=== PATIENT | male | born 1935 | race Caucasian/White ===

== ENCOUNTER → 2016-05-22 | Outpatient (CLI) | payer MEDICARE ==
[2016-05-22 12:12] LABS: Blood Urea Nitrogen 20 mg/dL (9-20); Non-African American GFR(MDRD) >60 (>60 ml/min/1.73 sqM)
--- NOTE | 2016-05-22 13:32 | CT ---
EXAMINATION TYPE: CT abdomen pelvis w con DATE OF EXAM: 05/22/2016 12:49 PM COMPARISON: CT abdomen pelvis March 15, 2015. PET/CT June 05, 2015. Nuclear medicine whole body bone scan April 24, 2016. HISTORY: Lower abdominal pain. History of prostate and colon cancer. CT DLP: 1051.60 mGycm, Automated Exposure Control for Dose Reduction was Utilized. CONTRAST: CT scan of the abdomen and pelvis is performed with oral and with IV Contrast, patient injected with 100 mL of Omnipaque 300. FINDINGS: LUNG BASES: Cardiomegaly with right sided pacemaker is redemonstrated. There is some scattered linear atelectasis and/or scarring in both lung bases. LIVER/GB: Cholecystectomy clips are redemonstrated. Liver is diffusely low dense raising concern for fatty infiltration unchanged from prior study. PANCREAS: No significant abnormality is seen. SPLEEN: No significant abnormality is seen. ADRENALS: No significant abnormality is seen. KIDNEYS: No significant abnormality is seen. BOWEL: A fixed moderate size hiatal hernia is again seen. The oral contrast reaches level of splenic flexure. There is no suspicious small or large bowel dilatation. Surgical changes from right-sided he micolectomy are noted. There are diverticula in the left and sigmoid colon. PROSTATE/SEMINAL VESICLES: Prostate gland is surgically absent. Surgical clips in the pelvis are rede monstrated. LYMPH NODES: There are more prominent but subcentimeter retroperitoneal lymph nodes. For reference aortocaval lymph node measures 1.2 x 0.8 cm on axial image 43. For reference there is lymph node at b ifurcation anterior to IVC measuring 1.3 x 0.7 cm noted new from prior study. There is right internal iliac lymph node measuring 1.8 x 1.2 cm noted. There is right external iliac node measuring 1.4 x 1. 1 cm noted. There are prominent but subcentimeter groin lymph nodes seen bilaterally. OSSEOUS STRUCTURES: Levoconvex scoliosis is redemonstrated. There is multilevel advanced spurring thr oughout the thoracolumbar spine. There is loss of normal lumbar lordosis. There are spur disc complex es effacing anterior thecal sac at several levels throughout the lumbar spine most prominent at L2-L3 and L4-L5 levels. OTHER: There is mild atherosclerotic change of the aorta and iliac branch vessels. Ectatic course to the abdominal aorta is redemonstrated. No greater than 3 cm aneurysmal change is seen. IMPRESSION: I'm concerned with developing slightly enlarged right-sided pelvic right-sided and border line retroperitoneal adenopathy worrisome for neoplastic recurrence. Correlate with PSA and lab value s. Repeat PET CT may be beneficial based on clinical correlation.
== END | disposition home or self-care (01) ==
LOC: RADCTMAIN 11:25
PROVIDERS: ATTEND Internal Medicine Hematology & Oncology
DX: Z03.89 Encounter for observation for other suspected diseases and conditions ruled out (principal); C18.9 Malignant neoplasm of colon, unspecified; R10.84 Generalized abdominal pain; R59.0 Localized enlarged lymph nodes
CPT/HCPCS: 82565; 84520; 74177; 36415; Q9967

== ENCOUNTER 2016-08-17 21:34 | Inpatient (IN) | payer MEDICARE ==
[2016-08-17] MEDS ORDERED: SODIUM CHLORIDE 0.9% 500 ML BAG ONE (21:44)
[2016-08-17 22:21] LABS: Basophils % (A) 0 %; CH 31.2; CHCM 33.5; Eosinophils % (A) 0 %; HCT 43.9 % (39.0-53.0); HDW 2.79; HGB 14.3 gm/dL (13.0-17.5); Luc # (Auto) 0.24; Luc % (Auto) 2; Lymphocytes % (A) 16 %; MCH 30.5 pg (25.0-35.0); MCHC 32.6 g/dL (31.0-37.0); MCV 93.5 fL (80.0-100.0); Mean Platelet Volume 6.9; Monocytes # (A) 0.5 k/uL (0-1.0); Monocytes % (A) 4 %; Neutrophils # (A) 9.8 k/uL (1.3-7.7); Neutrophils % (A) 78 %; RDW 14.8 % (11.5-15.5); WBC 12.5 k/uL (3.8-10.6); WBC (Perox) 12.31
[2016-08-17 22:30] LABS: ALT 60 U/L (21-72); AST 32 U/L (17-59); Alcohol <10 mg/dL; Alkaline Phosphatase 64 U/L (38-126); Anion Gap 12 mmol/L; Blood Urea Nitrogen 36 mg/dL (9-20); Calcium 9.7 mg/dL (8.4-10.2); Carbon Dioxide 30 mmol/L (22-30); Chloride 96 mmol/L (98-107); Glucose 175 mg/dL (74-99); INR 1.1 (<1.1); Magnesium 2.2 mg/dL (1.6-2.3); Non-African American GFR(MDRD) >60 (>60 ml/min/1.73 sqM); Potassium 4.2 mmol/L (3.5-5.1); Prothrombin Time 10.6 sec (9.0-12.0); Sodium 138 mmol/L (137-145); Total Bilirubin 0.5 mg/dL (0.2-1.3); Total Protein 7.4 g/dL (6.3-8.2)
[2016-08-17 22:44] LABS: Creatine Kinase 23 U/L (55-170)
[2016-08-17 22:57] LABS: Creatine Kinase MB 0.8 ng/mL (0.0-2.4); Troponin I <0.012 ng/mL (0.000-0.034)
[2016-08-18 05:34] VITALS: BMI 28.3
[2016-08-18] MEDS: LEVOTHYROXINE 100 MCG TAB PO SCH (06:30)
[2016-08-18] MEDS: SODIUM CHLORIDE 0.9% 1,000 ML IV SCH ×2 (06:30→12:46)
[2016-08-18 06:31] LABS: INR 1.1 (<1.1); Partial Thromboplastin Time 23.2 sec (22.0-30.0); Prothrombin Time 10.7 sec (9.0-12.0)
[2016-08-18 07:02] LABS: Appearance,Urine Clear (Clear); Bilirubin,Urine Negative (Negative); Glucose,Urine (UA) Negative (Negative); Ketones,Urine Negative (Negative); Leukocyte Esterase,Urine Negative (Negative); Nitrite,Urine Negative (Negative); Particle Count 174; Protein,Urine Negative (Negative); UA Billing (MACRO vs. MICRO) CHEM; Urobilinogen,Urine <2.0 mg/dL (<2.0)
[2016-08-18 07:35] LABS: Glucose,Whole Blood 142 mg/dL (75-99)
[2016-08-18] MEDS: GLIMEPIRIDE 4 MG TAB PO SCH (08:15)
[2016-08-18] MEDS: ASPIRIN 325 MG TAB PO SCH (08:53)
--- NOTE | 2016-08-18 09:13 | US ---
EXAMINATION TYPE: US carotid duplex BILAT DATE OF EXAM: 08/18/2016 8:02 AM COMPARISON: NONE CLINICAL HISTORY: Syncope. EXAM MEASUREMENTS: RIGHT: Peak Systolic Velocity (PSV) cm/sec ----- Right CCA: 48.8 ----- Right ICA: 65.8 ----- Right ECA: 86.6 ICA/CCA ratio: 1.4 RIGHT: End Diastole cm/sec ----- Right CCA: 10.4 ----- Right ICA: 19.7 ----- Right ECA: 6.3 LEFT: Peak Systolic Velocity (PSV) cm/sec ----- Left CCA: 54.0 ----- Left ICA: 80.1 ----- Left ECA: 59.2 ICA/CCA ratio: 1.5 LEFT: End Diastole cm/sec ----- Left CCA: 16.5 ----- Left ICA: 36.1 ----- Left ECA: 7.6 VERTEBRALS (direction of flow): Right Vertebral: Antegrade Left Vertebral: Antegrade Calcified plaque left Proximal ICA IMPRESSION: I DO NOT SEE EVIDENCE OF A HEMODYNAMICALLY SIGNIFICANT STENOSIS IN EITHER CAROTID SYSTEM. Criteria for Assigning % of Stenosis / Diameter reduction (Estimation based on the indirect measurements of the internal carotid artery velocities (ICA PSV). 1. Normal (no stenosis)=ICA PSV < 125 cm/s: ratio < 2.0: ICA EDV<40 cm/s. 2. Less than 50% stenosis=ICA PSV < 125 cm/s: ratio < 2.0: ICA EDV<40 cm/s. 3. 50 to 69% stenosis=ICA PSV of 125 to 230 cm/s: ration 2.0 ? 4.0: ICA EDV 40-100 cm/s. 4. Greater than 70% stenosis to near occlusion= ICA PSV > 230 cm/s: ratio > 4.0: ICA EDV > 100 cm/s. 5. Near occlusion= ICA PSV velocities may be low or undetectable: variable ratio and ICA EDV. 6. Total occlusion=unable to detect flow.
[2016-08-18] MEDS ORDERED: LEVOTHYROXINE 100 MCG TAB PO SCH (10:15)
--- NOTE | 2016-08-18 10:58 | CT ---
EXAMINATION TYPE: CT brain lisset wo con DATE OF EXAM: 08/18/2016 6:23 AM COMPARISON: 04/05/[address] scan. HISTORY: Fall; head injury. CT DLP: 1047.10 mGycm Automated exposure control for dose reduction was used. TECHNIQUE: CT scan of the head and cervical spine are performed without contrast. FINDINGS: There is diffuse cerebral cortical atrophy. There is hypodensity in the mid and posterior right internal capsule. There is no midline shift. There is no sign of intracranial hemorrhage. Ther e is atherosclerotic vascular calcification. Calvarium is intact. The cervical vertebra have normal alignment. There is moderate narrowing at C5-6 C6-7 disc spaces wit h spurring of the endplates. There is posterior endplate spurring with encroachment on the spinal can al at C6-7. Posterior elements are intact. Skull base is intact. I see no fracture. 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 No acute intracranial abnormal ity. Spondylosis in the lower cervical spine with evidence for C6-7 bony spinal stenosis.
--- NOTE | 2016-08-18 11:01 | XR ---
EXAMINATION TYPE: XR chest 2V DATE OF EXAM: 08/18/2016 6:24 AM COMPARISON: 04/05/2015 HISTORY: Pain after fall TECHNIQUE: Frontal and lateral views of the chest are obtained. FINDINGS: The heart is enlarged. There is a relative poor inspiration. There is no sign of pleural e ffusion or pneumothorax. There is no heart failure seen. There is a left axillary pacemaker with the lead tips in right ventricle. IMPRESSION: Cardiomegaly and poor inspiration. Inspiration is worse than last exam.
--- NOTE | 2016-08-18 11:03 | XR ---
EXAMINATION TYPE: XR pelvis AP view DATE OF EXAM: 08/18/2016 6:24 AM COMPARISON: None. HISTORY: Fall. Pain. TECHNIQUE: Single view FINDINGS: Pelvic ring is intact. Proximal femurs are intact. There are spondylotic changes in the lum bar spine. Sacroiliac joints are intact. There are numerous surgical clips in the pelvis. I see no fr acture. IMPRESSION: No acute abnormality of the pelvis.
[2016-08-18] MEDS: CHLORTHALIDONE 25 MG TAB PO SCH (11:19)
[2016-08-18] MEDS: CITALOPRAM HYDROBROMIDE 20 MG TAB PO SCH (11:19)
[2016-08-18] MEDS: ATENOLOL 50 MG TAB PO SCH (11:19)
[2016-08-18 11:49] LABS: Glucose,Whole Blood 136 mg/dL (75-99)
[2016-08-18] MEDS ORDERED: RX INFO: IV CONTRAST WAS GIVEN 1 EACH MISC MISCELLANE PRN (13:05)
--- NOTE | 2016-08-18 14:03 | FL ---
Modified barium swallow. HISTORY: Dysphagia. Modified barium swallow was performed with the department of speech pathology. The patient was prese nted with various consistencies of barium. There is transient penetration with the in and nectar thick barium. No evidence for aspiration. Full report is to follow from the department of speech pathology. Impression: Transient penetration.
[2016-08-18] MEDS: NYSTATIN 100,000 UNIT/ML SUSP 500,000 UNIT/5 ML CUP PO SCH ×3 (14:23→21:07)
[2016-08-18 16:47] LABS: Glucose,Whole Blood 142 mg/dL (75-99)
--- NOTE | 2016-08-18 17:30 | P.CNNES ---
History of Present Illness Consult date: 08/18/16 Requesting physician: Maggy Prajapati Reason for Consult: Ataxia History of Present Illness: Patient is a pleasant 80-year-old male who is being evaluated by the neurology service on 08/18/2016 per the request of Dr. Prajapati for ataxia. Reportedly, patient has had multiple episodes of weakness with fall over the last few weeks. Patient has history of prostate cancer, diabetes mellitus, hypertension, and gout. Patient and state that patient has had episodes of feeling weak with his legs giving out. states patient mentation has been declining over the last few weeks as well. Patient also reports increased episodes of urinary incontinence. On admission, WBCs were 12.5, RBCs 4.7, hemoglobin 14.3, hematocrit 43.9. On admission, patient was afebrile, pulse 74 , respirations 16, blood pressure 145/73, and O2 saturation 97% on room air. Chest x-ray was unremarkable except for cardiomegaly. CT of the brain showed cerebral atrophy and old right-sided internal capsule lacunar infarcts. CT of the cervical spine showed spondylosis in the lower cervical spine with evidence for C6-7 bony spinal stenosis. Carotid Doppler was negative for any hemodynamically significant stenosis. Patient had modified barium swallow done which showed no evidence for aspiration. At the time of my evaluation, patient is resting comfortably in bed and appears to be in no acute distress. Review of Systems REVIEW OF SYSTEMS: Otherwise unremarkable and noncontributory. Past Medical History Past Medical History: Asthma, Cancer, Diabetes Mellitus, Hypertension, Osteoarthritis (OA), Prostate Disorder, Respiratory Disorder, Thyroid Disorder Additional Past Medical History / Comment(s): hypothyroid, asbestos, colon cancer, gout, gets hormone shots History of Any Multi-Drug Resistant Organisms: None Reported Past Surgical History: Appendectomy, Cholecystectomy, Pacemaker, Prostate Surgery Additional Past Surgical History / Comment(s): penile surgery, cancers in remission Type of Cardiac Device: Unknown Device Placement Date:: unknown Past Psychological History: Anxiety Smoking Status: Former smoker Past Alcohol Use History: None Reported Past Drug Use History: None Reported - Past Family History Father Family Medical History: Myocardial Infarction ([place]) Mother Family Medical History: Cancer, Myocardial Infarction ([place]) Medications and Allergies Home Medications Medication Instructions Recorded Confirmed Type Atenolol/Chlorthalidone [Tenoretic 1 tab PO DAILY 09/19/13 08/17/16 History 50 Tablet] Citalopram Hydrobromide [CeleXA] 20 mg PO DAILY 09/19/13 08/17/16 History Levothyroxine Sodium [Synthroid] 200 mcg PO DAILY 09/19/13 08/17/16 History Allopurinol [Zyloprim] 300 mg PO DAILY 04/05/15 08/17/16 History Fish Oil/Dha/Epa [Fish Oil 1,200 1 cap PO DAILY 08/17/16 08/17/16 History mg Fish Oil] Glimepiride [Amaryl] 4 mg PO [id number] 08/17/16 08/17/16 History Allergies Allergy/AdvReac Type Severity Reaction Status Date / Time No Known Allergies Allergy Verified 08/17/16 22:04 Physical Examination - Vital Signs Vital Signs: Vital Signs Temp Pulse Resp BP Pulse Ox 08/18/16 15:00 97.7 F 58 L 18 178/86 95 08/18/16 13:12 157/79 08/18/16 08:00 18 08/18/16 07:00 97.4 F L 60 18 144/67 95 08/18/16 06:04 18 08/18/16 05:47 163/95 Intake and Output 08/18/16 08/18/16 08/18/16 06:59 14:59 22:59 Intake Total 200 1000 Output Total 400 400 Balance -200 600 Intake: Intake, IV Titration 1000 Amount Sodium Chloride 0.9% 1, 1000 000 ml @ 100 mls/hr IV . Q10H FOR[facility]LY [facility], 1928–1983 Rx#:[id number] Oral 200 Output: Urine 400 400 Other: Voiding Method Urinal Urinal # Voids 4 Weight 97.5 kg 97.5 kg Patient Weight 08/19/16 06:59 Weight 97.5 kg PHYSICAL EXAM: GENERAL APPEARANCE: Patient is a well-developed, male who appears to be in no acute distress. HEENT: Normocephalic, atraumatic, no facial asymmetry is seen. Neck is supple with no masses felt. CARDIOVASCULAR: Regular rate and rhythm. ABDOMEN: Nontender, nondistended. EXTREMITIES: Show no edema or clubbing. NEUROLOGICAL EXAM: Patient is awake, alert, and oriented 3. Speech and language are normal. Strength is 5-/5 in left upper extremity and 5-/5 in left lower extremity. Strength is 5/5 in the right upper and lower extremity.. No facial asymmetry on cranial nerve testing. Sensory exam to light touch is normal in all 4 extremities. No tremors or seizure-like activity noted. Results - Laboratory Findings CBC and BMP: 08/17/16 21:52 08/17/16 21:52 Abnormal Lab Findings: Abnormal Labs 08/18/16 08/18/16 08/18/16 07:29 11:37 16:44 POC Glucose (mg/dL) 142 H 136 H 142 H Assessment and Plan Plan: Impression: 1. Ataxia 2. History of prostate cancer 3. Diabetes mellitus 4. Hypertension 5. History of cardiac arrhythmia/pacemaker Recommendations: Patient does have symptoms consistent with possible right MCA distribution stroke. His computed tomography scan of the brain and carotid Dopplers were reviewed. Patient is unable to have an MRI due to pacemaker. I recommend continuing aspirin 325 mg by mouth daily. As previously mentioned, patient had modified barium swallow with no incidence of aspiration. I do recommend DVT prophylaxis. I will order fasting lipid panel, EEG and serum homocystine level. Continue neurological checks. I recommend physical therapy and occupational therapy to evaluate and treat. I will continue to follow with you. Further recommendations to follow. Thank you for allowing me to participate in the care of your patient. Feel free to call with any questions or concerns. I performed an examination of the patient and discussed the management with the ENVIRONMENTAL MANAGEMENT SPECIALIST. I have reviewed the ENVIRONMENTAL MANAGEMENT SPECIALIST notes and agree with the findings and plan of care.
[2016-08-18] MEDS: INSULIN LISPRO (humaLOG) 300 UNIT/3 ML VIAL SQ SCH ×2 (17:31→21:07)
--- NOTE | 2016-08-18 18:24 | P.HPIM ---
History of Present Illness H&P Date: 08/18/16 Chief Complaint: Impaired gait impaired balance This is an 80-year-old pleasant gentleman patient of Dr. Jean-Baptiste, he has underlying history of diabetes mellitus type 2, hypertension, prostate enlargement, colon cancer, hypothyroidism and sick sinus syndrome requiring pacemaker placement, was admitted from the emergency room after he had complained of impaired balance having difficulty of ambulating, this occurred when the patient was changing his pants, and had bumped his head in address her wall. Patient denies any syncope year has been weak all over, he complained of weakness speech, cough productive of minimal mucus, and also complains that he has difficulty of swallowing mainly bread. 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, spondylolisthesis in the lower cervical spine with evidence of C6-C7 spinal stenosis, otherwise no fractures no acute intracranial abnormality, carotid ultrasound failed to reveal any hemodynamically significant stenosis in either carotid system, urinalysis is negative TSH is 1.5 B12 low at 351 orthostatics will be performed patient was admitted secondary to impaired balance and ataxia with recurrent falls and will be seen in consultation by neurology Review of Systems Constitutional: Reports as per HPI, Denies anorexia, Denies chills, Denies chronic headaches, Denies chronic pain, Denies daytime sleepiness, Denies fatigue, Denies fever, Denies lethargy, Denies malaise, Denies night sweats, Denies poor appetite, Denies sweats, Denies weakness, Denies weight gain, Denies weight loss Ears, nose, mouth and throat: Reports as per HPI, Denies ant. neck pain, Denies bleeding gums, Denies dental pain, Denies dysphagia, Denies epistaxis, Denies headache, Denies hoarseness, Denies mouth pain, Denies nasal congestion, Denies nasal discharge, Denies neck fullness/pressure, Denies neck lump, Denies nose pain, Denies odynophagia, Denies post-nasal drip, Denies sinus pain, Denies sinus pressure, Denies swelling in mouth, Denies swelling in throat, Denies sore throat, Denies vertigo, Denies voice changes Cardiovascular: Reports as per HPI, Denies chest pain, Denies claudication, Denies decreased exercise tolerance, Denies dyspnea on exertion, Denies edema, Denies high blood pressure, Denies irregular heart beat, Denies leg edema, Denies lightheadedness, Denies orthopnea, Denies palpitations, Denies paroxysmal nocturnal dyspnea, Denies phlebitis, Denies rapid heart beat, Denies shortness of breath, Denies syncope Respiratory: Reports as per HPI, Denies congestion, Denies cough, Denies cough with sputum, Denies dyspnea, Denies excessive sputum, Denies hemoptysis, Denies home oxygen, Denies pain, Denies pain on inspiration, Denies pleurisy, Denies respiratory infections, Denies sleep apnea, Denies snoring, Denies wheezing Gastrointestinal: Reports as per HPI, Denies abdominal pain, Denies belching, Denies bloating, Denies BRBPR, Denies change in bowel habits, Denies coffee ground emesis, Denies constipation, Denies diarrhea, Denies dyspepsia, Denies early satiety, Denies excessive gas, Denies heartburn, Denies hematemesis, Denies hematochezia, Denies indigestion, Denies jaundice, Denies lactose intolerance, Denies loss of appetite, Denies melena, Denies nausea, Denies vomiting Genitourinary: Reports as per HPI, Denies decreased libido, Denies difficulties fathering child, Denies discharge, Denies dysuria, Denies erectile dysfunction, Denies flank pain, Denies genital pain, Denies genital sores, Denies hematuria, Denies impotence, Denies incontinence, Denies kidney stones, Denies nocturia, Denies polyuria, Denies testicular lump, Denies testicular pain, Denies urinary frequency, Denies urinary hesitancy, Denies urinary retention Musculoskeletal: Reports as per HPI, Denies arm numbness/tingling, Denies atrophy, Denies fractures, Denies frequent falls, Denies gait dysfunction, Denies hot joints, Denies leg numbness/tingling, Denies limitation of motion, Denies loss of height, Denies low back pain, Denies morning stiffness, Denies muscle cramps, Denies muscle weakness, Denies myalgias, Denies neck pain, Denies neck stiffness, Denies prior amputations, Denies redness of joints, Denies shooting arm pain, Denies shooting leg pain Integumentary: Reports as per HPI, Denies acne, Denies boils, Denies brittle nails, Denies change in hair/nails, Denies color changes, Denies darkening of skin, Denies depigmentation, Denies dryness, Denies foot/leg ulcers, Denies growths, Denies hirsutism, Denies lesions, Denies onychomycosis, Denies pruritus , Denies rash, Denies sores, Denies striae, Denies unusual bruising, Denies wounds Neurological: Reports as per HPI, Reports ataxia, Reports gait dysfunction, Reports lack of coordination, Reports motor disturbance, Denies aphasia, Denies balance difficulties, Denies burning pain, Denies change in mentation, Denies change in smell/taste, Denies change in speech, Denies confusion, Denies convulsions, Denies double vision, Denies head injury, Denies headaches, Denies hearing difficulties, Denies loss of vision, Denies memory loss, Denies migraines, Denies numbness, Denies paralysis, Denies paresthesias, Denies seizures, Denies sensory deficit, Denies spasticity, Denies syncope, Denies tic , Denies tingling, Denies transient paralysis, Denies tremors, Denies vertigo, Denies weakness, Denies visual changes Psychiatric: Reports as per HPI, Denies anhedonia, Denies anxiety, Denies anxiety attacks, Denies change in appetite, Denies change in libido, Denies change in sleep habits, Denies confusion, Denies depression, Denies difficulty concentrating, Denies disorientation, Denies hallucinations, Denies hopelessness , Denies hypersomnia, Denies insomnia, Denies irritability, Denies memory loss, Denies mood swings, Denies paranoia, Denies sadness/tearfulness, Denies sleep disturbances, Denies suicidal ideation Endocrine: Reports as per HPI, Denies cold intolerance, Denies deepening of the voice, Denies excessive sweating, Denies excessive thirst, Denies fatigue, Denies flushing, Denies heat intolerance, Denies high blood sugars, Denies increase in ring/shoe/hat size, Denies low blood sugars, Denies nocturia, Denies palpitations, Denies polydipsia, Denies polyphagia, Denies polyuria, Denies proptosis, Denies recent glucocorticoid use, Denies thyroid mass, Denies weight change Hematologic/Lymphatic: Reports as per HPI, Denies easy bleeding, Denies easy bruising, Denies lymphadenopathy, Denies lymphedema, Denies thrombophilia Allergic/Immunologic: Reports as per HPI, Denies allergic rhinitis, Denies anaphylaxis, Denies angioedema, Denies gluten intolerance, Denies persistent infections, Denies seasonal allergies, Denies urticaria, Denies wheezing Past Medical History Past Medical History: Asthma, Cancer, Diabetes Mellitus, Hypertension, Osteoarthritis (OA), Prostate Disorder, Respiratory Disorder, Thyroid Disorder Additional Past Medical History / Comment(s): hypothyroid, asbestos, colon cancer, gout, gets hormone shots History of Any Multi-Drug Resistant Organisms: None Reported Past Surgical History: Appendectomy, Cholecystectomy, Pacemaker, Prostate Surgery Additional Past Surgical History / Comment(s): penile surgery, cancers in remission Type of Cardiac Device: Unknown Device Placement Date:: unknown Past Psychological History: Anxiety Smoking Status: Former smoker Past Alcohol Use History: None Reported Past Drug Use History: None Reported - Past Family History Father Family Medical History: Myocardial Infarction (DC) Mother Family Medical History: Cancer, Myocardial Infarction (DC) Medications and Allergies Home Medications Medication Instructions Recorded Confirmed Type Atenolol/Chlorthalidone [Tenoretic 1 tab PO DAILY 09/19/13 08/17/16 History 50 Tablet] Citalopram Hydrobromide [CeleXA] 20 mg PO DAILY 09/19/13 08/17/16 History Levothyroxine Sodium [Synthroid] 200 mcg PO DAILY 09/19/13 08/17/16 History Allopurinol [Zyloprim] 300 mg PO DAILY 04/05/15 08/17/16 History Fish Oil/Dha/Epa [Fish Oil 1,200 1 cap PO DAILY 08/17/16 08/17/16 History mg Fish Oil] Glimepiride [Amaryl] 4 mg PO [id number]-[id number] 08/17/16 08/17/16 History Allergies Allergy/AdvReac Type Severity Reaction Status Date / Time No Known Allergies Allergy Verified 04/13/17 22:04 Physical Exam Vitals: Vital Signs Temp Pulse Resp BP Pulse Ox 08/18/16 15:00 97.7 F 58 L 18 178/86 95 08/18/16 13:12 157/79 08/18/16 08:00 18 08/18/16 07:00 97.4 F L 60 18 144/67 95 08/18/16 06:04 18 08/18/16 05:47 163/95 Intake and Output 08/18/16 08/18/16 08/18/16 06:59 14:59 22:59 Intake Total 200 1000 Output Total 400 400 Balance -200 600 Intake: Intake, IV Titration 1000 Amount Sodium Chloride 0.9% 1, 1000 000 ml @ 100 mls/hr IV . Q10H DANIELLE Rx#:[id number] Oral 200 Output: Urine 400 400 Other: Voiding Method Urinal Urinal # Voids 4 Weight 97.5 kg 97.5 kg Patient Weight 08/19/16 06:59 Weight 97.5 kg - Constitutional General appearance: average body habitus, cooperative, no acute distress - EENT Eyes: anicteric sclerae, EOMI, PERRLA, dentition normal, normal appearance ENT: NA/AT, normal oropharynx - Neck Neck: no lymphadenopathy, normal ROM, no other, no rigidity, no stridor, no thyromegaly Thyroid: bilateral: normal size - Respiratory Respiratory: bilateral: CTA, negative: diminished, dullness, rales - Cardiovascular Rhythm: regular Heart sounds: normal: S1, S2 Abnormal Heart Sounds: no systolic murmur, no diastolic murmur, no rub, no S3 Gallop, no S4 Gallop, no click, no other - Gastrointestinal General gastrointestinal: normal bowel sounds, soft - Integumentary Integumentary: decreased turgor, normal - Neurologic Neurologic: CNII-XII intact - Musculoskeletal Musculoskeletal: strength equal bilaterally (Impaired balance has difficulty in getting up from a sitting position) - Psychiatric Psychiatric: A&O x's 3, appropriate affect, intact judgment & insight Results CBC & Chem 7: 08/19/16 07:42 08/19/16 07:42 Labs: Abnormal Lab Results - Last 24 Hours (Table) 08/18/16 08/18/16 08/18/16 Range/Units 07:29 11:37 16:44 POC Glucose (mg/dL) 142 H 136 H 142 H (75-99) mg/dL Laboratory Results WBC 12.5 k/uL (3.8-10.6) H 08/17/16 21:52 RBC 4.70 m/uL (4.30-5.90) 08/17/16 21:52 Hgb 14.3 gm/dL (13.0-17.5) 08/17/16 21:52 Hct 43.9 % (39.0-53.0) 08/17/16 21:52 MCV 93.5 fL (80.0-100.0) 08/17/16 21:52 MCH 30.5 pg (25.0-35.0) 08/17/16 21:52 MCHC 32.6 g/dL (31.0-37.0) 08/17/16 21:52 RDW 14.8 % (11.5-15.5) 08/17/16 21:52 Plt Count 284 k/uL (150-450) 08/17/16 21:52 Neutrophils % 78 % 08/17/16 21:52 Lymphocytes % 16 % 08/17/16 21:52 Monocytes % 4 % 08/17/16 21:52 Eosinophils % 0 % 08/17/16 21:52 Basophils % 0 % 08/17/16 21:52 Neutrophils # 9.8 k/uL (1.3-7.7) H 08/17/16 21:52 Lymphocytes # 2.0 k/uL (1.0-4.8) 08/17/16 21:52 Monocytes # 0.5 k/uL (0-1.0) 08/17/16 21:52 Eosinophils # 0.0 k/uL (0-0.7) 08/17/16 21:52 Basophils # 0.0 k/uL (0-0.2) 08/17/16 21:52 PT 10.7 sec (9.0-12.0) 08/18/16 01:00 INR 1.1 (<1.1) 08/18/16 01:00 APTT 23.2 sec (22.0-30.0) 08/18/16 01:00 Sodium 138 mmol/L (137-145) 08/17/16 21:52 Potassium 4.2 mmol/L (3.5-5.1) 08/17/16 21:52 Chloride 96 mmol/L (98-107) L 08/17/16 21:52 Carbon Dioxide 30 mmol/L (22-30) 08/17/16 21:52 Anion Gap 12 mmol/L 08/17/16 21:52 BUN 36 mg/dL (9-20) H 08/17/16 21:52 Creatinine 0.93 mg/dL (0.66-1.25) 08/17/16 21:52 Est GFR (MDRD) Af Amer >60 (>60 ml/min/1.73 sqM) 08/17/16 21:52 Est GFR (MDRD) Non-Af >60 (>60 ml/min/1.73 sqM) 08/17/16 21:52 Glucose 175 mg/dL (74-99) H 08/17/16 21:52 POC Glucose (mg/dL) 142 mg/dL (75-99) H 08/18/16 16:44 POC Glu [employer]ging [employer] ID Lori Davis 08/18/16 16:44 Calcium 9.7 mg/dL (8.4-10.2) 08/17/16 21:52 Magnesium 2.2 mg/dL (1.6-2.3) 08/17/16 21:52 Total Bilirubin 0.5 mg/dL (0.2-1.3) 08/17/16 21:52 AST 32 U/L (17-59) 08/17/16 21:52 ALT 60 U/L (21-72) 08/17/16 21:52 Alkaline Phosphatase 64 U/L (38-126) 08/17/16 21:52 Total Creatine Kinase 23 U/L (55-170) L 08/17/16 21:52 CK-MB (CK-2) 0.8 ng/mL (0.0-2.4) 08/17/16 21:52 CK-MB (CK-2) Rel Index 3.5 08/17/16 21:52 Troponin I <0.012 ng/mL (0.000-0.034) 08/17/16 21:52 Total Protein 7.4 g/dL (6.3-8.2) 08/17/16 21:52 Albumin 4.1 g/dL (3.5-5.0) 08/17/16 21:52 Vitamin B12 351 pg/mL 08/18/16 01:00 TSH 1.520 mIU/L (0.465-4.680) 08/18/16 01:00 Urine Color Light Yellow 08/17/16 23:05 Urine Appearance Clear (Clear) 08/17/16 23:05 Urine pH 7.0 (5.0-8.0) 08/17/16 23:05 Ur Specific [place] 1.010 (1.001-1.035) 08/17/16 23:05 Urine Protein Negative (Negative) 08/17/16 23:05 Urine Glucose (UA) Negative (Negative) 08/17/16 23:05 Urine Ketones Negative (Negative) 08/17/16 23:05 Urine Blood Negative (Negative) 08/17/16 23:05 Urine Nitrite Negative (Negative) 08/17/16 23:05 Urine Bilirubin Negative (Negative) 08/17/16 23:05 Urine Urobilinogen <2.0 mg/dL (<2.0) 08/17/16 23:05 Ur Leukocyte Esterase Negative (Negative) 08/17/16 23:05 Serum Alcohol <10 mg/dL 08/17/16 21:52 Blood Type A Positive 08/17/16 21:52 Blood Type Recheck No 08/17/16 21:52 Antibody Screen NEGATIVE 08/17/16 21:52 Spec Expiration Date 08/20/2016235108/17/16 21:52 Thrombosis Risk Factor Assmnt - DVT/VTE Prophylaxis DVT/VTE Prophylaxis: Pharmacologic Prophylaxis ordered - Choose All That Apply Any of the Below Risk Factors Present?: Yes Each Factor Represents 1 point: Obesity (BMI >25) Other Risk Factors: Yes Each Risk Factor Represents 3 Points: Age 75 years or older Thrombosis Risk Factor Assessment Total Risk Factor Score: 4 Thrombosis Risk Factor Assessment Level: Moderate Risk Assessment and Plan Plan: 1. Impaired balance with ataxia, cannot rule out braistem CVA, patient would be evaluated by neurology, unable to obtain MRI of the brain secondary to pre- existing pacemaker unknown type, he had an original CT of the brain that failed to reveal any ventriculomegaly, no acute CVA, and no cervical and skull fractures, no bleed patient would be on aspirin, neuro checks, orthostatic hypotension, and thyroid function test. Patient is on aspirin, carotid Dopplers showed no hemodynamically significant stenosis 2. Diabetes mellitus type 2 on glimepiride, monitor for hypoglycemia, Accu- Cheks before meals and at bedtime 3. Known history of colon cancer, unknown DVT 4. Sick sinus syndrome on a pacemaker follows by cardiology 5. Dysphagia to bread, patient would be seeing speech eval with modified barium and swallow eval, 6. Hypertension on Tenormin and chlorthalidone no changes made orthostatics will be obtained 7. Asymptomatic gout on allopurinol 8. Asthma without any current exacerbation 9. Previous CVA 2 years ago unknown residual deficits 10. Hypothyroidism on levothyroxine 11. Oral darian on nystatin oral 4 times a day 12. Anxiety stable 13. GI prophylaxis and DVT prophylaxis Lovenox Pepcid Impaired balance and recurrent falls patient will be seeing therapy might need skilled rehabilitation inpatient against home
[2016-08-18] MEDS: ENOXAPARIN 40 MG/0.4 ML SYRINGE SQ SCH (19:09)
[2016-08-18 21:01] LABS: Hemoglobin A1C 7.1 % (4.2-6.1)
[2016-08-18 21:24] LABS: Glucose,Whole Blood 141 mg/dL (75-99)
[2016-08-19] MEDS: SODIUM CHLORIDE 0.9% 1,000 ML IV SCH ×2 (04:21→13:02)
[2016-08-19] MEDS: LEVOTHYROXINE 100 MCG TAB PO SCH ×2 (06:06→08:22)
[2016-08-19 06:53] LABS: Glucose,Whole Blood 145 mg/dL (75-99)
[2016-08-19] MEDS ORDERED: GLIMEPIRIDE 4 MG TAB PO SCH (07:30)
[2016-08-19 07:44] VITALS: BP 148/85; PULSE 40; RESP 19; TEMP 97
[2016-08-19 08:14] LABS: CH 31.1; CHCM 32.9; HCT 47.8 % (39.0-53.0); HDW 2.75; HGB 15.4 gm/dL (13.0-17.5); MCH 30.6 pg (25.0-35.0); MCHC 32.2 g/dL (31.0-37.0); MCV 94.9 fL (80.0-100.0); Mean Platelet Volume 6.8; RBC 5.03 m/uL (4.30-5.90); RDW 14.6 % (11.5-15.5); WBC 10.5 k/uL (3.8-10.6)
[2016-08-19] MEDS: ASPIRIN 325 MG TAB PO SCH (08:22)
[2016-08-19] MEDS: GLIMEPIRIDE 4 MG TAB PO SCH (08:22)
[2016-08-19] MEDS: INSULIN LISPRO (humaLOG) 300 UNIT/3 ML VIAL SQ SCH (08:22)
[2016-08-19] MEDS: ATENOLOL 50 MG TAB PO SCH (08:22)
[2016-08-19] MEDS: NYSTATIN 100,000 UNIT/ML SUSP 500,000 UNIT/5 ML CUP PO SCH (08:23)
[2016-08-19] MEDS: CHLORTHALIDONE 25 MG TAB PO SCH (08:23)
[2016-08-19] MEDS: CITALOPRAM HYDROBROMIDE 20 MG TAB PO SCH (08:23)
[2016-08-19] MEDS: ENOXAPARIN 40 MG/0.4 ML SYRINGE SQ SCH (08:23)
[2016-08-19 08:28] LABS: Anion Gap 12 mmol/L; Blood Urea Nitrogen 24 mg/dL (9-20); Calcium 9.8 mg/dL (8.4-10.2); Carbon Dioxide 29 mmol/L (22-30); Chloride 100 mmol/L (98-107); Cholesterol 231 mg/dL (<200); Glucose 137 mg/dL (74-99); HDL Cholesterol 61 mg/dL (40-60); Potassium 4.3 mmol/L (3.5-5.1); Sodium 141 mmol/L (137-145); Triglycerides 232 mg/dL (<150)
[2016-08-19 08:39] LABS: Non-African American GFR(MDRD) >60 (>60 ml/min/1.73 sqM)
[2016-08-19] MEDS ORDERED: NON-FORMULARY DRUG (Fish Oil/Dha/Epa [Fish Oil 1,200 Mg Fish Oil] 1 CAP) PO SCH (09:00)
[2016-08-19] MEDS ORDERED: ALLOPURINOL 300 MG TAB PO SCH (09:00)
--- NOTE | 2016-08-19 09:56 | CT ---
EXAMINATION TYPE: CT brain wo/w con DATE OF EXAM: 08/19/2016 9:12 AM COMPARISON: Prior head CT 17 August 2016 HISTORY: Frequent falls CT DLP: 2035.8 mGycm Automated exposure control for dose reduction was used. CONTRAST: CT scan of the head is performed without and with IV Contrast, patient injected with 100 mL of Omnipa que 300. FINDINGS: Previously identified low attenuation in the basal ganglia, internal capsule on the right again noted . There is no abnormal enhancement. No mass effect. No hemorrhage or hydrocephalus. Periventricular w gus matter low-attenuation compatible with probable chronic small vessel ischemia is noted. Calvariu m is intact. IMPRESSION: Stable exam, possible subacute ischemic change within the basal ganglia, internal capsule on the righ t.
[2016-08-19] MEDS ORDERED: CYANOCOBALAMIN 500 MCG TAB PO SCH (12:00)
--- NOTE | 2016-08-21 23:32 | EEG ---
DATE OF SERVICE: 08/19/2016 REASON FOR TESTING: Altered mental status and stroke. DESCRIPTION OF THE PROCEDURE: This EEG was performed using a 21-channel digital electroencephalograph, following international 10-20 system. DESCRIPTION OF THE RECORDING: From the beginning of the tracing, and with the patient's eyes closed, the background rhythm was mostly consisting of 9 Hz alpha frequency in the posterior occipital leads. No obvious asymmetry is seen. Occasional movement artifacts are seen. Photic stimulation was performed with a good driving response seen. No pathological waves were elicited. Hyperventilation was not performed. The patient remains awake throughout the tracing. No epileptiform discharges were seen. Muscle artifacts are noticed near the end of the tracing. No epileptiform discharges were seen. The muscle artifacts were mainly seen on the right side. His EKG lead showed a regular rate and rhythm. INTERPRETATION: This awake EEG can be considered within normal limits. No epileptiform discharges were seen. The absence of epileptiform discharges does not rule out the diagnosis of epilepsy; therefore clinical correlation is recommended.
--- NOTE | 2016-08-29 15:03 | P.DS ---
Providers Date of admission: 08/18/16 04:34 Expected date of discharge: 08/19/16 Attending physician: Maggy Prajapati Consults: 08/18/16 08:00 Consult Physician Routine Consulting Provider: Nieves Mejia Consult Reason/Comments: Ataxia Do you want consulting provider notified?: Yes, Notify in am Primary care physician: [facility] Course: This is an 80-year-old pleasant gentleman patient of Dr. Jean-Baptiste, he has underlying history of diabetes mellitus type 2, hypertension, prostate enlargement, colon cancer, hypothyroidism and sick sinus syndrome requiring pacemaker placement, was admitted from the emergency room after he had complained of impaired balance having difficulty of ambulating, this occurred when the patient was changing his pants, and had bumped his head in address her wall. Patient denies any syncope year has been weak all over, he complained of weakness speech, cough productive of minimal mucus, and also complains that he has difficulty of swallowing mainly bread. 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, spondylolisthesis in the lower cervical spine with evidence of C6-C7 spinal stenosis, otherwise no fractures no acute intracranial abnormality, carotid ultrasound failed to reveal any hemodynamically significant stenosis in either carotid system, urinalysis is negative TSH is 1.5 B12 low at 351 orthostatics will be performed patient was admitted secondary to impaired balance and ataxia with recurrent falls and will be seen in consultation by neurology 08/19: EEG was within normal limits. CAT scan of the brain showed possible subacute ischemic change within the basal ganglia, internal capsule on the right. Patient was seen by neurology with recommendations for aspirin 325 mg. He did undergo modified barium swallow with no incidence of aspiration. PT recommended home care or subacute rehab. Patient was discharged home in stable condition. Discharge diagnoses: 1. Right MCA distribution stroke 2. Diabetes mellitus type 2 3. Known history of colon cancer 4. Sick sinus syndrome on a pacemaker 5. Dysphagia to bread 6. Hypertension 7. Asymptomatic gout 8. Asthma mild intermittent 9. Previous CVA 2 years ago 10. Hypothyroidism 11. Oral darian 12. Anxiety generalized Discharge plan: Home Impression and plan of care have been directed as dictated by the signing physician. Abbey Gomez nurse practitioner acting as scribe for signing physician. Cc: Dr. Lei Jean-Baptiste Patient Condition at Discharge: Good Plan - Discharge Summary Discharge Medication List Atenolol/Chlorthalidone [Tenoretic 50 Tablet] 1 tab PO DAILY 09/19/13 [History] Citalopram Hydrobromide [CeleXA] 20 mg PO DAILY 09/19/13 [History] Levothyroxine Sodium [Synthroid] 200 mcg PO DAILY 09/19/13 [History] Allopurinol [Zyloprim] 300 mg PO DAILY 04/05/15 [History] Fish Oil/Dha/Epa [Fish Oil 1,200 mg Fish Oil] 1 cap PO DAILY 08/17/16 [History] Glimepiride [Amaryl] 4 mg PO AC-BRKFST 08/17/16 [History] Aspirin 81 mg PO DAILY chew 08/22/16 [Rx] Atorvastatin [Lipitor] 80 mg PO HS #30 tab 08/22/16 [Rx] Clopidogrel [Plavix] 75 mg PO DAILY #30 tab 08/22/16 [Rx] Multivitamins, Thera [Multivitamin (formulary)] 1 tab PO DAILY 08/28/16 [History ] Follow up Appointment(s)/Referral(s): Nieves Mejia MD [STAFF PHYSICIAN] - 1 Week Lei Jean-Baptiste DO [Primary Care Provider] - 1 Week Discharge Disposition: HOME SELF-CARE
== END 2016-08-19 13:24 | disposition home or self-care (01) | DRG 65 ==
LOC: EC 21:34 → 4MS4W 08-18 04:34
PROVIDERS: ADMIT Family Medicine; ATTEND Family Medicine
DX: I63.9 Cerebral infarction, unspecified (principal); B37.0 Candidal stomatitis; I11.9 Hypertensive heart disease without heart failure; I49.5 Sick sinus syndrome; M48.02 Spinal stenosis, cervical region; R13.10 Dysphagia, unspecified; E11.9 Type 2 diabetes mellitus without complications; R27.0 Ataxia, unspecified; E03.9 Hypothyroidism, unspecified; F41.9 Anxiety disorder, unspecified; I51.7 Cardiomegaly; J45.909 Unspecified asthma, uncomplicated; M10.9 Gout, unspecified; M47.9 Spondylosis, unspecified; N40.0 Benign prostatic hyperplasia without lower urinary tract symptoms; R29.6 Repeated falls; R32 Unspecified urinary incontinence; M19.90 Unspecified osteoarthritis, unspecified site; M43.12 Spondylolisthesis, cervical region; Z79.84 Long term (current) use of oral hypoglycemic drugs; Z79.899 Other long term (current) drug therapy; Z95.0 Presence of cardiac pacemaker; Z87.891 Personal history of nicotine dependence; Z85.46 Personal history of malignant neoplasm of prostate; Z85.038 Personal history of other malignant neoplasm of large intestine; Z82.49 Family history of ischemic heart disease and other diseases of the circulatory system
CPT/HCPCS: 36415; 70450; 70470; 70496; 70498; 71010; 71020; 72125; 72170; 74230; 80048; 80053; 80061; 80320; 81003; 82550; 82553; 82607; 83036; 83090; 83735; 84443; 84484; 84550; 85025; 85027; 85610; 85730; 86850; 86900; 86901; 87086; 93005; 93880; 95819; 96360; 96361; 99285; 99291

== ENCOUNTER 2016-08-19 15:10 | Inpatient (IN) | payer MEDICARE ==
[2016-08-19] MEDS ORDERED: SODIUM CHLORIDE 0.9% 1,000 ML IV STA (15:35)
[2016-08-19] MEDS ORDERED: RX INFO: IV CONTRAST WAS GIVEN 1 EACH MISC MISCELLANE PRN ×2 (15:35→16:27)
--- NOTE | 2016-08-19 15:41 | ED ---
General Adult HPI - General Chief complaint: Weakness Stated complaint: Revisit lt facial droop Time Seen by Provider: 08/19/16 15:21 Source: patient, RN notes reviewed Mode of arrival: wheelchair Limitations: no limitations - History of Present Illness Initial comments: Patient is a pleasant 80-year-old male presenting to the emergency department with weakness. Patient was just discharged from the hospital. Patient has been having balance problems and questionable left-sided problems. Patient had no problems when he left the hospital. This was around 2:00. At 2:30 patient was found to have weakness and slow to respond. This was when they tried to get out of the vehicle. Family did also notice a facial droop. Family states they did not notice facial droop earlier. Patient denies any confusion. No trauma. Patient was unable to have MRI during recent hospitalization secondary to pacemaker. - Related Data Home Medications Medication Instructions Recorded Confirmed Atenolol/Chlorthalidone [Tenoretic 1 tab PO DAILY 09/19/13 08/19/16 50 Tablet] Citalopram Hydrobromide [CeleXA] 20 mg PO DAILY 09/19/13 08/19/16 Levothyroxine Sodium [Synthroid] 200 mcg PO DAILY 09/19/13 08/19/16 Allopurinol [Zyloprim] 300 mg PO DAILY 04/05/15 08/19/16 Fish Oil/Dha/Epa [Fish Oil 1,200 1 cap PO DAILY 08/17/16 08/19/16 mg Fish Oil] Glimepiride [Amaryl] 4 mg PO AC-BRKFST 08/17/16 08/19/16 Allergies Allergy/AdvReac Type Severity Reaction Status Date / Time No Known Allergies Allergy Verified 08/19/16 15:17 Review of Systems ROS Statement: Those systems with pertinent positive or pertinent negative responses have been documented in the HPI. ROS Other: All systems not noted in ROS Statement are negative. Constitutional: Denies: fever Eyes: Denies: eye pain ENT: Denies: ear pain Respiratory: Denies: cough Cardiovascular: Denies: chest pain Endocrine: Denies: fatigue Gastrointestinal: Denies: abdominal pain Genitourinary: Denies: dysuria Musculoskeletal: Denies: back pain Skin: Denies: rash Neurological: Reports: weakness. Denies: headache, numbness, paresthesias, confusion Past Medical History Past Medical History: Asthma, Cancer, Diabetes Mellitus, Hypertension, Osteoarthritis (OA), Prostate Disorder, Respiratory Disorder, Thyroid Disorder Additional Past Medical History / Comment(s): hypothyroid, asbestos, colon cancer, gout, gets hormone shots History of Any Multi-Drug Resistant Organisms: None Reported Past Surgical History: Appendectomy, Cholecystectomy, Pacemaker, Prostate Surgery Additional Past Surgical History / Comment(s): penile surgery, cancers in remission Type of Cardiac Device: Unknown Device Placement Date:: unknown Past Psychological History: Anxiety Smoking Status: Former smoker Past Alcohol Use History: None Reported Past Drug Use History: None Reported - Past Family History Father Family Medical History: Myocardial Infarction (CT) Mother Family Medical History: Cancer, Myocardial Infarction (CT) General Exam Limitations: no limitations General appearance: alert, in no apparent distress Head exam: Present: atraumatic, normocephalic Eye exam: Present: normal appearance, PERRL, EOMI. Absent: nystagmus ENT exam: Present: normal oropharynx Neck exam: Present: normal inspection Respiratory exam: Present: normal lung sounds bilaterally Cardiovascular Exam: Present: irregular rhythm GI/Abdominal exam: Present: soft. Absent: tenderness Extremities exam: Present: normal inspection Neurological exam: Present: alert, oriented X3 Expanded Neurological exam: Present: other (Left facial droop that spares the forehead) Patient oriented to: Present: person, place, time Speech: Present: fluid speech Cranial nerves: Facial Sensation: Normal Cerebellar function: Finger to Nose: Abnormal Left (Slow and difficult on the left however patient is able to touch his nose) Sensory exam: Upper Extremity Light Touch: Normal, Lower Extremity Light Touch: Normal Motor strength exam: RUE: 5, LUE: 4, RLE: 5, LLE: 4 Eye Response: (4) open spontaneously Motor Response: (6) obeys commands Verbal Response: (5) oriented Psychiatric exam: Present: normal affect, normal mood Skin exam: Absent: rash Course Vital Signs 08/19/16 08/19/16 08/19/16 15:19 15:34 15:49 Temperature 97.8 F Pulse Rate 62 64 60 Respiratory 18 Rate Blood Pressure 145/85 154/77 151/84 O2 Sat by Pulse 94 L 94 L 96 Oximetry 08/19/16 16:04 Temperature Pulse Rate 60 Respiratory Rate Blood Pressure 150/90 O2 Sat by Pulse 99 Oximetry - Reevaluation(s) Reevaluation #1: 08/19/16 15:38 ) Has been called. Page has been placed for Dr. Mejia and Dr. Prajapati. 08/19/16 15:52 Case was discussed in detail with Dr. Mejia who states if patient can have 1.5 T magnet MRI to transfer the patient. Family states patient is unable to have any MRI with his pacemaker. Dr. Mejia say if this is the case and computed tomography scan is negative then he recommends aspirin administration. He will defer TPA to neuro interventional however does not feel he will be a candidate. NIH is 4. Case was also discussed in detail with Dr. Cody who did see the patient earlier today. He will admit and agrees with aspirin. Patient did have computed tomography scan and CT with contrast earlier today. Discussion with radiology regarding repeat contrast and Dr. Hahn recommends not to repeat contrast at this time. 08/19/16 16:21 We are still trying to get a hold of the neuro interventionalist. 08/19/16 16:27 Case was discussed in detail with neuro interventionalist Dr. Kc who agreed patient was high risk for TPA and does not recommended. He does want CT angio done despite CT with contrast done earlier. He is concern for possible large vessel occlusion. EKG Findings - EKG Comments: EKG Findings:: Paced rhythm and a bigeminy pattern at 69. QRS 208. QT 506. QTc 542. Left axis. Diffuse Q waves. Nonspecific ST-T. Wide QRS complex. Medical Decision Making - Lab Data Result diagrams: 08/19/16 15:40 08/19/16 15:40 Lab Results 08/19/16 08/19/16 08/19/16 Range/Units 15:40 15:40 15:40 WBC 12.7 H (3.8-10.6) k/uL RBC 5.06 (4.30-5.90) m/uL Hgb 15.4 (13.0-17.5) gm/dL Hct 47.5 (39.0-53.0) % MCV 93.8 (80.0-100.0) fL MCH 30.4 (25.0-35.0) pg MCHC 32.4 (31.0-37.0) g/dL RDW 14.5 (11.5-15.5) % Plt Count 288 (150-450) k/uL Neutrophils % 74 % Lymphocytes % 17 % Monocytes % 6 % Eosinophils % 0 % Basophils % 0 % Neutrophils # 9.3 H (1.3-7.7) k/uL Lymphocytes # 2.2 (1.0-4.8) k/uL Monocytes # 0.8 (0-1.0) k/uL Eosinophils # 0.0 (0-0.7) k/uL Basophils # 0.1 (0-0.2) k/uL PT (9.0-12.0) sec INR (<1.1) APTT (22.0-30.0) sec Sodium 138 (137-145) mmol/L Potassium 4.0 (3.5-5.1) mmol/L Chloride 99 (98-107) mmol/L Carbon Dioxide 27 (22-30) mmol/L Anion Gap 12 mmol/L BUN 37 H (9-20) mg/dL Creatinine 1.06 (0.66-1.25) mg/dL Est GFR (MDRD) Af Amer >60 (>60 ml/min/1.73 sqM) Est GFR (MDRD) Non-Af >60 (>60 ml/min/1.73 sqM) Glucose 142 H (74-99) mg/dL POC Glucose (mg/dL) (75-99) mg/dL POC Glu Animal Trapper ID Calcium 9.8 (8.4-10.2) mg/dL Total Bilirubin 0.7 (0.2-1.3) mg/dL AST 49 (17-59) U/L ALT 64 (21-72) U/L Alkaline Phosphatase 73 (38-126) U/L Total Creatine Kinase 23 L (55-170) U/L CK-MB (CK-2) 0.6 (0.0-2.4) ng/mL CK-MB (CK-2) Rel Index 2.6 Troponin I <0.012 (0.000-0.034) ng/mL Total Protein 7.5 (6.3-8.2) g/dL Albumin 4.1 (3.5-5.0) g/dL 08/19/16 08/19/16 Range/Units 15:40 15:59 WBC (3.8-10.6) k/uL RBC (4.30-5.90) m/uL Hgb (13.0-17.5) gm/dL Hct (39.0-53.0) % MCV (80.0-100.0) fL MCH (25.0-35.0) pg MCHC (31.0-37.0) g/dL RDW (11.5-15.5) % Plt Count (150-450) k/uL Neutrophils % % Lymphocytes % % Monocytes % % Eosinophils % % Basophils % % Neutrophils # (1.3-7.7) k/uL Lymphocytes # (1.0-4.8) k/uL Monocytes # (0-1.0) k/uL Eosinophils # (0-0.7) k/uL Basophils # (0-0.2) k/uL PT 11.2 (9.0-12.0) sec INR 1.1 (<1.1) APTT 24.3 (22.0-30.0) sec Sodium (137-145) mmol/L Potassium (3.5-5.1) mmol/L Chloride (98-107) mmol/L Carbon Dioxide (22-30) mmol/L Anion Gap mmol/L BUN (9-20) mg/dL Creatinine (0.66-1.25) mg/dL Est GFR (MDRD) Af Amer (>60 ml/min/1.73 sqM) Est GFR (MDRD) Non-Af (>60 ml/min/1.73 sqM) Glucose (74-99) mg/dL POC Glucose (mg/dL) 134 H (75-99) mg/dL POC Glu Animal Trapper ID [place]unsmore, Agnes Calcium (8.4-10.2) mg/dL Total Bilirubin (0.2-1.3) mg/dL AST (17-59) U/L ALT (21-72) U/L Alkaline Phosphatase (38-126) U/L Total Creatine Kinase (55-170) U/L CK-MB (CK-2) (0.0-2.4) ng/mL CK-MB (CK-2) Rel Index Troponin I (0.000-0.034) ng/mL Total Protein (6.3-8.2) g/dL Albumin (3.5-5.0) g/dL Critical Care Time Critical Care Time: Yes Total Critical Care Time: 32 Disposition Clinical Impression: CVA (cerebral vascular accident) Disposition: ADMITTED IP TO THIS HOSP Condition: Serious
[2016-08-19 16:01] LABS: Glucose,Whole Blood 134 mg/dL (75-99)
[2016-08-19 16:01] LABS: Basophils # (A) 0.1 k/uL (0-0.2); Basophils % (A) 0 %; CH 31.2; CHCM 33.4; Eosinophils % (A) 0 %; HCT 47.5 % (39.0-53.0); HDW 2.73; HGB 15.4 gm/dL (13.0-17.5); Luc # (Auto) 0.28; Luc % (Auto) 2; Lymphocytes # (A) 2.2 k/uL (1.0-4.8); Lymphocytes % (A) 17 %; MCH 30.4 pg (25.0-35.0); MCHC 32.4 g/dL (31.0-37.0); MCV 93.8 fL (80.0-100.0); Mean Platelet Volume 6.8; Monocytes # (A) 0.8 k/uL (0-1.0); Monocytes % (A) 6 %; Neutrophils # (A) 9.3 k/uL (1.3-7.7); Neutrophils % (A) 74 %; RBC 5.06 m/uL (4.30-5.90); RDW 14.5 % (11.5-15.5); WBC 12.7 k/uL (3.8-10.6); WBC (Perox) 13.26
[2016-08-19 16:07] LABS: ALT 64 U/L (21-72); AST 49 U/L (17-59); Alkaline Phosphatase 73 U/L (38-126); Anion Gap 12 mmol/L; Blood Urea Nitrogen 37 mg/dL (9-20); Calcium 9.8 mg/dL (8.4-10.2); Carbon Dioxide 27 mmol/L (22-30); Chloride 99 mmol/L (98-107); Glucose 142 mg/dL (74-99); INR 1.1 (<1.1); Non-African American GFR(MDRD) >60 (>60 ml/min/1.73 sqM); Partial Thromboplastin Time 24.3 sec (22.0-30.0); Prothrombin Time 11.2 sec (9.0-12.0); Sodium 138 mmol/L (137-145); Total Bilirubin 0.7 mg/dL (0.2-1.3); Total Protein 7.5 g/dL (6.3-8.2)
--- NOTE | 2016-08-19 16:10 | CT ---
EXAMINATION TYPE: CT brain wo con for TPA DATE OF EXAM: 08/19/2016 4:00 PM COMPARISON: Prior exam same date earlier time HISTORY: Patient poor historian. Patient family claims increasing facial droop and slurring of words . CT DLP: 1011.4 mGycm Automated exposure control for dose reduction was used. FINDINGS: Exam is stable. IMPRESSION: Probable subacute infarct as described on previous report. There is no hemorrhage or hydrocephalus.
[2016-08-19 16:16] LABS: Creatine Kinase 23 U/L (55-170)
[2016-08-19 16:29] LABS: Creatine Kinase MB 0.6 ng/mL (0.0-2.4); Troponin I <0.012 ng/mL (0.000-0.034)
[2016-08-19] MEDS ORDERED: ASPIRIN 325 MG TAB PO STA (16:32)
[2016-08-19] MEDS ORDERED: SODIUM CHLORIDE 0.9% 500 ML IV STA (16:33)
[2016-08-19] MEDS: ATORVASTATIN 80 MG TAB PO SCH ×2 (17:14→21:19)
--- NOTE | 2016-08-19 17:19 | CT ---
CT angiogram of the head and neck HISTORY: Weakness, right-sided facial droop Helical acquisition obtained from the thoracic aorta through the neck, three-dimensional reconstructi ons were performed on an alternate workstation, patient received 65 cc Omni [address] Shah. Thoracic aorta is patent. Common carotid, internal and external carotid arteries are patent significa nt stenosis. Vertebral arteries are patent, left vertebral artery is dominant. Proximal subclavian ar teries are patent. Cerebral vascular supply shows patent internal carotid arteries, there is no filling defect evident, right internal carotid artery somewhat diminished in size as compared to the left. A1 segment on the right is absent, no evident aneurysm formation0,: Mildly ectatic distal internal carotid artery on th e left. Cerebral vascular calcifications are present. IMPRESSION: Cerebral vascular atheromatous changes are present. No significant stenosis of the proxim al internal carotid arteries bilaterally.
--- NOTE | 2016-08-19 17:23 | XR ---
EXAMINATION TYPE: XR chest 1V portable DATE OF EXAM: 08/19/2016 4:59 PM COMPARISON: Prior chest x-ray 17 August 2016 HISTORY: Altered mental status TECHNIQUE: Single frontal view of the chest is obtained. FINDINGS: Pacemaker is stable. Patient is rotated. No pneumothorax or pleural effusion evident. Card iac mediastinal silhouette, pulmonary vascularity and luisana are within normal limits. Lung volumes emma ewhat improved. IMPRESSION: No acute process.
[2016-08-19] MEDS ORDERED: CLOPIDOGREL 75 MG TAB PO STA (18:12)
[2016-08-19 20:16] VITALS: BMI 28.3
[2016-08-19] MEDS: SODIUM CHLORIDE 0.9% 1,000 ML IV SCH (21:21)
[2016-08-19 21:25] LABS: Glucose,Whole Blood 186 mg/dL (75-99)
[2016-08-20 06:11] LABS: Glucose,Whole Blood 136 mg/dL (75-99)
[2016-08-20] MEDS: GLIMEPIRIDE 4 MG TAB PO SCH (06:36)
[2016-08-20] MEDS: INSULIN LISPRO (humaLOG) 300 UNIT/3 ML VIAL SQ SCH ×4 (06:36→20:36)
[2016-08-20] MEDS: SODIUM CHLORIDE 0.9% 1,000 ML IV SCH ×3 (06:42→20:42)
[2016-08-20] MEDS: ALLOPURINOL 300 MG TAB PO SCH (08:44)
[2016-08-20] MEDS: LEVOTHYROXINE 100 MCG TAB PO SCH (08:45)
[2016-08-20] MEDS: CITALOPRAM HYDROBROMIDE 20 MG TAB PO SCH (08:45)
[2016-08-20] MEDS: ATENOLOL 50 MG TAB PO SCH (08:45)
[2016-08-20] MEDS: CHLORTHALIDONE 25 MG TAB PO SCH (08:45)
[2016-08-20] MEDS: CLOPIDOGREL 75 MG TAB PO SCH (08:45)
[2016-08-20] MEDS ORDERED: NON-FORMULARY DRUG (Fish Oil/Dha/Epa [Fish Oil 1,200 Mg Fish Oil] 1 CAP) PO SCH (09:00)
[2016-08-20 11:51] LABS: Glucose,Whole Blood 138 mg/dL (75-99)
[2016-08-20 11:54] LABS: Hemoglobin A1C 6.9 % (4.2-6.1)
--- NOTE | 2016-08-20 12:31 | HP ---
DATE OF ADMISSION: 08/19/2016 CHIEF COMPLAINT: Left-sided weakness. This is an 80-year-old male who presented to the hospital recently with ataxia and weakness was evaluated during that hospital stay and felt that this was related to aging. Patient was discharged and went home. Upon arrival to home and 4 hours later, patient noticed to have left facial droop and left-sided weakness, brought to the emergency by his son-in-law. In the emergency department, discussion was between ER physician and Dr. Mejia from neurology who recommended to hold on any TPN given the improvement in the symptoms as patient had improvement in his left facial droop and left upper extremity strength. Patient CODE STATUS was verified and found to be DNR and did not want any invasive procedure. Patient was admitted to the floor with stable vital signs. Currently, the patient said that his symptoms has improved significantly. No major events reported by nursing staff. Family at the bedside and had multiple concerns and questions all addressed at the bedside. REVIEW OF SYSTEMS: All 14 systems reviewed and negative except as above. PAST MEDICAL HISTORY AND SURGICAL HISTORY: 1. Asthma. 2. Diabetes. 3. Hypertension. 4. Osteoarthritis. 5. Benign prostatic hypertrophy. 6. Hypothyroidism. 7. Gout. 8. Colon cancer. 9. Appendectomy. 10. Cholecystectomy. 11. Pacemaker. 12. Prostate surgery. 13. Penile surgery. 14. Anxiety. SOCIAL HISTORY: Patient is former smoker, no history of alcohol or drug abuse. HOME MEDICATIONS: 1. Atenolol. 2. Citalopram. 3. Levothyroxine. 4. Allopurinol. 5. Fish oil. 6. Amaryl. ALLERGIES: No known drug allergies. PHYSICAL EXAMINATION: VITAL SIGNS: Reviewed and stable. HEENT: Atraumatic, normocephalic. PERRLA. NECK: Supple, no masses. No thyromegaly. HEART: Normal S1, S2. ABDOMEN: Soft, no tenderness, positive bowel sounds in all 4 quadrants. EXTREMITIES: Lower extremity no edema. PSYCH: Alert and oriented x3. NEURO: Positive for left upper extremity weakness, 3 to 4 over 5 compared with the right arm, left lower extremity 2/5. Left facial droop, mild. LAB AND IMAGING: CBC showed normal finding except for white blood count 12.7. Chem-7 showed normal findings. Liver function tests within normal limit. CT angiography of the head showed atheromatous changes. No significant stenosis or to the proximal internal carotid arteries bilaterally. His CT of the brain showed probable subacute infarct without hemorrhage or hydrocephalus. ASSESSMENT AND PLAN: 1. Acute cerebrovascular accident. The patient had significant improvement in his symptoms. Was high risk for TPA per Dr. Mejia, ER physician and neuro crt Dr. Carlson. CT without evidence of any changes at this point. Patient risk factors will be modified and maximized. We will have patient on aspirin 325 mg daily will have Lipitor 80 mg daily and Plavix 75 mg daily. Plan discussed with the family and we would like to get PT, OT and consult physical medicine and rehab for discharge rehabilitation program. 2. Diabetes under fair control. Continue current regimen and have patient on insulin sliding scale. 3. Gout will continue on Lipitor. 4. Hypertension, under fair control. Goal less than 140/90. 5. Hyperlipidemia. We will continue statin. 6. Hypothyroidism. Will continue her Synthroid.
[2016-08-20] MEDS: ASPIRIN 325 MG TAB PO SCH (12:36)
--- NOTE | 2016-08-20 13:42 | P.CNNES ---
History of Present Illness Consult date: 08/20/16 Chief complaint: CVA History of Present Illness: Patient is a pleasant 80-year-old male who is being evaluated by the neurology service today 08/21/2016 per the request of Dr. Cody for CVA. Patient was recently seen by our service for CVA. Patient was discharged home and was later brought back to [facility] emergency room for further evaluation due to left facial droop and left-sided weakness. Patient's symptoms had resolved upon discharge however family states while getting him out of the car when they got him home his symptoms had recurred. Family noticed significant left facial droop with inability to control left upper extremity and weakness in the left lower extremity. Patient had CT angiogram of the head and neck which showed cerebral vascular atheromatous changes with no significant stenosis of the internal carotid arteries bilaterally. CT of the brain showed probable subacute infarct as described on previous report. No hemorrhage or hydrocephalus noted. Patient unable to have an MRI due to pacemaker. Patient's symptoms have greatly improved since admission. He continues to have mild left facial droop and mild left-sided weakness. Vital signs on admission, afebrile, pulse rate 69, blood pressure 169/79, and O2 saturation 94% on 2 L nasal cannula. At the time of my evaluation, patient's resting comfortably in bed and appears to be in no acute distress. Family is at the bedside. Review of Systems REVIEW OF SYSTEMS: Otherwise unremarkable and noncontributory. Past Medical History Past Medical History: Asthma, Cancer, Diabetes Mellitus, Hypertension, Osteoarthritis (OA), Prostate Disorder, Respiratory Disorder, Thyroid Disorder Additional Past Medical History / Comment(s): hypothyroid, asbestos, colon cancer, gout, gets hormone shots History of Any Multi-Drug Resistant Organisms: None Reported Past Surgical History: Appendectomy, Cholecystectomy, Pacemaker, Prostate Surgery Additional Past Surgical History / Comment(s): penile surgery, cancers in remission Type of Cardiac Device: Unknown Device Placement Date:: unknown Past Psychological History: Anxiety Smoking Status: Former smoker Past Alcohol Use History: None Reported Past Drug Use History: None Reported - Past Family History Father Family Medical History: Myocardial Infarction (AL) Mother Family Medical History: Cancer, Myocardial Infarction (AL) Medications and Allergies Home Medications Medication Instructions Recorded Confirmed Type Atenolol/Chlorthalidone [Tenoretic 1 tab PO DAILY 09/19/13 08/19/16 History 50 Tablet] Citalopram Hydrobromide [CeleXA] 20 mg PO DAILY 09/19/13 08/19/16 History Levothyroxine Sodium [Synthroid] 200 mcg PO DAILY 09/19/13 08/19/16 History Allopurinol [Zyloprim] 300 mg PO DAILY 04/05/15 08/19/16 History Fish Oil/Dha/Epa [Fish Oil 1,200 1 cap PO DAILY 08/17/16 08/19/16 History mg Fish Oil] Glimepiride [Amaryl] 4 mg PO AC-BRKFST 08/17/16 08/19/16 History Allergies Allergy/AdvReac Type Severity Reaction Status Date / Time No Known Allergies Allergy Verified 08/19/16 15:17 Physical Examination - Vital Signs Vital Signs: Vital Signs Temp Pulse Pulse Resp BP BP Pulse Ox 08/20/16 08:00 97.0 F L 52 L 157/79 96 08/20/16 03:44 96.7 F L 66 16 146/85 98 08/20/16 00:00 96 F L 66 16 177/76 97 08/19/16 20:00 96.8 F L 68 16 154/92 98 08/19/16 18:54 98.0 F 69 18 169/79 94 L 08/19/16 18:13 98.0 F 69 18 169/79 94 L 08/19/16 16:34 70 16 129/88 97 Intake and Output 08/19/16 08/20/16 08/20/16 22:59 06:59 14:59 Intake Total 800 1050 120 Output Total 1450 Balance 800 -400 120 Intake: IV 800 800 Sodium Chloride 0.9% 1, 800 800 000 ml @ 100 mls/hr IV . [facility] Rx#:[id number] Oral 250 120 Output: Urine 1450 Other: Voiding Method Urinal Weight 97.522 kg 96.1 kg PHYSICAL EXAM: GENERAL APPEARANCE: Patient is a well-developed, male who appears to be in no acute distress. HEENT: Normocephalic, atraumatic, no facial asymmetry is seen. Neck is supple with no masses felt. CARDIOVASCULAR: Regular rate and rhythm. ABDOMEN: Nontender, nondistended. EXTREMITIES: Show no edema or clubbing. NEUROLOGICAL EXAM: Patient is awake, alert, and oriented 3. Speech and language are normal. Strength is 4+/5 in left upper extremity and 5-/5 in left lower extremity . Strength is full in right upper and lower extremity. Sensory exam is normal to light touch in all 4 extremities. Mild left facial droop noted on cranial nerve testing. No seizures or tremors noted. Results - Laboratory Findings CBC and BMP: 08/19/16 15:40 08/19/16 15:40 Abnormal Lab Findings: Abnormal Labs 08/19/16 08/20/16 08/20/16 21:24 06:10 11:33 POC Glucose (mg/dL) 186 H 136 H 138 H Assessment and Plan Plan: Impression: 1. CVA 2. Left hemiparesis 3. Diabetes mellitus 4. Hypertension Recommendations: It does appear the patient had episode of transient ischemia with transient left-sided weakness. Patient is unable to have MRI due to pacemaker. As previously mentioned, CT showed subacute infarct as described in previous report. CTA showed cerebrovascular atheromatous changes with no significant stenosis of proximal internal carotid arteries bilaterally. With resolving symptoms, it is not felt TPA is needed. I recommend patient continuing Plavix 75 mg by mouth daily and can lower her aspirin to 81 mg daily. I recommend continuing statin therapy. I will order a serum homocystine level. It is noted in the patient's chart CODE STATUS is DO NOT RESUSCITATE and family and patient do not want any invasive procedures. I recommend PT OT to evaluate and treat. Patient may benefit from short-term rehab therapy. I will continue to follow with you. Further recommendations to follow. Thank you for allowing me to participate in the care of your patient. Feel free to call with any questions or concerns. I performed an examination of the patient and discussed the management with the PATROL DEPUTY SHERIFF. I have reviewed the PATROL DEPUTY SHERIFF notes and agree with the findings and plan of care.
[2016-08-20 17:03] LABS: Glucose,Whole Blood 117 mg/dL (75-99)
[2016-08-20] MEDS: ATORVASTATIN 80 MG TAB PO SCH (20:36)
[2016-08-20 20:43] LABS: Glucose,Whole Blood 168 mg/dL (75-99)
[2016-08-21 07:14] LABS: Glucose,Whole Blood 122 mg/dL (75-99)
[2016-08-21] MEDS: ASPIRIN 325 MG TAB PO SCH (08:49)
[2016-08-21] MEDS: ALLOPURINOL 300 MG TAB PO SCH (08:49)
[2016-08-21] MEDS: ATENOLOL 50 MG TAB PO SCH (08:49)
[2016-08-21] MEDS: INSULIN LISPRO (humaLOG) 300 UNIT/3 ML VIAL SQ SCH ×4 (08:50→20:49)
[2016-08-21] MEDS: CHLORTHALIDONE 25 MG TAB PO SCH (08:50)
[2016-08-21] MEDS: CLOPIDOGREL 75 MG TAB PO SCH (08:50)
[2016-08-21] MEDS: CITALOPRAM HYDROBROMIDE 20 MG TAB PO SCH (08:50)
--- NOTE | 2016-08-21 09:01 | P.CRDCN ---
History of Present Illness Consult date: 08/21/16 History of present illness: This is a 80-year-old gentleman with history of hypertension and previous permanent pacemaker implantation who was recently admitted to the hospital with a diagnosis of CVA with left-sided facial droop and weakness. He was treated and was sent home but apparently when he got out of the car he started having facial droop and weakness again. Patient was brought back to the hospital. Patient was seen by the neurologist and felt that he may be having TIA symptoms. We're asked to see the patient because of bradycardia. However on the monitor patient appeared to be in pacemaker rhythm with irregular heart beats could be related to tracking of premature atrial beats or T-wave. Patient is asymptomatic. Will have his pacemaker checked. This was checked in July and apparently was functioning normally. Chest x-ray showed proper lead position. Further recommendations depend upon the clinical course. Carotid duplex study did not reveal any significant obstructive disease. May require a REMBERTO , if in fact patient is having recurrent TIAs. Review of Systems As per the chart Past Medical History Past Medical History: Asthma, Cancer, Diabetes Mellitus, Hypertension, Osteoarthritis (OA), Prostate Disorder, Respiratory Disorder, Thyroid Disorder Additional Past Medical History / Comment(s): hypothyroid, asbestos, colon cancer, gout, gets hormone shots History of Any Multi-Drug Resistant Organisms: None Reported Past Surgical History: Appendectomy, Cholecystectomy, Pacemaker, Prostate Surgery Additional Past Surgical History / Comment(s): penile surgery, cancers in remission Type of Cardiac Device: Unknown Device Placement Date:: unknown Past Psychological History: Anxiety Smoking Status: Former smoker Past Alcohol Use History: None Reported Past Drug Use History: None Reported - Past Family History Father Family Medical History: Myocardial Infarction (SD) Mother Family Medical History: Cancer, Myocardial Infarction (SD) Medications and Allergies Home Medications Medication Instructions Recorded Confirmed Type Atenolol/Chlorthalidone [Tenoretic 1 tab PO DAILY 09/19/13 08/19/16 History 50 Tablet] Citalopram Hydrobromide [CeleXA] 20 mg PO DAILY 09/19/13 08/19/16 History Levothyroxine Sodium [Synthroid] 200 mcg PO DAILY 09/19/13 08/19/16 History Allopurinol [Zyloprim] 300 mg PO DAILY 04/05/15 08/19/16 History Fish Oil/Dha/Epa [Fish Oil 1,200 1 cap PO DAILY 08/17/16 08/19/16 History mg Fish Oil] Glimepiride [Amaryl] 4 mg PO AC-BRKFST 08/17/16 08/19/16 History Allergies Allergy/AdvReac Type Severity Reaction Status Date / Time No Known Allergies Allergy Verified 08/19/16 15:17 Physical Exam Vitals: Vital Signs Temp Pulse Resp BP Pulse Ox 08/21/16 08:48 73 160/80 08/21/16 07:49 99.2 F 32 L 204/88 95 08/21/16 02:49 98 F 55 L 18 140/90 94 L 08/20/16 20:00 97.6 F 68 18 144/79 100 08/20/16 17:15 58 L 08/20/16 17:05 98 F 37 L 15 175/76 96 08/20/16 15:00 56 L 142/72 95 Intake and Output 08/20/16 08/21/16 08/21/16 22:59 06:59 14:59 Intake Total 450 700 Balance 450 700 Intake: IV 300 Sodium Chloride 0.9% 1, 300 000 ml @ 100 mls/hr IV . Q10H DANIELLE Rx#:[id number] Intake, IV Titration 700 Amount Sodium Chloride 0.9% 1, 700 000 ml @ 100 mls/hr IV . Q10H DANIELLE Rx#:[id number] Oral 150 Other: Voiding Method Urinal # Voids 2 6 GENERAL EXAM: Patient is alert and oriented and doesn't appear to be in any acute distress HEENT: Normocephalic. Normal reaction of pupils, equal size, normal range of extraocular motion. No erythema or exudates in the throat. NECK: No masses, no nuchal rigidity. CHEST: No chest wall deformity. LUNGS: Equal air entry with no crackles or wheeze. HEART: S1 and S2 normal with no audible mumurs or gallops. Regular rhythm, femorals equal on both sides.. ABDOMEN: No hepatosplenomegaly, normal bowel sounds, no guarding or rigidity. SKIN: No rashes CENTRAL NERVOUS SYSTEM: Left facial droop still present EXTREMITIES: No cyanosis, clubbing or edema. Results 08/19/16 15:40 08/19/16 15:40 Current Medications Generic Name Dose Route Start Last Admin Trade Name Freq PRN Reason Stop Dose Admin Allopurinol 300 mg 08/20/16 09:00 08/21/16 08:49 Zyloprim PO 300 mg DAILY DANIELLE Administration Aspirin 325 mg 08/20/16 09:00 08/21/16 08:49 Aspirin PO 325 mg DAILY DANIELLE Administration Atenolol 50 mg 08/20/16 09:00 08/21/16 08:49 Tenormin PO 50 mg DAILY DANIELLE Administration Atorvastatin Calcium 80 mg 08/19/16 16:45 08/20/16 20:36 Lipitor PO 80 mg HS DANIELLE Administration Chlorthalidone 25 mg 08/20/16 09:00 08/21/16 08:50 Hygroton PO 25 mg DAILY DANIELLE Administration Citalopram Hydrobromide 20 mg 08/20/16 09:00 08/21/16 08:50 Celexa PO 20 mg DAILY DANIELLE Administration Clopidogrel Bisulfate 75 mg 08/20/16 09:00 08/21/16 08:50 Plavix PO 75 mg DAILY DANIELLE Administration Glimepiride 4 mg 08/20/16 07:30 08/20/16 06:36 Amaryl PO 4 mg AC-BRKFST DANIELLE Administration Sodium Chloride 1,000 mls @ 100 mls/hr 08/19/16 16:45 08/20/16 20:42 Saline 0.9% IV 100 mls/hr .Q10H DANIELLE Administration Insulin Human Lispro 0 unit 08/20/16 07:30 08/21/16 08:50 Humalog SQ Not Given ACHS [facility] Protocol Levothyroxine Sodium 200 mcg 08/20/16 09:00 08/20/16 08:45 Synthroid PO 200 mcg DAILY DANIELLE Administration Miscellaneous Information 1 each 08/19/16 16:27 Rx Info: Iv Contrast Was Given MISCELLANE 08/21/16 16:27 DAILY PRN Per Protocol Intake and Output 08/20/16 08/21/16 08/21/16 22:59 06:59 14:59 Intake Total 450 700 Balance 450 700 Intake: IV 300 Sodium Chloride 0.9% 1, 300 000 ml @ 100 mls/hr IV . Q10H DANIELLE Rx#:[id number] Intake, IV Titration 700 Amount Sodium Chloride 0.9% 1, 700 000 ml @ 100 mls/hr IV . Q10H DANIELLE Rx#:[id number] Oral 150 Other: Voiding Method Urinal # Voids 2 6 EKG Interpretations (text) Pacemaker rhythm Assessment and Plan (1) Presence of permanent cardiac pacemaker Status: Acute (2) CVA (cerebral vascular accident) Status: Acute (3) Hypertension Status: Acute (4) Diabetes mellitus Status: Acute Plan: We'll follow the patient. We'll check his pacemaker. I will discuss with the Dr. Taylor the possibility of REMBERTO. Further recommendation will depend upon the clinical course
[2016-08-21] MEDS: GLIMEPIRIDE 4 MG TAB PO SCH (09:08)
[2016-08-21] MEDS: SODIUM CHLORIDE 0.9% 1,000 ML IV SCH ×2 (10:23→15:22)
[2016-08-21 11:49] LABS: Glucose,Whole Blood 111 mg/dL (75-99)
[2016-08-21] MEDS: LEVOTHYROXINE 100 MCG TAB PO SCH (12:10)
--- NOTE | 2016-08-21 13:54 | P.PN ---
Subjective This is an 80-year-old Male patient of Dr. Lei Jean-Baptiste with a past medical history of asthma, diabetes, hypertension, osteoarthritis, benign prostatic hypertrophy, hypothyroidism, gout, colon cancer, anxiety. Patient was admitted to the hospital for ataxia and weakness recently and upon arrival back home 4 hours later patient was noticed to have left sided facial droop and left-sided weakness and was brought back to the emergency center by his son-in- law. Dr. Mejia was involved with the ER physician and it was determined that TPN would be on hold given the improvement of his symptoms. He underwent a CAT scan of the brain that showed probable subacute infarct with no hemorrhage or hydrocephalus. Chest x-ray showed no acute process. CT angiogram of the head and neck showed cerebrovascular atheromatosis changes present. No significant stenosis of the proximal internal carotid arteries bilaterally. Patient was admitted to the hospital and seen in consultation by neurology. Patient is unable to have MRI due to pacemaker. He has been started on Plavix 75 mg and aspirin decreased to 81 mg daily as well as continued on statin therapy. PT, OT , speech therapy consults and process. 08/21: Patient had episode of bradycardia this morning despite pacemaker. Patient was asymptomatic. Cardiology consult was requested and pacemaker is to be checked. Patient may require REMBERTO Objective - Vital Signs Vital signs: Vital Signs Temp 99.2 F 08/21/16 07:49 Pulse 73 08/21/16 08:48 Resp 18 08/21/16 02:49 BP 160/80 08/21/16 08:48 Pulse Ox 95 08/21/16 07:49 Intake & Output 08/20/16 08/21/16 08/21/16 18:59 06:59 18:59 Intake Total 1100 1150 Balance 1100 1150 Intake: IV 300 Sodium Chloride 0.9% 1, 300 000 ml @ 100 mls/hr IV . Q10H DANIELLE Rx#:[id number] Intake, IV Titration 800 700 Amount Sodium Chloride 0.9% 1, 800 700 000 ml @ 100 mls/hr IV . Q10H DANIELLE Rx#:[id number] Oral 300 150 Other: Voiding Method Urinal # Voids 6 - Exam Gen: This is an 80-year-old male. He is sitting up in bed and appears to be in no acute distress. HEENT: Head is atraumatic, normocephalic. Pupils equal, round. Sclerae is anicteric. NECK: Supple. No JVD. No lymphadenopathy. No thyromegaly. LUNGS: Clear to auscultation. No wheezes or rhonchi. No intercostal retractions. HEART: Regular rate and rhythm. No murmur. ABDOMEN: Soft. Bowel sounds are present. No masses. No tenderness. EXTREMITIES: No pedal edema. No calf tenderness. NEUROLOGICAL: Patient is awake, alert and oriented x3. Slight left-sided facial droop and left upper extremity weakness as well as left lower extremity weakness.. - Labs CBC & Chem 7: 08/19/16 15:40 08/19/16 15:40 Labs: Abnormal Lab Results - Last 24 Hours (Table) 08/20/16 08/20/16 08/20/16 Range/Units 11:33 16:57 20:34 POC Glucose (mg/dL) 138 H 117 H 168 H (75-99) mg/dL 08/21/16 Range/Units 07:12 POC Glucose (mg/dL) 122 H (75-99) mg/dL Assessment and Plan Plan: 1. Acute CVA with left-sided hemiparesis. Continue Plavix 75 mg daily, aspirin 81 mg daily, Lipitor 80 mg daily. Consult with neurology and cardiology appreciated. PT, OT, ST in place. Social work following for possible subacute rehab. 2. Diabetes mellitus type 2. Continue glimepiride 4 mg with breakfast and Humalog scale before meals and at bedtime. 3. Hypertension. Continue atenolol 50 mg daily and Hygroton 25 mg daily. 4. Hyperlipidemia. Continue atorvastatin 80 mg at bedtime. 5. Bradycardia with permanent pacemaker. Cardiology consult requested. Patient has been transferred to the selective care unit. 6. Gout, unspecified. Continue allopurinol 300 mg daily. 7. Hypothyroidism. Continue levothyroxine 200 g daily. 8. Generalized anxiety disorder. Continue citalopram 20 mg daily. Discharge plan: Subacute rehab tomorrow Impression and plan of care have been directed as dictated by the signing physician. Abbey Gomez nurse practitioner acting as scribe for signing physician. Time with Patient: Greater than 30
[2016-08-21 15:47] LABS: Cholesterol 214 mg/dL (<200); HDL Cholesterol 59 mg/dL (40-60); Triglycerides 200 mg/dL (<150)
--- NOTE | 2016-08-21 16:42 | P.PN ---
Subjective Principal diagnosis: Patient is a pleasant 80-year-old male who is being followed by the neurology service for CVA. Patient was recently admitted for TIA with left- sided weakness and paresthesia. Patient's symptoms had subsided and patient was sent home. Patient was unable to get out of the car upon arrival home. The patient was thought by family to be having left-sided facial droop with increased left-sided weakness. Patient had CTA upon arrival which showed cerebral vascular atheromatous changes. No significant stenosis of the proximal internal carotid arteries bilaterally. Patient was being prepared for discharge to rehab facility when it was noted that he may have had a bradycardic event. Cardiology was consulted. Patient had pacemaker checked. Cardiology may be planning a REMBERTO, however, CT does not show consistent with multiple new infarcts. Patient unable to have an MRI due to pacemaker. At the time of my evaluation, patient's resting comfortably in bed and appears to be in no acute distress. Objective - Vital Signs Vital signs: Vital Signs Temp 96.2 F L 08/21/16 10:00 Pulse 72 08/21/16 10:00 Resp 18 08/21/16 10:00 BP 167/92 08/21/16 10:00 Pulse Ox 95 08/21/16 10:00 Intake & Output 08/20/16 08/21/16 08/21/16 18:59 06:59 18:59 Intake Total 1100 1150 Balance 1100 1150 Intake: IV 300 Sodium Chloride 0.9% 1, 300 000 ml @ 100 mls/hr IV . Q10H DANIELLE Rx#:[id number] Intake, IV Titration 800 700 Amount Sodium Chloride 0.9% 1, 800 700 000 ml @ 100 mls/hr IV . Q10H DANIELLE Rx#:[id number] Oral 300 150 Other: Voiding Method Urinal # Voids 6 1 # Bowel Movements 1 - Exam PHYSICAL EXAM: GENERAL APPEARANCE: Patient is a well-developed, male who appears to be in no acute distress. HEENT: Normocephalic, atraumatic, left facial asymmetry is seen. Neck is supple with no masses felt. CARDIOVASCULAR: Regular rate and rhythm. ABDOMEN: Nontender, nondistended. EXTREMITIES: Show no edema or clubbing. NEUROLOGICAL EXAM: Patient is awake, alert, and oriented 3. Speech and language are normal. Left facial droop noted on cranial nerve testing. Strength is 5-/5 in left upper extremity and 5/5 in all other extremities. Sensory exam is normal to light touch in all 4 extremities. No tremors or seizure-like activity is noted. - Labs CBC & Chem 7: 08/19/16 15:40 08/19/16 15:40 Labs: Abnormal Lab Results - Last 24 Hours (Table) 08/20/16 08/20/16 08/21/16 Range/Units 16:57 20:34 07:12 POC Glucose (mg/dL) 117 H 168 H 122 H (75-99) mg/dL Triglycerides (<150) mg/dL Cholesterol (<200) mg/dL LDL Cholesterol, Calc (0-99) mg/dL 08/21/16 08/21/16 Range/Units 11:34 15:14 POC Glucose (mg/dL) 111 H (75-99) mg/dL Triglycerides 200 H (<150) mg/dL Cholesterol 214 H (<200) mg/dL LDL Cholesterol, Calc 115 H (0-99) mg/dL Assessment and Plan Plan: Impression: 1. CVA 2. Left hemiparesis 3. Diabetes mellitus 4. Hypertension Recommendations: It does appear the patient had episode of transient ischemia with transient left-sided weakness. Patient is unable to have MRI due to pacemaker. As previously mentioned, CT showed subacute infarct as described in previous report. CTA showed cerebrovascular atheromatous changes with no significant stenosis of proximal internal carotid arteries bilaterally. EEG is normal. I recommend patient continuing Plavix 75 mg by mouth daily and can lower aspirin to 81 mg daily. Lipid panel is elevated and I recommend continuing statin therapy. His serum homocystine level is within normal limits. It is noted in the patient's chart CODE STATUS is DO NOT RESUSCITATE and family and patient do not want any invasive procedures. If family and patient prefer, it is reasonable to hold the REMBERTO based on no new CT findings. I recommend PT OT to evaluate and treat. Patient may benefit from short-term inpatient rehab therapy. I will continue to follow with you. Further recommendations to follow. I performed an examination of the patient and discussed the management with the COFFEE BREWER. I have reviewed the COFFEE BREWER notes and agree with the findings and plan of care.
[2016-08-21 17:02] LABS: Glucose,Whole Blood 133 mg/dL (75-99)
[2016-08-21] MEDS: ATORVASTATIN 80 MG TAB PO SCH (20:48)
[2016-08-21 20:50] LABS: Glucose,Whole Blood 170 mg/dL (75-99)
[2016-08-22 06:10] LABS: Glucose,Whole Blood 147 mg/dL (75-99)
[2016-08-22] MEDS: SODIUM CHLORIDE 0.9% 1,000 ML IV SCH (06:50)
[2016-08-22] MEDS: INSULIN LISPRO (humaLOG) 300 UNIT/3 ML VIAL SQ SCH ×2 (06:50→11:47)
[2016-08-22] MEDS: GLIMEPIRIDE 4 MG TAB PO SCH (06:50)
[2016-08-22] MEDS: LEVOTHYROXINE 100 MCG TAB PO SCH (08:27)
[2016-08-22] MEDS: CLOPIDOGREL 75 MG TAB PO SCH (08:27)
[2016-08-22] MEDS: ALLOPURINOL 300 MG TAB PO SCH (08:27)
[2016-08-22] MEDS: CITALOPRAM HYDROBROMIDE 20 MG TAB PO SCH (08:28)
[2016-08-22] MEDS: CHLORTHALIDONE 25 MG TAB PO SCH (08:28)
[2016-08-22] MEDS: ATENOLOL 50 MG TAB PO SCH (08:28)
--- NOTE | 2016-08-22 08:33 | P.DS ---
Providers Date of admission: 08/19/16 16:32 Expected date of discharge: 08/22/16 Attending physician: Geovanny Cody Consults: 08/21/16 08:03 Consult Physician Routine Consulting Provider: Mona Taylor Consult Reason/Comments: arrythmia Do you want consulting provider notified?: Yes Primary care physician: [facility] Course: This is an 80-year-old Male patient of Dr. Lei Jean-Baptiste with a past medical history of asthma, diabetes, hypertension, osteoarthritis, benign prostatic hypertrophy, hypothyroidism, gout, colon cancer, anxiety. Patient was admitted to the hospital for ataxia and weakness recently and upon arrival back home 4 hours later patient was noticed to have left sided facial droop and left-sided weakness and was brought back to the emergency center by his son-in- law. Dr. eMjia was involved with the ER physician and it was determined that TPN would be on hold given the improvement of his symptoms. He underwent a CAT scan of the brain that showed probable subacute infarct with no hemorrhage or hydrocephalus. Chest x-ray showed no acute process. CT angiogram of the head and neck showed cerebrovascular atheromatosis changes present. No significant stenosis of the proximal internal carotid arteries bilaterally. Patient was admitted to the hospital and seen in consultation by neurology. Patient is unable to have MRI due to pacemaker. He has been started on Plavix 75 mg and aspirin decreased to 81 mg daily as well as continued on statin therapy. PT, OT , speech therapy consults and process. 08/21: Patient had episode of bradycardia this morning despite pacemaker. Patient was asymptomatic. Cardiology consult was requested and pacemaker is to be checked. Patient may require REMBERTO 08/22: Triglyceride 200, cholesterol 214, LDL 1:15, HDL 59. Physical therapy has recommended subacute rehab initially but patient has improved significantly and ambulating well with a walker and has been cleared for discharge home with home care. Patient will be discharged home today in stable condition. Prescription left for walker to be set up by case management as well as home care. Discharge diagnoses: 1. Acute CVA with left-sided hemiparesis 2. Diabetes mellitus type 2 3. Hypertension 4. Hyperlipidemia 5. Bradycardia with permanent pacemaker 6. Gout, unspecified 7. Hypothyroidism 8. Generalized anxiety disorder Discharge plan: home [facility] Impression and plan of care have been directed as dictated by the signing physician. Abbey Gomez nurse practitioner acting as scribe for signing physician. Cc: Dr. Lei Jean-Baptiste Patient Condition at Discharge: Good Plan - Discharge Summary New Discharge Prescriptions: Atorvastatin [Lipitor] 80 mg PO HS #30 tab Clopidogrel [Plavix] 75 mg PO DAILY #30 tab Discharge Medication List Atenolol/Chlorthalidone [Tenoretic 50 Tablet] 1 tab PO DAILY 09/19/13 [History] Citalopram Hydrobromide [CeleXA] 20 mg PO DAILY 09/19/13 [History] Levothyroxine Sodium [Synthroid] 200 mcg PO DAILY 09/19/13 [History] Allopurinol [Zyloprim] 300 mg PO DAILY 04/05/15 [History] Fish Oil/Dha/Epa [Fish Oil 1,200 mg Fish Oil] 1 cap PO DAILY 08/17/16 [History] Glimepiride [Amaryl] 4 mg PO AC-BRKFST 08/17/16 [History] Aspirin 81 mg PO DAILY chew 08/22/16 [Rx] Atorvastatin [Lipitor] 80 mg PO HS #30 tab 08/22/16 [Rx] Clopidogrel [Plavix] 75 mg PO DAILY #30 tab 08/22/16 [Rx] Follow up Appointment(s)/Referral(s): [facility], [NON-STAFF] - Nieves Mejia MD [STAFF PHYSICIAN] - 1 Week Lei Jean-Baptiste DO [Primary Care Provider] - 1 Week Discharge Disposition: HOME WITH HOME HEALTH SERVICES
[2016-08-22] MEDS ORDERED: ASPIRIN 81 MG CHEW PO SCH (09:00)
[2016-08-22 09:08] VITALS: RESP 20
[2016-08-22 11:49] LABS: Glucose,Whole Blood 97 mg/dL (75-99)
[2016-08-22 14:32] VITALS: BP 120/62; PULSE 65; TEMP 96.7
--- NOTE | 2016-08-22 16:01 | P.PN ---
Subjective Principal diagnosis: CVA This is an 80-year-old gentleman with history of prior pacemaker implantation, hypertension, who was recently admitted to the hospital with a CVA. Patient had been discharged home from the hospital and apparently cancer symptoms and was readmitted with similar symptoms. Pacer was interrogated today and showed evidence of possible inappropriate sensing. Patient is quite eager to be discharged home today, discharge had already been completed at the time we were examining him. He will follow-up with Dr. Taylor in the office in one week at which time further interrogation and adjustments will be made on his pacemaker. Objective - Vital Signs Vital signs: Vital Signs Temp 96.7 F L 08/22/16 12:00 Pulse 65 08/22/16 12:00 Resp 20 08/22/16 12:00 BP 120/62 08/22/16 12:00 Pulse Ox 94 L 08/22/16 12:00 Intake & Output 08/21/16 08/22/16 08/22/16 18:59 06:59 18:59 Intake Total 1080 Output Total 200 925 300 Balance -200 -925 780 Weight 93.4 kg Intake: IV 500 Sodium Chloride 0.9% 1, 500 000 ml @ 100 mls/hr IV . Q10H DANIELLE Rx#:[id number] Oral 580 Output: Urine 200 925 300 Other: Voiding Method Urinal # Voids 1 1 1 # Bowel Movements 1 0 - Exam PHYSICAL EXAMINATION: HEENT: Head is atraumatic, normocephalic. Pupils equal, round. Neck is supple. There is no elevated jugular venous pressure. HEART EXAMINATION: Heart S1, S2 normal. No murmur or gallop heard. CHEST EXAMINATION: Lungs are clear to auscultation and precussion. No chest wall tenderness is noted on palpation or with deep breathing. ABDOMEN: Soft, nontender. Bowel sounds are heard. No organomegaly noted. EXTREMITIES: 2+ peripheral pulses with no evidence of peripheral edema and no calf tenderness noted. NEUROLOGIC patient is awake, alert and oriented -3. . - Labs CBC & Chem 7: 08/19/16 15:40 08/19/16 15:40 Labs: Abnormal Lab Results - Last 24 Hours (Table) 08/21/16 08/21/16 08/22/16 Range/Units 16:51 20:49 06:08 POC Glucose (mg/dL) 133 H 170 H 147 H (75-99) mg/dL Assessment and Plan (1) Hypothyroid Status: Acute (2) CVA (cerebral vascular accident) Status: Acute (3) Diabetes mellitus Status: Acute (4) Hypertension Status: Acute (5) Presence of permanent cardiac pacemaker Status: Acute Plan: From cardiology's perspective, follow-up appointment will be made with Dr. Taylor in the office in one week. At which time patient's device will again be interrogated and further adjustments made. DNP note has been reviewed, I agree with a documented findings and plan of care. Patient was seen and examined.
== END 2016-08-22 15:34 | disposition home health service (06) | DRG 65 ==
LOC: EC 15:10 → 6SEL 16:32 → 3SUR 08-20 16:51 → 6SEL 08-21 09:41
PROVIDERS: ADMIT Internal Medicine; ATTEND Internal Medicine
DX: I63.9 Cerebral infarction, unspecified (principal); G81.94 Hemiplegia, unspecified affecting left nondominant side; R00.1 Bradycardia, unspecified; E11.9 Type 2 diabetes mellitus without complications; R29.810 Facial weakness; E03.9 Hypothyroidism, unspecified; E78.5 Hyperlipidemia, unspecified; F41.1 Generalized anxiety disorder; I10 Essential (primary) hypertension; J45.909 Unspecified asthma, uncomplicated; M10.9 Gout, unspecified; N40.0 Benign prostatic hyperplasia without lower urinary tract symptoms; M19.90 Unspecified osteoarthritis, unspecified site; J61 Pneumoconiosis due to asbestos and other mineral fibers; Z66 Do not resuscitate; Z79.84 Long term (current) use of oral hypoglycemic drugs; Z79.899 Other long term (current) drug therapy; Z85.038 Personal history of other malignant neoplasm of large intestine; Z87.891 Personal history of nicotine dependence; Z95.0 Presence of cardiac pacemaker; Z86.73 Personal history of transient ischemic attack (TIA), and cerebral infarction without residual deficits; Z82.49 Family history of ischemic heart disease and other diseases of the circulatory system
CPT/HCPCS: 36415; 70450; 70496; 70498; 71010; 80053; 80061; 82550; 82553; 83036; 83090; 84484; 85025; 85610; 85730; 93005; 96360; 96361; 99291

== ENCOUNTER 2016-08-28 09:45 | Inpatient (IN) | payer MEDICARE ==
[2016-08-28] MEDS ORDERED: SODIUM CHLORIDE 0.9% 1,000 ML IV ONE (10:08)
[2016-08-28 11:03] LABS: Basophils % (A) 0 %; CH 31.3; CHCM 34.5; Eosinophils % (A) 0 %; HCT 38.2 % (39.0-53.0); HDW 2.78; HGB 13.3 gm/dL (13.0-17.5); Luc # (Auto) 0.26; Luc % (Auto) 2; Lymphocytes # (A) 1.6 k/uL (1.0-4.8); Lymphocytes % (A) 12 %; MCH 31.8 pg (25.0-35.0); MCHC 34.9 g/dL (31.0-37.0); MCV 91.1 fL (80.0-100.0); Mean Platelet Volume 6.7; Monocytes # (A) 0.7 k/uL (0-1.0); Monocytes % (A) 5 %; Neutrophils # (A) 10.6 k/uL (1.3-7.7); Neutrophils % (A) 80 %; RBC 4.19 m/uL (4.30-5.90); WBC 13.1 k/uL (3.8-10.6); WBC (Perox) 13.33
[2016-08-28 11:13] LABS: ALT 49 U/L (21-72); AST 24 U/L (17-59); Alkaline Phosphatase 55 U/L (38-126); Anion Gap 7 mmol/L; Blood Urea Nitrogen 20 mg/dL (9-20); Calcium 9.1 mg/dL (8.4-10.2); Carbon Dioxide 30 mmol/L (22-30); Chloride 99 mmol/L (98-107); Glucose 136 mg/dL (74-99); Magnesium 1.7 mg/dL (1.6-2.3); Non-African American GFR(MDRD) >60 (>60 ml/min/1.73 sqM); Potassium 3.6 mmol/L (3.5-5.1); Sodium 136 mmol/L (137-145); Total Bilirubin 1.5 mg/dL (0.2-1.3); Uric Acid 3.8 mg/dL (3.5-8.5)
[2016-08-28 11:15] LABS: INR 1.1 (<1.1); Partial Thromboplastin Time 22.8 sec (22.0-30.0); Prothrombin Time 10.7 sec (9.0-12.0)
--- NOTE | 2016-08-28 11:21 | ED ---
Fall HPI - General Chief Complaint: Fall Stated Complaint: Weakness Time Seen by Provider: 08/28/16 09:45 Source: patient, EMS, RN notes reviewed Mode of arrival: EMS - History of Present Illness Initial Comments: This is a 80-year-old male was brought in for evaluation after a fall this morning. He recently been treated for was suspected be gout of his left hand. He has had a recent admission. Fairly his uric acid level is within normal limits. This morning started developing left hand pain and swelling again. He did fall sideways and was brought in by EMS for evaluation. He was in a cervical collar when he denies any head neck or back pain. He does have pain in his left upper extremity however he denies any focal neurological deficits. Denies any overt fevers chills or sweats. MD Complaint: fall, other - Related Data Home Medications Medication Instructions Recorded Confirmed Atenolol/Chlorthalidone [Tenoretic 1 tab PO DAILY 09/19/13 08/28/16 50 Tablet] Citalopram Hydrobromide [CeleXA] 20 mg PO DAILY 09/19/13 08/28/16 Levothyroxine Sodium [Synthroid] 200 mcg PO DAILY 09/19/13 08/28/16 Allopurinol [Zyloprim] 300 mg PO DAILY 04/05/15 08/28/16 Fish Oil/Dha/Epa [Fish Oil 1,200 1 cap PO DAILY 08/17/16 08/28/16 mg Fish Oil] Glimepiride [Amaryl] 4 mg PO AC-BRKFST 08/17/16 08/28/16 Multivitamins, Thera [Multivitamin 1 tab PO DAILY 08/28/16 08/28/16 (formulary)] Previous Rx's Medication Instructions Recorded Aspirin 81 mg PO DAILY chew 08/22/16 Atorvastatin [Lipitor] 80 mg PO HS #30 tab 08/22/16 Clopidogrel [Plavix] 75 mg PO DAILY #30 tab 08/22/16 Allergies Allergy/AdvReac Type Severity Reaction Status Date / Time No Known Allergies Allergy Verified 08/28/16 10:35 Review of Systems ROS Statement: Those systems with pertinent positive or pertinent negative responses have been documented in the HPI. ROS Other: All systems not noted in ROS Statement are negative. Past Medical History Past Medical History: Asthma, Cancer, Diabetes Mellitus, Hypertension, Osteoarthritis (OA), Prostate Disorder, Respiratory Disorder, Thyroid Disorder Additional Past Medical History / Comment(s): hypothyroid, asbestos, colon cancer, gout, gets hormone shots History of Any Multi-Drug Resistant Organisms: None Reported Past Surgical History: Appendectomy, Cholecystectomy, Pacemaker, Prostate Surgery Additional Past Surgical History / Comment(s): penile surgery, cancers in remission Type of Cardiac Device: Unknown Device Placement Date:: unknown Past Psychological History: Anxiety Smoking Status: Former smoker Past Alcohol Use History: None Reported Past Drug Use History: None Reported - Past Family History Father Family Medical History: Myocardial Infarction ([place]) Mother Family Medical History: Cancer, Myocardial Infarction ([place]) General Exam - General Exam Comments Initial Comments: This is a well-developed well-nourished awake alert oriented x3 male Limitations: physical limitation General appearance: alert, in no apparent distress Head exam: Present: atraumatic, normocephalic, normal inspection Eye exam: Present: normal appearance, PERRL, EOMI. Absent: scleral icterus, conjunctival injection, periorbital swelling ENT exam: Present: mucous membranes dry Neck exam: Present: normal inspection, full ROM, other (I did remove the cervical collar after clearing the patient's C-spine clinically he demonstrates no midline spinous process tenderness no bony tenderness no muscular tenderness) . Absent: tenderness, meningismus, lymphadenopathy Respiratory exam: Present: normal lung sounds bilaterally. Absent: respiratory distress, wheezes, rales, rhonchi, stridor Cardiovascular Exam: Present: regular rate, normal rhythm, normal heart sounds. Absent: systolic murmur, diastolic murmur, rubs, gallop, clicks GI/Abdominal exam: Present: soft, normal bowel sounds. Absent: distended, tenderness, guarding, rebound, rigid Extremities exam: Present: full ROM, normal capillary refill, other (Left upper extremity demonstrates increased erythema with some increased temperature over the dorsal aspect of left hand with edema to the hand and fingers. No evidence of any lymphangitis there is an abrasion seen to the posterior left elbow no active bleeding no foreign body seen no step-off or crepitation.). Absent: tenderness, pedal edema, joint swelling, calf tenderness Back exam: Present: normal inspection Neurological exam: Present: alert, oriented X3, CN II-XII intact Psychiatric exam: Present: normal affect, normal mood Skin exam: Present: warm, dry, normal color. Absent: intact, rash Course Vital Signs 08/28/16 08/28/16 08/28/16 09:53 10:40 12:15 Temperature 98.6 F Pulse Rate 60 60 60 Respiratory 18 18 18 Rate Blood Pressure 123/58 132/62 157/70 O2 Sat by Pulse 96 100 Oximetry 08/28/16 14:51 Temperature 98.6 F Pulse Rate 61 Respiratory 18 Rate Blood Pressure 154/73 O2 Sat by Pulse 100 Oximetry Medical Decision Making - Medical Decision Making I did have a discussion with the patient family regarding findings or some evidence of a left hand cellulitis in addition to a left lower lobe pneumonic process. I did discuss the case with Dr. Noland who did come the emergency department see the patient patient will be admitted with IV antibiotics and rehydration as he is dehydrated. - Lab Data Result diagrams: 08/28/16 10:41 08/28/16 10:41 Lab Results 08/28/16 08/28/16 08/28/16 Range/Units 10:41 10:41 10:41 WBC 13.1 H (3.8-10.6) k/uL RBC 4.19 L (4.30-5.90) m/uL Hgb 13.3 (13.0-17.5) gm/dL Hct 38.2 L (39.0-53.0) % MCV 91.1 (80.0-100.0) fL MCH 31.8 (25.0-35.0) pg MCHC 34.9 (31.0-37.0) g/dL RDW 14.0 (11.5-15.5) % Plt Count 185 (150-450) k/uL Neutrophils % 80 % Lymphocytes % 12 % Monocytes % 5 % Eosinophils % 0 % Basophils % 0 % Neutrophils # 10.6 H (1.3-7.7) k/uL Lymphocytes # 1.6 (1.0-4.8) k/uL Monocytes # 0.7 (0-1.0) k/uL Eosinophils # 0.0 (0-0.7) k/uL Basophils # 0.0 (0-0.2) k/uL PT 10.7 (9.0-12.0) sec INR 1.1 (<1.1) APTT 22.8 (22.0-30.0) sec D-Dimer (<0.60) mg/L FEU Sodium 136 L (137-145) mmol/L Potassium 3.6 (3.5-5.1) mmol/L Chloride 99 (98-107) mmol/L Carbon Dioxide 30 (22-30) mmol/L Anion Gap 7 mmol/L BUN 20 (9-20) mg/dL Creatinine 0.80 (0.66-1.25) mg/dL Est GFR (MDRD) Af Amer >60 (>60 ml/min/1.73 sqM) Est GFR (MDRD) Non-Af >60 (>60 ml/min/1.73 sqM) Glucose 136 H (74-99) mg/dL Plasma Lactic Acid Luis (0.7-2.0) mmol/L Uric Acid 3.8 (3.5-8.5) mg/dL Calcium 9.1 (8.4-10.2) mg/dL Magnesium 1.7 (1.6-2.3) mg/dL Total Bilirubin 1.5 H (0.2-1.3) mg/dL AST 24 (17-59) U/L ALT 49 (21-72) U/L Alkaline Phosphatase 55 (38-126) U/L Total Creatine Kinase (55-170) U/L CK-MB (CK-2) (0.0-2.4) ng/mL CK-MB (CK-2) Rel Index Troponin I (0.000-0.034) ng/mL Total Protein 6.0 L (6.3-8.2) g/dL Albumin 3.3 L (3.5-5.0) g/dL Urine Color Urine Appearance (Clear) Urine pH (5.0-8.0) Ur Specific L[place]ax (1.001-1.035) Urine Protein (Negative) Urine Glucose (UA) (Negative) Urine Ketones (Negative) Urine Blood (Negative) Urine Nitrite (Negative) Urine Bilirubin (Negative) Urine Urobilinogen (<2.0) mg/dL Ur Leukocyte Esterase (Negative) 08/28/16 08/28/16 08/28/16 Range/Units 10:41 10:41 10:41 WBC (3.8-10.6) k/uL RBC (4.30-5.90) m/uL Hgb (13.0-17.5) gm/dL Hct (39.0-53.0) % MCV (80.0-100.0) fL MCH (25.0-35.0) pg MCHC (31.0-37.0) g/dL RDW (11.5-15.5) % Plt Count (150-450) k/uL Neutrophils % % Lymphocytes % % Monocytes % % Eosinophils % % Basophils % % Neutrophils # (1.3-7.7) k/uL Lymphocytes # (1.0-4.8) k/uL Monocytes # (0-1.0) k/uL Eosinophils # (0-0.7) k/uL Basophils # (0-0.2) k/uL PT (9.0-12.0) sec INR (<1.1) APTT (22.0-30.0) sec D-Dimer 0.53 (<0.60) mg/L FEU Sodium (137-145) mmol/L Potassium (3.5-5.1) mmol/L Chloride (98-107) mmol/L Carbon Dioxide (22-30) mmol/L Anion Gap mmol/L BUN (9-20) mg/dL Creatinine (0.66-1.25) mg/dL Est GFR (MDRD) Af Amer (>60 ml/min/1.73 sqM) Est GFR (MDRD) Non-Af (>60 ml/min/1.73 sqM) Glucose (74-99) mg/dL Plasma Lactic Acid Luis 1.4 (0.7-2.0) mmol/L Uric Acid (3.5-8.5) mg/dL Calcium (8.4-10.2) mg/dL Magnesium (1.6-2.3) mg/dL Total Bilirubin (0.2-1.3) mg/dL AST (17-59) U/L ALT (21-72) U/L Alkaline Phosphatase (38-126) U/L Total Creatine Kinase 43 L (55-170) U/L CK-MB (CK-2) 1.3 (0.0-2.4) ng/mL CK-MB (CK-2) Rel Index 3.0 Troponin I <0.012 (0.000-0.034) ng/mL Total Protein (6.3-8.2) g/dL Albumin (3.5-5.0) g/dL Urine Color Urine Appearance (Clear) Urine pH (5.0-8.0) Ur Specific [place] (1.001-1.035) Urine Protein (Negative) Urine Glucose (UA) (Negative) Urine Ketones (Negative) Urine Blood (Negative) Urine Nitrite (Negative) Urine Bilirubin (Negative) Urine Urobilinogen (<2.0) mg/dL Ur Leukocyte Esterase (Negative) 08/28/16 Range/Units 11:25 WBC (3.8-10.6) k/uL RBC (4.30-5.90) m/uL Hgb (13.0-17.5) gm/dL Hct (39.0-53.0) % MCV (80.0-100.0) fL MCH (25.0-35.0) pg MCHC (31.0-37.0) g/dL RDW (11.5-15.5) % Plt Count (150-450) k/uL Neutrophils % % Lymphocytes % % Monocytes % % Eosinophils % % Basophils % % Neutrophils # (1.3-7.7) k/uL Lymphocytes # (1.0-4.8) k/uL Monocytes # (0-1.0) k/uL Eosinophils # (0-0.7) k/uL Basophils # (0-0.2) k/uL PT (9.0-12.0) sec INR (<1.1) APTT (22.0-30.0) sec D-Dimer (<0.60) mg/L FEU Sodium (137-145) mmol/L Potassium (3.5-5.1) mmol/L Chloride (98-107) mmol/L Carbon Dioxide (22-30) mmol/L Anion Gap mmol/L BUN (9-20) mg/dL Creatinine (0.66-1.25) mg/dL Est GFR (MDRD) Af Amer (>60 ml/min/1.73 sqM) Est GFR (MDRD) Non-Af (>60 ml/min/1.73 sqM) Glucose (74-99) mg/dL Plasma Lactic Acid Luis (0.7-2.0) mmol/L Uric Acid (3.5-8.5) mg/dL Calcium (8.4-10.2) mg/dL Magnesium (1.6-2.3) mg/dL Total Bilirubin (0.2-1.3) mg/dL AST (17-59) U/L ALT (21-72) U/L Alkaline Phosphatase (38-126) U/L Total Creatine Kinase (55-170) U/L CK-MB (CK-2) (0.0-2.4) ng/mL CK-MB (CK-2) Rel Index Troponin I (0.000-0.034) ng/mL Total Protein (6.3-8.2) g/dL Albumin (3.5-5.0) g/dL Urine Color Yellow Urine Appearance Clear (Clear) Urine pH 7.5 (5.0-8.0) Ur Specific [place] 1.019 (1.001-1.035) Urine Protein Trace H (Negative) Urine Glucose (UA) Negative (Negative) Urine Ketones Negative (Negative) Urine Blood Negative (Negative) Urine Nitrite Negative (Negative) Urine Bilirubin Negative (Negative) Urine Urobilinogen 2.0 (<2.0) mg/dL Ur Leukocyte Esterase Negative (Negative) - Radiology Data Radiology results: report reviewed (I did review the imaging and report there is some evidence a left lower lobe infiltrate versus atelectasis), image reviewed Disposition Clinical Impression: Fall, Pneumonia, Cellulitis and abscess of hand, Dehydration, Leukocytosis Disposition: ADMITTED IP TO THIS [facility] Condition: Stable Decision Time: 13:45
[2016-08-28 11:26] LABS: Creatine Kinase 43 U/L (55-170)
[2016-08-28 11:37] LABS: Appearance,Urine Clear (Clear); Bilirubin,Urine Negative (Negative); Glucose,Urine (UA) Negative (Negative); Ketones,Urine Negative (Negative); Leukocyte Esterase,Urine Negative (Negative); Nitrite,Urine Negative (Negative); PH, Urine 7.5 (5.0-8.0); Protein,Urine Trace (Negative); Specific Gravity,Urine 1.019 (1.001-1.035); UA Billing (MACRO vs. MICRO) CHEM
[2016-08-28 11:38] LABS: Creatine Kinase MB 1.3 ng/mL (0.0-2.4); Troponin I <0.012 ng/mL (0.000-0.034)
--- NOTE | 2016-08-28 11:42 | XR ---
EXAMINATION TYPE: XR wrist complete LT, XR hand complete LT DATE OF EXAM: 08/28/2016 11:31 AM CLINICAL HISTORY: Pain and swelling after fall injury per order. History of gout. TECHNIQUE: Frontal, lateral and oblique images of the left hand and wrist are obtained. Additional f ourth scaphoid view left wrist is acquired. COMPARISON: None FINDINGS: Osseous structures are demineralized. There is no acute fracture/dislocation evident in th e left wrist. There is joint space loss with sclerosis and marginal heterotopic ossification at the b ase of first metacarpal articulation with the trapezium consistent with product of advanced degenerat viktor change The overlying soft tissue appears unremarkable. Images of left hand show no acute fracture or dislocation. There is joint space loss with spurring in volving PIP and the DIP joints throughout the phalanges most prominent at the second PIP and third PI P joints with moderate soft tissue swelling at these levels. There is joint space loss sac and third metacarpophalangeal joints with subchondral cystic change in the metacarpal head and osteophytes jeanie g the radial margin. IMPRESSION: There is no acute fracture or dislocation in the left hand or wrist. Demineralization an d degenerative changes are present as detailed above.
--- NOTE | 2016-08-28 11:43 | XR ---
EXAMINATION TYPE: XR chest 2V DATE OF EXAM: 08/28/2016 11:31 AM COMPARISON: Prior chest x-ray August 19, 2016 HISTORY: Cough per order. Fall yesterday with weakness. TECHNIQUE: Frontal and lateral views of the chest are obtained. FINDINGS: There is new patchy left basilar atelectasis and/or infiltrate. Right lung is clear. No pl eural effusion or pneumothorax is seen bilaterally.. The cardiac silhouette size is enlarged with du al lead pacemaker. Degenerative change in bilateral shoulders is present. IMPRESSION: Cardiomegaly with new patchy left basilar atelectasis and/or infiltrate. Consider progre ss study.
--- NOTE | 2016-08-28 14:06 | US ---
EXAMINATION TYPE: US venous doppler duplex UE LT DATE OF EXAM: 08/28/2016 1:46 PM COMPARISON: Ultrasound CLINICAL HISTORY: Pain. Intermittent left arm pain, patient on blood thinners SIDE PERFORMED: Left Left Arm: There is spontaneous flow and normal compressibility as visualized. IMPRESSION: No diagnostic evidence of DVT as visualized.
[2016-08-28] MEDS ORDERED: HYDROmorphone 1 MG/ML 1 ML SYRINGE IVP STA (14:48)
[2016-08-28] MEDS ORDERED: LEVOFLOXACIN 750MG-D5W PMX 750 MG in DEXTROSE/WATER 1 150ML.BAG IVPB STA (15:37)
[2016-08-28] MEDS ORDERED: PNEUMONIA PROTOCOL UTILIZED 1 EACH MISC PO PRN (15:37)
[2016-08-28] MEDS: SODIUM CHLORIDE 0.9% 1,000 ML IV SCH (15:57)
[2016-08-28 17:12] VITALS: BMI 28.3
--- NOTE | 2016-08-28 17:32 | P.HPIM ---
History of Present Illness H&P Date: 08/28/16 Chief Complaint: Left hand cellulitis with possible inflammatory arthritis This is an 80-year-old male one of Dr. Jean-Baptiste with a previous medical history significant for asthma, diabetes, hypertension, osteoarthritis, benign prostatic hypertrophy, hypothyroidism, gout, colon cancer, anxiety. Patient was admitted to the hospital for ataxia and weakness recently and upon arrival back home 4 hours later patient was noticed to have left sided facial droop and left-sided weakness and was brought back to the emergency center by his son-in-law. Dr. Mejia was involved with the ER physician and it was determined that TPN would be on hold given the improvement of his symptoms. He underwent a CAT scan of the brain that showed probable subacute infarct with no hemorrhage or hydrocephalus. Chest x-ray showed no acute process. CT angiogram of the head and neck showed cerebrovascular atheromatosis changes present. No significant stenosis of the proximal internal carotid arteries bilaterally. Patient was admitted to the hospital and seen in consultation by neurology. Patient is unable to have MRI due to pacemaker. He has been started on Plavix 75 mg and aspirin decreased to 81 mg daily as well as continued on statin therapy. PT, OT, speech therapy consults . Patient was released home on Sunday and he has been doing fine until yesterday when he developed to have an increased swelling and redness of the left dorsal aspect of the left hand associated with the minimal confusion without any evidence of any facial droop at that time. Today patient developed to have a significant swelling and significant pain in the left hand and his family brought into the emergency department at [facility] for evaluation and he was found to have a leukocytosis with minimal left lower lobe atelectasis versus infiltrate was started on IV antibiotic and he would be started also on colchicine 0.6 mg orally twice every day for one week followed by 0.6 mg orally once every day hold allopurinol for now patient may be a great candidate for Uloric. Review of Systems Constitutional: Reports anorexia, Reports fatigue, Reports malaise, Reports weakness, Reports weight gain, Denies chills Eyes: denies blurred vision, denies bulging eye, denies decreased vision, denies diplopia Ears: bilateral: decreased hearing Ears, nose, mouth and throat: Denies dysphagia, Denies neck lump, Denies sore throat, Denies vertigo Cardiovascular: Reports decreased exercise tolerance, Reports dyspnea on exertion, Reports high blood pressure, Reports shortness of breath, Denies chest pain, Denies leg edema, Denies rapid heart beat, Denies syncope Respiratory: Reports cough, Reports cough with sputum, Denies congestion, Denies home oxygen, Denies pain, Denies pain on inspiration, Denies sleep apnea , Denies snoring, Denies wheezing Gastrointestinal: Denies abdominal pain, Denies bloating, Denies BRBPR, Denies dyspepsia, Denies heartburn, Denies loss of appetite, Denies melena, Denies nausea, Denies vomiting Genitourinary: Reports nocturia, Denies dysuria Musculoskeletal: Reports frequent falls, Reports gait dysfunction, Reports low back pain, Denies myalgias Musculoskeletal: absent: ankle pain, ankle stiffness, ankle swelling, elbow pain , elbow stiffness, elbow swelling, foot pain, foot stiffness, foot swelling, hand pain, hand stiffness, hand swelling, hip pain, hip stiffness, hip swelling , knee pain, knee stiffness, knee swelling, shoulder pain, shoulder stiffness, shoulder swelling, wrist pain, wrist stiffness, wrist swelling Integumentary: Denies pruritus, Denies rash Neurological: Reports paresthesias, Reports weakness, Denies numbness Psychiatric: Denies anxiety, Denies depression Endocrine: Denies fatigue, Denies weight change Past Medical History Past Medical History: Asthma, Cancer, Diabetes Mellitus, Hypertension, Osteoarthritis (OA), Prostate Disorder, Respiratory Disorder, Thyroid Disorder Additional Past Medical History / Comment(s): hypothyroid, asbestos, colon cancer, gout, gets hormone shots History of Any Multi-Drug Resistant Organisms: None Reported Past Surgical History: Appendectomy, Cholecystectomy, Pacemaker, Prostate Surgery Additional Past Surgical History / Comment(s): penile surgery, cancers in remission Type of Cardiac Device: Unknown Device Placement Date:: unknown Past Psychological History: Anxiety Smoking Status: Former smoker Past Alcohol Use History: None Reported Past Drug Use History: None Reported - Past Family History Father Family Medical History: Myocardial Infarction ([place]) (Father at age of 45 from the massive heart attack.) Mother Family Medical History: Cancer, Myocardial Infarction ([place]) (Mother at age of 82 from [place].) Brother(s) Family Medical History: No Reported History (Patient has one brother no major medical problems) Sister(s) Family Medical History: Neurologic Disorder (Patient had 2 sisters one of them from multiple sclerosis) Son(s) Family Medical History: No Reported History (Patient has 3 sons no major medical problems) Medications and Allergies Home Medications Medication Instructions Recorded Confirmed Type Atenolol/Chlorthalidone [Tenoretic 1 tab PO DAILY 09/19/13 08/28/16 History 50 Tablet] Citalopram Hydrobromide [CeleXA] 20 mg PO DAILY 09/19/13 08/28/16 History Levothyroxine Sodium [Synthroid] 200 mcg PO DAILY 09/19/13 08/28/16 History Allopurinol [Zyloprim] 300 mg PO DAILY 04/05/15 08/28/16 History Fish Oil/Dha/Epa [Fish Oil 1,200 1 cap PO DAILY 08/17/16 08/28/16 History mg Fish Oil] Glimepiride [Amaryl] 4 mg PO AC-BRKFST 08/17/16 08/28/16 History Multivitamins, Thera [Multivitamin 1 tab PO DAILY 08/28/16 08/28/16 History (formulary)] Allergies Allergy/AdvReac Type Severity Reaction Status Date / Time No Known Allergies Allergy Verified 08/28/16 10:35 Physical Exam - Constitutional General appearance: average body habitus, mild distress - EENT Eyes: anicteric sclerae, EOMI, PERRLA, no ptosis, no scleral icterus, normal appearance ENT: hearing grossly normal, NA/AT, normal oropharynx, no thrush Ears: bilateral: normal - Neck Neck: no lymphadenopathy, normal ROM, no rigidity, no stridor, no thyromegaly Carotids: bilateral: upstroke delayed Thyroid: bilateral: normal size - Respiratory Respiratory: bilateral: diminished, negative: dullness, rales, rhonchi, wheezing , prolonged expiration, prolonged inspiration - Cardiovascular Rhythm: regular Heart sounds: normal: S1, S2 Abnormal Heart Sounds: systolic murmur, no rub, no click - Gastrointestinal General gastrointestinal: normal bowel sounds, soft, no splenomegaly, no tenderness, no umbilical hernia, no ventral hernia - Integumentary Integumentary: cellulitis (Left dorsal aspect of the hand with synovitis of the first and second metacarpal phalangeal joints), normal, normal turgor - Neurologic Neurologic: focal deficits - Musculoskeletal Musculoskeletal: generalized weakness, left sided weakness - Psychiatric Psychiatric: A&O x's 3, appropriate affect, intact judgment & insight Results CBC & Chem 7: 08/28/16 10:41 08/28/16 10:41 Thrombosis Risk Factor Assmnt - DVT/VTE Prophylaxis DVT/VTE Prophylaxis: Pharmacologic Prophylaxis ordered, Mechanical Prophylaxis ordered Assessment and Plan Plan: Assessment and plan: 1. Left hand gout with possible cellulitis. Start the patient on IV anabiotic in the form of Levaquin 750 mg IV piggyback every 24 hours, Zosyn 3.375 g IV piggyback every 6 hours, start the patient on Colace is seen the 0.6 mg orally twice every day, hold allopurinol for now and decrease the dose to 0.6 mg orally once every day for a week after that. 2. Possible left lower lobe pneumonia likely gram-negative pneumonia. Continue Levaquin 750 mg IV piggyback every 24 hours, Zosyn 3.375 g IV piggyback every 6 hours, blood culture, sputum culture, nebulized treatment. 3. Acute CVA with left-sided hemiparesis. will continue with plavix 75 mg po daily,lipitor 80 mg po daily. 4. Diabetes mellitus type 2. Continue consistent carbohydrate diet 1829, glimeperide 4 mg orally once every day, Humalog per sliding scale. 5. Hypertension. Continue patient on atenolol 50 mg orally once every day discontinue [place]. 6. Hyperlipidemia. Continue Lipitor 80 mg orally once every day. 7. Bradycardia with permanent pacemaker. 8. Gout. Discontinue allopurinol, start the patient on colchicine 0.60 minute gram orally twice every day for a week then 0.6 mg orally once every day for 1 week. 9. Hypothyroidism. Continue Synthroid 200 g orally once every day. 10. Generalized anxiety disorder. Continue citalopram 20 mg orally once every day. 11. DVT prophylaxis. Heparin 5000 units subcutaneously every 12 hours. 12. GI prophylaxis. Continue PPI. 13. No code. 14. Admitted to inpatient. Estimate a length of stay 2 midnights.
[2016-08-28 17:40] LABS: Glucose,Whole Blood 171 mg/dL (75-99)
[2016-08-28] MEDS: PIPERACILLIN-TAZOBACTAM 3.375 GM in DEXTROSE/WATER 1 50ML.BAG IVPB SCH ×2 (17:49→23:35)
[2016-08-28] MEDS: INSULIN LISPRO (humaLOG) 300 UNIT/3 ML VIAL SQ SCH ×2 (17:50→22:28)
[2016-08-28] MEDS ORDERED: ACETAMINOPHEN TAB 325 MG TAB PO PRN (18:11)
[2016-08-28] MEDS ORDERED: HYDROmorphone 1 MG/ML 1 ML SYRINGE IVP PRN (18:11)
[2016-08-28 21:39] LABS: Glucose,Whole Blood 138 mg/dL (75-99)
[2016-08-28] MEDS: COLCHICINE 0.6 MG TAB PO SCH (22:27)
[2016-08-28] MEDS: HEPARIN SODIUM,PORCINE 5,000 UNIT/ML 1 ML VIAL SQ SCH (22:28)
[2016-08-28] MEDS: ATORVASTATIN 80 MG TAB PO SCH (22:28)
[2016-08-29] MEDS: SODIUM CHLORIDE 0.9% 1,000 ML IV SCH ×2 (05:21→11:57)
[2016-08-29] MEDS: LEVOTHYROXINE 100 MCG TAB PO SCH (05:39)
[2016-08-29 07:47] LABS: Glucose,Whole Blood 127 mg/dL (75-99)
[2016-08-29] MEDS: PIPERACILLIN-TAZOBACTAM 3.375 GM in DEXTROSE/WATER 1 50ML.BAG IVPB SCH ×3 (08:26→23:52)
[2016-08-29] MEDS: ATENOLOL 50 MG TAB PO SCH (08:26)
[2016-08-29] MEDS: PANTOPRAZOLE 40 MG TABLET PO SCH (08:26)
[2016-08-29] MEDS: GLIMEPIRIDE 4 MG TAB PO SCH (08:26)
[2016-08-29] MEDS: COLCHICINE 0.6 MG TAB PO SCH ×2 (08:26→21:04)
[2016-08-29] MEDS: CITALOPRAM HYDROBROMIDE 20 MG TAB PO SCH (08:26)
[2016-08-29] MEDS: INSULIN LISPRO (humaLOG) 300 UNIT/3 ML VIAL SQ SCH ×4 (08:27→21:08)
[2016-08-29] MEDS: ASPIRIN 81 MG CHEW PO SCH (08:27)
[2016-08-29] MEDS: HEPARIN SODIUM,PORCINE 5,000 UNIT/ML 1 ML VIAL SQ SCH ×2 (08:27→21:04)
[2016-08-29] MEDS: CLOPIDOGREL 75 MG TAB PO SCH (08:27)
[2016-08-29 08:50] LABS: Basophils % (A) 0 %; CH 31.1; CHCM 33.2; Eosinophils # (A) 0.1 k/uL (0-0.7); Eosinophils % (A) 1 %; HCT 39.5 % (39.0-53.0); HGB 13.1 gm/dL (13.0-17.5); Luc # (Auto) 0.17; Luc % (Auto) 2; Lymphocytes # (A) 1.4 k/uL (1.0-4.8); Lymphocytes % (A) 15 %; MCH 31.4 pg (25.0-35.0); MCHC 33.2 g/dL (31.0-37.0); MCV 94.4 fL (80.0-100.0); Mean Platelet Volume 7.1; Monocytes # (A) 0.5 k/uL (0-1.0); Monocytes % (A) 5 %; Neutrophils # (A) 7.5 k/uL (1.3-7.7); Neutrophils % (A) 77 %; RBC 4.19 m/uL (4.30-5.90); WBC 9.7 k/uL (3.8-10.6); WBC (Perox) 10.47
[2016-08-29] MEDS ORDERED: ALLOPURINOL 300 MG TAB PO SCH (09:00)
[2016-08-29] MEDS ORDERED: NON-FORMULARY DRUG (Fish Oil/Dha/Epa [Fish Oil 1,200 Mg Fish Oil] 1 CAP) PO SCH (09:00)
[2016-08-29] MEDS ORDERED: CHLORTHALIDONE 25 MG TAB PO SCH (09:00)
--- NOTE | 2016-08-29 09:13 | XR ---
EXAMINATION TYPE: XR chest 2V DATE OF EXAM: 08/29/2016 7:46 AM COMPARISON: 08/28/2016 TECHNIQUE: PA and lateral views submitted. HISTORY: Pneumonia FINDINGS: Retrocardiac density in the left suggestive of hiatal hernia and the heart is mildly enlarged. Cardia c device and arthropathy of the shoulders. No overt failure. Tiny left pleural effusion stable. IMPRESSION: 1. Stable tiny left pleural effusion and basilar infiltrate or atelectasis. 2. Correlate for hiatal hernia
[2016-08-29 09:36] LABS: ALT 127 U/L (21-72); AST 96 U/L (17-59); Alkaline Phosphatase 97 U/L (38-126); Anion Gap 5 mmol/L; Blood Urea Nitrogen 15 mg/dL (9-20); Calcium 9.2 mg/dL (8.4-10.2); Carbon Dioxide 35 mmol/L (22-30); Chloride 97 mmol/L (98-107); Glucose 136 mg/dL (74-99); Non-African American GFR(MDRD) >60 (>60 ml/min/1.73 sqM); Potassium 3.6 mmol/L (3.5-5.1); Sodium 137 mmol/L (137-145); Total Bilirubin 1.7 mg/dL (0.2-1.3); Total Protein 6.2 g/dL (6.3-8.2); Uric Acid 2.5 mg/dL (3.5-8.5)
[2016-08-29 11:42] LABS: Glucose,Whole Blood 162 mg/dL (75-99)
[2016-08-29] MEDS: KETOROLAC 30 MG/ML 1 ML VIAL IVP SCH ×3 (11:55→23:51)
[2016-08-29] MEDS: methylPREDNISolone SOD SUCCI 40 MG/ML 1 ML VIAL IV SCH ×3 (11:57→23:52)
[2016-08-29] MEDS: MULTIVITAMINS, THERA 1 EACH TAB PO SCH (11:57)
--- NOTE | 2016-08-29 14:07 | P.PN ---
Subjective This is an 80-year-old male one of Dr. Jean-Baptiste with a previous medical history significant for asthma, diabetes, hypertension, osteoarthritis, benign prostatic hypertrophy, hypothyroidism, gout, colon cancer, anxiety. Patient was admitted to the hospital for ataxia and weakness recently and upon arrival back home 4 hours later patient was noticed to have left sided facial droop and left-sided weakness and was brought back to the emergency center by his son-in-law. Dr. Mejia was involved with the ER physician and it was determined that TPN would be on hold given the improvement of his symptoms. He underwent a CAT scan of the brain that showed probable subacute infarct with no hemorrhage or hydrocephalus. Chest x-ray showed no acute process. CT angiogram of the head and neck showed cerebrovascular atheromatosis changes present. No significant stenosis of the proximal internal carotid arteries bilaterally. Patient was admitted to the hospital and seen in consultation by neurology. Patient is unable to have MRI due to pacemaker. He has been started on Plavix 75 mg and aspirin decreased to 81 mg daily as well as continued on statin therapy. PT, OT, speech therapy consults . Patient was released home on Sunday and he has been doing fine until yesterday when he developed to have an increased swelling and redness of the left dorsal aspect of the left hand associated with the minimal confusion without any evidence of any facial droop at that time. Today patient developed to have a significant swelling and significant pain in the left hand and his family brought into the emergency department at [facility] for evaluation and he was found to have a leukocytosis with minimal left lower lobe atelectasis versus infiltrate was started on IV antibiotic and he would be started also on colchicine 0.6 mg orally twice every day for one week followed by 0.6 mg orally once every day hold allopurinol for now patient may be a great candidate for Uloric. 08/29: Patient continues to have edema to the left arm which he states he has had since he started Lupron. We will try ice and Toradol along with elevation. He did receive colchicine this morning but uric acid is only 2.5. AMY, rheumatoid factor, Lyme antibodies, cyclic citrullinated IgG ordered Consult will be requested with orthopedics rule out septic joint. White count is down to 9.7. Sputum culture has been sent. Repeat chest x-ray shows stable tiny left pleural effusions and basilar infiltrate or atelectasis. Hiatal hernia. Objective - Vital Signs Vital signs: Vital Signs Temp 98.7 F 08/29/16 07:00 Pulse 67 08/29/16 07:00 Resp 16 08/29/16 07:00 BP 145/78 08/29/16 07:00 Pulse Ox 98 08/29/16 07:56 Intake & Output 08/28/16 08/29/16 08/29/16 18:59 06:59 18:59 Output Total 550 Balance -550 Weight 97.522 kg Output: Urine 550 Other: Voiding Method Diaper Urinal Incontinent # Voids 1 - Exam General appearance: average body habitus, mild distress - EENT Eyes: anicteric sclerae, EOMI, PERRLA, no ptosis, no scleral icterus, normal appearance ENT: hearing grossly normal, NA/AT, normal oropharynx, no thrush Ears: bilateral: normal - Neck Neck: no lymphadenopathy, normal ROM, no rigidity, no stridor, no thyromegaly Carotids: bilateral: upstroke delayed Thyroid: bilateral: normal size - Respiratory Respiratory: bilateral: diminished, negative: dullness, rales, rhonchi, wheezing , prolonged expiration, prolonged inspiration - Cardiovascular Rhythm: regular Heart sounds: normal: S1, S2 Abnormal Heart Sounds: systolic murmur, no rub, no click - Gastrointestinal General gastrointestinal: normal bowel sounds, soft, no splenomegaly, no tenderness, no umbilical hernia, no ventral hernia - Integumentary Integumentary: cellulitis (Left dorsal aspect of the hand with synovitis of the first and second metacarpal phalangeal joints), normal, normal turgor - Neurologic Neurologic: focal deficits - Musculoskeletal Musculoskeletal: generalized weakness, left sided weakness - Psychiatric Psychiatric: A&O x's 3, appropriate affect, intact judgment & insight - Labs CBC & Chem 7: 08/29/16 08:16 08/29/16 08:16 Labs: Abnormal Lab Results - Last 24 Hours (Table) 08/28/16 08/28/16 08/29/16 Range/Units 17:36 21:38 07:26 RBC (4.30-5.90) m/uL Chloride (98-107) mmol/L Carbon Dioxide (22-30) mmol/L Glucose (74-99) mg/dL POC Glucose (mg/dL) 171 H 138 H 127 H (75-99) mg/dL Uric Acid (3.5-8.5) mg/dL Total Bilirubin (0.2-1.3) mg/dL AST (17-59) U/L ALT (21-72) U/L Total Protein (6.3-8.2) g/dL Albumin (3.5-5.0) g/dL 08/29/16 08/29/16 Range/Units 08:16 08:16 RBC 4.19 L (4.30-5.90) m/uL Chloride 97 L (98-107) mmol/L Carbon Dioxide 35 H (22-30) mmol/L Glucose 136 H (74-99) mg/dL POC Glucose (mg/dL) (75-99) mg/dL Uric Acid 2.5 L (3.5-8.5) mg/dL Total Bilirubin 1.7 H (0.2-1.3) mg/dL AST 96 H (17-59) U/L ALT 127 H (21-72) U/L Total Protein 6.2 L (6.3-8.2) g/dL Albumin 3.2 L (3.5-5.0) g/dL Assessment and Plan Plan: 1. Left hand gout with possible cellulitis. Start the patient on IV anabiotic in the form of Levaquin 750 mg IV piggyback every 24 hours, Zosyn 3.375 g IV piggyback every 6 hours, start the patient on Colace is seen the 0.6 mg orally twice every day, hold allopurinol for now and decrease the dose to 0.6 mg orally once every day for a week after that. 2. Possible left lower lobe pneumonia likely gram-negative pneumonia. Continue Levaquin 750 mg IV piggyback every 24 hours, Zosyn 3.375 g IV piggyback every 6 hours, blood culture, sputum culture, nebulized treatment. 3. 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 Continue with plavix 75 mg po daily,lipitor 80 mg po daily. 4. Diabetes mellitus type 2. Continue consistent carbohydrate diet 1829, glimeperide 4 mg orally once every day, Humalog per sliding scale. 5. Hypertension. Continue patient on atenolol 50 mg orally once every day discontinue [place]. 6. Hyperlipidemia. Continue Lipitor 80 mg orally once every day. 7. Bradycardia with permanent pacemaker. 8. Gout. Discontinue allopurinol, start the patient on colchicine 0.60 minute gram orally twice every day for a week then 0.6 mg orally once every day for 1 week. He continues to have edema to the left upper extremity for which consult placed with [facility]. Ice and Toradol also ordered. AMY, rheumatoid factor, Lyme antibodies, cyclic citrullinated IgG ordered 9. Hypothyroidism. Continue Synthroid 200 g orally once every day. 10. Generalized anxiety disorder. Continue citalopram 20 mg orally once every day. 11. DVT prophylaxis. Heparin 5000 units subcutaneously every 12 hours. 12. GI prophylaxis. Continue PPI. 13. No code. Discharge plan: Return home Impression and plan of care have been directed as dictated by the signing physician. Abbey Gomez nurse practitioner acting as scribe for signing physician. Time with Patient: Greater than 30
[2016-08-29] MEDS: LEVOFLOXACIN 750 MG TAB PO SCH (16:08)
--- NOTE | 2016-08-29 16:44 | P.CNOR ---
History of Present Illness - HPI Consult date: 08/29/16 Consult reason: joint pain History of present illness: This is an 80-year-old male who presented to the on 08/28/2016 with complaints of left hand swelling and pain. Patient states this has been going on for 7 days. Patient states this has happened to him in the past after he received hormone injections in the left arm. Patient denies any known injury trauma to the left hand. Patient states he has pain with movement of the left fingers. Patient denies any numbness or tingling. Patient has a history of CVA with left-sided weakness. Patient states he has been elevating and icing the left hand and states the swelling and pain have improved today. Patient confirms that he does have a history of gout. Patient denies fever/chills. Review of Systems See HPI. Past Medical History Past Medical History: Asthma, Cancer, Diabetes Mellitus, Hypertension, Osteoarthritis (OA), Prostate Disorder, Respiratory Disorder, Thyroid Disorder Additional Past Medical History / Comment(s): hypothyroid, asbestos, colon cancer, gout, gets hormone shots History of Any Multi-Drug Resistant Organisms: None Reported Past Surgical History: Appendectomy, Cholecystectomy, Pacemaker, Prostate Surgery Additional Past Surgical History / Comment(s): penile surgery, cancers in remission Type of Cardiac Device: Unknown Device Placement Date:: unknown Past Psychological History: Anxiety Smoking Status: Former smoker Past Alcohol Use History: None Reported Past Drug Use History: None Reported - Past Family History Father Family Medical History: Myocardial Infarction ([place]) (Father at age of 45 from the massive heart attack.) Mother Family Medical History: Cancer, Myocardial Infarction ([place]) (Mother at age of 82 from [place].) Brother(s) Family Medical History: No Reported History (Patient has one brother no major medical problems) Sister(s) Family Medical History: Neurologic Disorder (Patient had 2 sisters one of them from multiple sclerosis) Son(s) Family Medical History: No Reported History (Patient has 3 sons no major medical problems) Medications and Allergies Home Medications Medication Instructions Recorded Confirmed Type Atenolol/Chlorthalidone [Tenoretic 1 tab PO DAILY 09/19/13 08/28/16 History 50 Tablet] Citalopram Hydrobromide [CeleXA] 20 mg PO DAILY 09/19/13 08/28/16 History Levothyroxine Sodium [Synthroid] 200 mcg PO DAILY 09/19/13 08/28/16 History Allopurinol [Zyloprim] 300 mg PO DAILY 04/05/15 08/28/16 History Fish Oil/Dha/Epa [Fish Oil 1,200 1 cap PO DAILY 08/17/16 08/28/16 History mg Fish Oil] Glimepiride [Amaryl] 4 mg PO AC-BRKFST 08/17/16 08/28/16 History Multivitamins, Thera [Multivitamin 1 tab PO DAILY 08/28/16 08/28/16 History (formulary)] Allergies Allergy/AdvReac Type Severity Reaction Status Date / Time No Known Allergies Allergy Verified 08/28/16 10:35 Physical Examination There is swelling noted to the dorsal aspect of the left hand and left wrist. There is mild erythema and warmth to this area as well. There is mild tenderness to palpation over the first through third MCP joints and over the ulnar and radial aspects of the left wrist. There is mild tenderness with range of motion of the left hand. Patient has limited range of motion of the left hand due to swelling. Patient has full range of motion of the left wrist. Radial pulses are 2+ bilaterally. Capillary refill is normal. Sensation intact. Results X-rays of the left hand and wrist were reviewed showing osteoarthritis, but no fracture. Radiologist report reveiwed. - Labs Labs: Abnormal Lab Results - Last 24 Hours (Table) 08/28/16 08/28/16 08/29/16 Range/Units 17:36 21:38 07:26 RBC (4.30-5.90) m/uL Chloride (98-107) mmol/L Carbon Dioxide (22-30) mmol/L Glucose (74-99) mg/dL POC Glucose (mg/dL) 171 H 138 H 127 H (75-99) mg/dL Uric Acid (3.5-8.5) mg/dL Total Bilirubin (0.2-1.3) mg/dL AST (17-59) U/L ALT (21-72) U/L Total Protein (6.3-8.2) g/dL Albumin (3.5-5.0) g/dL Rheumatoid Factor (<12) IU/mL 08/29/16 08/29/16 08/29/16 Range/Units 08:16 08:16 08:16 RBC 4.19 L (4.30-5.90) m/uL Chloride 97 L (98-107) mmol/L Carbon Dioxide 35 H (22-30) mmol/L Glucose 136 H (74-99) mg/dL POC Glucose (mg/dL) (75-99) mg/dL Uric Acid 2.5 L (3.5-8.5) mg/dL Total Bilirubin 1.7 H (0.2-1.3) mg/dL AST 96 H (17-59) U/L ALT 127 H (21-72) U/L Total Protein 6.2 L (6.3-8.2) g/dL Albumin 3.2 L (3.5-5.0) g/dL Rheumatoid Factor 12 H (<12) IU/mL 08/29/16 Range/Units 11:36 RBC (4.30-5.90) m/uL Chloride (98-107) mmol/L Carbon Dioxide (22-30) mmol/L Glucose (74-99) mg/dL POC Glucose (mg/dL) 162 H (75-99) mg/dL Uric Acid (3.5-8.5) mg/dL Total Bilirubin (0.2-1.3) mg/dL AST (17-59) U/L ALT (21-72) U/L Total Protein (6.3-8.2) g/dL Albumin (3.5-5.0) g/dL Rheumatoid Factor (<12) IU/mL H & H 08/29/16 Range/Units 08:16 Hgb 13.1 (13.0-17.5) gm/dL Hct 39.5 (39.0-53.0) % Result Diagrams: 08/29/16 08:16 08/29/16 08:16 Assessment and Plan (1) Swelling of left hand Status: Acute (2) Arthritis of left hand Status: Acute Plan: Discussed the clinical and xray findings with the patient. No surgical treatment is needed at this time. Continue with current therapy of antibiotics and colchicine per medicine. Will follow patient closely.
[2016-08-29 16:49] LABS: Glucose,Whole Blood 253 mg/dL (75-99)
[2016-08-29 21:04] LABS: Glucose,Whole Blood 279 mg/dL (75-99)
[2016-08-29] MEDS: ATORVASTATIN 80 MG TAB PO SCH (21:04)
[2016-08-30 03:44] LABS: Lyme Antibodies Total(IgG/IgM) 0.02 (<0.90)
[2016-08-30] MEDS: KETOROLAC 30 MG/ML 1 ML VIAL IVP SCH ×4 (05:58→23:28)
[2016-08-30] MEDS: LEVOTHYROXINE 100 MCG TAB PO SCH (05:58)
[2016-08-30 07:30] LABS: Glucose,Whole Blood 222 mg/dL (75-99)
[2016-08-30] MEDS: CLOPIDOGREL 75 MG TAB PO SCH (08:19)
[2016-08-30] MEDS: GLIMEPIRIDE 4 MG TAB PO SCH (08:19)
[2016-08-30] MEDS: methylPREDNISolone SOD SUCCI 40 MG/ML 1 ML VIAL IV SCH (08:19)
[2016-08-30] MEDS: PANTOPRAZOLE 40 MG TABLET PO SCH (08:19)
[2016-08-30] MEDS: COLCHICINE 0.6 MG TAB PO SCH ×2 (08:19→21:11)
[2016-08-30] MEDS: ASPIRIN 81 MG CHEW PO SCH (08:19)
[2016-08-30] MEDS: ATENOLOL 50 MG TAB PO SCH (08:19)
[2016-08-30] MEDS: CITALOPRAM HYDROBROMIDE 20 MG TAB PO SCH (08:19)
[2016-08-30] MEDS: HEPARIN SODIUM,PORCINE 5,000 UNIT/ML 1 ML VIAL SQ SCH ×2 (08:19→21:11)
[2016-08-30] MEDS: INSULIN LISPRO (humaLOG) 300 UNIT/3 ML VIAL SQ SCH ×4 (08:20→21:26)
[2016-08-30] MEDS: PIPERACILLIN-TAZOBACTAM 3.375 GM in DEXTROSE/WATER 1 50ML.BAG IVPB SCH ×3 (08:27→23:26)
--- NOTE | 2016-08-30 08:43 | P.PN ---
Subjective Principal diagnosis: Left hand swelling This is a pleasant 80 year old male with left hand swelling for one week. Patient is admitted as an inpatient for pneumonia and orthopedics was consulted for further evaluation of left hand swelling. Patient was seen and evaluated today with Dr. Keen. Patient reports improvement in pain and swelling of the left hand. Patient has been on IV antibiotics and colchicine. Patient has no new complaints today. Objective - Vital Signs Vital signs: Vital Signs Temp 97.5 F L 08/30/16 07:00 Pulse 72 08/30/16 07:00 Resp 16 08/30/16 07:00 BP 128/67 08/30/16 07:00 Pulse Ox 94 L 08/30/16 07:00 Intake & Output 08/29/16 08/30/16 08/30/16 18:59 06:59 18:59 Intake Total 600 Output Total 1200 400 Balance -600 -400 Intake: Oral 600 Output: Urine 1200 400 Other: Voiding Method Urinal # Voids 4 - Exam Minimal swelling to the dorsal aspect of the left hand, improved since yesterdays exam. No tenderness to palpation. Neurovascular status intact. No erythema. - Labs CBC & Chem 7: 08/29/16 08:16 08/29/16 08:16 Labs: Abnormal Lab Results - Last 24 Hours (Table) 08/29/16 08/29/16 08/29/16 Range/Units 08:16 08:16 08:16 RBC 4.19 L (4.30-5.90) m/uL Chloride 97 L (98-107) mmol/L Carbon Dioxide 35 H (22-30) mmol/L Glucose 136 H (74-99) mg/dL POC Glucose (mg/dL) (75-99) mg/dL Uric Acid 2.5 L (3.5-8.5) mg/dL Total Bilirubin 1.7 H (0.2-1.3) mg/dL AST 96 H (17-59) U/L ALT 127 H (21-72) U/L Total Protein 6.2 L (6.3-8.2) g/dL Albumin 3.2 L (3.5-5.0) g/dL Rheumatoid Factor 12 H (<12) IU/mL 08/29/16 08/29/16 08/29/16 Range/Units 11:36 16:46 21:03 RBC (4.30-5.90) m/uL Chloride (98-107) mmol/L Carbon Dioxide (22-30) mmol/L Glucose (74-99) mg/dL POC Glucose (mg/dL) 162 H 253 H 279 H (75-99) mg/dL Uric Acid (3.5-8.5) mg/dL Total Bilirubin (0.2-1.3) mg/dL AST (17-59) U/L ALT (21-72) U/L Total Protein (6.3-8.2) g/dL Albumin (3.5-5.0) g/dL Rheumatoid Factor (<12) IU/mL 08/30/16 Range/Units 07:21 RBC (4.30-5.90) m/uL Chloride (98-107) mmol/L Carbon Dioxide (22-30) mmol/L Glucose (74-99) mg/dL POC Glucose (mg/dL) 222 H (75-99) mg/dL Uric Acid (3.5-8.5) mg/dL Total Bilirubin (0.2-1.3) mg/dL AST (17-59) U/L ALT (21-72) U/L Total Protein (6.3-8.2) g/dL Albumin (3.5-5.0) g/dL Rheumatoid Factor (<12) IU/mL Microbiology - Last 24 Hours (Table) 08/29/16 08:45 Gram Stain - Preliminary Sputum Assessment and Plan (1) Swelling of left hand Status: Acute (2) Arthritis of left hand Status: Acute Plan: Patient's symptoms are improving. No surgical intervention planned. Patient can follow up in the office as needed.
[2016-08-30] MEDS: MULTIVITAMINS, THERA 1 EACH TAB PO SCH (11:43)
[2016-08-30] MEDS: SODIUM CHLORIDE 0.9% 1,000 ML IV SCH (11:43)
[2016-08-30 12:32] LABS: Glucose,Whole Blood 334 mg/dL (75-99)
--- NOTE | 2016-08-30 14:29 | P.PN ---
Subjective This is an 80-year-old male one of Dr. Jean-Baptiste with a previous medical history significant for asthma, diabetes, hypertension, osteoarthritis, benign prostatic hypertrophy, hypothyroidism, gout, colon cancer, anxiety. Patient was admitted to the hospital for ataxia and weakness recently and upon arrival back home 4 hours later patient was noticed to have left sided facial droop and left-sided weakness and was brought back to the emergency center by his son-in-law. Dr. Mejia was involved with the ER physician and it was determined that TPN would be on hold given the improvement of his symptoms. He underwent a CAT scan of the brain that showed probable subacute infarct with no hemorrhage or hydrocephalus. Chest x-ray showed no acute process. CT angiogram of the head and neck showed cerebrovascular atheromatosis changes present. No significant stenosis of the proximal internal carotid arteries bilaterally. Patient was admitted to the hospital and seen in consultation by neurology. Patient is unable to have MRI due to pacemaker. He has been started on Plavix 75 mg and aspirin decreased to 81 mg daily as well as continued on statin therapy. PT, OT, speech therapy consults . Patient was released home on Sunday and he has been doing fine until yesterday when he developed to have an increased swelling and redness of the left dorsal aspect of the left hand associated with the minimal confusion without any evidence of any facial droop at that time. Today patient developed to have a significant swelling and significant pain in the left hand and his family brought into the emergency department at [facility] for evaluation and he was found to have a leukocytosis with minimal left lower lobe atelectasis versus infiltrate was started on IV antibiotic and he would be started also on colchicine 0.6 mg orally twice every day for one week followed by 0.6 mg orally once every day hold allopurinol for now patient may be a great candidate for Uloric. 08/29: Patient continues to have edema to the left arm which he states he has had since he started Lupron. We will try ice and Toradol along with elevation. He did receive colchicine this morning but uric acid is only 2.5. AMY, rheumatoid factor, Lyme antibodies, cyclic citrullinated IgG ordered Consult will be requested with orthopedics rule out septic joint. White count is down to 9.7. Sputum culture has been sent. Repeat chest x-ray shows stable tiny left pleural effusions and basilar infiltrate or atelectasis. Hiatal hernia. 08/30: Patient's left arm edema is much improved as well as pain to the area. Solu-Medrol will be discontinued. He has been started on colchicine. Last bowel movement was soft but formed. He has been evaluated by orthopedics with no plan for intervention. Plan is for discharge to [facility] tomorrow. Objective - Vital Signs Vital signs: Vital Signs Temp 97.5 F L 08/30/16 07:00 Pulse 72 08/30/16 07:00 Resp 16 08/30/16 07:00 BP 128/67 08/30/16 07:00 Pulse Ox 94 L 08/30/16 07:00 Intake & Output 08/29/16 08/30/16 08/30/16 18:59 06:59 18:59 Intake Total 600 Output Total 1200 400 Balance -600 -400 Intake: Oral 600 Output: Urine 1200 400 Other: Voiding Method Urinal # Voids 4 - Exam General appearance: average body habitus, mild distress - EENT Eyes: anicteric sclerae, EOMI, PERRLA, no ptosis, no scleral icterus, normal appearance ENT: hearing grossly normal, NA/AT, normal oropharynx, no thrush Ears: bilateral: normal - Neck Neck: no lymphadenopathy, normal ROM, no rigidity, no stridor, no thyromegaly Carotids: bilateral: upstroke delayed Thyroid: bilateral: normal size - Respiratory Respiratory: bilateral: diminished, negative: dullness, rales, rhonchi, wheezing , prolonged expiration, prolonged inspiration - Cardiovascular Rhythm: regular Heart sounds: normal: S1, S2 Abnormal Heart Sounds: systolic murmur, no rub, no click - Gastrointestinal General gastrointestinal: normal bowel sounds, soft, no splenomegaly, no tenderness, no umbilical hernia, no ventral hernia - Integumentary Integumentary: cellulitis (Left dorsal aspect of the hand with synovitis of the first and second metacarpal phalangeal joints), normal, normal turgor - Neurologic Neurologic: focal deficits - Musculoskeletal Musculoskeletal: generalized weakness, left sided weakness - Psychiatric Psychiatric: A&O x's 3, appropriate affect, intact judgment & insight - Labs CBC & Chem 7: 08/29/16 08:16 08/29/16 08:16 Labs: Abnormal Lab Results - Last 24 Hours (Table) 08/29/16 08/29/1617 Range/Units 08:16 11:36 16:46 POC Glucose (mg/dL) 162 H 253 H (75-99) mg/dL Rheumatoid Factor 12 H (<12) IU/mL 08/29/16 08/30/16 Range/Units 21:03 07:21 POC Glucose (mg/dL) 279 H 222 H (75-99) mg/dL Rheumatoid Factor (<12) IU/mL Microbiology - Last 24 Hours (Table) 08/29/16 08:45 Gram Stain - Preliminary Sputum Assessment and Plan Plan: 1. Left hand gout with possible cellulitis. Start the patient on IV anabiotic in the form of Levaquin 750 mg IV piggyback every 24 hours, Zosyn 3.375 g IV piggyback every 6 hours, start the patient on Colace is seen the 0.6 mg orally twice every day, hold allopurinol for now and decrease the dose to 0.6 mg orally once every day for a week after that. 2. Possible left lower lobe pneumonia likely gram-negative pneumonia. Continue Levaquin 750 mg po every 24 hours, Zosyn 3.375 g IV piggyback every 6 hours, blood culture, sputum culture, nebulized treatment. 3. 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 Continue with plavix 75 mg po daily,lipitor 80 mg po daily. 4. Diabetes mellitus type 2. Continue consistent carbohydrate diet 1829, glimeperide 4 mg orally once every day, Humalog per sliding scale. 5. Hypertension. Continue patient on atenolol 50 mg orally once every day discontinue [place]. 6. Hyperlipidemia. Continue Lipitor 80 mg orally once every day. 7. Bradycardia with permanent pacemaker. 8. Gout. Discontinue allopurinol, start the patient on colchicine 0.60 minute gram orally twice every day for a week then 0.6 mg orally once every day for 1 week. He continues to have edema to the left upper extremity for which consult placed with [facility]. Ice and Toradol also ordered. AMY, rheumatoid factor, Lyme antibodies, cyclic citrullinated IgG ordered 9. Hypothyroidism. Continue Synthroid 200 g orally once every day. 10. Generalized anxiety disorder. Continue citalopram 20 mg orally once every day. 11. DVT prophylaxis. Heparin 5000 units subcutaneously every 12 hours. 12. GI prophylaxis. Continue PPI. 13. No code. Discharge plan: [facility] tomorrow Impression and plan of care have been directed as dictated by the signing physician. Abbey Gomez nurse practitioner acting as scribe for signing physician. Time with Patient: Greater than 30
[2016-08-30] MEDS: LEVOFLOXACIN 750 MG TAB PO SCH (15:27)
[2016-08-30 16:37] LABS: Glucose,Whole Blood 273 mg/dL (75-99)
[2016-08-30 20:51] LABS: Glucose,Whole Blood 225 mg/dL (75-99)
[2016-08-30] MEDS: ATORVASTATIN 80 MG TAB PO SCH (21:11)
[2016-08-31] MEDS: KETOROLAC 30 MG/ML 1 ML VIAL IVP SCH (05:41)
[2016-08-31] MEDS: LEVOTHYROXINE 100 MCG TAB PO SCH (05:42)
[2016-08-31 07:41] LABS: Glucose,Whole Blood 150 mg/dL (75-99)
[2016-08-31 07:47] VITALS: BP 137/74; PULSE 62; RESP 19; TEMP 97.2
[2016-08-31] MEDS: PIPERACILLIN-TAZOBACTAM 3.375 GM in DEXTROSE/WATER 1 50ML.BAG IVPB SCH (08:22)
[2016-08-31] MEDS: INSULIN LISPRO (humaLOG) 300 UNIT/3 ML VIAL SQ SCH ×2 (08:23→12:52)
[2016-08-31] MEDS: PANTOPRAZOLE 40 MG TABLET PO SCH (08:23)
[2016-08-31] MEDS: GLIMEPIRIDE 4 MG TAB PO SCH (08:23)
[2016-08-31] MEDS: HEPARIN SODIUM,PORCINE 5,000 UNIT/ML 1 ML VIAL SQ SCH (08:24)
[2016-08-31] MEDS: ASPIRIN 81 MG CHEW PO SCH (08:24)
[2016-08-31] MEDS: CITALOPRAM HYDROBROMIDE 20 MG TAB PO SCH (08:24)
[2016-08-31] MEDS: CLOPIDOGREL 75 MG TAB PO SCH (08:24)
[2016-08-31] MEDS: COLCHICINE 0.6 MG TAB PO SCH (08:24)
[2016-08-31] MEDS: ATENOLOL 50 MG TAB PO SCH (08:24)
[2016-08-31 09:03] LABS: ALT 82 U/L (21-72); AST 32 U/L (17-59); Alkaline Phosphatase 75 U/L (38-126); Anion Gap 9 mmol/L; Blood Urea Nitrogen 39 mg/dL (9-20); Carbon Dioxide 30 mmol/L (22-30); Chloride 100 mmol/L (98-107); Glucose 144 mg/dL (74-99); Non-African American GFR(MDRD) >60 (>60 ml/min/1.73 sqM); Potassium 3.6 mmol/L (3.5-5.1); Sodium 139 mmol/L (137-145); Total Bilirubin 0.6 mg/dL (0.2-1.3); Total Protein 6.1 g/dL (6.3-8.2)
[2016-08-31 09:17] LABS: CH 31.2; CHCM 33.6; HCT 36.8 % (39.0-53.0); HDW 2.74; HGB 12.3 gm/dL (13.0-17.5); MCH 31.1 pg (25.0-35.0); MCHC 33.5 g/dL (31.0-37.0); MCV 93.1 fL (80.0-100.0); Mean Platelet Volume 6.9; RBC 3.96 m/uL (4.30-5.90)
[2016-08-31 12:42] LABS: Glucose,Whole Blood 207 mg/dL (75-99)
[2016-08-31] MEDS: MULTIVITAMINS, THERA 1 EACH TAB PO SCH (12:50)
[2016-08-31] MEDS: SODIUM CHLORIDE 0.9% 1,000 ML IV SCH (12:50)
--- NOTE | 2016-08-31 13:04 | P.DS ---
Providers Date of admission: 08/28/16 15:38 Expected date of discharge: 08/31/16 Attending physician: Wang Noland Consults: 08/29/16 10:35 Consult Physician Routine Consulting Provider: Keyshawn Keen Consult Reason/Comments: edema left arm, <ROM Do you want consulting provider notified?: Yes Primary care physician: Lei Jean-Baptiste [facility] Course: This is an 80-year-old male one of Dr. Jean-Baptiste with a previous medical history significant for asthma, diabetes, hypertension, osteoarthritis, benign prostatic hypertrophy, hypothyroidism, gout, colon cancer, anxiety. Patient was admitted to the hospital for ataxia and weakness recently and upon arrival back home 4 hours later patient was noticed to have left sided facial droop and left-sided weakness and was brought back to the emergency center by his son-in-law. Dr. Meija was involved with the ER physician and it was determined that TPN would be on hold given the improvement of his symptoms. He underwent a CAT scan of the brain that showed probable subacute infarct with no hemorrhage or hydrocephalus. Chest x-ray showed no acute process. CT angiogram of the head and neck showed cerebrovascular atheromatosis changes present. No significant stenosis of the proximal internal carotid arteries bilaterally. Patient was admitted to the hospital and seen in consultation by neurology. Patient is unable to have MRI due to pacemaker. He has been started on Plavix 75 mg and aspirin decreased to 81 mg daily as well as continued on statin therapy. PT, OT, speech therapy consults . Patient was released home on Sunday and he has been doing fine until yesterday when he developed to have an increased swelling and redness of the left dorsal aspect of the left hand associated with the minimal confusion without any evidence of any facial droop at that time. Today patient developed to have a significant swelling and significant pain in the left hand and his family brought into the emergency department at [facility] for evaluation and he was found to have a leukocytosis with minimal left lower lobe atelectasis versus infiltrate was started on IV antibiotic and he would be started also on colchicine 0.6 mg orally twice every day for one week followed by 0.6 mg orally once every day hold allopurinol for now patient may be a great candidate for Uloric. 08/29: Patient continues to have edema to the left arm which he states he has had since he started Lupron. We will try ice and Toradol along with elevation. He did receive colchicine this morning but uric acid is only 2.5. AMY, rheumatoid factor, Lyme antibodies, cyclic citrullinated IgG ordered Consult will be requested with orthopedics rule out septic joint. White count is down to 9.7. Sputum culture has been sent. Repeat chest x-ray shows stable tiny left pleural effusions and basilar infiltrate or atelectasis. Hiatal hernia. 08/30: Patient's left arm edema is much improved as well as pain to the area. Solu-Medrol will be discontinued. He has been started on colchicine. Last bowel movement was soft but formed. He has been evaluated by orthopedics with no plan for intervention. Plan is for discharge to [facility] tomorrow. 08/31: Patient is feeling much improved today. He has had increased bowel movements for which colchicine will be decreased to once daily. He'll lower echo [facility] at the [facility]. Patient will be discharged to [facility] today in stable condition. [facility] will be followed at the [facility] by Dr. Noland. Discharge diagnoses: 1. Left hand gout with possible cellulitis. 2. Possible left lower lobe pneumonia likely gram-negative pneumonia. 3. 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 4. Diabetes mellitus type 2. 5. Hypertension. 6. Hyperlipidemia. 7. Bradycardia with permanent pacemaker. 8. Gout. 9. Hypothyroidism. 10. Generalized anxiety disorder. Discharge plan: [facility] Impression and plan of care have been directed as dictated by the signing physician. Abbey Gomez nurse practitioner acting as scribe for signing physician. Patient Condition at Discharge: Good Plan - Discharge Summary New Discharge Prescriptions: Ammonium Lactate Lotion [Lac-Hydrin 12% Lotion] 1 applic TOPICAL BID #60 gm Febuxostat [Uloric] 40 mg PO DAILY #30 tablet Levofloxacin [Levaquin] 750 mg PO DAILY@1600 #5 tab Discharge Medication List Atenolol/Chlorthalidone [Tenoretic 50 Tablet] 1 tab PO DAILY 09/19/13 [History] Citalopram Hydrobromide [CeleXA] 20 mg PO DAILY 09/19/13 [History] Levothyroxine Sodium [Synthroid] 200 mcg PO DAILY 09/19/13 [History] Fish Oil/Dha/Epa [Fish Oil 1,200 mg Fish Oil] 1 cap PO DAILY 08/17/16 [History] Glimepiride [Amaryl] 4 mg PO AC-[id number] 08/17/16 [History] Aspirin 81 mg PO DAILY chew 08/22/16 [Rx] Atorvastatin [Lipitor] 80 mg PO HS #30 tab 08/22/16 [Rx] Clopidogrel [Plavix] 75 mg PO DAILY #30 tab 08/22/16 [Rx] Multivitamins, Thera [Multivitamin (formulary)] 1 tab PO DAILY 08/28/16 [History ] Ammonium Lactate Lotion [Lac-Hydrin 12% Lotion] 1 applic TOPICAL BID #60 gm [Rx] Colchicine [Colcrys] 0.6 mg PO DAILY tab 08/31/16 [Rx] Febuxostat [Uloric] 40 mg PO DAILY #30 tablet 08/31/16 [Rx] Levofloxacin [Levaquin] 750 mg PO DAILY@1600 #5 tab 08/31/16 [Rx] Follow up Appointment(s)/Referral(s): Lei Jean-Baptiste DO [Primary Care Provider] - 1 Week (After discharge from [facility]) Jet Keen DO [Doctor of Osteopathic Medicine] - As Needed Patient Instructions/Handouts: Cellulitis (DC) Activity/Diet/Wound Care/Special Instructions: Cardiac, diabetic diet Activity as tolerated, fall precautions. Keep right arm elevated above heart. Discharge Disposition: TRANSFER TO SNF/ECF
== END 2016-08-31 16:00 | DRG 602 ==
LOC: EC 09:45 → 4MS4W 15:38
PROVIDERS: ADMIT Internal Medicine; ATTEND Internal Medicine
DX: L03.113 Cellulitis of right upper limb (principal); J15.6 Pneumonia due to other Gram-negative bacteria; I69.354 Hemiplegia and hemiparesis following cerebral infarction affecting left non-dominant side; E86.0 Dehydration; E11.9 Type 2 diabetes mellitus without complications; I10 Essential (primary) hypertension; E03.9 Hypothyroidism, unspecified; M10.9 Gout, unspecified; K44.9 Diaphragmatic hernia without obstruction or gangrene; J45.909 Unspecified asthma, uncomplicated; E78.5 Hyperlipidemia, unspecified; M19.91 Primary osteoarthritis, unspecified site; F41.1 Generalized anxiety disorder; M19.042 Primary osteoarthritis, left hand; N40.0 Benign prostatic hyperplasia without lower urinary tract symptoms; Z85.038 Personal history of other malignant neoplasm of large intestine; Z90.49 Acquired absence of other specified parts of digestive tract; Z87.891 Personal history of nicotine dependence; Z95.0 Presence of cardiac pacemaker; Z79.82 Long term (current) use of aspirin; Z79.02 Long term (current) use of antithrombotics/antiplatelets; Z79.84 Long term (current) use of oral hypoglycemic drugs; Z79.899 Other long term (current) drug therapy
CPT/HCPCS: 36415; 71020; 80053; 81003; 82550; 82553; 83036; 83605; 83735; 84484; 84550; 85025; 85027; 85379; 85610; 85730; 86038; 86200; 86431; 86618; 87040; 87070; 87205; 93005; 94760

== ENCOUNTER → 2016-11-01 | Outpatient (CLI) | payer MEDICARE ==
--- NOTE | 2016-11-01 08:10 | CT ---
EXAMINATION TYPE: CT brain wo con DATE OF EXAM: 11/01/2016 COMPARISON: 08/19/2016 HISTORY: Follow up to CVA CT DLP: [address] of the brain was performed. The ventricles, basal cisterns and sulci overlying the cerebral convexities demonstrate mild enlargem ent. Remote insult in the region of the anterior limb right internal capsule. There is no evidence for intracranial hemorrhage or sulcal effacement. There is decreased attenuation about the periventricular white matter and deep white matter of both c erebral hemispheres, compatible with chronic small vessel ischemia. Differential diagnosis does inclu de demyelination. No mass effects are seen.No midline shift. Osseous calvarium is intact. If symptoms persist consider MRI. IMPRESSION: 1. Age related atrophic and chronic small vessel ischemic change without acute intracranial process s een at this time.
== END | disposition home or self-care (01) ==
LOC: RADCTMAIN 06:47
PROVIDERS: ATTEND Family Medicine
DX: G31.9 Degenerative disease of nervous system, unspecified (principal); I67.82 Cerebral ischemia
CPT/HCPCS: 70450

== ENCOUNTER 2016-12-25 14:53 | Inpatient (IN) | payer MEDICARE ==
[2016-12-25] MEDS ORDERED: KETOROLAC 30 MG/ML 1 ML VIAL IVP STA (15:16)
[2016-12-25] MEDS ORDERED: ACETAMINOPHEN IV (For NPO) 1,000 MG in EMPTY BAG 1 BAG IVPB STA (15:16)
[2016-12-25] MEDS ORDERED: LEVOFLOXACIN 750MG-D5W PMX 750 MG in DEXTROSE/WATER 1 150ML.BAG IVPB STA (15:16)
[2016-12-25] MEDS ORDERED: SODIUM CHLORIDE 0.9% 1,000 ML IV STA ×2 (15:16)
--- NOTE | 2016-12-25 15:22 | ED ---
General Adult HPI - General Chief complaint: Weakness Stated complaint: weakness Time Seen by Provider: 12/25/16 15:16 Source: patient, RN notes reviewed, old records reviewed Mode of arrival: ambulatory Limitations: physical limitation - History of Present Illness Initial comments: This is an 81-year-old male ER for evaluation. Patient presented here for evaluation of weakness, severe weakness and debility. Decrease activities of daily living. Unable to function at home. Patient coming in from rehab. Missions or weakness. Denies any rash nausea vomiting or diarrhea. Patient is poor Strine - Related Data Home Medications Medication Instructions Recorded Confirmed Atenolol/Chlorthalidone [Tenoretic 1 tab PO DAILY 09/19/13 12/25/16 50 Tablet] Levothyroxine Sodium [Synthroid] 200 mcg PO DAILY 09/19/13 12/25/16 Multivitamins, Thera [Multivitamin 1 tab PO DAILY 08/28/16 12/25/16 (formulary)] Atorvastatin [Lipitor] 40 mg PO HS 12/25/16 12/25/16 Pregabalin [Lyrica] 75 mg PO DAILY 12/25/16 12/25/16 levETIRAcetam [Keppra] 500 mg PO Q12HR 12/25/16 12/25/16 Previous Rx's Medication Instructions Recorded Aspirin 81 mg PO DAILY chew 08/22/16 Allergies Allergy/AdvReac Type Severity Reaction Status Date / Time acetaminophen [From [place]] AdvReac Hallucinati Verified 12/25/16 16:18 ons hydrocodone [From [place]] AdvReac Hallucinati Verified 12/25/16 16:18 ons Review of Systems ROS Statement: Those systems with pertinent positive or pertinent negative responses have been documented in the HPI. ROS Other: All systems not noted in ROS Statement are negative. Past Medical History Past Medical History: Asthma, Cancer, Diabetes Mellitus, Hypertension, Osteoarthritis (OA), Prostate Disorder, Respiratory Disorder, Thyroid Disorder Additional Past Medical History / Comment(s): hypothyroid, asbestos, colon cancer, gout, gets hormone shots History of Any Multi-Drug Resistant Organisms: None Reported Past Surgical History: Appendectomy, Cholecystectomy, Pacemaker, Prostate Surgery Additional Past Surgical History / Comment(s): penile surgery, cancers in remission Type of Cardiac Device: Unknown Device Placement Date:: unknown Past Psychological History: Anxiety Smoking Status: Former smoker Past Alcohol Use History: None Reported Past Drug Use History: None Reported - Past Family History Father Family Medical History: Myocardial Infarction ([place]) (Father at age of 45 from the massive heart attack.) Mother Family Medical History: Cancer, Myocardial Infarction ([place]) (Mother at age of 82 from [place].) Brother(s) Family Medical History: No Reported History (Patient has one brother no major medical problems) Sister(s) Family Medical History: Neurologic Disorder (Patient had 2 sisters one of them from multiple sclerosis) Son(s) Family Medical History: No Reported History (Patient has 3 sons no major medical problems) General Exam Limitations: physical limitation General appearance: alert, in no apparent distress Head exam: Present: atraumatic, normocephalic, normal inspection Eye exam: Present: normal appearance, PERRL, EOMI. Absent: scleral icterus, conjunctival injection, periorbital swelling ENT exam: Present: normal exam, mucous membranes moist Neck exam: Present: normal inspection. Absent: tenderness, meningismus, lymphadenopathy Respiratory exam: Present: normal lung sounds bilaterally. Absent: respiratory distress, wheezes, rales, rhonchi, stridor Cardiovascular Exam: Present: regular rate, normal rhythm, normal heart sounds. Absent: systolic murmur, diastolic murmur, rubs, gallop, clicks GI/Abdominal exam: Present: soft, normal bowel sounds. Absent: distended, tenderness, guarding, rebound, rigid Extremities exam: Present: normal inspection, full ROM, normal capillary refill. Absent: tenderness, pedal edema, joint swelling, calf tenderness Back exam: Present: normal inspection Neurological exam: Present: alert, oriented X3, CN II-XII intact Psychiatric exam: Present: normal affect, normal mood Skin exam: Present: warm, dry, intact, normal color. Absent: rash Course Vital Signs 12/25/16 14:56 Temperature 101.2 F H Pulse Rate 65 Respiratory 18 Rate Blood Pressure 160/79 O2 Sat by Pulse 97 Oximetry - Reevaluation(s) Reevaluation #1: 12/25/16 15:22 Patient noted to be febrile and normal as started EKG Findings - EKG Comments: EKG Findings:: EKG shows paced rhythm rate of 64, QRS to 12, QTC 513 Medical Decision Making - Medical Decision Making 81 LDF reevaluation regarding weakness, positive pneumonia on x-ray, C5 antibiotics, fever control symptoms control cardiopulmonary resuscitation - Lab Data Result diagrams: 12/25/16 15:25 12/25/16 15:25 Lab Results 12/25/16 12/25/16 12/25/16 Range/Units 15:25 15:25 15:25 WBC 9.5 (3.8-10.6) k/uL RBC 4.02 L (4.30-5.90) m/uL Hgb 11.6 L (13.0-17.5) gm/dL Hct 35.1 L (39.0-53.0) % MCV 87.4 D (80.0-100.0) fL MCH 29.0 (25.0-35.0) pg MCHC 33.1 (31.0-37.0) g/dL RDW 15.5 (11.5-15.5) % Plt Count 211 (150-450) k/uL Neutrophils % 72 % Lymphocytes % 16 % Monocytes % 7 % Eosinophils % 2 % Basophils % 1 % Neutrophils # 6.8 (1.3-7.7) k/uL Lymphocytes # 1.5 (1.0-4.8) k/uL Monocytes # 0.6 (0-1.0) k/uL Eosinophils # 0.2 (0-0.7) k/uL Basophils # 0.1 (0-0.2) k/uL PT (9.0-12.0) sec INR (<1.2) APTT (22.0-30.0) sec Sodium 140 (137-145) mmol/L Potassium 3.8 (3.5-5.1) mmol/L Chloride 99 (98-107) mmol/L Carbon Dioxide 28 (22-30) mmol/L Anion Gap 13 mmol/L BUN 16 (9-20) mg/dL Creatinine 0.90 (0.66-1.25) mg/dL Est GFR (MDRD) Af Amer >60 (>60 ml/min/1.73 sqM) Est GFR (MDRD) Non-Af >60 (>60 ml/min/1.73 sqM) Glucose 161 H (74-99) mg/dL Plasma Lactic Acid Luis (0.7-2.0) mmol/L Calcium 9.4 (8.4-10.2) mg/dL Phosphorus 3.8 (2.5-4.5) mg/dL Magnesium 1.8 (1.6-2.3) mg/dL Total Bilirubin 0.6 (0.2-1.3) mg/dL AST 20 (17-59) U/L ALT 29 (21-72) U/L Alkaline Phosphatase 74 (38-126) U/L Total Creatine Kinase 26 L (55-170) U/L Total Protein 6.9 (6.3-8.2) g/dL Albumin 4.0 (3.5-5.0) g/dL 12/25/16 12/25/16 Range/Units 15:25 15:25 WBC (3.8-10.6) k/uL RBC (4.30-5.90) m/uL Hgb (13.0-17.5) gm/dL Hct (39.0-53.0) % MCV (80.0-100.0) fL MCH (25.0-35.0) pg MCHC (31.0-37.0) g/dL RDW (11.5-15.5) % Plt Count (150-450) k/uL Neutrophils % % Lymphocytes % % Monocytes % % Eosinophils % % Basophils % % Neutrophils # (1.3-7.7) k/uL Lymphocytes # (1.0-4.8) k/uL Monocytes # (0-1.0) k/uL Eosinophils # (0-0.7) k/uL Basophils # (0-0.2) k/uL PT 10.7 (9.0-12.0) sec INR 1.1 (<1.2) APTT 26.3 (22.0-30.0) sec Sodium (137-145) mmol/L Potassium (3.5-5.1) mmol/L Chloride (98-107) mmol/L Carbon Dioxide (22-30) mmol/L Anion Gap mmol/L BUN (9-20) mg/dL Creatinine (0.66-1.25) mg/dL Est GFR (MDRD) Af Amer (>60 ml/min/1.73 sqM) Est GFR (MDRD) Non-Af (>60 ml/min/1.73 sqM) Glucose (74-99) mg/dL Plasma Lactic Acid Luis 1.3 (0.7-2.0) mmol/L Calcium (8.4-10.2) mg/dL Phosphorus (2.5-4.5) mg/dL Magnesium (1.6-2.3) mg/dL Total Bilirubin (0.2-1.3) mg/dL AST (17-59) U/L ALT (21-72) U/L Alkaline Phosphatase (38-126) U/L Total Creatine Kinase (55-170) U/L Total Protein (6.3-8.2) g/dL Albumin (3.5-5.0) g/dL - Radiology Data Radiology results: report reviewed (CXR is postivie for pneumonia), image reviewed Disposition Clinical Impression: Dehydration, Diabetes mellitus, Weakness, Fever, Nosocomial pneumonia Disposition: ADMITTED IP TO THIS HOSP Condition: Fair Referrals: Lei Jean-Baptiste DO [Primary Care Provider] - 1-2 days
[2016-12-25 15:41] LABS: Basophils # (A) 0.1 k/uL (0-0.2); Basophils % (A) 1 %; CH 28.4; CHCM 32.6; Eosinophils # (A) 0.2 k/uL (0-0.7); Eosinophils % (A) 2 %; HCT 35.1 % (39.0-53.0); HDW 2.94; HGB 11.6 gm/dL (13.0-17.5); Luc # (Auto) 0.25; Luc % (Auto) 3; Lymphocytes # (A) 1.5 k/uL (1.0-4.8); Lymphocytes % (A) 16 %; MCHC 33.1 g/dL (31.0-37.0); Mean Platelet Volume 7.8; Monocytes # (A) 0.6 k/uL (0-1.0); Monocytes % (A) 7 %; Neutrophils # (A) 6.8 k/uL (1.3-7.7); Neutrophils % (A) 72 %; RBC 4.02 m/uL (4.30-5.90); RDW 15.5 % (11.5-15.5); WBC 9.5 k/uL (3.8-10.6); WBC (Perox) 9.86
[2016-12-25 15:48] LABS: INR 1.1 (<1.2); Partial Thromboplastin Time 26.3 sec (22.0-30.0); Prothrombin Time 10.7 sec (9.0-12.0)
[2016-12-25 15:49] LABS: ALT 29 U/L (21-72); AST 20 U/L (17-59); Alkaline Phosphatase 74 U/L (38-126); Anion Gap 13 mmol/L; Blood Urea Nitrogen 16 mg/dL (9-20); Calcium 9.4 mg/dL (8.4-10.2); Carbon Dioxide 28 mmol/L (22-30); Chloride 99 mmol/L (98-107); Glucose 161 mg/dL (74-99); Magnesium 1.8 mg/dL (1.6-2.3); Non-African American GFR(MDRD) >60 (>60 ml/min/1.73 sqM); Phosphorous 3.8 mg/dL (2.5-4.5); Potassium 3.8 mmol/L (3.5-5.1); Sodium 140 mmol/L (137-145); Total Bilirubin 0.6 mg/dL (0.2-1.3); Total Protein 6.9 g/dL (6.3-8.2)
[2016-12-25 15:59] LABS: MCV 87.4 fL (80.0-100.0)
[2016-12-25] MEDS ORDERED: IPRATROPIUM-ALBUTEROL 3 ML NEB INHALATION PRN (16:03)
[2016-12-25] MEDS ORDERED: IPRATROPIUM-ALBUTEROL 3 ML NEB INHALATION STA (16:03)
[2016-12-25 16:07] LABS: Creatine Kinase 26 U/L (55-170)
[2016-12-25] MEDS ORDERED: IBUPROFEN 400 MG TAB PO PRN (16:08)
[2016-12-25] MEDS ORDERED: SODIUM CHLORIDE 0.9% 1,000 ML IV ONE (16:08)
--- NOTE | 2016-12-25 16:19 | XR ---
EXAMINATION TYPE: XR chest 2V DATE OF EXAM: 12/25/2016 COMPARISON: 08/29/2016 TECHNIQUE: PA and lateral views submitted. HISTORY: Weakness and fever FINDINGS: Hypertrophic and degenerative change of the spine. Cardiac leads are noted. There is lower lobe infil trate and small left effusion. No pneumothorax. Arthropathy of the shoulders. Heart size stable. IMPRESSION: 1. Left lower lobe infiltrate and small effusion. Correlate for early pneumonia. No overt failure.
[2016-12-25] MEDS ORDERED: PIPERACILLIN-TAZOBACTAM 3.375 GM in DEXTROSE/WATER 1 50ML.BAG IVPB STA (16:20)
[2016-12-25 16:21] LABS: Creatine Kinase MB <0.2 ng/mL (0.0-2.4); Troponin I <0.012 ng/mL (0.000-0.034)
--- NOTE | 2016-12-25 17:15 | CT ---
EXAMINATION TYPE: CT brain wo con DATE OF EXAM: 12/25/2016 COMPARISON: 10/24/2016 HISTORY: weakness CT DLP: 1075.4 mGycm Automated exposure control for dose reduction was used. FINDINGS: There is mild cerebral cortical atrophy. There is a 1.5 cm hypodensity in the genuine right internal capsule. There is no mass effect nor midline shift. There is no sign of intracranial hemorrhage. Ther e is mucosal thickening in the ethmoid and frontal sinuses. IMPRESSION: OLD RIGHT INTERNAL CAPSULE LACUNAR INFARCT. NO ACUTE ABNORMALITY. SINUSITIS. SINUSITIS IS NEW COMPARE D TO OLD EXAM.
--- NOTE | 2016-12-25 18:39 | P.HPIM ---
History of Present Illness H&P Date: 12/25/16 Chief Complaint: Severe dyspnea and shortness of breath, left lower lobe pneumonia, fever an 81-year-old male one of Dr. Contreras patient with past medical history of asthma, CAD post pacemaker, hypertension, diabetes, history of prostate cancer and mild COPD who was transferred from the emergency department to [facility] for intracranial hemorrhage from falling down steps and to the basement on November 19 patient ended up being treated with conservative management did not require any surgery. Patient developed to have significant headache abnormal gait imbalance ended up being transferred to [facility] for rehab where he stayed ~20 of December. Patient made it home last was doing well until Sunday when the notices not able to ambulate and walk and not feeling well developed to have significant encephalopathy. Patient also developed to have significant cough productive dark phlegm along with mild hypoxia and worsening mentation. Seen by the visiting nurse found that he was not taking his thyroid medication for the last 6-8 weeks and developed to have significant edema swelling and decreased reaction. Family don't remember having any aspiration in the last few days. Patient today was not able to ambulate walk and become much worse have fever of 101. Was seen at the emergency department at [facility] chest x-ray showed left lower lobe pneumonia patient was mild hypoxic with the current symptoms decided to treat this as a nosocomial pneumonia having him on Zosyn and Levaquin along with updraft treatment and steroid. Patient also had increased edema of the lower extremity and all over his body from his myxedema not taking his thyroid for several weeks also had flareup of gout has not been on any gout medication lately. Review of Systems Constitutional: Reports anorexia, Reports chronic headaches, Reports chronic pain, Reports fatigue, Reports fever, Reports lethargy, Reports night sweats, Reports poor appetite, Reports weight gain, Denies as per HPI, Denies chills, Denies daytime sleepiness, Denies malaise, Denies sweats, Denies weakness, Denies weight loss Eyes: bilateral as per HPI Ears: bilateral: decreased hearing Ears, nose, mouth and throat: Reports nasal congestion, Reports sinus pain, Reports sinus pressure, Denies as per HPI, Denies ant. neck pain, Denies bleeding gums, Denies dental pain, Denies dysphagia, Denies epistaxis, Denies headache, Denies hoarseness, Denies mouth pain, Denies nasal discharge, Denies neck fullness/pressure, Denies neck lump, Denies nose pain, Denies odynophagia, Denies post-nasal drip, Denies swelling in mouth, Denies swelling in throat, Denies sore throat, Denies vertigo, Denies voice changes Cardiovascular: Reports chest pain, Reports decreased exercise tolerance, Reports dyspnea on exertion, Reports edema, Reports high blood pressure, Reports irregular heart beat, Reports leg edema, Reports lightheadedness, Reports orthopnea, Reports palpitations, Reports paroxysmal nocturnal dyspnea, Reports phlebitis, Reports rapid heart beat, Reports shortness of breath, Denies as per HPI, Denies claudication, Denies syncope Respiratory: Reports congestion, Reports cough, Reports dyspnea, Reports excessive sputum, Reports respiratory infections, Reports wheezing, Denies as per HPI, Denies cough with sputum, Denies hemoptysis, Denies home oxygen, Denies pain, Denies pain on inspiration, Denies pleurisy, Denies sleep apnea, Denies snoring Gastrointestinal: Reports abdominal pain, Reports bloating, Reports constipation , Reports dyspepsia, Reports excessive gas, Reports indigestion, Reports nausea , Denies as per HPI, Denies belching, Denies BRBPR, Denies change in bowel habits, Denies coffee ground emesis, Denies diarrhea, Denies early satiety, Denies heartburn, Denies hematemesis, Denies hematochezia, Denies jaundice, Denies lactose intolerance, Denies loss of appetite, Denies melena, Denies vomiting Genitourinary: Reports nocturia, Reports polyuria, Reports urinary frequency, Reports urinary hesitancy, Denies as per HPI, Denies decreased libido, Denies difficulties fathering child, Denies discharge, Denies dysuria, Denies erectile dysfunction, Denies flank pain, Denies genital pain, Denies genital sores, Denies hematuria, Denies impotence, Denies incontinence, Denies kidney stones, Denies testicular lump, Denies testicular pain, Denies urinary retention Musculoskeletal: Reports limitation of motion, Reports low back pain, Reports myalgias, Reports neck pain, Denies as per HPI, Denies arm numbness/tingling, Denies atrophy, Denies fractures, Denies frequent falls, Denies gait dysfunction , Denies hot joints, Denies leg numbness/tingling, Denies loss of height, Denies morning stiffness, Denies muscle cramps, Denies muscle weakness, Denies neck stiffness, Denies prior amputations, Denies redness of joints, Denies shooting arm pain, Denies shooting leg pain Musculoskeletal: bilateral: ankle pain Integumentary: Reports dryness, Reports pruritus, Reports rash, Reports striae, Denies as per HPI, Denies acne, Denies boils, Denies brittle nails, Denies change in hair/nails, Denies color changes, Denies darkening of skin, Denies depigmentation, Denies foot/leg ulcers, Denies growths, Denies hirsutism, Denies lesions, Denies onychomycosis, Denies sores, Denies unusual bruising, Denies wounds Neurological: Reports ataxia, Reports gait dysfunction, Reports lack of coordination, Reports numbness, Reports paresthesias, Reports tingling, Reports tremors, Reports weakness, Denies as per HPI, Denies aphasia, Denies balance difficulties, Denies burning pain, Denies change in mentation, Denies change in smell/taste, Denies change in speech, Denies confusion, Denies convulsions, Denies double vision, Denies head injury, Denies headaches, Denies hearing difficulties, Denies loss of vision, Denies memory loss, Denies migraines, Denies motor disturbance, Denies paralysis, Denies seizures, Denies sensory deficit, Denies spasticity, Denies syncope, Denies tic, Denies transient paralysis, Denies vertigo, Denies visual changes Psychiatric: Reports anhedonia, Reports anxiety, Reports depression, Reports irritability, Reports sadness/tearfulness, Denies as per HPI, Denies anxiety attacks, Denies change in appetite, Denies change in libido, Denies change in sleep habits, Denies confusion, Denies difficulty concentrating, Denies disorientation, Denies hallucinations, Denies hopelessness, Denies hypersomnia, Denies insomnia, Denies memory loss, Denies mood swings, Denies paranoia, Denies sleep disturbances, Denies suicidal ideation Endocrine: Reports cold intolerance, Reports fatigue, Reports polyuria, Denies as per HPI, Denies deepening of the voice, Denies excessive sweating, Denies excessive thirst, Denies flushing, Denies heat intolerance, Denies high blood sugars, Denies increase in ring/shoe/hat size, Denies low blood sugars, Denies nocturia, Denies palpitations, Denies polydipsia, Denies polyphagia, Denies proptosis, Denies recent glucocorticoid use, Denies thyroid mass, Denies weight change Hematologic/Lymphatic: Reports easy bruising, Denies as per HPI, Denies easy bleeding, Denies lymphadenopathy, Denies lymphedema, Denies thrombophilia Allergic/Immunologic: Reports allergic rhinitis, Denies as per HPI, Denies anaphylaxis, Denies angioedema, Denies gluten intolerance, Denies persistent infections, Denies seasonal allergies, Denies urticaria, Denies wheezing Past Medical History Past Medical History: Asthma, Cancer, CVA/TIA, Diabetes Mellitus, Hyperlipidemia , Hypertension, Osteoarthritis (OA), Pneumonia, Prostate Disorder, Respiratory Disorder, Thyroid Disorder Additional Past Medical History / Comment(s): 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 'his legs won't support hime,unable to get up on his own/walk "hypothyroid, asbestos, colon cancer, gout, gets hormone shots History of Any Multi-Drug Resistant Organisms: None Reported Past Surgical History: Appendectomy, Cholecystectomy, Pacemaker, Prostate Surgery Additional Past Surgical History / Comment(s): penile surgery, cancers in remission Past Anesthesia/Blood Transfusion Reactions: No Reported Reaction Type of Cardiac Device: Unknown Device Placement Date:: unknown Past Psychological History: Anxiety Additional Psychological History / Comment(s): pt lives with his myriam. pt just returned home from [facility] 12-21-16, has [facility] and pt. Smoking Status: Former smoker Past Alcohol Use History: None Reported Past Drug Use History: None Reported - Past Family History Father Family Medical History: Myocardial Infarction ([place]) Mother Family Medical History: Cancer, Myocardial Infarction ([place]) Brother(s) Family Medical History: No Reported History Sister(s) Family Medical History: Neurologic Disorder Son(s) Family Medical History: No Reported History Medications and Allergies Home Medications Medication Instructions Recorded Confirmed Type Atenolol/Chlorthalidone [Tenoretic 1 tab PO DAILY 09/19/13 12/25/16 History 50 Tablet] Levothyroxine Sodium [Synthroid] 200 mcg PO DAILY 09/19/13 12/25/16 History Multivitamins, Thera [Multivitamin 1 tab PO DAILY 08/28/16 12/25/16 History (formulary)] Atorvastatin [Lipitor] 40 mg PO HS 12/25/16 12/25/16 History Pregabalin [Lyrica] 75 mg PO DAILY 12/25/16 12/25/16 History levETIRAcetam [Keppra] 500 mg PO Q12HR 12/25/16 12/25/16 History Allergies Allergy/AdvReac Type Severity Reaction Status Date / Time hydrocodone [From [place]] AdvReac Hallucinati Verified 12/25/16 16:18 ons Physical Exam Vitals: Vital Signs Temp Pulse Pulse Resp BP BP Pulse Ox 12/25/16 18:00 99.4 F 60 16 176/83 97 12/25/16 17:02 99.3 F 62 17 133/68 95 12/25/16 14:56 101.2 F H 65 18 160/79 97 Intake and Output 12/25/16 12/25/16 12/25/16 06:59 14:59 22:59 Other: Weight 97.976 kg Patient Weight 12/26/16 06:59 Weight 97.976 kg - Constitutional General appearance: no average body habitus, cooperative, disheveled, mild distress, no morbidly obese, no no acute distress, obese, no severe distress, no thin - EENT Eyes: abnormal pupil, no anicteric sclerae, no disc margins sharp, no edentulous , no EOMI, no PERRLA, no fundus normal, no photophobia, no dentition normal, no poor dentition, no ptosis, no scleral icterus, normal appearance ENT: hard of hearing, no hearing grossly normal, no NA/AT, normal oropharynx, no other, no pharyngeal erythema, no thrush, no tonsillar exudates, no tonsillar swelling Ears: bilateral: normal - Neck Neck: no lymphadenopathy, normal ROM, no other, no rigidity, no stridor, no thyromegaly Carotids: bilateral: upstroke normal Thyroid: bilateral: normal size - Respiratory Respiratory: bilateral: diminished, dullness, rales, rhonchi, wheezing - Cardiovascular Rhythm: regular Heart sounds: normal: S1, S2 Abnormal Heart Sounds: systolic murmur, S3 Gallop - Gastrointestinal General gastrointestinal: no absent bowel sounds, decreased bowel sounds, distended, no hepatomegaly, no hyperactive bowel sounds, no normal bowel sounds , no organomegaly, rigid, no scaphoid, soft, no splenomegaly, no tenderness, no umbilical hernia, no ventral hernia - Integumentary Significant edema with slight swelling discomfort and pain in the low large toes in both side. Integumentary: jaundiced, normal, pale, rash - Neurologic Neurologic: CNII-XII intact - Musculoskeletal Musculoskeletal: gait normal, generalized weakness, strength equal bilaterally, no right sided weakness, no left sided weakness - Psychiatric Psychiatric: A&O x's 3 Results CBC & Chem 7: 12/25/16 15:25 12/25/16 15:25 Labs: Abnormal Lab Results - Last 24 Hours (Table) 12/25/16 12/25/16 12/25/16 Range/Units 15:25 15:25 15:25 RBC 4.02 L (4.30-5.90) m/uL Hgb 11.6 L (13.0-17.5) gm/dL Hct 35.1 L (39.0-53.0) % Glucose 161 H (74-99) mg/dL Total Creatine Kinase 26 L (55-170) U/L TSH 37.700 H (0.465-4.680) mIU/L Free T4 (0.78-2.19) ng/dL 12/25/16 Range/Units 15:25 RBC (4.30-5.90) m/uL Hgb (13.0-17.5) gm/dL Hct (39.0-53.0) % Glucose (74-99) mg/dL Total Creatine Kinase (55-170) U/L TSH (0.465-4.680) mIU/L Free T4 0.46 L (0.78-2.19) ng/dL Thrombosis Risk Factor Assmnt - DVT/VTE Prophylaxis DVT/VTE Prophylaxis: Pharmacologic Prophylaxis ordered, Mechanical Prophylaxis ordered Assessment and Plan Plan: 1 acute respiratory failure: Combination of left lower lobe pneumonia, hypoxia, encephalopathy, myxedema and COPD exacerbation. 2 left sided pneumonia: Most likely nosocomial versus aspiration with the current scenario patient need to be treated for gram-negative patient will be on Zosyn and Levaquin will consult pulmonary. 3 COPD exacerbation: Will add Solu-Medrol combine with DuoNeb and Pulmicort. 4 myxedema with worsening symptoms lately not been on thyroid medication for over 6 weeks patient was started back on Synthroid 20 g daily watch his symptoms carefully watch for any arrhythmia or tachycardia. 5 gout flareup with worsening symptom both lower extremity: Patient uric acid to be done was start patient on Solu-Medrol for now on small dose of colchicine 0.6 mg daily. 6 intracranial hemorrhage: Has been doing well so far his not having any further bleed the CAT scan was good this time. 7 encephalopathy: Combination of his hypoxia, respiratory failure, pneumonia, myxedema and his intracranial hemorrhage will watch patient mental status carefully and start PTOT. 8 worsening edema: Patient might benefit from's been on smaller dose of diuretics. 9 seizure prophylaxis: Patient remain on Keppra 500 mg twice a day since his brain trauma. 10 hyperlipidemia: Remain on Lipitor 40 mg daily. 11 hypertension: Resume atenolol at 50 mg daily. 12 DVT prophylaxis: Patient was place on Lovenox 40 mg daily. 13 GI prophylaxis: Patient will be on Pepcid 20 mg a day. CODE STATUS: Full code. Expectation from this admission: Patient be in the hospital for more than 2 nights.
[2016-12-25] MEDS: methylPREDNISolone SOD SUCCI 125 MG/2 ML VIAL IV SCH ×2 (18:58→23:21)
[2016-12-25] MEDS: COLCHICINE 0.6 MG TAB PO SCH (19:01)
[2016-12-25] MEDS: levETIRAcetam 500 MG TAB PO SCH (20:41)
[2016-12-25] MEDS: ATORVASTATIN 40 MG TAB PO SCH (20:41)
[2016-12-25] MEDS: IPRATROPIUM-ALBUTEROL 3 ML NEB INHALATION SCH (20:49)
[2016-12-25 21:02] LABS: Appearance,Urine Clear (Clear); Bilirubin,Urine Negative (Negative); Glucose,Urine (UA) Negative (Negative); Ketones,Urine Negative (Negative); Leukocyte Esterase,Urine Negative (Negative); Nitrite,Urine Negative (Negative); Protein,Urine Negative (Negative); Specific Gravity,Urine 1.006 (1.001-1.035); UA Billing (MACRO vs. MICRO) CHEM; Urobilinogen,Urine <2.0 mg/dL (<2.0)
[2016-12-25] MEDS: PIPERACILLIN-TAZOBACTAM 3.375 GM in DEXTROSE/WATER 1 50ML.BAG IVPB SCH (23:21)
[2016-12-26 07:25] LABS: Basophils % (A) 0 %; CH 29.5; CHCM 32.1; Eosinophils % (A) 0 %; HCT 38.6 % (39.0-53.0); HDW 2.91; Luc # (Auto) 0.05; Luc % (Auto) 1; Lymphocytes # (A) 0.7 k/uL (1.0-4.8); Lymphocytes % (A) 7 %; MCH 28.7 pg (25.0-35.0); MCHC 31.1 g/dL (31.0-37.0); MCV 92.3 fL (80.0-100.0); Mean Platelet Volume 8.2; Monocytes # (A) 0.3 k/uL (0-1.0); Monocytes % (A) 3 %; Neutrophils % (A) 90 %; RBC 4.18 m/uL (4.30-5.90); WBC (Perox) 10.86
[2016-12-26 07:47] LABS: ALT 29 U/L (21-72); AST 18 U/L (17-59); Alkaline Phosphatase 67 U/L (38-126); Anion Gap 12 mmol/L; Blood Urea Nitrogen 16 mg/dL (9-20); Calcium 9.3 mg/dL (8.4-10.2); Carbon Dioxide 29 mmol/L (22-30); Chloride 101 mmol/L (98-107); Glucose 278 mg/dL (74-99); Non-African American GFR(MDRD) >60 (>60 ml/min/1.73 sqM); Potassium 3.9 mmol/L (3.5-5.1); Sodium 142 mmol/L (137-145); Total Protein 6.7 g/dL (6.3-8.2)
[2016-12-26] MEDS: levETIRAcetam 500 MG TAB PO SCH ×2 (07:52→22:17)
[2016-12-26] MEDS: CHLORTHALIDONE 25 MG TAB PO SCH (07:53)
[2016-12-26] MEDS: methylPREDNISolone SOD SUCCI 125 MG/2 ML VIAL IV SCH ×3 (07:53→23:18)
[2016-12-26] MEDS: ASPIRIN 81 MG CHEW PO SCH (07:53)
[2016-12-26] MEDS: ENOXAPARIN 40 MG/0.4 ML SYRINGE SQ SCH (07:53)
[2016-12-26] MEDS: COLCHICINE 0.6 MG TAB PO SCH (07:53)
[2016-12-26] MEDS: PIPERACILLIN-TAZOBACTAM 3.375 GM in DEXTROSE/WATER 1 50ML.BAG IVPB SCH ×3 (07:53→23:18)
[2016-12-26] MEDS: ATENOLOL 50 MG TAB PO SCH (07:53)
[2016-12-26] MEDS: LEVOTHYROXINE 100 MCG TAB PO SCH (07:54)
[2016-12-26] MEDS: IPRATROPIUM-ALBUTEROL 3 ML NEB INHALATION SCH ×4 (08:59→20:57)
[2016-12-26 09:15] LABS: Hemoglobin A1C 6.3 % (4.2-6.1)
--- NOTE | 2016-12-26 09:23 | P.CNPUL ---
History of Present Illness Consult date: 12/26/16 Reason for consult: dyspnea, cough, asthma, COPD, hypoxemia, pneumonia Chief complaint: Cough shortness of breath and thick dark sputum production History of present illness: 81-year-old male one of Dr. Contreras patient with past medical history of asthma, CAD post pacemaker, hypertension, diabetes, history of prostate cancer and mild COPD who was transferred from the emergency department to [facility] for intracranial hemorrhage from falling down steps and to the basement on November 19 patient ended up being treated with conservative management did not require any surgery. Patient developed to have significant headache abnormal gait imbalance ended up being transferred to [facility] for rehab where he stayed ~20 of December. Patient made it home last was doing well until Sunday when the notices not able to ambulate and walk and not feeling well developed to have significant encephalopathy. Patient also developed to have significant cough productive dark phlegm along with mild hypoxia and worsening mentation. Seen by the visiting nurse found that he was not taking his thyroid medication for the last 6-8 weeks and developed to have significant edema swelling and decreased reaction. Family don't remember having any aspiration in the last few days. Patient today was not able to ambulate walk and become much worse have fever of 101. Was seen at the emergency department at [facility] chest x-ray showed left lower lobe pneumonia patient was mild hypoxic with the current symptoms decided to treat this as a nosocomial pneumonia having him on Zosyn and Levaquin along with updraft treatment and steroid. Patient also had increased edema of the lower extremity and all over his body from his myxedema not taking his thyroid for several weeks also had flareup of gout has not been on any gout medication lately. Constitutional: Reports anorexia, Reports chronic headaches, Reports chronic pain, Reports fatigue, Reports fever, Reports lethargy, Reports night sweats, Reports poor appetite, Reports weight gain, Denies as per HPI, Denies chills, Denies daytime sleepiness, Denies malaise, Denies sweats, Denies weakness, Denies weight loss Eyes: bilateral as per HPI Ears: bilateral: decreased hearing Ears, nose, mouth and throat: Reports nasal congestion, Reports sinus pain, Reports sinus pressure, Denies as per HPI, Denies ant. neck pain, Denies bleeding gums, Denies dental pain, Denies dysphagia, Denies epistaxis, Denies headache, Denies hoarseness, Denies mouth pain, Denies nasal discharge, Denies neck fullness/pressure, Denies neck lump, Denies nose pain, Denies odynophagia, Denies post-nasal drip, Denies swelling in mouth, Denies swelling in throat, Denies sore throat, Denies vertigo, Denies voice changes Cardiovascular: Reports chest pain, Reports decreased exercise tolerance, Reports dyspnea on exertion, Reports edema, Reports high blood pressure, Reports irregular heart beat, Reports leg edema, Reports lightheadedness, Reports orthopnea, Reports palpitations, Reports paroxysmal nocturnal dyspnea, Reports phlebitis, Reports rapid heart beat, Reports shortness of breath, Denies as per HPI, Denies claudication, Denies syncope Respiratory: Reports congestion, Reports cough, Reports dyspnea, Reports excessive sputum, Reports respiratory infections, Reports wheezing, Denies as per HPI, Denies cough with sputum, Denies hemoptysis, Denies home oxygen, Denies pain, Denies pain on inspiration, Denies pleurisy, Denies sleep apnea, Denies snoring Gastrointestinal: Reports abdominal pain, Reports bloating, Reports constipation , Reports dyspepsia, Reports excessive gas, Reports indigestion, Reports nausea , Denies as per HPI, Denies belching, Denies BRBPR, Denies change in bowel habits, Denies coffee ground emesis, Denies diarrhea, Denies early satiety, Denies heartburn, Denies hematemesis, Denies hematochezia, Denies jaundice, Denies lactose intolerance, Denies loss of appetite, Denies melena, Denies vomiting Genitourinary: Reports nocturia, Reports polyuria, Reports urinary frequency, Reports urinary hesitancy, Denies as per HPI, Denies decreased libido, Denies difficulties fathering child, Denies discharge, Denies dysuria, Denies erectile dysfunction, Denies flank pain, Denies genital pain, Denies genital sores, Denies hematuria, Denies impotence, Denies incontinence, Denies kidney stones, Denies testicular lump, Denies testicular pain, Denies urinary retention Musculoskeletal: Reports limitation of motion, Reports low back pain, Reports myalgias, Reports neck pain, Denies as per HPI, Denies arm numbness/tingling, Denies atrophy, Denies fractures, Denies frequent falls, Denies gait dysfunction , Denies hot joints, Denies leg numbness/tingling, Denies loss of height, Denies morning stiffness, Denies muscle cramps, Denies muscle weakness, Denies neck stiffness, Denies prior amputations, Denies redness of joints, Denies shooting arm pain, Denies shooting leg pain Musculoskeletal: bilateral: ankle pain Integumentary: Reports dryness, Reports pruritus, Reports rash, Reports striae, Denies as per HPI, Denies acne, Denies boils, Denies brittle nails, Denies change in hair/nails, Denies color changes, Denies darkening of skin, Denies depigmentation, Denies foot/leg ulcers, Denies growths, Denies hirsutism, Denies lesions, Denies onychomycosis, Denies sores, Denies unusual bruising, Denies wounds Neurological: Reports ataxia, Reports gait dysfunction, Reports lack of coordination, Reports numbness, Reports paresthesias, Reports tingling, Reports tremors, Reports weakness, Denies as per HPI, Denies aphasia, Denies balance difficulties, Denies burning pain, Denies change in mentation, Denies change in smell/taste, Denies change in speech, Denies confusion, Denies convulsions, Denies double vision, Denies head injury, Denies headaches, Denies hearing difficulties, Denies loss of vision, Denies memory loss, Denies migraines, Denies motor disturbance, Denies paralysis, Denies seizures, Denies sensory deficit, Denies spasticity, Denies syncope, Denies tic, Denies transient paralysis, Denies vertigo, Denies visual changes Psychiatric: Reports anhedonia, Reports anxiety, Reports depression, Reports irritability, Reports sadness/tearfulness, Denies as per HPI, Denies anxiety attacks, Denies change in appetite, Denies change in libido, Denies change in sleep habits, Denies confusion, Denies difficulty concentrating, Denies disorientation, Denies hallucinations, Denies hopelessness, Denies hypersomnia, Denies insomnia, Denies memory loss, Denies mood swings, Denies paranoia, Denies sleep disturbances, Denies suicidal ideation Endocrine: Reports cold intolerance, Reports fatigue, Reports polyuria, Denies as per HPI, Denies deepening of the voice, Denies excessive sweating, Denies excessive thirst, Denies flushing, Denies heat intolerance, Denies high blood sugars, Denies increase in ring/shoe/hat size, Denies low blood sugars, Denies nocturia, Denies palpitations, Denies polydipsia, Denies polyphagia, Denies proptosis, Denies recent glucocorticoid use, Denies thyroid mass, Denies weight change Hematologic/Lymphatic: Reports easy bruising, Denies as per HPI, Denies easy bleeding, Denies lymphadenopathy, Denies lymphedema, Denies thrombophilia Allergic/Immunologic: Reports allergic rhinitis, Denies as per HPI, Denies anaphylaxis, Denies angioedema, Denies gluten intolerance, Denies persistent infections, Denies seasonal allergies, Denies urticaria, Denies wheezing Constitutional General appearance: no average body habitus, cooperative, disheveled, mild distress, no morbidly obese, no no acute distress, obese, no severe distress, no thin - EENT Eyes: abnormal pupil, no anicteric sclerae, no disc margins sharp, no edentulous , no EOMI, no PERRLA, no fundus normal, no photophobia, no dentition normal, no poor dentition, no ptosis, no scleral icterus, normal appearance ENT: hard of hearing, no hearing grossly normal, no NA/AT, normal oropharynx, no other, no pharyngeal erythema, no thrush, no tonsillar exudates, no tonsillar swelling Ears: bilateral: normal - Neck Neck: no lymphadenopathy, normal ROM, no other, no rigidity, no stridor, no thyromegaly Carotids: bilateral: upstroke normal Thyroid: bilateral: normal size - Respiratory Respiratory: bilateral: diminished, dullness, rales, rhonchi, wheezing - Cardiovascular Rhythm: regular Heart sounds: normal: S1, S2 Abnormal Heart Sounds: systolic murmur, S3 Gallop - Gastrointestinal General gastrointestinal: no absent bowel sounds, decreased bowel sounds, distended, no hepatomegaly, no hyperactive bowel sounds, no normal bowel sounds , no organomegaly, rigid, no scaphoid, soft, no splenomegaly, no tenderness, no umbilical hernia, no ventral hernia - Integumentary Significant edema with slight swelling discomfort and pain in the low large toes in both side. Integumentary: jaundiced, normal, pale, rash - Neurologic Neurologic: CNII-XII intact - Musculoskeletal Musculoskeletal: gait normal, generalized weakness, strength equal bilaterally, no right sided weakness, no left sided weakness - Psychiatric Psychiatric: A&O x's 3 Impression 1 acute hypoxic respiratory failure: Related to Combination of left lower lobe pneumonia, hypoxia, encephalopathy, myxedema and COPD exacerbation. 2 left sided pneumonia: Most likely mixed bacterial related to aspiration and agree maintaining on Levaquin and Zosyn 3 COPD exacerbation: With history of prior asbestosis and asbestos exposure Continue Solu-Medrol combine with DuoNeb and Pulmicort. 4 myxedema with worsening symptoms lately not been on thyroid medication for over 6 weeks patient was started back on Synthroid 20 g daily watch his symptoms carefully watch for any arrhythmia or tachycardia. 5 gout flareup with worsening symptom both lower extremity: Patient uric acid to be done was start patient on Solu-Medrol for now on small dose of colchicine 0.6 mg daily. 6 intracranial hemorrhage: Has been doing well so far his not having any further bleed the CAT scan was good this time. 7 encephalopathy: Combination of his hypoxia, respiratory failure, pneumonia, myxedema and his intracranial hemorrhage will watch patient mental status carefully and start PTOT. 8 worsening edema: Patient would get benefit from's been on smaller dose of diuretics as needed. 9 seizure prophylaxis: Patient to be continued Keppra 500 mg twice a day since his brain trauma. 10 hyperlipidemia: Continue on Lipitor 40 mg daily. 11 hypertension: Continue atenolol at 50 mg daily. 12 DVT prophylaxis: Patient on Lovenox 40 mg daily. 13 GI prophylaxis: Patient on Pepcid 20 mg a day. 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 then [facility] to [facility] for rehab just got back home on .upon admit-pt's stated that. 'his legs won't support hime,unable to get up on his own/walk "hypothyroid, asbestos, colon cancer, gout, gets hormone shots History of Any Multi-Drug Resistant Organisms: None Reported Past Surgical History: Appendectomy, Cholecystectomy, Pacemaker, Prostate Surgery Additional Past Surgical History / Comment(s): penile surgery, cancers in remission Past Anesthesia/Blood Transfusion Reactions: No Reported Reaction Type of Cardiac Device: Unknown Device Placement Date:: unknown Past Psychological History: Anxiety Additional Psychological History / Comment(s): pt lives with his myriam. 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 Smoking Status: Former smoker Past Alcohol Use History: None Reported Past Drug Use History: None Reported - Past Family History Father Family Medical History: Myocardial Infarction (NE) Mother Family Medical History: Cancer, Myocardial Infarction ([place]) Brother(s) Family Medical History: No Reported History Sister(s) Family Medical History: Neurologic Disorder Son(s) Family Medical History: No Reported History Medications and Allergies Home Medications Medication Instructions Recorded Confirmed Type Atenolol/Chlorthalidone [Tenoretic 1 tab PO DAILY 09/19/13 12/25/16 History 50 Tablet] Levothyroxine Sodium [Synthroid] 200 mcg PO DAILY 09/19/13 12/25/16 History Multivitamins, Thera [Multivitamin 1 tab PO DAILY 08/28/16 12/25/16 History (formulary)] Atorvastatin [Lipitor] 40 mg PO HS 12/25/16 12/25/16 History Pregabalin [Lyrica] 75 mg PO DAILY 12/25/16 12/25/16 History levETIRAcetam [Keppra] 500 mg PO Q12HR 12/25/16 12/25/16 History Allergies Allergy/AdvReac Type Severity Reaction Status Date / Time hydrocodone [From [place]] AdvReac Hallucinati Verified 12/25/16 16:18 ons Physical Exam Vitals: Vital Signs Temp Pulse Pulse Resp BP BP Pulse Ox 12/26/16 08:59 68 16 96 12/26/16 07:00 97.9 F 62 16 176/96 96 12/25/16 23:29 97.0 F L 60 16 146/76 96 12/25/16 21:04 78 12/25/16 20:51 78 12/25/16 18:00 99.4 F 60 16 176/83 97 12/25/16 17:02 99.3 F 62 17 133/68 95 12/25/16 14:56 101.2 F H 65 18 160/79 97 Intake and Output 12/25/16 12/26/16 12/26/16 22:59 06:59 14:59 Output Total 900 Balance -900 Output: Urine 900 Other: Voiding Method Urinal Urinal Results - Laboratory Findings CBC and BMP: 12/26/16 06:54 12/26/16 06:54 PT/INR, D-dimer PT 10.7 sec (9.0-12.0) 12/25/16 15:25 INR 1.1 (<1.2) 12/25/16 15:25 Abnormal lab findings: Abnormal Labs 12/25/16 12/25/16 12/25/16 15:25 15:25 15:25 RBC 4.02 L Hgb 11.6 L Hct 35.1 L RDW Neutrophils # Lymphocytes # Glucose 161 H Total Creatine Kinase 26 L TSH 37.700 H Free T4 12/25/16 12/26/16 12/26/16 15:25 06:54 06:54 RBC 4.18 L Hgb 12.0 L Hct 38.6 L RDW 16.0 H Neutrophils # 9.0 H Lymphocytes # 0.7 L Glucose 278 H Total Creatine Kinase TSH Free T4 0.46 L
[2016-12-26] MEDS: ACETAMINOPHEN TAB 325 MG TAB PO PRN (11:16)
[2016-12-26 11:50] LABS: Glucose,Whole Blood 381 mg/dL (75-99)
[2016-12-26] MEDS: MULTIVITAMINS, THERA 1 EACH TAB PO SCH (12:49)
[2016-12-26] MEDS: INSULIN LISPRO (humaLOG) 300 UNIT/3 ML VIAL SQ SCH ×3 (12:49→22:17)
--- NOTE | 2016-12-26 13:14 | P.PN ---
Subjective 81-year-old male one of Dr. Contreras patient with past medical history of asthma, CAD post pacemaker, hypertension, diabetes, history of prostate cancer and mild COPD who was transferred from the emergency department to [facility] for intracranial hemorrhage from falling down steps and to the basement on November 19 patient ended up being treated with conservative management did not require any surgery. Patient developed to have significant headache abnormal gait imbalance ended up being transferred to [facility] for rehab where he stayed ~20 of December. Patient made it home last was doing well until Sunday when the notices not able to ambulate and walk and not feeling well developed to have significant encephalopathy. Patient also developed to have significant cough productive dark phlegm along with mild hypoxia and worsening mentation. Seen by the visiting nurse found that he was not taking his thyroid medication for the last 6-8 weeks and developed to have significant edema swelling and decreased reaction. Family don't remember having any aspiration in the last few days. Patient today was not able to ambulate walk and become much worse have fever of 101. Was seen at the emergency department at [facility] chest x-ray showed left lower lobe pneumonia patient was mild hypoxic with the current symptoms decided to treat this as a nosocomial pneumonia having him on Zosyn and Levaquin along with updraft treatment and steroid. Patient also had increased edema of the lower extremity and all over his body from his myxedema not taking his thyroid for several weeks also had flareup of gout has not been on any gout medication lately. 12/26: Patient has been afebrile through the night. White count is normal. Blood sugars have been elevated secondary to steroids and Humalog scale started. He states he has been up and ambulating and is much improved today. He has been seen in consultation by Dr. Barnes from pulmonary medicine. Urine culture is in progress and blood cultures status received. Objective - Vital Signs Vital signs: Vital Signs Temp 97.9 F 12/26/16 07:00 Pulse 62 12/26/16 07:00 Resp 16 12/26/16 07:00 BP 176/96 12/26/16 07:00 Pulse Ox 96 12/26/16 07:00 Intake & Output 12/25/16 12/26/16 12/26/16 18:59 06:59 18:59 Output Total 900 Balance -900 Weight 97.976 kg Output: Urine 900 Other: Voiding Method Urinal - Exam General appearance: no average body habitus, cooperative, disheveled, mild distress, no morbidly obese, no no acute distress, obese, no severe distress, no thin - EENT Eyes: abnormal pupil, no anicteric sclerae, no disc margins sharp, no edentulous , no EOMI, no PERRLA, no fundus normal, no photophobia, no dentition normal, no poor dentition, no ptosis, no scleral icterus, normal appearance ENT: hard of hearing, no hearing grossly normal, no NA/AT, normal oropharynx, no other, no pharyngeal erythema, no thrush, no tonsillar exudates, no tonsillar swelling Ears: bilateral: normal - Neck Neck: no lymphadenopathy, normal ROM, no other, no rigidity, no stridor, no thyromegaly Carotids: bilateral: upstroke normal Thyroid: bilateral: normal size - Respiratory Respiratory: bilateral: diminished, dullness, rales, rhonchi, wheezing - Cardiovascular Rhythm: regular Heart sounds: normal: S1, S2 Abnormal Heart Sounds: systolic murmur, S3 Gallop - Gastrointestinal General gastrointestinal: no absent bowel sounds, decreased bowel sounds, distended, no hepatomegaly, no hyperactive bowel sounds, no normal bowel sounds , no organomegaly, rigid, no scaphoid, soft, no splenomegaly, no tenderness, no umbilical hernia, no ventral hernia - Integumentary Significant edema with slight swelling discomfort and pain in the low large toes in both side. Integumentary: jaundiced, normal, pale, rash - Neurologic Neurologic: CNII-XII intact - Musculoskeletal Musculoskeletal: gait normal, generalized weakness, strength equal bilaterally, no right sided weakness, no left sided weakness - Psychiatric Psychiatric: A&O x's 3 - Labs CBC & Chem 7: 12/26/16 06:54 12/26/16 06:54 Labs: Abnormal Lab Results - Last 24 Hours (Table) 12/25/16 12/25/16 12/25/16 Range/Units 15:25 15:25 15:25 RBC 4.02 L (4.30-5.90) m/uL Hgb 11.6 L (13.0-17.5) gm/dL Hct 35.1 L (39.0-53.0) % RDW (11.5-15.5) % Neutrophils # (1.3-7.7) k/uL Lymphocytes # (1.0-4.8) k/uL Glucose 161 H (74-99) mg/dL Total Creatine Kinase 26 L (55-170) U/L TSH 37.700 H (0.465-4.680) mIU/L Free T4 (0.78-2.19) ng/dL 12/25/16 12/26/16 12/26/16 Range/Units 15:25 06:54 06:54 RBC 4.18 L (4.30-5.90) m/uL Hgb 12.0 L (13.0-17.5) gm/dL Hct 38.6 L (39.0-53.0) % RDW 16.0 H (11.5-15.5) % Neutrophils # 9.0 H (1.3-7.7) k/uL Lymphocytes # 0.7 L (1.0-4.8) k/uL Glucose 278 H (74-99) mg/dL Total Creatine Kinase (55-170) U/L TSH (0.465-4.680) mIU/L Free T4 0.46 L (0.78-2.19) ng/dL Microbiology - Last 24 Hours (Table) 12/25/16 20:19 Urine Culture - Preliminary Urine,Voided Assessment and Plan Plan: 1 acute hypoxic respiratory failure: Combination of left lower lobe pneumonia, hypoxia, encephalopathy, myxedema and COPD exacerbation. 2 left sided pneumonia: Most likely gram-negative or aspiration with the current scenario patient need to be treated for gram-negative patient will be on Zosyn and Levaquin will consult pulmonary. 3 COPD exacerbation: Will add Solu-Medrol combine with DuoNeb and Pulmicort. 4 myxedema with worsening symptoms lately not been on thyroid medication for over 6 weeks patient was started back on Synthroid 20 g daily watch his symptoms carefully watch for any arrhythmia or tachycardia. 5 gout flareup with worsening symptom both lower extremity: Patient uric acid to be done was start patient on Solu-Medrol for now on small dose of colchicine 0.6 mg daily. 6 intracranial hemorrhage: Has been doing well so far his not having any further bleed the CAT scan was good this time. 7 encephalopathy: Combination of his hypoxia, respiratory failure, pneumonia, myxedema and his intracranial hemorrhage will watch patient mental status carefully and start PTOT. 8 worsening edema: Patient might benefit from's been on smaller dose of diuretics. 9 seizure prophylaxis: Patient remain on Keppra 500 mg twice a day since his brain trauma. 10 hyperlipidemia: Remain on Lipitor 40 mg daily. 11 hypertension: Resume atenolol at 50 mg daily. 12 DVT prophylaxis: Patient was place on Lovenox 40 mg daily. 13 GI prophylaxis: Patient will be on Pepcid 20 mg a day. CODE STATUS: Full code. Discharge plan: Home with [facility] in the next 24-48 hours Impression and plan of care have been directed as dictated by the signing physician. Abbey Gomez nurse practitioner acting as scribe for signing physician.
[2016-12-26] MEDS ORDERED: LEVOFLOXACIN 750MG-D5W PMX 750 MG in DEXTROSE/WATER 1 150ML.BAG IVPB SCH (14:00)
[2016-12-26] MEDS: INSULIN GLARGINE 100 UNIT/ML 10 ML VIAL SQ SCH (14:35)
[2016-12-26] MEDS ORDERED: CALCIUM CARBONATE 500 MG CHEWABLE PO PRN (17:01)
[2016-12-26 17:14] LABS: Glucose,Whole Blood 384 mg/dL (75-99)
[2016-12-26 20:36] LABS: Glucose,Whole Blood 399 mg/dL (75-99)
[2016-12-26] MEDS: ATORVASTATIN 40 MG TAB PO SCH (22:17)
[2016-12-26] MEDS: FAMOTIDINE 20 MG TAB PO SCH (22:17)
[2016-12-27] MEDS: IPRATROPIUM-ALBUTEROL 3 ML NEB INHALATION SCH ×4 (07:13→20:58)
[2016-12-27 07:21] LABS: Glucose,Whole Blood 335 mg/dL (75-99)
[2016-12-27] MEDS: PIPERACILLIN-TAZOBACTAM 3.375 GM in DEXTROSE/WATER 1 50ML.BAG IVPB SCH ×2 (07:46→16:17)
[2016-12-27] MEDS: INSULIN LISPRO (humaLOG) 300 UNIT/3 ML VIAL SQ SCH ×4 (07:47→22:02)
[2016-12-27] MEDS: ENOXAPARIN 40 MG/0.4 ML SYRINGE SQ SCH (07:49)
[2016-12-27] MEDS: FAMOTIDINE 20 MG TAB PO SCH ×2 (07:49→20:08)
[2016-12-27] MEDS: COLCHICINE 0.6 MG TAB PO SCH (07:49)
[2016-12-27] MEDS: CHLORTHALIDONE 25 MG TAB PO SCH (07:49)
[2016-12-27] MEDS: LEVOTHYROXINE 100 MCG TAB PO SCH (07:50)
[2016-12-27] MEDS: methylPREDNISolone SOD SUCCI 125 MG/2 ML VIAL IV SCH (07:50)
[2016-12-27] MEDS: ATENOLOL 50 MG TAB PO SCH (07:50)
[2016-12-27] MEDS: ASPIRIN 81 MG CHEW PO SCH (07:50)
[2016-12-27] MEDS: levETIRAcetam 500 MG TAB PO SCH ×2 (07:50→20:08)
[2016-12-27] MEDS: INSULIN GLARGINE 100 UNIT/ML 10 ML VIAL SQ SCH (07:52)
[2016-12-27] MEDS ORDERED: MAGNESIUM HYDROXIDE 2,400 MG/10 ML CUP PO PRN (09:39)
[2016-12-27] MEDS ORDERED: INSULIN LISPRO (humaLOG) 300 UNIT/3 ML VIAL SQ ONE ×2 (09:40→12:34)
[2016-12-27 11:42] LABS: Glucose,Whole Blood 351 mg/dL (75-99)
[2016-12-27] MEDS: MULTIVITAMINS, THERA 1 EACH TAB PO SCH (12:52)
--- NOTE | 2016-12-27 13:29 | P.PN ---
Subjective 81-year-old male one of Dr. Contreras patient with past medical history of asthma, CAD post pacemaker, hypertension, diabetes, history of prostate cancer and mild COPD who was transferred from the emergency department to [facility] for intracranial hemorrhage from falling down steps and to the basement on November 19 patient ended up being treated with conservative management did not require any surgery. Patient developed to have significant headache abnormal gait imbalance ended up being transferred to [facility] for rehab where he stayed ~20 of December. Patient made it home last was doing well until Sunday when the notices not able to ambulate and walk and not feeling well developed to have significant encephalopathy. Patient also developed to have significant cough productive dark phlegm along with mild hypoxia and worsening mentation. Seen by the visiting nurse found that he was not taking his thyroid medication for the last 6-8 weeks and developed to have significant edema swelling and decreased reaction. Family don't remember having any aspiration in the last few days. Patient today was not able to ambulate walk and become much worse have fever of 101. Was seen at the emergency department at [facility] chest x-ray showed left lower lobe pneumonia patient was mild hypoxic with the current symptoms decided to treat this as a nosocomial pneumonia having him on Zosyn and Levaquin along with updraft treatment and steroid. Patient also had increased edema of the lower extremity and all over his body from his myxedema not taking his thyroid for several weeks also had flareup of gout has not been on any gout medication lately. 12/26: Patient has been afebrile through the night. White count is normal. Blood sugars have been elevated secondary to steroids and Humalog scale started. He states he has been up and ambulating and is much improved today. He has been seen in consultation by Dr. Barnes from pulmonary medicine. Urine culture is in progress and blood cultures status received. 12/27: Patient is being followed by Dr. Barnes. Levaquin changed to oral and he is continued on IV Zosyn. IV Solu-Medrol will be changed to oral prednisone. Blood sugars continue to run in the 300s for which she has been given an extra 10 units of Humalog this morning and a repeat of 15 units with lunch. Patient has worked with physical therapy with plan to go home with home care. Wheelchair will be ordered. Anticipate discharge home tomorrow Objective - Vital Signs Vital signs: Vital Signs Temp 97.5 F L 12/27/16 07:00 Pulse 65 12/27/16 07:24 Resp 16 12/27/16 07:00 BP 186/81 12/27/16 07:00 Pulse Ox 93 L 12/27/16 07:13 Intake & Output 12/26/16 12/27/16 12/27/16 18:59 06:59 18:59 Intake Total 600 Output Total 700 Balance -700 600 Intake: Intake, IV Titration 100 Amount Piperacillin-Tazobactam 3 100 .375 gm In Dextrose/Water 1 50ml.bag @ 12.5 mls/hr IVPB Q8HR [facility] Rx#: [id number] Oral 500 Output: Urine 700 Other: Voiding Method Urinal Urinal Urinal # Voids 2 - Exam General appearance: no average body habitus, cooperative, disheveled, mild distress, no morbidly obese, no no acute distress, obese, no severe distress, no thin - EENT Eyes: abnormal pupil, no anicteric sclerae, no disc margins sharp, no edentulous , no EOMI, no PERRLA, no fundus normal, no photophobia, no dentition normal, no poor dentition, no ptosis, no scleral icterus, normal appearance ENT: hard of hearing, no hearing grossly normal, no NA/AT, normal oropharynx, no other, no pharyngeal erythema, no thrush, no tonsillar exudates, no tonsillar swelling Ears: bilateral: normal - Neck Neck: no lymphadenopathy, normal ROM, no other, no rigidity, no stridor, no thyromegaly Carotids: bilateral: upstroke normal Thyroid: bilateral: normal size - Respiratory Respiratory: bilateral: diminished, dullness, rales, rhonchi, wheezing - Cardiovascular Rhythm: regular Heart sounds: normal: S1, S2 Abnormal Heart Sounds: systolic murmur, S3 Gallop - Gastrointestinal General gastrointestinal: no absent bowel sounds, decreased bowel sounds, distended, no hepatomegaly, no hyperactive bowel sounds, no normal bowel sounds , no organomegaly, rigid, no scaphoid, soft, no splenomegaly, no tenderness, no umbilical hernia, no ventral hernia - Integumentary Significant edema with slight swelling discomfort and pain in the low large toes in both side. Integumentary: jaundiced, normal, pale, rash - Neurologic Neurologic: CNII-XII intact - Musculoskeletal Musculoskeletal: gait normal, generalized weakness, strength equal bilaterally, no right sided weakness, no left sided weakness - Psychiatric Psychiatric: A&O x's 3 - Labs CBC & Chem 7: 12/26/16 06:54 12/26/16 06:54 Labs: Abnormal Lab Results - Last 24 Hours (Table) 12/25/16 12/26/16 12/26/16 Range/Units 15:25 06:54 11:46 POC Glucose (mg/dL) 381 H (75-99) mg/dL Hemoglobin A1c 6.3 H (4.2-6.1) % Total T4 3.1 L (4.5 - 10.9) ug/dL 12/26/16 12/26/16 12/27/16 Range/Units 17:13 20:35 07:18 POC Glucose (mg/dL) 384 H 399 H 335 H (75-99) mg/dL Hemoglobin A1c (4.2-6.1) % Total T4 (4.5 - 10.9) ug/dL Microbiology - Last 24 Hours (Table) 12/25/16 20:19 Urine Culture - Final Urine,Voided 12/25/16 15:25 Blood Culture - Preliminary Blood No Growth after 24 hours Assessment and Plan Plan: 1 acute hypoxic respiratory failure: Combination of left lower lobe pneumonia, hypoxia, encephalopathy, myxedema and COPD exacerbation. 2 left sided pneumonia: Most likely gram-negative or aspiration with the current scenario patient need to be treated for gram-negative patient will be on Zosyn and Levaquin will consult pulmonary. 3 COPD exacerbation: Solu-Medrol to oral prednisone with DuoNeb and Pulmicort. 4 myxedema with worsening symptoms lately not been on thyroid medication for over 6 weeks patient was started back on Synthroid 20 g daily watch his symptoms carefully watch for any arrhythmia or tachycardia. 5 gout flareup with worsening symptom both lower extremity: Patient uric acid to be done was start patient on Solu-Medrol for now on small dose of colchicine 0.6 mg daily. 6 intracranial hemorrhage: Has been doing well so far his not having any further bleed the CAT scan was good this time. 7 encephalopathy: Combination of his hypoxia, respiratory failure, pneumonia, myxedema and his intracranial hemorrhage will watch patient mental status carefully and start PTOT. 8 worsening edema: Patient might benefit from's been on smaller dose of diuretics. 9 seizure prophylaxis: Patient remain on Keppra 500 mg twice a day since his brain trauma. 10 hyperlipidemia: Remain on Lipitor 40 mg daily. 11 hypertension: Resume atenolol at 50 mg daily. 12 DVT prophylaxis: Patient was place on Lovenox 40 mg daily. 13 GI prophylaxis: Patient will be on Pepcid 20 mg a day. CODE STATUS: Full code. Discharge plan: Home with [facility] in the next 24 hours. Wheelchair is to be ordered by case management for his debilitation. Impression and plan of care have been directed as dictated by the signing physician. Abbey Gomez nurse practitioner acting as scribe for signing physician.
[2016-12-27] MEDS: LEVOFLOXACIN 750 MG TAB PO SCH (15:00)
[2016-12-27 15:09] LABS: Glucose,Whole Blood 311 mg/dL (75-99)
[2016-12-27 17:15] LABS: Glucose,Whole Blood 279 mg/dL (75-99)
[2016-12-27] MEDS: ATORVASTATIN 40 MG TAB PO SCH (20:08)
[2016-12-27 20:21] LABS: Glucose,Whole Blood 259 mg/dL (75-99)
[2016-12-28] MEDS: PIPERACILLIN-TAZOBACTAM 3.375 GM in DEXTROSE/WATER 1 50ML.BAG IVPB SCH ×4 (00:09→23:12)
[2016-12-28] MEDS: INSULIN LISPRO (humaLOG) 300 UNIT/3 ML VIAL SQ SCH ×4 (08:07→20:54)
[2016-12-28] MEDS: LEVOTHYROXINE 100 MCG TAB PO SCH (08:07)
[2016-12-28] MEDS: CHLORTHALIDONE 25 MG TAB PO SCH (08:08)
[2016-12-28] MEDS: ATENOLOL 50 MG TAB PO SCH (08:08)
[2016-12-28] MEDS: ASPIRIN 81 MG CHEW PO SCH (08:08)
[2016-12-28] MEDS: COLCHICINE 0.6 MG TAB PO SCH (08:08)
[2016-12-28] MEDS: levETIRAcetam 500 MG TAB PO SCH ×2 (08:09→20:53)
[2016-12-28] MEDS: ENOXAPARIN 40 MG/0.4 ML SYRINGE SQ SCH (08:09)
[2016-12-28] MEDS: FAMOTIDINE 20 MG TAB PO SCH ×2 (08:09→20:53)
[2016-12-28 08:14] LABS: Glucose,Whole Blood 147 mg/dL (75-99)
[2016-12-28] MEDS: INSULIN GLARGINE 100 UNIT/ML 10 ML VIAL SQ SCH (08:20)
[2016-12-28] MEDS: IPRATROPIUM-ALBUTEROL 3 ML NEB INHALATION SCH ×4 (08:34→19:40)
[2016-12-28] MEDS ORDERED: predniSONE 20 MG TAB PO SCH (09:00)
--- NOTE | 2016-12-28 09:52 | P.PN ---
Subjective Patient seen and evaluated examined during the rounds history left cough congestion shortness of breath but severity has improved, would recommend to taper the steroids as tolerated, Zosyn can be discontinued and patient can be continued on Levaquin only for another 4-5 days, would recommend a follow-up chest x-ray in 4-6 weeks to document resolution of left-sided pneumonia Objective - Vital Signs Vital signs: Vital Signs Temp 97.7 F 12/28/16 07:00 Pulse 77 12/28/16 08:43 Resp 16 12/28/16 07:00 BP 190/81 12/28/16 07:00 Pulse Ox 95 12/28/16 07:00 Intake & Output 12/27/16 12/28/16 12/28/16 18:59 06:59 18:59 Intake Total 50 Balance 50 Intake: IV 50 Piperacillin-Tazobactam 3 50 .375 gm In Dextrose/Water 1 50ml.bag @ 12.5 mls/hr IVPB Q8HR [facility] Rx#: [id number] Other: Voiding Method Urinal Toilet Urinal # Voids 3 2 # Bowel Movements 1 - Exam General appearance: no average body habitus, cooperative, disheveled, mild distress, no morbidly obese, no no acute distress, obese, no severe distress, no thin - EENT Eyes: abnormal pupil, no anicteric sclerae, no disc margins sharp, no edentulous , no EOMI, no PERRLA, no fundus normal, no photophobia, no dentition normal, no poor dentition, no ptosis, no scleral icterus, normal appearance ENT: hard of hearing, no hearing grossly normal, no NA/AT, normal oropharynx, no other, no pharyngeal erythema, no thrush, no tonsillar exudates, no tonsillar swelling Ears: bilateral: normal - Neck Neck: no lymphadenopathy, normal ROM, no other, no rigidity, no stridor, no thyromegaly Carotids: bilateral: upstroke normal Thyroid: bilateral: normal size - Respiratory Respiratory: bilateral: diminished, dullness, rales, rhonchi, wheezing - Cardiovascular Rhythm: regular Heart sounds: normal: S1, S2 Abnormal Heart Sounds: systolic murmur, S3 Gallop - Gastrointestinal General gastrointestinal: no absent bowel sounds, decreased bowel sounds, distended, no hepatomegaly, no hyperactive bowel sounds, no normal bowel sounds , no organomegaly, rigid, no scaphoid, soft, no splenomegaly, no tenderness, no umbilical hernia, no ventral hernia - Integumentary Significant edema with slight swelling discomfort and pain in the low large toes in both side. Integumentary: jaundiced, normal, pale, rash - Neurologic Neurologic: CNII-XII intact - Musculoskeletal Musculoskeletal: gait normal, generalized weakness, strength equal bilaterally, no right sided weakness, no left sided weakness - Psychiatric Psychiatric: A&O x's 3 - Labs CBC & Chem 7: 12/26/16 06:54 12/26/16 06:54 Labs: Abnormal Lab Results - Last 24 Hours (Table) 12/27/16 12/27/16 12/27/16 Range/Units 11:40 15:07 17:13 POC Glucose (mg/dL) 351 H 311 H 279 H (75-99) mg/dL 12/27/16 12/28/16 Range/Units 20:19 07:49 POC Glucose (mg/dL) 259 H 147 H (75-99) mg/dL Microbiology - Last 24 Hours (Table) 12/25/16 15:25 Blood Culture - Preliminary Blood No Growth after 48 hours Assessment and Plan Plan: 1 acute hypoxic respiratory failure: Combination of left lower lobe pneumonia, hypoxia, encephalopathy, myxedema and COPD exacerbation. 2 left sided pneumonia: Most likely gram-negative or aspiration with the current scenario patient need to be treated for gram-negative patient can be maintained on oral Levaquin only and can be taken off of Zosyn 3 COPD exacerbation: Solu-Medrol to oral prednisone would taper and DC in the next 3-4 days with DuoNeb and Pulmicort. 4 myxedema with worsening symptoms lately not been on thyroid medication for over 6 weeks patient was started back on Synthroid 20 g daily watch his symptoms carefully watch for any arrhythmia or tachycardia. 5 gout flareup with worsening symptom both lower extremity: Patient uric acid to be done was start patient on Solu-Medrol for now on small dose of colchicine 0.6 mg daily. 6 intracranial hemorrhage: Has been doing well so far his not having any further bleed the CAT scan was good this time. 7 encephalopathy: Combination of his hypoxia, respiratory failure, pneumonia, myxedema and his intracranial hemorrhage will watch patient mental status carefully and start PTOT. 8 worsening edema: Patient might benefit from's been on smaller dose of diuretics. 9 seizure prophylaxis: Patient remain on Keppra 500 mg twice a day since his brain trauma. 10 hyperlipidemia: Remain on Lipitor 40 mg daily. 11 hypertension: Resume atenolol at 50 mg daily. 12 DVT prophylaxis: Patient was place on Lovenox 40 mg daily. 13 GI prophylaxis: Patient will be on Pepcid 20 mg a day. Time with Patient: Greater than 30
[2016-12-28] MEDS: MULTIVITAMINS, THERA 1 EACH TAB PO SCH (11:51)
[2016-12-28 12:13] LABS: Glucose,Whole Blood 216 mg/dL (75-99)
--- NOTE | 2016-12-28 13:50 | P.PN ---
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 Patient developed to have significant headache abnormal gait imbalance ended up being transferred to [facility] for rehab where he stayed ~20 of December. Patient made it home last was doing well until Sunday when the notices not able to ambulate and walk and not feeling well developed to have significant encephalopathy. Patient also developed to have significant cough productive dark phlegm along with mild hypoxia and worsening mentation. Seen by the visiting nurse found that he was not taking his thyroid medication for the last 6-8 weeks and developed to have significant edema swelling and decreased reaction. Family don't remember having any aspiration in the last few days. Patient today was not able to ambulate walk and become much worse have fever of 101. Was seen at the emergency department at [facility] chest x-ray showed left lower lobe pneumonia patient was mild hypoxic with the current symptoms decided to treat this as a nosocomial pneumonia having him on Zosyn and Levaquin along with updraft treatment and steroid. Patient also had increased edema of the lower extremity and all over his body from his myxedema not taking his thyroid for several weeks also had flareup of gout has not been on any gout medication lately. 12/26: Patient has been afebrile through the night. White count is normal. Blood sugars have been elevated secondary to steroids and Humalog scale started. He states he has been up and ambulating and is much improved today. He has been seen in consultation by Dr. Barnes from pulmonary medicine. Urine culture is in progress and blood cultures status received. 12/27: Patient is being followed by Dr. Barnes. Levaquin changed to oral and he is continued on IV Zosyn. IV Solu-Medrol will be changed to oral prednisone. Blood sugars continue to run in the 300s for which she has been given an extra 10 units of Humalog this morning and a repeat of 15 units with lunch. Patient has worked with physical therapy with plan to go home with home care. Wheelchair will be ordered. Anticipate discharge home tomorrow 12/28: Patient has been afebrile. Pulse ox is 95% on room air. Blood sugars are finally improving. He is now on oral prednisone. Blood culture showing no growth after 48 hours and urine culture is finalized with genital contamination. Patient was quite confused during the night and this morning. Repeat CAT scan of the brain and a chest x-ray have been ordered. Continue antibiotics. Social work to discuss subacute rehab with the patient and his with anticipation of discharge tomorrow. Objective - Vital Signs Vital signs: Vital Signs Temp 97.7 F 12/28/16 07:00 Pulse 77 12/28/16 08:43 Resp 16 12/28/16 07:00 BP 190/81 12/28/16 07:00 Pulse Ox 95 12/28/16 07:00 Intake & Output 12/27/16 12/28/16 12/28/16 18:59 06:59 18:59 Intake Total 50 Balance 50 Intake: IV 50 Piperacillin-Tazobactam 3 50 .375 gm In Dextrose/Water 1 50ml.bag @ 12.5 mls/hr IVPB Q8HR [facility] Rx#: [id number] Other: Voiding Method Urinal Toilet Urinal # Voids 3 2 # Bowel Movements 1 - Exam General appearance: no average body habitus, cooperative, disheveled, mild distress, no morbidly obese, no no acute distress, obese, no severe distress, no thin - EENT Eyes: abnormal pupil, no anicteric sclerae, no disc margins sharp, no edentulous , no EOMI, no PERRLA, no fundus normal, no photophobia, no dentition normal, no poor dentition, no ptosis, no scleral icterus, normal appearance ENT: hard of hearing, no hearing grossly normal, no NA/AT, normal oropharynx, no other, no pharyngeal erythema, no thrush, no tonsillar exudates, no tonsillar swelling Ears: bilateral: normal - Neck Neck: no lymphadenopathy, normal ROM, no other, no rigidity, no stridor, no thyromegaly Carotids: bilateral: upstroke normal Thyroid: bilateral: normal size - Respiratory Respiratory: bilateral: diminished, dullness, rales, rhonchi, wheezing - Cardiovascular Rhythm: regular Heart sounds: normal: S1, S2 Abnormal Heart Sounds: systolic murmur, S3 Gallop - Gastrointestinal General gastrointestinal: no absent bowel sounds, decreased bowel sounds, distended, no hepatomegaly, no hyperactive bowel sounds, no normal bowel sounds , no organomegaly, rigid, no scaphoid, soft, no splenomegaly, no tenderness, no umbilical hernia, no ventral hernia - Integumentary Significant edema with slight swelling discomfort and pain in the low large toes in both side. Integumentary: jaundiced, normal, pale, rash - Neurologic Neurologic: CNII-XII intact - Musculoskeletal Musculoskeletal: gait normal, generalized weakness, strength equal bilaterally, no right sided weakness, no left sided weakness - Psychiatric Psychiatric: A&O x's 3 - Labs CBC & Chem 7: 12/26/16 06:54 12/26/16 06:54 Labs: Abnormal Lab Results - Last 24 Hours (Table) 12/27/16 12/27/16 12/27/16 Range/Units 15:07 17:13 20:19 POC Glucose (mg/dL) 311 H 279 H 259 H (75-99) mg/dL 12/28/16 12/28/16 Range/Units 07:49 12:08 POC Glucose (mg/dL) 147 H 216 H (75-99) mg/dL Microbiology - Last 24 Hours (Table) 12/25/16 15:25 Blood Culture - Preliminary Blood No Growth after 48 hours Assessment and Plan Plan: 1 acute hypoxic respiratory failure: Combination of left lower lobe pneumonia, hypoxia, encephalopathy, myxedema and COPD exacerbation. 2 left sided pneumonia: Most likely gram-negative or aspiration with the current scenario patient need to be treated for gram-negative patient will be on Zosyn and Levaquin will consult pulmonary. 3 COPD exacerbation: Solu-Medrol to oral prednisone with DuoNeb and Pulmicort. 4 myxedema with worsening symptoms lately not been on thyroid medication for over 6 weeks patient was started back on Synthroid 20 g daily watch his symptoms carefully watch for any arrhythmia or tachycardia. 5 gout flareup with worsening symptom both lower extremity: Patient uric acid to be done was start patient on Solu-Medrol for now on small dose of colchicine 0.6 mg daily. 6 intracranial hemorrhage: Has been doing well so far his not having any further bleed the CAT scan was good this time. 7 encephalopathy: Combination of his hypoxia, respiratory failure, pneumonia, myxedema and his intracranial hemorrhage will watch patient mental status carefully and start PTOT. 8 worsening edema: Patient might benefit from's been on smaller dose of diuretics. 9 seizure prophylaxis: Patient remain on Keppra 500 mg twice a day since his brain trauma. 10 hyperlipidemia: Remain on Lipitor 40 mg daily. 11 hypertension: Resume atenolol at 50 mg daily. 12 DVT prophylaxis: Patient was place on Lovenox 40 mg daily. 13 GI prophylaxis: Patient will be on Pepcid 20 mg a day. CODE STATUS: Full code. Discharge plan: Subacute rehab tomorrow Impression and plan of care have been directed as dictated by the signing physician. Abbey Gomez nurse practitioner acting as scribe for signing physician.
[2016-12-28] MEDS: GABAPENTIN 100 MG CAP PO SCH ×2 (13:52→20:53)
[2016-12-28] MEDS: LEVOFLOXACIN 750 MG TAB PO SCH (13:52)
--- NOTE | 2016-12-28 14:57 | CT ---
EXAMINATION TYPE: CT brain wo con DATE OF EXAM: 12/28/2016 COMPARISON: 12/25/2016 HISTORY: Patient poor historian. Patient has history of multiple recent strokes. CT DLP: 1141 mGycm. Automated Exposure Control for Dose Reduction was Utilized. TECHNIQUE: CT scan of the head is performed without contrast. FINDINGS: There is no acute intracranial hemorrhage or midline shift identified. There is diffuse mayelin tricular and sulcal prominence consistent with diffuse age-related cerebral atrophy. There is low-at tenuation in the periventricular white matter consistent with chronic small vessel ischemic change. 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 The globes are intact. Visualized paranasal sinuses and mastoid air cells are well aerated. IMPRESSION: 1. No acute intracranial hemorrhage or midline shift. 2. 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 3. There is diffuse age-related cerebral atrophy and chronic small vessel ischemic change noted.
--- NOTE | 2016-12-28 15:12 | XR ---
EXAMINATION TYPE: XR chest 2V DATE OF EXAM: 12/28/2016 COMPARISON: 12/25/2016 TECHNIQUE: PA and lateral views submitted. HISTORY: Follow-up pneumonia FINDINGS: There is near complete resolution of previously described lower lobe infiltrate. Retrocardiac densiti es compatible with a hiatal hernia the lateral view. Arthropathy of the shoulders and cardiac device seen. Hypertrophic and degenerative change of the spi ne. IMPRESSION: 1. Marked interval improvement in the area of left lower lobe infiltrate. 2. Retrocardiac density most likely related to hiatal hernia.
[2016-12-28 17:02] LABS: Glucose,Whole Blood 230 mg/dL (75-99)
[2016-12-28] MEDS: ATORVASTATIN 40 MG TAB PO SCH (20:54)
[2016-12-28 20:59] LABS: Glucose,Whole Blood 201 mg/dL (75-99)
[2016-12-29 07:34] LABS: Glucose,Whole Blood 133 mg/dL (75-99)
[2016-12-29] MEDS: INSULIN LISPRO (humaLOG) 300 UNIT/3 ML VIAL SQ SCH ×4 (08:04→20:49)
[2016-12-29] MEDS: LEVOTHYROXINE 100 MCG TAB PO SCH (08:05)
[2016-12-29] MEDS: ASPIRIN 81 MG CHEW PO SCH (08:05)
[2016-12-29] MEDS: PIPERACILLIN-TAZOBACTAM 3.375 GM in DEXTROSE/WATER 1 50ML.BAG IVPB SCH ×2 (08:05→15:19)
[2016-12-29] MEDS: GABAPENTIN 100 MG CAP PO SCH ×2 (08:06→20:19)
[2016-12-29] MEDS: COLCHICINE 0.6 MG TAB PO SCH (08:06)
[2016-12-29] MEDS: CHLORTHALIDONE 25 MG TAB PO SCH (08:06)
[2016-12-29] MEDS: FAMOTIDINE 20 MG TAB PO SCH ×2 (08:06→20:18)
[2016-12-29] MEDS: ENOXAPARIN 40 MG/0.4 ML SYRINGE SQ SCH (08:06)
[2016-12-29] MEDS: levETIRAcetam 500 MG TAB PO SCH ×2 (08:07→20:18)
[2016-12-29] MEDS: INSULIN GLARGINE 100 UNIT/ML 10 ML VIAL SQ SCH (08:07)
[2016-12-29] MEDS: predniSONE 20 MG TAB PO SCH (08:07)
[2016-12-29] MEDS: IPRATROPIUM-ALBUTEROL 3 ML NEB INHALATION SCH ×4 (08:16→19:21)
[2016-12-29] MEDS: ATENOLOL 50 MG TAB PO SCH (08:52)
--- NOTE | 2016-12-29 09:38 | P.DS ---
Providers Date of admission: 12/25/16 16:08 Expected date of discharge: 12/29/16 Attending physician: Kevan Khan Consults: 12/25/16 18:03 Consult Physician Routine Consulting Provider: Janet Harris Consult Reason/Comments: COPD and Pneum Do you want consulting provider notified?: Yes Primary care physician: [facility] Course: 81-year-old male one of Dr. Contreras patient with past medical history of asthma, CAD post pacemaker, hypertension, diabetes, history of prostate cancer and mild COPD who was transferred from the emergency department to [facility] for intracranial hemorrhage from falling down steps and to the basement on November 19 patient ended up being treated with conservative management did not require any surgery. Patient developed to have significant headache abnormal gait imbalance ended up being transferred to [facility] for rehab where he stayed ~20 of December. Patient made it home last was doing well until Sunday when the notices not able to ambulate and walk and not feeling well developed to have significant encephalopathy. Patient also developed to have significant cough productive dark phlegm along with mild hypoxia and worsening mentation. Seen by the visiting nurse found that he was not taking his thyroid medication for the last 6-8 weeks and developed to have significant edema swelling and decreased reaction. Family don't remember having any aspiration in the last few days. Patient today was not able to ambulate walk and become much worse have fever of 101. Was seen at the emergency department at [facility] chest x-ray showed left lower lobe pneumonia patient was mild hypoxic with the current symptoms decided to treat this as a nosocomial pneumonia having him on Zosyn and Levaquin along with updraft treatment and steroid. Patient also had increased edema of the lower extremity and all over his body from his myxedema not taking his thyroid for several weeks also had flareup of gout has not been on any gout medication lately. 12/26: Patient has been afebrile through the night. White count is normal. Blood sugars have been elevated secondary to steroids and Humalog scale started. He states he has been up and ambulating and is much improved today. He has been seen in consultation by Dr. Barnes from pulmonary medicine. Urine culture is in progress and blood cultures status received. 12/27: Patient is being followed by Dr. Barnes. Levaquin changed to oral and he is continued on IV Zosyn. IV Solu-Medrol will be changed to oral prednisone. Blood sugars continue to run in the 300s for which she has been given an extra 10 units of Humalog this morning and a repeat of 15 units with lunch. Patient has worked with physical therapy with plan to go home with home care. Wheelchair will be ordered. Anticipate discharge home tomorrow 12/28: Patient has been afebrile. Pulse ox is 95% on room air. Blood sugars are finally improving. He is now on oral prednisone. Blood culture showing no growth after 48 hours and urine culture is finalized with genital contamination. Patient was quite confused during the night and this morning. Repeat CAT scan of the brain and a chest x-ray have been ordered. Continue antibiotics. Social work to discuss subacute rehab with the patient and his with anticipation of discharge tomorrow. 12/29: CT from yesterday showed no acute intracranial hemorrhage or midline shift. 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 There is diffuse age-related cerebral atrophy and chronic small vessel ischemic changes noted. Repeat chest x-ray showed marked interval improvement in the area of the left lower lobe infiltrate. Retrocardiac density most likely related to hiatal hernia. Patient has been afebrile. He is on oral Levaquin and IV Zosyn. Prednisone is now down to 20 mg daily and he will continue on tapering dose. Patient will be discharged today to [facility] under the care of Dr. Noland. Discharge diagnoses: 1 acute hypoxic respiratory failure: Combination of left lower lobe pneumonia, hypoxia, metabolic encephalopathy, myxedema and COPD exacerbation. 2 left sided pneumonia: Most likely gram-negative or aspiration 3 COPD exacerbation 4 myxedema with worsening symptoms lately not been on thyroid medication for over 6 weeks 5 gout flareup with worsening symptom both lower extremity 6 intracranial hemorrhage, stable 7 encephalopathy: Combination of his hypoxia, respiratory failure, pneumonia, myxedema and his intracranial hemorrhage 8 worsening edema 9 seizure prophylaxis 10 hyperlipidemia 11 hypertension Discharge plan: [facility] Impression and plan of care have been directed as dictated by the signing physician. Abbey Gomez nurse practitioner acting as scribe for signing physician. Patient Condition at Discharge: Good Plan - Discharge Summary New Discharge Prescriptions: New Acetaminophen Tab [Tylenol] 650 mg PO Q4HR PRN tab PRN Reason: Fever And/ Or Pain Colchicine [Colcrys] 0.6 mg PO DAILY tab Gabapentin [Neurontin] 100 mg PO BID cap INSULIN LISPRO (humaLOG) [humaLOG (formulary)] 0 unit SQ ACHS vial Ipratropium-Albuterol Nebulize [Duoneb 0.5 mg-3 mg/3 ml Soln] 3 ml INHALATION RT-QID neb Levofloxacin [Levaquin] 750 mg PO 1400 #5 tab predniSONE 20 mg PO DAILY tab Continue Levothyroxine Sodium [Synthroid] 200 mcg PO DAILY Atenolol/Chlorthalidone [Tenoretic 50 Tablet] 1 tab PO DAILY Aspirin 81 mg PO DAILY chew Multivitamins, Thera [Multivitamin (formulary)] 1 tab PO DAILY Atorvastatin [Lipitor] 40 mg PO HS levETIRAcetam [Keppra] 500 mg PO Q12HR Discontinued Pregabalin [Lyrica] 75 mg PO DAILY Discharge Medication List Atenolol/Chlorthalidone [Tenoretic 50 Tablet] 1 tab PO DAILY 09/19/13 [History] Levothyroxine Sodium [Synthroid] 200 mcg PO DAILY 09/19/13 [History] Aspirin 81 mg PO DAILY chew 08/22/16 [Rx] Multivitamins, Thera [Multivitamin (formulary)] 1 tab PO DAILY 08/28/16 [History ] Atorvastatin [Lipitor] 40 mg PO HS 12/25/16 [History] levETIRAcetam [Keppra] 500 mg PO Q12HR 12/25/16 [History] Acetaminophen Tab [Tylenol] 650 mg PO Q4HR PRN tab 12/29/16 [Rx] Colchicine [Colcrys] 0.6 mg PO DAILY tab 12/29/16 [Rx] Gabapentin [Neurontin] 100 mg PO BID cap 12/29/16 [Rx] INSULIN LISPRO (humaLOG) [humaLOG (formulary)] 0 unit SQ ACHS vial 12/29/16 [Rx ] Ipratropium-Albuterol Nebulize [Duoneb 0.5 mg-3 mg/3 ml Soln] 3 ml INHALATION RT -QID neb 12/29/16 [Rx] Levofloxacin [Levaquin] 750 mg PO 1400 #5 tab 12/29/16 [Rx] predniSONE 20 mg PO DAILY tab 12/29/16 [Rx] Follow up Appointment(s)/Referral(s): [facility], [NON-STAFF] - 1 Week Lei Jean-Baptiste DO [Primary Care Provider] - 1 Week (after discharge from [facility]) Julian Barnes MD [STAFF PHYSICIAN] - 1 Week Ambulatory/Diagnostic Orders: Complete Blood Count w/diff [LAB.AMB] Location: Determined By Patient Comprehensive Metabolic Panel [LAB.AMB] Location: Determined By Patient XR chest 2V [RAD.AMB] Location: Determined By Patient
[2016-12-29 11:48] LABS: Glucose,Whole Blood 279 mg/dL (75-99)
[2016-12-29] MEDS: MULTIVITAMINS, THERA 1 EACH TAB PO SCH (11:49)
[2016-12-29] MEDS: LEVOFLOXACIN 750 MG TAB PO SCH (15:18)
[2016-12-29 17:07] LABS: Glucose,Whole Blood 197 mg/dL (75-99)
[2016-12-29] MEDS: ATORVASTATIN 40 MG TAB PO SCH (20:18)
[2016-12-29 20:26] LABS: Glucose,Whole Blood 198 mg/dL (75-99)
[2016-12-30] MEDS: PIPERACILLIN-TAZOBACTAM 3.375 GM in DEXTROSE/WATER 1 50ML.BAG IVPB SCH ×3 (00:29→16:38)
[2016-12-30 06:47] LABS: Glucose,Whole Blood 123 mg/dL (75-99)
[2016-12-30] MEDS: INSULIN LISPRO (humaLOG) 300 UNIT/3 ML VIAL SQ SCH ×4 (08:02→20:27)
[2016-12-30] MEDS: ENOXAPARIN 40 MG/0.4 ML SYRINGE SQ SCH (08:02)
[2016-12-30] MEDS: ASPIRIN 81 MG CHEW PO SCH (08:03)
[2016-12-30] MEDS: CHLORTHALIDONE 25 MG TAB PO SCH (08:03)
[2016-12-30] MEDS: ATENOLOL 50 MG TAB PO SCH (08:03)
[2016-12-30] MEDS: LEVOTHYROXINE 100 MCG TAB PO SCH (08:03)
[2016-12-30] MEDS: FAMOTIDINE 20 MG TAB PO SCH ×2 (08:04→19:52)
[2016-12-30] MEDS: GABAPENTIN 100 MG CAP PO SCH ×2 (08:04→19:51)
[2016-12-30] MEDS: COLCHICINE 0.6 MG TAB PO SCH (08:04)
[2016-12-30] MEDS: levETIRAcetam 500 MG TAB PO SCH ×2 (08:05→19:51)
[2016-12-30] MEDS: predniSONE 20 MG TAB PO SCH (08:05)
[2016-12-30] MEDS: INSULIN GLARGINE 100 UNIT/ML 10 ML VIAL SQ SCH (08:23)
[2016-12-30] MEDS: IPRATROPIUM-ALBUTEROL 3 ML NEB INHALATION SCH ×4 (08:30→19:58)
[2016-12-30 11:48] LABS: Glucose,Whole Blood 274 mg/dL (75-99)
[2016-12-30] MEDS: MULTIVITAMINS, THERA 1 EACH TAB PO SCH (11:52)
--- NOTE | 2016-12-30 12:57 | P.PN ---
Subjective Patient seen and evaluated examined during the rounds history left cough congestion shortness of breath but severity has improved, would recommend to taper the steroids as tolerated, Zosyn can be discontinued and patient can be continued on Levaquin only for another 4-5 days, would recommend a follow-up chest x-ray in 4-6 weeks to document resolution of left-sided pneumonia, respiratory status is significantly improved he is breathing more comfortably Objective - Vital Signs Vital signs: Vital Signs Temp 97.7 F 12/30/16 07:00 Pulse 64 12/30/16 11:34 Resp 18 12/30/16 07:00 BP 148/72 12/30/16 07:00 Pulse Ox 97 12/30/16 07:00 Intake & Output 12/29/16 12/30/16 12/30/16 18:59 06:59 18:59 Intake Total 50 700 Balance 50 700 Weight 97.976 kg Intake: IV 50 260 0.9 @ 20ml\hr 160 Piperacillin-Tazobactam 3 50 100 .375 gm In Dextrose/Water 1 50ml.bag @ 12.5 mls/hr IVPB Q8HR [facility] Rx#: [id number] Oral 440 Other: Voiding Method Toilet Toilet Urinal Incontinent Diaper # Voids 1 1 1 # Bowel Movements 1 - Exam General appearance: no average body habitus, cooperative, disheveled, mild distress, no morbidly obese, no no acute distress, obese, no severe distress, no thin - EENT Eyes: abnormal pupil, no anicteric sclerae, no disc margins sharp, no edentulous , no EOMI, no PERRLA, no fundus normal, no photophobia, no dentition normal, no poor dentition, no ptosis, no scleral icterus, normal appearance ENT: hard of hearing, no hearing grossly normal, no NA/AT, normal oropharynx, no other, no pharyngeal erythema, no thrush, no tonsillar exudates, no tonsillar swelling Ears: bilateral: normal - Neck Neck: no lymphadenopathy, normal ROM, no other, no rigidity, no stridor, no thyromegaly Carotids: bilateral: upstroke normal Thyroid: bilateral: normal size - Respiratory Respiratory: bilateral: diminished, dullness, rales, rhonchi, wheezing - Cardiovascular Rhythm: regular Heart sounds: normal: S1, S2 Abnormal Heart Sounds: systolic murmur, S3 Gallop - Gastrointestinal General gastrointestinal: no absent bowel sounds, decreased bowel sounds, distended, no hepatomegaly, no hyperactive bowel sounds, no normal bowel sounds , no organomegaly, rigid, no scaphoid, soft, no splenomegaly, no tenderness, no umbilical hernia, no ventral hernia - Integumentary Significant edema with slight swelling discomfort and pain in the low large toes in both side. Integumentary: jaundiced, normal, pale, rash - Neurologic Neurologic: CNII-XII intact - Musculoskeletal Musculoskeletal: gait normal, generalized weakness, strength equal bilaterally, no right sided weakness, no left sided weakness - Psychiatric Psychiatric: A&O x's 3 - Labs CBC & Chem 7: 12/26/16 06:54 12/26/16 06:54 Labs: Abnormal Lab Results - Last 24 Hours (Table) 12/29/16 12/29/16 12/30/16 Range/Units 17:05 20:24 06:46 POC Glucose (mg/dL) 197 H 198 H 123 H (75-99) mg/dL 12/30/16 Range/Units 11:47 POC Glucose (mg/dL) 274 H (75-99) mg/dL Microbiology - Last 24 Hours (Table) 12/25/16 15:25 Blood Culture - Preliminary Blood No Growth after 96 hours Assessment and Plan Plan: 1 acute hypoxic respiratory failure: Combination of left lower lobe pneumonia, hypoxia, encephalopathy, myxedema and COPD exacerbation. 2 left sided pneumonia: Most likely gram-negative or aspiration with the current scenario patient need to be treated for gram-negative patient can be maintained on oral Levaquin only and can be taken off of Zosyn 3 COPD exacerbation: Solu-Medrol to oral prednisone would taper and DC in the next 3-4 days with DuoNeb and Pulmicort. 4 myxedema with worsening symptoms lately not been on thyroid medication for over 6 weeks patient was started back on Synthroid 20 g daily watch his symptoms carefully watch for any arrhythmia or tachycardia. 5 gout flareup with worsening symptom both lower extremity: Patient uric acid to be done was start patient on Solu-Medrol for now on small dose of colchicine 0.6 mg daily. 6 intracranial hemorrhage: Has been doing well so far his not having any further bleed the CAT scan was good this time. 7 encephalopathy: Combination of his hypoxia, respiratory failure, pneumonia, myxedema and his intracranial hemorrhage will watch patient mental status carefully and start PTOT. 8 worsening edema: Patient might benefit from's been on smaller dose of diuretics. 9 seizure prophylaxis: Patient remain on Keppra 500 mg twice a day since his brain trauma. 10 hyperlipidemia: Remain on Lipitor 40 mg daily. 11 hypertension: Resume atenolol at 50 mg daily. 12 DVT prophylaxis: Patient was place on Lovenox 40 mg daily. 13 GI prophylaxis: Patient will be on Pepcid 20 mg a day. Time with Patient: Greater than 30
--- NOTE | 2016-12-30 13:00 | P.PN ---
Subjective Principal diagnosis: Acute hypoxic respiratory failure, left-sided pneumonia, COPD exacerbation, myxedema, intracranial hemorrhage, encephalopathy, hypertension, hyperlipidemia. 81-year-old male one of Dr. Contreras patient with past medical history of asthma, CAD post pacemaker, hypertension, diabetes, history of prostate cancer and mild COPD who was transferred from the emergency department to [facility] for intracranial hemorrhage from falling down steps and to the basement on November 19 patient ended up being treated with conservative management did not require any surgery. Patient developed to have significant headache abnormal gait imbalance ended up being transferred to [facility] for rehab where he stayed ~20 of December. Patient made it home last was doing well until Sunday when the notices not able to ambulate and walk and not feeling well developed to have significant encephalopathy. Patient also developed to have significant cough productive dark phlegm along with mild hypoxia and worsening mentation. Seen by the visiting nurse found that he was not taking his thyroid medication for the last 6-8 weeks and developed to have significant edema swelling and decreased reaction. Family don't remember having any aspiration in the last few days. Patient today was not able to ambulate walk and become much worse have fever of 101. Was seen at the emergency department at [facility] chest x-ray showed left lower lobe pneumonia patient was mild hypoxic with the current symptoms decided to treat this as a nosocomial pneumonia having him on Zosyn and Levaquin along with updraft treatment and steroid. Patient also had increased edema of the lower extremity and all over his body from his myxedema not taking his thyroid for several weeks also had flareup of gout has not been on any gout medication lately. 12/26: Patient has been afebrile through the night. White count is normal. Blood sugars have been elevated secondary to steroids and Humalog scale started. He states he has been up and ambulating and is much improved today. He has been seen in consultation by Dr. Barnes from pulmonary medicine. Urine culture is in progress and blood cultures status received. 12/27: Patient is being followed by Dr. Barnes. Levaquin changed to oral and he is continued on IV Zosyn. IV Solu-Medrol will be changed to oral prednisone. Blood sugars continue to run in the 300s for which she has been given an extra 10 units of Humalog this morning and a repeat of 15 units with lunch. Patient has worked with physical therapy with plan to go home with home care. Wheelchair will be ordered. Anticipate discharge home tomorrow 12/28: Patient has been afebrile. Pulse ox is 95% on room air. Blood sugars are finally improving. He is now on oral prednisone. Blood culture showing no growth after 48 hours and urine culture is finalized with genital contamination. Patient was quite confused during the night and this morning. Repeat CAT scan of the brain and a chest x-ray have been ordered. Continue antibiotics. Social work to discuss subacute rehab with the patient and his with anticipation of discharge tomorrow. 12/30/2016: Patient is doing much better his hypoxia has improved cough is much better his encephalopathy mentation has been better not close to his baseline yet but has improved. Still waiting for approval by insurance for him to go to custodial rehab patient will be off IV antibiotics and oral only. Objective - Vital Signs Vital signs: Vital Signs Temp 97.7 F 12/30/16 07:00 Pulse 64 12/30/16 11:34 Resp 18 12/30/16 07:00 BP 148/72 12/30/16 07:00 Pulse Ox 97 12/30/16 07:00 Intake & Output 12/29/16 12/30/16 12/30/16 18:59 06:59 18:59 Intake Total 50 700 Balance 50 700 Weight 97.976 kg Intake: IV 50 260 0.9 @ 20ml\hr 160 Piperacillin-Tazobactam 3 50 100 .375 gm In Dextrose/Water 1 50ml.bag @ 12.5 mls/hr IVPB Q8HR [facility] Rx#: [id number] Oral 440 Other: Voiding Method Toilet Toilet Urinal Incontinent Diaper # Voids 1 1 1 # Bowel Movements 1 - Constitutional General appearance: Present: cooperative, disheveled, no acute distress. Absent : average body habitus, mild distress, morbidly obese, obese, severe distress, thin - EENT Eyes: Present: abnormal pupil, normal appearance. Absent: anicteric sclerae, disc margins sharp, edentulous, EOMI, PERRLA, fundus normal, photophobia, dentition normal, poor dentition, ptosis, scleral icterus ENT: Present: normal oropharynx. Absent: hard of hearing, hearing grossly normal, NA/AT, other, pharyngeal erythema, thrush, tonsillar exudates, tonsillar swelling Ears: bilateral: normal - Neck Neck: Present: normal ROM Carotids: bilateral: upstroke normal Thyroid: bilateral: normal size - Respiratory Respiratory: left: diminished, dullness, rales, rhonchi - Cardiovascular Rhythm: regular Heart sounds: normal: S1, S2 Abnormal Heart Sounds: Present: systolic murmur, S3 Gallop - Gastrointestinal General gastrointestinal: Present: distended, normal bowel sounds, soft. Absent : absent bowel sounds, decreased bowel sounds, hepatomegaly, hyperactive bowel sounds, organomegaly, rigid, scaphoid, splenomegaly, tenderness, umbilical hernia, ventral hernia - Genitourinary Male genitourinary: scrotal edema - Integumentary Integumentary: Present: normal. Absent: calor, cellulitis, cyanotic, decreased turgor, flushed, jaundiced, normal turgor, pale, rash, ulcer - Neurologic Neurologic: Present: CNII-XII intact - Musculoskeletal Musculoskeletal: Present: gait normal, generalized weakness, strength equal bilaterally. Absent: right sided weakness, left sided weakness - Psychiatric Psychiatric: Present: A&O x's 3, appropriate affect. Absent: intact judgment & insight - Labs CBC & Chem 7: 12/26/16 06:54 12/26/16 06:54 Labs: Abnormal Lab Results - Last 24 Hours (Table) 12/29/16 12/29/16 12/30/16 Range/Units 17:05 20:24 06:46 POC Glucose (mg/dL) 197 H 198 H 123 H (75-99) mg/dL 12/30/16 Range/Units 11:47 POC Glucose (mg/dL) 274 H (75-99) mg/dL Microbiology - Last 24 Hours (Table) 12/25/16 15:25 Blood Culture - Preliminary Blood No Growth after 96 hours Assessment and Plan Plan: 1 acute respiratory failure: Combination of left lower lobe pneumonia, hypoxia, encephalopathy, myxedema and COPD exacerbation. Significant improvement last 24 hours. 2 left sided pneumonia: Most likely nosocomial versus aspiration patient has done very well with the current antibiotic will continue oral Levaquin for 7 days after discharge. 3 COPD exacerbation: Will add Solu-Medrol combine with DuoNeb and Pulmicort. 4 myxedema with worsening symptoms lately not been on thyroid medication for over 6 weeks patient was started back on Synthroid 200 g daily watch his symptoms carefully watch for any arrhythmia or tachycardia. 5 hypertension: Resume atenolol at 50 mg daily. 6 intracranial hemorrhage: Has been doing well so far his not having any further bleed the CAT scan was good this time. 7 encephalopathy: Combination of his hypoxia, respiratory failure, pneumonia, myxedema and his intracranial hemorrhage with close head trauma, patient is doing much better finally today he has significant improvement compared to last few days. 8 worsening edema: Patient might benefit from's been on smaller dose of diuretics. 9 seizure prophylaxis: Patient remain on Keppra 500 mg twice a day since his brain trauma. 10 hyperlipidemia: Remain on Lipitor 40 mg daily. Discharge planning: Still waiting for approval by insurance to go to custodial rehab.
[2016-12-30] MEDS: LEVOFLOXACIN 750 MG TAB PO SCH (13:25)
[2016-12-30 17:33] LABS: Glucose,Whole Blood 225 mg/dL (75-99)
[2016-12-30] MEDS: ATORVASTATIN 40 MG TAB PO SCH (19:51)
[2016-12-30 20:16] LABS: Glucose,Whole Blood 206 mg/dL (75-99)
--- NOTE | 2016-12-30 21:51 | PN ---
Mr. Justice is seen, evaluated and examined during the rounds. Still has mild degree of shortness of breath. The severity has improved. Cough and congestion has improved. Repeat chest x-ray performed yesterday reviewed and compared with the prior x-ray. The improvement in left lower lobe infiltrate has been noted. Hiatal hernia on the left side overall remains stable. Last set of vitals include blood pressure 140/79, respiratory rate 18, pulse 63 , temperature 98, saturation 97%. HEENT: Unremarkable. Neck supple. Lungs good air entry bilaterally. Heart regular rate and rhythm. Abdomen is soft. Neurological: Awake and alert. IMPRESSION: 1. Left lower lobe pneumonia. 2. Acute hypoxic respiratory failure related to left lower lobe pneumonia. 3. Altered mental status/encephalopathy related to above, continue to improve progressively. 4. Severe chronic obstructive pulmonary disease with exacerbation. 5. Mixed edema. 6. History of prior intracranial hemorrhage. PLAN: Continue supportive care. Follow clinical course closely. Further recommendations pending. Plan of care as per clinical response of the patient. Will follow. [facility]
[2016-12-31 06:46] LABS: Glucose,Whole Blood 158 mg/dL (75-99)
[2016-12-31] MEDS: IPRATROPIUM-ALBUTEROL 3 ML NEB INHALATION SCH ×4 (07:09→19:50)
[2016-12-31] MEDS: ENOXAPARIN 40 MG/0.4 ML SYRINGE SQ SCH (07:17)
[2016-12-31] MEDS: ASPIRIN 81 MG CHEW PO SCH (07:17)
[2016-12-31] MEDS: LEVOTHYROXINE 100 MCG TAB PO SCH (07:17)
[2016-12-31] MEDS: ATENOLOL 50 MG TAB PO SCH (07:18)
[2016-12-31] MEDS: FAMOTIDINE 20 MG TAB PO SCH ×2 (07:18→20:09)
[2016-12-31] MEDS: GABAPENTIN 100 MG CAP PO SCH ×2 (07:18→20:09)
[2016-12-31] MEDS: CHLORTHALIDONE 25 MG TAB PO SCH (07:19)
[2016-12-31] MEDS: predniSONE 20 MG TAB PO SCH (07:19)
[2016-12-31] MEDS: COLCHICINE 0.6 MG TAB PO SCH (07:19)
[2016-12-31] MEDS: levETIRAcetam 500 MG TAB PO SCH ×2 (07:19→20:09)
[2016-12-31] MEDS: INSULIN GLARGINE 100 UNIT/ML 10 ML VIAL SQ SCH (07:27)
[2016-12-31] MEDS: INSULIN LISPRO (humaLOG) 300 UNIT/3 ML VIAL SQ SCH ×4 (08:10→22:10)
--- NOTE | 2016-12-31 09:41 | P.PN ---
Subjective Principal diagnosis: Acute hypoxic respiratory failure, left-sided pneumonia, COPD exacerbation, myxedema, intracranial hemorrhage, encephalopathy, hypertension, hyperlipidemia. Debility 81-year-old male one of Dr. Contreras patient with past medical history of asthma, CAD post pacemaker, hypertension, diabetes, history of prostate cancer and mild COPD who was transferred from the emergency department to [facility], [place] for intracranial hemorrhage from falling down steps and to the basement on November 19 patient ended up being treated with conservative management did not require any surgery. Patient developed to have significant headache abnormal gait imbalance ended up being transferred to [facility] for rehab where he stayed ~20 of December. Patient made it home last was doing well until Sunday when the notices not able to ambulate and walk and not feeling well developed to have significant encephalopathy. Patient also developed to have significant cough productive dark phlegm along with mild hypoxia and worsening mentation. Seen by the visiting nurse found that he was not taking his thyroid medication for the last 6-8 weeks and developed to have significant edema swelling and decreased reaction. Family don't remember having any aspiration in the last few days. Patient today was not able to ambulate walk and become much worse have fever of 101. Was seen at the emergency department at [facility] chest x-ray showed left lower lobe pneumonia patient was mild hypoxic with the current symptoms decided to treat this as a nosocomial pneumonia having him on Zosyn and Levaquin along with updraft treatment and steroid. Patient also had increased edema of the lower extremity and all over his body from his myxedema not taking his thyroid for several weeks also had flareup of gout has not been on any gout medication lately. 12/26: Patient has been afebrile through the night. White count is normal. Blood sugars have been elevated secondary to steroids and Humalog scale started. He states he has been up and ambulating and is much improved today. He has been seen in consultation by Dr. Barnes from pulmonary medicine. Urine culture is in progress and blood cultures status received. 12/27: Patient is being followed by Dr. Barnes. Levaquin changed to oral and he is continued on IV Zosyn. IV Solu-Medrol will be changed to oral prednisone. Blood sugars continue to run in the 300s for which she has been given an extra 10 units of Humalog this morning and a repeat of 15 units with lunch. Patient has worked with physical therapy with plan to go home with home care. Wheelchair will be ordered. Anticipate discharge home tomorrow 12/28: Patient has been afebrile. Pulse ox is 95% on room air. Blood sugars are finally improving. He is now on oral prednisone. Blood culture showing no growth after 48 hours and urine culture is finalized with genital contamination. Patient was quite confused during the night and this morning. Repeat CAT scan of the brain and a chest x-ray have been ordered. Continue antibiotics. Social work to discuss subacute rehab with the patient and his with anticipation of discharge tomorrow. 12/30/2016: Patient is doing much better his hypoxia has improved cough is much better his encephalopathy mentation has been better not close to his baseline yet but has improved. Still waiting for approval by insurance for [facility] to [facility] patient will be off IV antibiotics and oral only. 12/31/2016: Patient is doing much better decreased cough his encephalopathy and memory has improved significantly, his mobility walking with a walker is much better. Still with the plan to let him go to rehab hopefully tomorrow he is off IV antibiotics still on oral still on updraft treatment [id number]. Objective - Vital Signs Vital signs: Vital Signs Temp 97.8 F 12/31/16 07:00 Pulse 72 12/31/16 07:23 Resp 18 12/31/16 07:00 BP 173/88 12/31/16 07:00 Pulse Ox 97 12/31/16 07:00 Intake & Output 12/30/16 12/31/16 12/31/16 18:59 06:59 18:59 Intake Total 725 1940 Output Total 800 0 Balance -75 1940 0 Weight 97.976 kg 97.976 kg 97.976 kg Intake: Oral 725 1940 Output: Urine 800 0 Other: Voiding Method Toilet Toilet Toilet Incontinent Incontinent # Voids 4 2 0 # Bowel Movements 1 1 - Constitutional General appearance: Present: cooperative, disheveled, no acute distress. Absent : average body habitus, mild distress, morbidly obese, obese, severe distress, thin - EENT Eyes: Present: normal appearance. Absent: abnormal pupil, anicteric sclerae, disc margins sharp, edentulous, EOMI, PERRLA, fundus normal, photophobia, dentition normal, poor dentition, ptosis, scleral icterus ENT: Present: normal oropharynx. Absent: hard of hearing, hearing grossly normal, NA/AT, other, pharyngeal erythema, thrush, tonsillar exudates, tonsillar swelling Ears: bilateral: normal - Neck Neck: Present: normal ROM. Absent: lymphadenopathy, other, rigidity, stridor, thyromegaly Carotids: bilateral: upstroke normal Thyroid: bilateral: normal size - Respiratory Respiratory: left: rales, rhonchi, wheezing, bilateral: diminished, dullness - Cardiovascular Rhythm: regular Heart sounds: normal: S1, S2 Abnormal Heart Sounds: Present: systolic murmur, S3 Gallop - Gastrointestinal General gastrointestinal: Present: decreased bowel sounds, soft. Absent: absent bowel sounds, distended, hepatomegaly, hyperactive bowel sounds, normal bowel sounds, organomegaly, rigid, scaphoid, splenomegaly, tenderness, umbilical hernia, ventral hernia - Integumentary Integumentary: Present: normal, pale. Absent: calor, cellulitis, cyanotic, decreased turgor, flushed, jaundiced, normal turgor, rash, ulcer - Neurologic Neurologic: Present: CNII-XII intact - Musculoskeletal Musculoskeletal: Present: generalized weakness, strength equal bilaterally. Absent: gait normal, right sided weakness, left sided weakness - Psychiatric Psychiatric: Present: A&O x's 3, appropriate affect. Absent: intact judgment & insight - Labs CBC & Chem 7: 12/26/16 06:54 12/26/16 06:54 Labs: Abnormal Lab Results - Last 24 Hours (Table) 12/30/16 12/30/16 12/30/16 Range/Units 11:47 17:31 20:15 POC Glucose (mg/dL) 274 H 225 H 206 H (75-99) mg/dL 12/31/16 Range/Units 06:44 POC Glucose (mg/dL) 158 H (75-99) mg/dL Microbiology - Last 24 Hours (Table) 12/25/16 15:25 Blood Culture - Preliminary Blood No Growth after 120 hours Assessment and Plan Plan: 1 acute respiratory failure: Combination of left lower lobe pneumonia, hypoxia, encephalopathy, myxedema and COPD exacerbation. Significant improvement last 24 hours. 2 left sided pneumonia: Most likely nosocomial versus aspiration patient has done very well with the current antibiotic will continue oral Levaquin for 7 days after discharge. 3 COPD exacerbation: Will add Solu-Medrol combine with DuoNeb and Pulmicort. Still occasionally require oxygen. 4 myxedema: Since been back on his medication is doing much better with no sign and symptom of significant hypothyroidism to continue the same dose of 200 g of levothyroxine daily. 5 hypertension: Resume atenolol at 50 mg daily. 6 intracranial hemorrhage: Has been doing well so far his not having any further bleed the CAT scan was good this time. 7 encephalopathy: Combination of his hypoxia, respiratory failure, pneumonia, myxedema and his intracranial hemorrhage with close head trauma, patient is doing much better finally today he has significant improvement compared to last few days. 8 worsening edema: Patient might benefit from's been on smaller dose of diuretics. 9 seizure prophylaxis: Patient remain on Keppra 500 mg twice a day since his brain trauma. 10 hyperlipidemia: Remain on Lipitor 40 mg daily. Discharge planning: Still waiting for approval by insurance to go to jail [facility].
[2016-12-31 11:38] LABS: Glucose,Whole Blood 224 mg/dL (75-99)
[2016-12-31] MEDS: MULTIVITAMINS, THERA 1 EACH TAB PO SCH (12:16)
--- NOTE | 2016-12-31 12:50 | P.PN ---
Subjective Patient seen and evaluated examined during the rounds history left cough congestion shortness of breath but severity has improved, would recommend to taper the steroids as tolerated, Zosyn can be discontinued and patient can be continued on Levaquin only for another 4-5 days, would recommend a follow-up chest x-ray in 4-6 weeks to document resolution of left-sided pneumonia, respiratory status is significantly improved he is breathing more comfortably Patient doing well in terms of breathing awaiting placement to [facility]CF cough congestion shortness breath or better under control Objective - Vital Signs Vital signs: Vital Signs Temp 97.8 F 12/31/16 07:00 Pulse 72 12/31/16 11:28 Resp 18 12/31/16 07:00 BP 173/88 12/31/16 07:00 Pulse Ox 97 12/31/16 07:00 Intake & Output 12/30/16 12/31/16 12/31/16 18:59 06:59 18:59 Intake Total 725 1940 Output Total 800 0 Balance -75 1940 0 Weight 97.976 kg 97.976 kg 97.976 kg Intake: Oral 725 1940 Output: Urine 800 0 Other: Voiding Method Toilet Toilet Toilet Incontinent Incontinent # Voids 4 2 2 # Bowel Movements 1 1 - Exam General appearance: no average body habitus, cooperative, disheveled, mild distress, no morbidly obese, no no acute distress, obese, no severe distress, no thin - EENT Eyes: abnormal pupil, no anicteric sclerae, no disc margins sharp, no edentulous , no EOMI, no PERRLA, no fundus normal, no photophobia, no dentition normal, no poor dentition, no ptosis, no scleral icterus, normal appearance ENT: hard of hearing, no hearing grossly normal, no NA/AT, normal oropharynx, no other, no pharyngeal erythema, no thrush, no tonsillar exudates, no tonsillar swelling Ears: bilateral: normal - Neck Neck: no lymphadenopathy, normal ROM, no other, no rigidity, no stridor, no thyromegaly Carotids: bilateral: upstroke normal Thyroid: bilateral: normal size - Respiratory Respiratory: bilateral: diminished, dullness, rales, rhonchi, wheezing - Cardiovascular Rhythm: regular Heart sounds: normal: S1, S2 Abnormal Heart Sounds: systolic murmur, S3 Gallop - Gastrointestinal General gastrointestinal: no absent bowel sounds, decreased bowel sounds, distended, no hepatomegaly, no hyperactive bowel sounds, no normal bowel sounds , no organomegaly, rigid, no scaphoid, soft, no splenomegaly, no tenderness, no umbilical hernia, no ventral hernia - Integumentary Significant edema with slight swelling discomfort and pain in the low large toes in both side. Integumentary: jaundiced, normal, pale, rash - Neurologic Neurologic: CNII-XII intact - Musculoskeletal Musculoskeletal: gait normal, generalized weakness, strength equal bilaterally, no right sided weakness, no left sided weakness - Psychiatric Psychiatric: A&O x's 3 - Labs CBC & Chem 7: 12/26/16 06:54 12/26/16 06:54 Labs: Abnormal Lab Results - Last 24 Hours (Table) 12/30/16 12/30/16 12/31/16 Range/Units 17:31 20:15 06:44 POC Glucose (mg/dL) 225 H 206 H 158 H (75-99) mg/dL 12/31/16 Range/Units 11:32 POC Glucose (mg/dL) 224 H (75-99) mg/dL Microbiology - Last 24 Hours (Table) 12/25/16 15:25 Blood Culture - Preliminary Blood No Growth after 120 hours Assessment and Plan Plan: 1 acute hypoxic respiratory failure: Combination of left lower lobe pneumonia, hypoxia, encephalopathy, myxedema and COPD exacerbation. 2 left sided pneumonia: Most likely gram-negative or aspiration with the current scenario patient need to be treated for gram-negative patient can be maintained on oral Levaquin only and can be taken off of Zosyn 3 COPD exacerbation: Solu-Medrol to oral prednisone would taper and DC in the next 3-4 days with DuoNeb and Pulmicort. 4 myxedema with worsening symptoms lately not been on thyroid medication for over 6 weeks patient was started back on Synthroid 20 g daily watch his symptoms carefully watch for any arrhythmia or tachycardia. 5 gout flareup with worsening symptom both lower extremity: Patient uric acid to be done was start patient on Solu-Medrol for now on small dose of colchicine 0.6 mg daily. 6 intracranial hemorrhage: Has been doing well so far his not having any further bleed the CAT scan was good this time. 7 encephalopathy: Combination of his hypoxia, respiratory failure, pneumonia, myxedema and his intracranial hemorrhage will watch patient mental status carefully and start PTOT. 8 worsening edema: Patient might benefit from's been on smaller dose of diuretics. 9 seizure prophylaxis: Patient remain on Keppra 500 mg twice a day since his brain trauma. 10 hyperlipidemia: Remain on Lipitor 40 mg daily. 11 hypertension: Resume atenolol at 50 mg daily. 12 DVT prophylaxis: Patient was place on Lovenox 40 mg daily. 13 GI prophylaxis: Patient will be on Pepcid 20 mg a day. Time with Patient: Greater than 30
[2016-12-31] MEDS: LEVOFLOXACIN 750 MG TAB PO SCH (15:34)
[2016-12-31 17:05] LABS: Glucose,Whole Blood 270 mg/dL (75-99)
[2016-12-31] MEDS: ATORVASTATIN 40 MG TAB PO SCH (20:09)
[2016-12-31 20:16] LABS: Glucose,Whole Blood 252 mg/dL (75-99)
[2016-12-31 22:44] VITALS: TEMP 97.6
[2017-01-01] MEDS: LEVOTHYROXINE 100 MCG TAB PO SCH (07:38)
[2017-01-01] MEDS: ACETAMINOPHEN TAB 325 MG TAB PO PRN (07:43)
[2017-01-01] MEDS: INSULIN LISPRO (humaLOG) 300 UNIT/3 ML VIAL SQ SCH (07:46)
[2017-01-01] MEDS: IPRATROPIUM-ALBUTEROL 3 ML NEB INHALATION SCH ×2 (07:50→11:19)
[2017-01-01 07:57] LABS: Glucose,Whole Blood 136 mg/dL (75-99)
[2017-01-01 08:19] LABS: Anisocytosis Slight; Basophils % (A) 0 %; CH 29.3; CHCM 32.1; Eosinophils # (A) 0.1 k/uL (0-0.7); Eosinophils % (A) 1 %; HCT 37.4 % (39.0-53.0); HDW 2.92; HGB 11.6 gm/dL (13.0-17.5); Luc # (Auto) 0.25; Luc % (Auto) 3; Lymphocytes # (A) 2.4 k/uL (1.0-4.8); Lymphocytes % (A) 28 %; MCH 28.4 pg (25.0-35.0); MCV 91.4 fL (80.0-100.0); Mean Platelet Volume 7.4; Monocytes # (A) 0.4 k/uL (0-1.0); Monocytes % (A) 5 %; Neutrophils # (A) 5.3 k/uL (1.3-7.7); Neutrophils % (A) 63 %; RBC 4.09 m/uL (4.30-5.90); RDW 16.1 % (11.5-15.5); WBC 8.5 k/uL (3.8-10.6); WBC (Perox) 8.74
[2017-01-01 08:24] VITALS: BP 158/74; PULSE 59; RESP 18
[2017-01-01] MEDS: ENOXAPARIN 40 MG/0.4 ML SYRINGE SQ SCH (08:42)
[2017-01-01] MEDS: COLCHICINE 0.6 MG TAB PO SCH (08:42)
[2017-01-01] MEDS: predniSONE 20 MG TAB PO SCH (08:43)
[2017-01-01] MEDS: FAMOTIDINE 20 MG TAB PO SCH (08:43)
[2017-01-01] MEDS: GABAPENTIN 100 MG CAP PO SCH (08:43)
[2017-01-01] MEDS: CHLORTHALIDONE 25 MG TAB PO SCH (08:44)
[2017-01-01] MEDS: ASPIRIN 81 MG CHEW PO SCH (08:44)
[2017-01-01] MEDS: levETIRAcetam 500 MG TAB PO SCH (08:44)
[2017-01-01] MEDS: ATENOLOL 50 MG TAB PO SCH (08:44)
[2017-01-01 09:42] LABS: ALT 55 U/L (21-72); AST 29 U/L (17-59); Alkaline Phosphatase 54 U/L (38-126); Anion Gap 11 mmol/L; Blood Urea Nitrogen 28 mg/dL (9-20); Calcium 9.2 mg/dL (8.4-10.2); Carbon Dioxide 29 mmol/L (22-30); Chloride 102 mmol/L (98-107); Glucose 126 mg/dL (74-99); Non-African American GFR(MDRD) >60 (>60 ml/min/1.73 sqM); Potassium 3.1 mmol/L (3.5-5.1); Sodium 142 mmol/L (137-145); Total Bilirubin 0.7 mg/dL (0.2-1.3); Total Protein 6.1 g/dL (6.3-8.2)
--- NOTE | 2017-01-02 13:22 | P.DS ---
Providers Date of admission: 12/25/16 16:08 Expected date of discharge: 01/01/17 Attending physician: Kevan Khan Consults: 12/25/16 18:03 Consult Physician Routine Consulting Provider: Janet Harris Consult Reason/Comments: COPD and Pneum Do you want consulting provider notified?: Yes Primary care physician: [facility] Course: 81-year-old male one of Dr. Contreras patient with past medical history of asthma, CAD post pacemaker, hypertension, diabetes, history of prostate cancer and mild COPD who was transferred from the emergency department to [facility] for intracranial hemorrhage from falling down steps and to the basement on November 19 patient ended up being treated with conservative management did not require any surgery. Patient developed to have significant headache abnormal gait imbalance ended up being transferred to [facility] for rehab where he stayed ~20 of December. Patient made it home last was doing well until Sunday when the notices not able to ambulate and walk and not feeling well developed to have significant encephalopathy. Patient also developed to have significant cough productive dark phlegm along with mild hypoxia and worsening mentation. Seen by the visiting nurse found that he was not taking his thyroid medication for the last 6-8 weeks and developed to have significant edema swelling and decreased reaction. Family don't remember having any aspiration in the last few days. Patient today was not able to ambulate walk and become much worse have fever of 101. Was seen at the emergency department at [facility] chest x-ray showed left lower lobe pneumonia patient was mild hypoxic with the current symptoms decided to treat this as a nosocomial pneumonia having him on Zosyn and Levaquin along with updraft treatment and steroid. Patient also had increased edema of the lower extremity and all over his body from his myxedema not taking his thyroid for several weeks also had flareup of gout has not been on any gout medication lately. 12/26: Patient has been afebrile through the night. White count is normal. Blood sugars have been elevated secondary to steroids and Humalog scale started. He states he has been up and ambulating and is much improved today. He has been seen in consultation by Dr. Barnes from pulmonary medicine. Urine culture is in progress and blood cultures status received. 12/27: Patient is being followed by Dr. Barnes. Levaquin changed to oral and he is continued on IV Zosyn. IV Solu-Medrol will be changed to oral prednisone. Blood sugars continue to run in the 300s for which she has been given an extra 10 units of Humalog this morning and a repeat of 15 units with lunch. Patient has worked with physical therapy with plan to go home with home care. Wheelchair will be ordered. Anticipate discharge home tomorrow 12/28: Patient has been afebrile. Pulse ox is 95% on room air. Blood sugars are finally improving. He is now on oral prednisone. Blood culture showing no growth after 48 hours and urine culture is finalized with genital contamination. Patient was quite confused during the night and this morning. Repeat CAT scan of the brain and a chest x-ray have been ordered. Continue antibiotics. Social work to discuss subacute rehab with the patient and his with anticipation of discharge tomorrow. 12/29: CT from yesterday showed no acute intracranial hemorrhage or midline shift. 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 There is diffuse age-related cerebral atrophy and chronic small vessel ischemic changes noted. Repeat chest x-ray showed marked interval improvement in the area of the left lower lobe infiltrate. Retrocardiac density most likely related to hiatal hernia. Patient has been afebrile. He is on oral Levaquin and IV Zosyn. Prednisone is now down to 20 mg daily and he will continue on tapering dose. Patient will be discharged today to [facility] under the care of Dr. Noland. 01/01: Patient was not discharged on Sunday or Sunday to [facility]. On Sunday morning, patient and his decided that he would return home. Home care was arranged improved prescriptions provided. Patient was discharged home in stable condition. Discharge diagnoses: 1 acute hypoxic respiratory failure: Combination of left lower lobe pneumonia, hypoxia, metabolic encephalopathy, myxedema and COPD exacerbation. 2 left sided pneumonia: Most likely gram-negative or aspiration 3 COPD exacerbation 4 myxedema with worsening symptoms lately not been on thyroid medication for over 6 weeks 5 gout flareup with worsening symptom both lower extremity 6 intracranial hemorrhage, stable 7 encephalopathy: Combination of his hypoxia, respiratory failure, pneumonia, myxedema and his intracranial hemorrhage 8 worsening edema 9 seizure prophylaxis 10 hyperlipidemia 11 hypertension Discharge plan: Home with [facility] Impression and plan of care have been directed as dictated by the signing physician. Abbey Gomez nurse practitioner acting as scribe for signing physician. Patient Condition at Discharge: Good Plan - Discharge Summary New Discharge Prescriptions: New Acetaminophen Tab [Tylenol] 650 mg PO Q4HR PRN tab PRN Reason: Fever And/ Or Pain Colchicine 0.6 mg PO DAILY #30 tablet Gabapentin [Neurontin] 100 mg PO BID #60 cap Levofloxacin [Levaquin] 750 mg PO DAILY #3 tab Continue Levothyroxine Sodium [Synthroid] 200 mcg PO DAILY Atenolol/Chlorthalidone [Tenoretic 50 Tablet] 1 tab PO DAILY Aspirin 81 mg PO DAILY chew Multivitamins, Thera [Multivitamin (formulary)] 1 tab PO DAILY Atorvastatin [Lipitor] 40 mg PO HS levETIRAcetam [Keppra] 500 mg PO Q12HR Discontinued Pregabalin [Lyrica] 75 mg PO DAILY Discharge Medication List Atenolol/Chlorthalidone [Tenoretic 50 Tablet] 1 tab PO DAILY 09/19/13 [History] Levothyroxine Sodium [Synthroid] 200 mcg PO DAILY 09/19/13 [History] Aspirin 81 mg PO DAILY chew 08/22/16 [Rx] Multivitamins, Thera [Multivitamin (formulary)] 1 tab PO DAILY 08/28/16 [History ] Atorvastatin [Lipitor] 40 mg PO HS 12/25/16 [History] levETIRAcetam [Keppra] 500 mg PO Q12HR 12/25/16 [History] Acetaminophen Tab [Tylenol] 650 mg PO Q4HR PRN tab 12/29/16 [Rx] Colchicine 0.6 mg PO DAILY #30 tablet 01/01/17 [Rx] Gabapentin [Neurontin] 100 mg PO BID #60 cap 01/01/17 [Rx] Levofloxacin [Levaquin] 750 mg PO DAILY #3 tab 01/01/17 [Rx] Follow up Appointment(s)/Referral(s): [facility], [NON-STAFF] - 1 Week Lei Jean-Baptiste DO [Primary Care Provider] - 1 Week (Dr. Thorpe's office will call patient with an appointment date and time.) Julian Barnes MD [STAFF PHYSICIAN] - 01/09/17 11:30 am Ambulatory/Diagnostic Orders: Complete Blood Count w/diff [LAB.AMB] Location: Determined By Patient Comprehensive Metabolic Panel [LAB.AMB] Location: Determined By Patient XR chest 2V [RAD.AMB] Location: Determined By Patient Patient Instructions/Handouts: Colchicine (By mouth), Gabapentin (By mouth), Levofloxacin (By mouth), Dehydration (DC), Fever in Adults (GEN), Weakness (GEN) , Pneumonia (DC) Discharge Disposition: HOME WITH HOME HEALTH SERVICES
== END 2017-01-01 11:55 | disposition home health service (06) | DRG 190 ==
LOC: EC 14:53 → 5MS5E 16:08
PROVIDERS: ADMIT Internal Medicine Geriatric Medicine; ATTEND Internal Medicine Geriatric Medicine
DX: J44.0 Chronic obstructive pulmonary disease with (acute) lower respiratory infection (principal); J69.0 Pneumonitis due to inhalation of food and vomit; J15.6 Pneumonia due to other Gram-negative bacteria; G93.41 Metabolic encephalopathy; E11.65 Type 2 diabetes mellitus with hyperglycemia; J44.1 Chronic obstructive pulmonary disease with (acute) exacerbation; T38.0X5A Adverse effect of glucocorticoids and synthetic analogues, initial encounter; E03.9 Hypothyroidism, unspecified; M10.9 Gout, unspecified; E78.5 Hyperlipidemia, unspecified; I10 Essential (primary) hypertension; K44.9 Diaphragmatic hernia without obstruction or gangrene; M19.91 Primary osteoarthritis, unspecified site; I25.10 Atherosclerotic heart disease of native coronary artery without angina pectoris; F41.9 Anxiety disorder, unspecified; R26.89 Other abnormalities of gait and mobility; Z79.82 Long term (current) use of aspirin; Z79.899 Other long term (current) drug therapy; Z95.0 Presence of cardiac pacemaker; Z85.46 Personal history of malignant neoplasm of prostate; Z86.73 Personal history of transient ischemic attack (TIA), and cerebral infarction without residual deficits; Z90.49 Acquired absence of other specified parts of digestive tract; Y95 Nosocomial condition; Z85.038 Personal history of other malignant neoplasm of large intestine; Z87.891 Personal history of nicotine dependence; Z77.090 Contact with and (suspected) exposure to asbestos; Z88.5 Allergy status to narcotic agent
CPT/HCPCS: 36415; 70450; 71020; 80053; 81003; 82550; 82553; 83036; 83605; 83735; 84100; 84436; 84439; 84443; 84484; 84550; 85025; 85610; 85730; 87040; 87086; 94640; 94760

== ENCOUNTER → 2017-01-17 | Outpatient (CLI) | payer MEDICARE ==
--- NOTE | 2017-01-17 14:08 | XR ---
EXAMINATION TYPE: XR chest 2V DATE OF EXAM: 01/17/2017 COMPARISON: Prior chest x-ray 12/28/2016 HISTORY: Pneumonia TECHNIQUE: Frontal and lateral views of the chest are obtained. FINDINGS: Retrocardiac air-fluid levels compatible with hiatal hernia. Pacemaker leads are stable. N o evident airspace disease, pneumothorax, or pleural effusion. Minimal strand-like density at the lef t costophrenic angle compatible with atelectasis or scarring. Cardiac mediastinal silhouette, pulmona ry vascularity and luisana are stable. Thoracic spondylosis is present. Patient is rotated. IMPRESSION: No significant interval change. Hiatal hernia. Stable exam.
== END | disposition home or self-care (01) ==
LOC: RADXRMAIN 11:01
PROVIDERS: ATTEND Internal Medicine Geriatric Medicine
DX: K44.9 Diaphragmatic hernia without obstruction or gangrene (principal)
CPT/HCPCS: 71020

== ENCOUNTER 2017-02-05 08:23 | Inpatient (IN) | payer MEDICARE ==
[2017-02-05] MEDS ORDERED: SODIUM CHLORIDE 0.9% 500 ML IV STA (08:40)
[2017-02-05] MEDS ORDERED: SODIUM CHLORIDE 0.9% 1,000 ML IV STA (08:40)
--- NOTE | 2017-02-05 08:46 | ED ---
Weakness HPI - General Chief complaint: Weakness Stated complaint: Weakness Time Seen by Provider: 02/05/17 08:23 Source: patient, RN notes reviewed Mode of arrival: EMS Limitations: no limitations - History of Present Illness Initial comments: This is an 81-year-old male was brought in by EMS for evaluation of weakness. Apparently he had the onset yesterday of generalized weakness and could not get out of his chair. He was brought in for evaluation of the same. Per paramedics the patient's is concerned that this is how his stroke presented. Patient is awake alert but lethargic he does state that he has right -sided weakness left over from his previous stroke. He denies any fevers chills sweats cough or other symptoms. Per old records the patient does have a history of CVA gout colon cancer and pneumonia. Additionally the patient has been complaining of right shoulder pain which is apparently chronic. He did complain of pain with movement of his right shoulder he was given 2 mg of morphine per paramedics. MD Complaint: generalized weakness - Related Data Home Medications Medication Instructions Recorded Confirmed Atenolol/Chlorthalidone [Tenoretic 1 tab PO DAILY 09/19/13 02/05/17 50 Tablet] Levothyroxine Sodium [Synthroid] 200 mcg PO DAILY 09/19/13 02/05/17 Multivitamins, Thera [Multivitamin 1 tab PO HS 08/28/16 02/05/17 (formulary)] Atorvastatin [Lipitor] 80 mg PO HS 02/05/17 02/05/17 Citalopram Hydrobromide [CeleXA] 20 mg PO DAILY 02/05/17 02/05/17 Cyanocobalamin (Vitamin B-12) 1,000 mcg PO DAILY 02/05/17 02/05/17 [Vitamin B-12] Potassium Chloride [Klor-Con 20] 20 meq PO DAILY 02/05/17 02/05/17 Primidone [Mysoline] 50 mg PO HS 02/05/17 02/05/17 sitaGLIPtin [Januvia] 100 mg PO DAILY 02/05/17 02/05/17 Previous Rx's Medication Instructions Recorded Aspirin 81 mg PO DAILY chew 08/22/16 Colchicine 0.6 mg PO DAILY #30 tablet 01/01/17 Gabapentin [Neurontin] 100 mg PO BID #60 cap 01/01/17 Allergies Allergy/AdvReac Type Severity Reaction Status Date / Time hydrocodone [From [place]] AdvReac Hallucinati Verified 02/05/17 08:51 ons Review of Systems ROS Statement: Those systems with pertinent positive or pertinent negative responses have been documented in the HPI. ROS Other: All systems not noted in ROS Statement are negative. Past Medical History Past Medical History: Asthma, Cancer, CVA/TIA, Diabetes Mellitus, Hyperlipidemia , Hypertension, Osteoarthritis (OA), Pneumonia, Prostate Disorder, Respiratory Disorder, Thyroid Disorder Additional Past Medical History / Comment(s): cva x3 in august, november 2016 fell down basement steps hit head had "bleeding on the brain" sent to [facility] then [facility] to [facility] for rehab just got back home on .upon admit-pt's stated that. 'his legs won't support hime,unable to get up on his own/walk "hypothyroid, asbestos, colon cancer, gout, gets hormone shots History of Any Multi-Drug Resistant Organisms: None Reported Past Surgical History: Appendectomy, Cholecystectomy, Pacemaker, Prostate Surgery Additional Past Surgical History / Comment(s): penile surgery, cancers in remission Past Anesthesia/Blood Transfusion Reactions: No Reported Reaction Type of Cardiac Device: Unknown Device Placement Date:: unknown Past Psychological History: Anxiety Smoking Status: Former smoker Past Alcohol Use History: None Reported Past Drug Use History: None Reported - Past Family History Father Family Medical History: Myocardial Infarction ([place]) Mother Family Medical History: Cancer, Myocardial Infarction ([place]) Brother(s) Family Medical History: No Reported History Sister(s) Family Medical History: Neurologic Disorder Son(s) Family Medical History: No Reported History General Exam - General Exam Comments Initial Comments: This is a well-developed well-nourished awake alert but lethargic male Limitations: no limitations General appearance: alert, lethargic Head exam: Present: atraumatic, normocephalic, normal inspection Eye exam: Present: normal appearance, PERRL, EOMI. Absent: scleral icterus, conjunctival injection, periorbital swelling ENT exam: Present: mucous membranes dry, other (Patient does demonstrate some left facial asymmetry compared to the right) Neck exam: Present: normal inspection, other (No stridor JVD or bruits). 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 The patient believes this is residual from his previous stroke). Absent: full ROM Neurological exam: Present: alert, oriented X3, other (As noted above) Course Vital Signs 02/05/17 02/05/17 02/05/17 08:29 09:14 10:31 Temperature 98.7 F Pulse Rate 66 69 59 L Respiratory 18 16 20 Rate Blood Pressure 161/88 148/79 194/87 O2 Sat by Pulse 96 98 96 Oximetry 02/05/17 02/05/17 02/05/17 11:54 13:36 14:39 Temperature Pulse Rate 59 L 62 69 Respiratory 16 18 18 Rate Blood Pressure 174/83 166/85 170/83 O2 Sat by Pulse 99 96 98 Oximetry - Reevaluation(s) Reevaluation #1: 02/05/17 13:20 The patient demonstrated no changes on reevaluation at did discuss the case with the patient's the patient's weakness 7 the right side his previous TIA/CVA with left-sided. EKG Findings - EKG Results: EKG: interpreted by ERMD (Ventricular paced rhythm in by family pattern 69 was rate QRS 208 daily since QTC of 540/578) Medical Decision Making - Medical Decision Making I did discuss the case with patient and his as well as Dr. Bowden. The patient will be admitted with consultation by Dr. Mejia the patient is currently not a candidate for intervention due to the removal onset of the symptoms. - Lab Data Result diagrams: 02/05/17 08:53 02/05/17 08:53 Lab Results 02/05/17 02/05/17 02/05/17 Range/Units 08:53 08:53 08:53 WBC 12.7 H (3.8-10.6) k/uL RBC 4.10 L (4.30-5.90) m/uL Hgb 11.8 L (13.0-17.5) gm/dL Hct 35.9 L (39.0-53.0) % MCV 87.4 (80.0-100.0) fL MCH 28.7 (25.0-35.0) pg MCHC 32.8 (31.0-37.0) g/dL RDW 14.3 (11.5-15.5) % Plt Count 337 (150-450) k/uL Neutrophils % 81 % Lymphocytes % 10 % Monocytes % 6 % Eosinophils % 0 % Basophils % 0 % Neutrophils # 10.3 H (1.3-7.7) k/uL Lymphocytes # 1.2 (1.0-4.8) k/uL Monocytes # 0.7 (0-1.0) k/uL Eosinophils # 0.0 (0-0.7) k/uL Basophils # 0.0 (0-0.2) k/uL Hypochromasia Slight PT (9.0-12.0) sec INR (<1.2) APTT (22.0-30.0) sec Sodium 132 L (137-145) mmol/L Potassium 3.6 (3.5-5.1) mmol/L Chloride 92 L (98-107) mmol/L Carbon Dioxide 29 (22-30) mmol/L Anion Gap 11 mmol/L BUN 18 (9-20) mg/dL Creatinine 0.67 (0.66-1.25) mg/dL Est GFR (MDRD) Af Amer >60 (>60 ml/min/1.73 sqM) Est GFR (MDRD) Non-Af >60 (>60 ml/min/1.73 sqM) Glucose 153 H (74-99) mg/dL Calcium 9.2 (8.4-10.2) mg/dL Magnesium 1.7 (1.6-2.3) mg/dL Total Bilirubin 1.0 (0.2-1.3) mg/dL AST 31 (17-59) U/L ALT 40 (21-72) U/L Alkaline Phosphatase 90 (38-126) U/L Total Creatine Kinase <20 L (55-170) U/L CK-MB (CK-2) 0.3 (0.0-2.4) ng/mL CK-MB (CK-2) Rel Index Troponin I <0.012 (0.000-0.034) ng/mL Total Protein 6.4 (6.3-8.2) g/dL Albumin 3.2 L (3.5-5.0) g/dL Urine Color Urine Appearance (Clear) Urine pH (5.0-8.0) Ur Specific [place] (1.001-1.035) Urine Protein (Negative) Urine Glucose (UA) (Negative) Urine Ketones (Negative) Urine Blood (Negative) Urine Nitrite (Negative) Urine Bilirubin (Negative) Urine Urobilinogen (<2.0) mg/dL Ur Leukocyte Esterase (Negative) Urine RBC (0-5) /hpf Ur Squamous Epith Cells (0-4) /hpf Amorphous Sediment (None) /hpf Urine Bacteria (None) /hpf Urine Mucus (None) /hpf 02/05/17 02/05/17 Range/Units 08:53 10:23 WBC (3.8-10.6) k/uL RBC (4.30-5.90) m/uL Hgb (13.0-17.5) gm/dL Hct (39.0-53.0) % MCV (80.0-100.0) fL MCH (25.0-35.0) pg MCHC (31.0-37.0) g/dL RDW (11.5-15.5) % Plt Count (150-450) k/uL Neutrophils % % Lymphocytes % % Monocytes % % Eosinophils % % Basophils % % Neutrophils # (1.3-7.7) k/uL Lymphocytes # (1.0-4.8) k/uL Monocytes # (0-1.0) k/uL Eosinophils # (0-0.7) k/uL Basophils # (0-0.2) k/uL Hypochromasia PT 11.4 (9.0-12.0) sec INR 1.1 (<1.2) APTT 25.1 (22.0-30.0) sec Sodium (137-145) mmol/L Potassium (3.5-5.1) mmol/L Chloride (98-107) mmol/L Carbon Dioxide (22-30) mmol/L Anion Gap mmol/L BUN (9-20) mg/dL Creatinine (0.66-1.25) mg/dL Est GFR (MDRD) Af Amer (>60 ml/min/1.73 sqM) Est GFR (MDRD) Non-Af (>60 ml/min/1.73 sqM) Glucose (74-99) mg/dL Calcium (8.4-10.2) mg/dL Magnesium (1.6-2.3) mg/dL Total Bilirubin (0.2-1.3) mg/dL AST (17-59) U/L ALT (21-72) U/L Alkaline Phosphatase (38-126) U/L Total Creatine Kinase (55-170) U/L CK-MB (CK-2) (0.0-2.4) ng/mL CK-MB (CK-2) Rel Index Troponin I (0.000-0.034) ng/mL Total Protein (6.3-8.2) g/dL Albumin (3.5-5.0) g/dL Urine Color Yellow Urine Appearance Cloudy (Clear) Urine pH 7.5 (5.0-8.0) Ur Specific [place] 1.013 (1.001-1.035) Urine Protein Negative (Negative) Urine Glucose (UA) Negative (Negative) Urine Ketones Negative (Negative) Urine Blood Moderate H (Negative) Urine Nitrite Negative (Negative) Urine Bilirubin Negative (Negative) Urine Urobilinogen <2.0 (<2.0) mg/dL Ur Leukocyte Esterase Negative (Negative) Urine RBC 29 H (0-5) /hpf Ur Squamous Epith Cells <1 (0-4) /hpf Amorphous Sediment Few H (None) /hpf Urine Bacteria Rare H (None) /hpf Urine Mucus Rare H (None) /hpf - Radiology Data Radiology results: report reviewed (I did review the imaging and reports no acute findings), image reviewed Disposition Clinical Impression: CVA (cerebral vascular accident), Weakness Disposition: ADMITTED IP TO THIS [facility] Condition: Stable Referrals: Lei Jean-Baptiste DO [Primary Care Provider] - 1-2 days
[2017-02-05 09:20] LABS: Basophils % (A) 0 %; CH 28.3; CHCM 32.5; Eosinophils % (A) 0 %; HCT 35.9 % (39.0-53.0); HDW 3.05; HGB 11.8 gm/dL (13.0-17.5); Hypochromasia Slight; Luc # (Auto) 0.31; Luc % (Auto) 2; Lymphocytes # (A) 1.2 k/uL (1.0-4.8); Lymphocytes % (A) 10 %; MCH 28.7 pg (25.0-35.0); MCHC 32.8 g/dL (31.0-37.0); MCV 87.4 fL (80.0-100.0); Mean Platelet Volume 6.5; Monocytes # (A) 0.7 k/uL (0-1.0); Monocytes % (A) 6 %; Neutrophils # (A) 10.3 k/uL (1.3-7.7); Neutrophils % (A) 81 %; RDW 14.3 % (11.5-15.5); WBC 12.7 k/uL (3.8-10.6); WBC (Perox) 12.95
[2017-02-05 09:26] LABS: INR 1.1 (<1.2); Partial Thromboplastin Time 25.1 sec (22.0-30.0); Prothrombin Time 11.4 sec (9.0-12.0)
[2017-02-05 09:30] LABS: ALT 40 U/L (21-72); AST 31 U/L (17-59); Alkaline Phosphatase 90 U/L (38-126); Anion Gap 11 mmol/L; Blood Urea Nitrogen 18 mg/dL (9-20); Calcium 9.2 mg/dL (8.4-10.2); Carbon Dioxide 29 mmol/L (22-30); Chloride 92 mmol/L (98-107); Glucose 153 mg/dL (74-99); Magnesium 1.7 mg/dL (1.6-2.3); Non-African American GFR(MDRD) >60 (>60 ml/min/1.73 sqM); Potassium 3.6 mmol/L (3.5-5.1); Sodium 132 mmol/L (137-145); Total Protein 6.4 g/dL (6.3-8.2)
[2017-02-05 09:45] LABS: Creatine Kinase <20 U/L (55-170)
[2017-02-05 09:58] LABS: Creatine Kinase MB 0.3 ng/mL (0.0-2.4); Troponin I <0.012 ng/mL (0.000-0.034)
--- NOTE | 2017-02-05 10:16 | XR ---
EXAMINATION TYPE: XR chest 2V DATE OF EXAM: 02/05/2017 COMPARISON: 01/17/17 HISTORY: Shortness of breath TECHNIQUE: Frontal and lateral views of the chest are obtained. FINDINGS: Scattered senescent parenchymal changes noted. No evidence for infiltrate. No evidence for atelectasis. Heart size is stable. Mediastinal structures are stable and grossly unremarkable. No evidence for hilar prominence. Degenerative changes dorsal spine. IMPRESSION: 1. No evidence for acute pulmonary disease.
--- NOTE | 2017-02-05 10:22 | CT ---
EXAMINATION TYPE: CT brain wo con DATE OF EXAM: 02/05/2017 COMPARISON: 12/28/16 HISTORY: weakness CT DLP: 1090.[address] of the brain was performed. The ventricles, basal cisterns and sulci overlying the cerebral convexities demonstrate moderate enla rgement. There is no evidence for intracranial hemorrhage or sulcal effacement. There is decreased attenuation about the periventricular white matter and deep white matter of both c erebral hemispheres, compatible with chronic small vessel ischemia. Differential diagnosis does inclu de demyelination. No mass effects are seen.No midline shift. Osseous calvarium is intact. If symptoms persist consider MRI. IMPRESSION: 1. Age related atrophic and chronic small vessel ischemic change without acute intracranial process s een at this time.
[2017-02-05 10:47] LABS: Amorphous Sediment,Urine Few /hpf; Appearance,Urine Cloudy (Clear); Bacteria,Urine Rare /hpf; Bilirubin,Urine Negative (Negative); Glucose,Urine (UA) Negative (Negative); Ketones,Urine Negative (Negative); Leukocyte Esterase,Urine Negative (Negative); Mucus,Urine Rare /hpf; Nitrite,Urine Negative (Negative); PH, Urine 7.5 (5.0-8.0); Particle Count 12761; Protein,Urine Negative (Negative); RBC,Urine 29 /hpf (0-5); Specific Gravity,Urine 1.013 (1.001-1.035); Squamous Epithelial Cell,Urine <1 /hpf (0-4); UA Billing (MACRO vs. MICRO) MICRO; Urobilinogen,Urine <2.0 mg/dL (<2.0)
--- NOTE | 2017-02-05 14:33 | US ---
EXAMINATION TYPE: US carotid duplex BILAT DATE OF EXAM: 02/05/2017 COMPARISON: NONE CLINICAL HISTORY: Stenosis. EC patient with Right sided-weakness; recurrent TIA EXAM MEASUREMENTS: RIGHT: Peak Systolic Velocity (PSV) cm/sec ----- Right CCA: 49.3 ----- Right ICA: 61.9 ----- Right ECA: 85.8 ICA/CCA ratio: 1.3 RIGHT: End Diastole cm/sec ----- Right CCA: 7.1 ----- Right ICA: 19.1 ----- Right ECA: 85.8 LEFT: Peak Systolic Velocity (PSV) cm/sec ----- Left CCA: 64.7 ----- Left ICA: 87.1 ----- Left ECA: 97.7 ICA/CCA ratio: 1.3 LEFT: End Diastole cm/sec ----- Left CCA: 17.1 ----- Left ICA: 11.8 ----- Left ECA: 9.1 VERTEBRALS (direction of flow): Right Vertebral: Antegrade/ faint audible Doppler Left Vertebral: Antegrade Rhythm: Arrhythmia Mild to moderate intimal thickening is noted at bilateral carotid bifurcation, but PSV is wnl bilater ally. IMPRESSION: 1. Mild to moderate atherosclerotic changes with no significant hemodynamic stenosis bilaterally. 2. Correlate for cardiac dysrhythmia.
[2017-02-05] MEDS ORDERED: ASPIRIN 325 MG TAB PO STA (15:03)
--- NOTE | 2017-02-05 15:08 | P.HPIM ---
History of Present Illness H&P Date: 02/05/17 Chief Complaint: right upper extremity weakness 81-year-old male one of Dr. Contreras patient with past medical history of asthma, CAD post pacemaker, hypertension, diabetes, history of prostate cancer and mild COPD who was transferred from the emergency department to [facility] for intracranial hemorrhage from falling down steps and to the basement on November 19 patient ended up being treated with conservative management did not require any surgery. Patient developed to have significant headache abnormal gait imbalance ended up being transferred to [facility] for rehab from november 24to dec 22. Patient made it home until when the notices not able to ambulate and walk and not feeling well developed to have significant encephalopathy. Patient also developed to have significant cough productive dark phlegm along with mild hypoxia and worsening mentation. Was admitted at [facility] on 12/25 to 01/01 [place] for left lower lobe pneumonia Patient also had increased edema of the lower extremity and all over his body from his myxedema not taking his thyroid for several weeks. Patient comes back today with right-sided upper extremity weakness that started yesterday. According to the bedside, 2 weeks ago patient was having difficulty comprehending words with episodes of staring in space that resolved. He was seen by neurologist and was suggested to go to the ED in case the symptoms recur patient was undergoing physical therapy at home for weakness in his left lower extremity and gait instability. According to the patient is doing well and is able to walk with the help of a walker but does have difficulty turning due to gait instability. Yesterday he was able to go to her grandson's game but in the evening appeared tired and was complaining of soreness in his right upper extremity. Patient was unable to move his right upper arm in the morning. EKG suggested ventricular paced rhythm with bigeminy. Lesia suggest a WBC of 12.7 with BMP positive for sodium 132 chloride 90 20 glucose 153, urinalysis suggestive of blood in the urine. Carotid ultrasound was ordered pending result, neurology consulted, asprin 325 ordered. Review of Systems Constitutional: Denies chills, Denies fever, endorses lethargy, endorses malaise, Denies poor appetite, Denies weight loss Eyes: denies decreased vision, denies diplopia, denies discharge, denies pain Ears:decreased hearing Ears, nose, mouth and throat: Denies dental pain, Denies headache, Denies nasal discharge, Denies nose pain Cardiovascular: Denies chest pain, Denies decreased exercise tolerance, endorses chronic edema, Denies high blood pressure, Denies irregular heart beat , Denies palpitations, Denies paroxysmal nocturnal dyspnea, Denies rapid heart beat, Denies shortness of breath Respiratory: Denies congestion, Denies cough, Denies cough with sputum, Denies dyspnea, Denies home oxygen, Denies wheezing Gastrointestinal: Denies abdominal pain, Denies change in bowel habits, Denies coffee ground emesis, Denies early satiety, Denies excessive gas, Denies heartburn, Denies hematemesis, Denies hematochezia, Denies loss of appetite, Denies nausea, Denies vomiting Genitourinary: Denies dysuria, Denies flank pain, Denies kidney stones, Denies menorrhagia, Denies urgency, Denies urinary frequency Musculoskeletal: Endorses gait dysfunction and limitation of motion, Integumentary: Denies rash, Denies wounds, Denies brittle nails, Denies change in hair/nails, Denies darkening of skin Neurological: Endorses balance difficulties Denies change in speech, Denies double vision, Denies gait dysfunction, Denies loss of vision, endorses motor disturbance, Denies numbness, Denies paralysis, Denies paresthesias, Denies seizures Psychiatric: Denies anxiety, Denies depression Endocrine: Denies excessive sweating, Denies excessive thirst, Denies high blood sugars, Denies palpitations Hematologic/Lymphatic: Denies easy bruising, Denies lymphadenopathy Past Medical History Past Medical History: Asthma, Cancer, CVA/TIA, Diabetes Mellitus, Hyperlipidemia , Hypertension, Osteoarthritis (OA), Pneumonia, Prostate Disorder, Respiratory Disorder, Thyroid Disorder Additional Past Medical History / Comment(s): cva x3 in august, november 2016 fell down basement steps hit head had "bleeding on the brain" sent to [facility] then [facility] to [facility] for rehab just got back home on .upon admit-pt's stated that. 'his legs won't support hime,unable to get up on his own/walk "hypothyroid, asbestos, colon cancer, gout, gets hormone shots History of Any Multi-Drug Resistant Organisms: None Reported Past Surgical History: Appendectomy, Cholecystectomy, Pacemaker, Prostate Surgery Additional Past Surgical History / Comment(s): penile surgery, cancers in remission Past Anesthesia/Blood Transfusion Reactions: No Reported Reaction Type of Cardiac Device: Unknown Device Placement Date:: unknown Past Psychological History: Anxiety Smoking Status: Former smoker Past Alcohol Use History: None Reported Past Drug Use History: None Reported - Past Family History Father Family Medical History: Myocardial Infarction ([place]) Mother Family Medical History: Cancer, Myocardial Infarction ([place]) Brother(s) Family Medical History: No Reported History Sister(s) Family Medical History: Neurologic Disorder Son(s) Family Medical History: No Reported History Medications and Allergies Home Medications Medication Instructions Recorded Confirmed Type Atenolol/Chlorthalidone [Tenoretic 1 tab PO DAILY 09/19/13 02/05/17 History 50 Tablet] Levothyroxine Sodium [Synthroid] 200 mcg PO DAILY 09/19/13 02/05/17 History Aspirin 81 mg PO DAILY chew 08/22/16 02/05/17 Rx Multivitamins, Thera [Multivitamin 1 tab PO HS 08/28/16 02/05/17 History (formulary)] Colchicine 0.6 mg PO DAILY #30 tablet 01/01/17 02/05/17 Rx Gabapentin [Neurontin] 100 mg PO BID #60 cap 01/01/17 02/05/17 Rx Atorvastatin [Lipitor] 80 mg PO HS 02/05/17 02/05/17 History Citalopram Hydrobromide [CeleXA] 20 mg PO DAILY 02/05/17 02/05/17 History Cyanocobalamin (Vitamin B-12) 1,000 mcg PO DAILY 02/05/17 02/05/17 History [Vitamin B-12] Potassium Chloride [Klor-Con 20] 20 meq PO DAILY 02/05/17 02/05/17 History Primidone [Mysoline] 50 mg PO HS 02/05/17 02/05/17 History sitaGLIPtin [Januvia] 100 mg PO DAILY 02/05/17 02/05/17 History Allergies Allergy/AdvReac Type Severity Reaction Status Date / Time hydrocodone [From [place]] AdvReac Hallucinati Verified 02/05/17 08:51 ons Physical Exam Vitals: Vital Signs Temp Pulse Resp BP Pulse Ox 02/05/17 14:39 69 18 170/83 98 02/05/17 13:36 62 18 166/85 96 02/05/17 11:54 59 L 16 174/83 99 02/05/17 10:31 59 L 20 194/87 96 02/05/17 09:14 69 16 148/79 98 02/05/17 08:29 98.7 F 66 18 161/88 96 Intake and Output 02/04/17 02/05/17 02/05/17 22:59 06:59 14:59 Other: Weight 93.44 kg Patient Weight 02/06/17 06:59 Weight 93.44 kg - Constitutional General appearance: cooperative, no acute distress, obese - EENT Eyes: anicteric sclerae, PERRLA, normal appearance ENT: hearing grossly normal with hearing aids in - Neck Neck: no lymphadenopathy, normal ROM, no other, no rigidity, no stridor, no thyromegaly - Respiratory Respiratory: bilateral: CTA, negative: diminished, dullness, rales, rhonchi - Cardiovascular Rhythm: regular Heart sounds: normal: S1, S2 Abnormal Heart Sounds: no systolic murmur, no diastolic murmur, no rub, no S3 Gallop, no S4 Gallop, no click, no other - Gastrointestinal General gastrointestinal: normal bowel sounds, soft - Integumentary Integumentary: no rash - Neurologic Neurologic: CNII-XII intact, patient is unable to move his fingers against gravity on the right but is unable to lift his hand against gravity, 4+ weakness in bilateral lower extremity, no coordination abnormality, no sensory deficit bilaterally, gait was not assessed, reflexes 2+ bilaterally - Musculoskeletal Musculoskeletal: Weakness present on the right upper arm, and bilateral lower extremities - Psychiatric Psychiatric: A&O x's 3, appropriate affect Results CBC & Chem 7: 02/05/17 08:53 02/05/17 08:53 Labs: Abnormal Lab Results - Last 24 Hours (Table) 02/05/17 02/05/17 02/05/17 Range/Units 08:53 08:53 08:53 WBC 12.7 H (3.8-10.6) k/uL RBC 4.10 L (4.30-5.90) m/uL Hgb 11.8 L (13.0-17.5) gm/dL Hct 35.9 L (39.0-53.0) % Neutrophils # 10.3 H (1.3-7.7) k/uL Sodium 132 L (137-145) mmol/L Chloride 92 L (98-107) mmol/L Glucose 153 H (74-99) mg/dL Total Creatine Kinase <20 L (55-170) U/L Albumin 3.2 L (3.5-5.0) g/dL Urine Blood (Negative) Urine RBC (0-5) /hpf Amorphous Sediment (None) /hpf Urine Bacteria (None) /hpf Urine Mucus (None) /hpf 02/05/17 Range/Units 10:23 WBC (3.8-10.6) k/uL RBC (4.30-5.90) m/uL Hgb (13.0-17.5) gm/dL Hct (39.0-53.0) % Neutrophils # (1.3-7.7) k/uL Sodium (137-145) mmol/L Chloride (98-107) mmol/L Glucose (74-99) mg/dL Total Creatine Kinase (55-170) U/L Albumin (3.5-5.0) g/dL Urine Blood Moderate H (Negative) Urine RBC 29 H (0-5) /hpf Amorphous Sediment Few H (None) /hpf Urine Bacteria Rare H (None) /hpf Urine Mucus Rare H (None) /hpf Assessment and Plan Plan: 1 acute right upper extremity weakness likely secondary to stroke, 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 Mo, neurology. Carotid ultrasound ordered, echo ordered, aspirin 325 mg given after swallow evaluation, Lipitor 80 mg daily, PTOT evaluation, neurology consulted. Patient may benefit from Plavix 75 mg by mouth daily to prevent recurrent stroke. Continue aspirin 81 mg daily 2 h/o myxedema continue Synthyroid 200 g daily. Repeat TSH 3 history of gout, continue small dose of colchicine 0.6 daily 4 intracranial hemorrhage: Has been doing well so far his not having any further bleed the CAT scan was good this time. Patient is undergoing physical therapy for his left sided hemiparesis 5 hyperlipidemia: Remain on Lipitor 80 mg daily. 6 hypertension: Hold atenolol/ chlorthalidone 50 mg for permissive hypertension 7 DM - hold jenuvia, ISS 8 Seizure precautions post ICH - continue primidone 50 qhs 9 ventricular bigeminy s/p pacemaker - asymptomatic, stable 10 Neuropathy - hold gabapentin to maintain permissive hypertension, can be restarted later on 11 DVT prophylaxis: Continue heparin 5000 q12 12 GI prophylaxis: Patient will be on Pepcid 20 mg a day. CODE STATUS: Full code. Expectation from this admission: Patient be in the hospital for more than 2 nights. PT evaluation
[2017-02-05 17:25] LABS: Glucose,Whole Blood 146 mg/dL (75-99)
[2017-02-05] MEDS: SODIUM CHLORIDE 0.9% 1,000 ML IV SCH (18:30)
[2017-02-05] MEDS ORDERED: ATORVASTATIN 80 MG TAB PO SCH (21:00)
[2017-02-05 21:15] LABS: Glucose,Whole Blood 218 mg/dL (75-99)
[2017-02-05] MEDS: HEPARIN SODIUM,PORCINE 5,000 UNIT/ML 1 ML VIAL SQ SCH (21:26)
[2017-02-05] MEDS: MULTIVITAMINS, THERA 1 EACH TAB PO SCH (21:27)
[2017-02-05] MEDS: PRIMIDONE 50 MG TAB PO SCH (21:27)
--- NOTE | 2017-02-06 01:16 | XR ---
EXAMINATION TYPE: XR humerus RT DATE OF EXAM: 02/06/2017 COMPARISON: NONE HISTORY: Pain and swelling TECHNIQUE: 3 views FINDINGS: There is some spurring on the olecranon process of the ulna. There is spurring at the AC joint. I see no fracture nor dislocation. IMPRESSION: No acute abnormality of the right humerus. Degenerative spurring.
--- NOTE | 2017-02-06 01:17 | XR ---
EXAMINATION TYPE: XR forearm RT DATE OF EXAM: 02/06/2017 COMPARISON: NONE HISTORY: Pain TECHNIQUE: 4 views FINDINGS: There is calcification of the triangular cartilage at the wrist joint. There is narrowing a nd extensive spurring at the first carpometacarpal joint. There is spurring at the elbow joint. I see no fracture. IMPRESSION: No acute abnormality of the right forearm.
[2017-02-06] MEDS: ACETAMINOPHEN TAB 325 MG TAB PO PRN ×2 (01:20→20:35)
[2017-02-06 04:10] LABS: Cholesterol 94 mg/dL (<200); HDL Cholesterol 39 mg/dL (40-60)
[2017-02-06] MEDS: LEVOTHYROXINE 100 MCG TAB PO SCH (06:48)
[2017-02-06 07:12] LABS: Glucose,Whole Blood 171 mg/dL (75-99)
[2017-02-06] MEDS: COLCHICINE 0.6 MG TAB PO SCH (07:59)
[2017-02-06] MEDS: CYANOCOBALAMIN 500 MCG TAB PO SCH (07:59)
[2017-02-06] MEDS: CITALOPRAM HYDROBROMIDE 20 MG TAB PO SCH (07:59)
[2017-02-06] MEDS: POTASSIUM CHLORIDE ER 20 MEQ TAB.ER PO SCH (07:59)
[2017-02-06] MEDS: FAMOTIDINE 20 MG TAB PO SCH (07:59)
[2017-02-06] MEDS: HEPARIN SODIUM,PORCINE 5,000 UNIT/ML 1 ML VIAL SQ SCH ×2 (07:59→20:35)
[2017-02-06] MEDS ORDERED: ASPIRIN 81 MG PO SCH (09:00)
[2017-02-06 09:24] LABS: CH 27.8; CHCM 31.6; HCT 35.5 % (39.0-53.0); HDW 2.94; HGB 11.2 gm/dL (13.0-17.5); Hypochromasia Slight; MCH 27.7 pg (25.0-35.0); MCHC 31.5 g/dL (31.0-37.0); Mean Platelet Volume 7.3; RBC 4.03 m/uL (4.30-5.90); RDW 14.2 % (11.5-15.5); WBC 13.1 k/uL (3.8-10.6)
--- NOTE | 2017-02-06 09:42 | ECHOF ---
Referral Reason:stroke MEASUREMENTS -------- HEIGHT: 185.4 cm WEIGHT: 93.4 kg BP: 170/83 RVIDd: 3.1 cm (< 3.3) IVSd: 1.5 cm (0.6 - 1.1) LVIDd: 4.9 cm (3.9 - 5.3) LVPWd: 1.5 cm (0.6 - 1.1) IVSs: 1.8 cm LVIDs: 3.5 cm LVPWs: 2.4 cm LA Diam: 3.7 cm (2.7 - 3.8) LAESV Index (A-L): 27.72 ml/m Ao Diam: 4.0 cm (2.0 - 3.7) AV Cusp: 2.5 cm (1.5 - 2.6) MV EXCURSION: 19.089 mm (> 18.000) MV EF SLOPE: 44 mm/s (70 - 150) EPSS: 0.6 cm AR PHT: 645 ms RAP: 5.00 mmHg RVSP: 31.59 mmHg FINDINGS -------- This was a technically adequate study. The left ventricular size is normal. There is mild concentric left ventricular hypertrophy. Overall left ventricular systolic function is low-normal with, an EF between 50 - 55 %. The right ventricle is normal in size. Normal LA size by volume 22+/-6 ml/m2. The right atrium was not well visualized. There is mild aortic valve sclerosis. There is mild aortic regurgitation. There is trace to mild mitral regurgitation. Mild tricuspid regurgitation present. Right ventricular systolic pressure is normal at < 35 mmHg. Trace/mild (physiologic) pulmonic regurgitation. The aortic root is dilated measuring 4.0cm. Normal inferior vena cava with normal inspiratory collapse consistent with estimated right atrial pressure of 5 mmHg. There is no pericardial effusion. CONCLUSIONS -------- 1. This was a technically adequate study. 2. There is trace to mild mitral regurgitation. 3. Mild tricuspid regurgitation present. 4. Right ventricular systolic pressure is normal at < 35 mmHg. 5. Trace/mild (physiologic) pulmonic regurgitation. 6. The aortic root is dilated measuring 4.0cm. 7. Normal inferior vena cava with normal inspiratory collapse consistent with estimated right atrial pressure of 5 mmHg. 8. There is no pericardial effusion. 9. The left ventricular size is normal. 10. There is mild concentric left ventricular hypertrophy. 11. Overall left ventricular systolic function is low-normal with, an EF between 50 - 55 %. 12. The right ventricle is normal in size. 13. Normal LA size by volume 22+/-6 ml/m2. 14. The right atrium was not well visualized. 15. There is mild aortic valve sclerosis. 16. There is mild aortic regurgitation. SENIOR GENETIC COUNSELOR: Belen Mcallister RDCS
[2017-02-06 11:28] LABS: Glucose,Whole Blood 256 mg/dL (75-99)
[2017-02-06] MEDS: SODIUM CHLORIDE 0.9% 1,000 ML IV SCH ×2 (11:34)
[2017-02-06] MEDS: INSULIN LISPRO (humaLOG) 300 UNIT/3 ML VIAL SQ SCH ×3 (11:36→22:10)
--- NOTE | 2017-02-06 11:54 | XR ---
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 Hypertrophic changes present at the carp ometacarpal joint of the first digit. Multiple areas of probable geode formation, with joint space lo ss at intercarpal and radiocarpal joints with some subchondral sclerosis. Alignment is maintained. Ernesto ne mineralization within normal limits. 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 Alignment is maintained. Questionable lucency across the scapho id waist seen on the frontal view. 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 Lucency in the scaphoid waist of questionable clinical significance, if fracture is suspected clinically the n MRI or CT may be of benefit.
--- NOTE | 2017-02-06 11:56 | XR ---
Right elbow HISTORY: Pain 3 views of the right elbow correlated to right humerus same date There is marginal spurring present at the elbow joint. Alignment is maintained. Some joint space loss present especially at the lateral aspect of the joint. Suspect joint effusion. Enthesophyte present at the insertion of the triceps tendon. IMPRESSION: Findings may represent osteoarthritis.
--- NOTE | 2017-02-06 12:48 | P.PN ---
Subjective 81-year-old male one of Dr. Contreras patient with past medical history of asthma, CAD post pacemaker, hypertension, diabetes, history of prostate cancer and mild COPD who was transferred from the emergency department to [facility] for intracranial hemorrhage from falling down steps and to the basement on November 19 patient ended up being treated with conservative management did not require any surgery. Patient developed to have significant headache abnormal gait imbalance ended up being transferred to [facility] for rehab from november 24to dec 22. Patient made it home until when the notices not able to ambulate and walk and not feeling well developed to have significant encephalopathy. Patient also developed to have significant cough productive dark phlegm along with mild hypoxia and worsening mentation. Was admitted at [facility] on 12/25 to 01/01 [place] for left lower lobe pneumonia Patient also had increased edema of the lower extremity and all over his body from his myxedema not taking his thyroid for several weeks. Patient comes back today with right-sided upper extremity weakness that started yesterday. According to the bedside, 2 weeks ago patient was having difficulty comprehending words with episodes of staring in space that resolved. He was seen by neurologist and was suggested to go to the ED in case the symptoms recur patient was undergoing physical therapy at home for weakness in his left lower extremity and gait instability. According to the patient is doing well and is able to walk with the help of a walker but does have difficulty turning due to gait instability. Yesterday he was able to go to her grandson's game but in the evening appeared tired and was complaining of soreness in his right upper extremity. Patient was unable to move his right upper arm in the morning. EKG suggested ventricular paced rhythm with bigeminy. Lesia suggest a WBC of 12.7 with BMP positive for sodium 132 chloride 90 20 glucose 153, urinalysis suggestive of blood in the urine. Carotid ultrasound was ordered pending result, neurology consulted, asprin 325 ordered. 02/06: Carotid ultrasound shows mild to moderate atherosclerotic changes with no significant hemodynamic stenosis bilaterally. X-ray of the right forearm shows no acute abnormality as well as right humerus shows no acute abnormality. Patient is complaining of pain in his wrist and elbow most significantly in his wrist with no known injury. X-ray of the wrist and elbow will be ordered. PT, OT and speech therapy are all pending. Patient's blood sugars are elevated for which she will be placed on Humalog scale. Objective - Vital Signs Vital signs: Vital Signs Temp 99.6 F 02/06/17 07:52 Pulse 63 02/06/17 07:54 Resp 16 02/06/17 07:54 BP 149/76 02/06/17 07:52 Pulse Ox 94 L 02/06/17 07:52 Intake & Output 02/05/17 02/06/17 02/06/17 18:59 06:59 18:59 Intake Total 420 Output Total 400 Balance 20 Weight 93.44 kg 70 kg Intake: Intake, IV Titration 200 Amount Sodium Chloride 0.9% 1, 200 000 ml @ 100 mls/hr IV . Q10H [facility] Rx#:[id number] Oral 220 Output: Urine 400 Other: Voiding Method Urinal Urinal Urinal Incontinent Incontinent # Voids 1 2 - Exam General appearance: cooperative, no acute distress, obese - EENT Eyes: anicteric sclerae, PERRLA, normal appearance ENT: hearing grossly normal with hearing aids in - Neck Neck: no lymphadenopathy, normal ROM, no other, no rigidity, no stridor, no thyromegaly - Respiratory Respiratory: bilateral: CTA, negative: diminished, dullness, rales, rhonchi - Cardiovascular Rhythm: regular Heart sounds: normal: S1, S2 Abnormal Heart Sounds: no systolic murmur, no diastolic murmur, no rub, no S3 Gallop, no S4 Gallop, no click, no other - Gastrointestinal General gastrointestinal: normal bowel sounds, soft - Integumentary Integumentary: no rash - Neurologic Neurologic: CNII-XII intact, patient is unable to move his fingers against gravity on the right but is unable to lift his hand against gravity, 4+ weakness in bilateral lower extremity, no coordination abnormality, no sensory deficit bilaterally, gait was not assessed, reflexes 2+ bilaterally - Musculoskeletal Musculoskeletal: Weakness present on the right upper arm, and bilateral lower extremities - Psychiatric Psychiatric: A&O x's 3, appropriate affect - Labs CBC & Chem 7: 02/06/17 05:48 02/05/17 08:53 Labs: Abnormal Lab Results - Last 24 Hours (Table) 02/05/17 02/05/17 02/05/17 Range/Units 08:53 08:53 08:53 WBC 12.7 H (3.8-10.6) k/uL RBC 4.10 L (4.30-5.90) m/uL Hgb 11.8 L (13.0-17.5) gm/dL Hct 35.9 L (39.0-53.0) % Neutrophils # 10.3 H (1.3-7.7) k/uL Sodium 132 L (137-145) mmol/L Chloride 92 L (98-107) mmol/L Glucose 153 H (74-99) mg/dL POC Glucose (mg/dL) (75-99) mg/dL Total Creatine Kinase <20 L (55-170) U/L Albumin 3.2 L (3.5-5.0) g/dL HDL Cholesterol (40-60) mg/dL Urine Blood (Negative) Urine RBC (0-5) /hpf Amorphous Sediment (None) /hpf Urine Bacteria (None) /hpf Urine Mucus (None) /hpf 02/05/17 02/05/17 02/05/17 Range/Units 08:53 10:23 17:10 WBC (3.8-10.6) k/uL RBC (4.30-5.90) m/uL Hgb (13.0-17.5) gm/dL Hct (39.0-53.0) % Neutrophils # (1.3-7.7) k/uL Sodium (137-145) mmol/L Chloride (98-107) mmol/L Glucose (74-99) mg/dL POC Glucose (mg/dL) 146 H (75-99) mg/dL Total Creatine Kinase (55-170) U/L Albumin (3.5-5.0) g/dL HDL Cholesterol 39 L (40-60) mg/dL Urine Blood Moderate H (Negative) Urine RBC 29 H (0-5) /hpf Amorphous Sediment Few H (None) /hpf Urine Bacteria Rare H (None) /hpf Urine Mucus Rare H (None) /hpf 02/05/17 02/06/17 Range/Units 21:13 07:08 WBC (3.8-10.6) k/uL RBC (4.30-5.90) m/uL Hgb (13.0-17.5) gm/dL Hct (39.0-53.0) % Neutrophils # (1.3-7.7) k/uL Sodium (137-145) mmol/L Chloride (98-107) mmol/L Glucose (74-99) mg/dL POC Glucose (mg/dL) 218 H 171 H (75-99) mg/dL Total Creatine Kinase (55-170) U/L Albumin (3.5-5.0) g/dL HDL Cholesterol (40-60) mg/dL Urine Blood (Negative) Urine RBC (0-5) /hpf Amorphous Sediment (None) /hpf Urine Bacteria (None) /hpf Urine Mucus (None) /hpf Assessment and Plan Plan: 1 acute right upper extremity weakness likely secondary to stroke, 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 Mo, neurology. Carotid ultrasound ordered, echo ordered, aspirin 325 mg given after swallow evaluation, Lipitor 80 mg daily, PTOT evaluation, neurology consulted. Patient may benefit from Plavix 75 mg by mouth daily to prevent recurrent stroke. Continue aspirin 81 mg daily 2 h/o myxedema continue Synthyroid 200 g daily. Repeat TSH 3 history of gout, continue small dose of colchicine 0.6 daily 4 intracranial hemorrhage: Has been doing well so far his not having any further bleed the CAT scan was good this time. Patient is undergoing physical therapy for his left sided hemiparesis 5 hyperlipidemia: Remain on Lipitor 80 mg daily. 6 hypertension: Hold atenolol/ chlorthalidone 50 mg for permissive hypertension 7 DM - hold jenuvia, ISS 8 Seizure precautions post ICH - continue primidone 50 qhs 9 ventricular bigeminy s/p pacemaker - asymptomatic, stable 10 Neuropathy - hold gabapentin to maintain permissive hypertension, can be restarted later on 11 DVT prophylaxis: Continue heparin 5000 q12 12 GI prophylaxis: Patient will be on Pepcid 20 mg a day. CODE STATUS: Full code. Discharge plan: Subacute rehab at [facility] tomorrow Impression and plan of care have been directed as dictated by the signing physician. Abbey Gomez nurse practitioner acting as scribe for signing physician.
[2017-02-06 16:47] LABS: Glucose,Whole Blood 216 mg/dL (75-99)
--- NOTE | 2017-02-06 19:50 | P.PN ---
Subjective Principal diagnosis: right-sided weakness, rule out CVA Patient presented to the ED at [facility] on February 05, 2017 with right- sided upper extremity weakness has started on 02/04/17. Spouse reported that approximately 2 weeks ago he was having difficulty with word finding as well as concentration difficulty with possible "staring episodes". Patient was being actively treated by our practice for left-sided weakness in his left lower extremity and gait instability from a prior incident in November 2016. During that incident the patient was treated at [facility] and [place] [facility] [place] a brain aneurysm with clipping. Prior to that incident, he had a prior TIA from August through November 2016. 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 He was progressing well recovering from the November 2016 aneurysm post operatively and was able to ambulate with a walker prior to presenting on 02/04/17. He began complaining of pain in his right upper extremity. He wan't unable to use his right arm in the morning. EKG noted paced rhythm with bigeminy. WBCs of 12.7 with sodium at 132, chloride at 90 glucose at 153. Urinalysis suggestive of blood in the urine at that time. Once admitted at the facility, patient was given a CT of the brain which noted chronic small vessel ischemic disease, no acute process. Patient was also given a carotid Doppler ultrasound study which noted mild to moderate atherosclerotic changes with no significant hemodynamic stenosis bilaterally. Correlate for cardiac dysrhythmia. On arrival at the ED, the patient was restarted on 325 mg aspirin which has now been changed to 81 mg aspirin and Plavix 75 mg added as well. Lipitor 40 mg was increased to Lipitor 80 mg daily at bedtime. Repeat CT of the brain without contrast is ordered for the morning of February 07, 2017. EEG has been ordered as well. Lipid panel is pending. Serum homocysteine level has been ordered. Neuro checks are ordered and are actively being conducted. On contact, the patient was supine in bed, resting in no acute distress. Patient was alert and oriented 3. States his left side is at baseline to his daily rehabilitation status. He states his right side has greatest difficulty with the right upper extremity and also has some decreased use/weakness of the right lower extremity. Objective - Vital Signs Vital signs: Vital Signs Temp 98.9 F 02/06/17 15:04 Pulse 67 02/06/17 15:08 Resp 16 02/06/17 15:08 BP 161/77 02/06/17 15:04 Pulse Ox 93 L 02/06/17 15:04 Intake & Output 02/06/17 02/06/17 02/07/17 06:59 18:59 06:59 Intake Total 1100 Balance 1100 Weight 70 kg Intake: Intake, IV Titration 1100 Amount Sodium Chloride 0.9% 1, 1100 000 ml @ 100 mls/hr IV . Q10H [facility] Rx#:[id number] Other: Voiding Method Urinal Urinal Incontinent Incontinent # Voids 2 - Exam Constitutional: AOx3, cooperative HEENT: NC/AT, no facial asymmetry is seen. Throat: Supple, no masses Respiratory: No increased work of breathing Cardiac: Regular rate and Rhythm GI: non tender, non distended Musculoskeletal: Foot Cutter strengths are unequal bilaterally 2/5 in the right upper extremity (unable to lift extremity) and 4/5 in the right lower extremity. Left upper and lower extremities are 4/5. Neurological: CN II-XII in tact, patient was AOx3, speech and language are normal, right sided unilateralizing weakness, no seizure activity note on physical exam. Sensation was normal. Integementary: no rash, no erythema Psychiatric: mood and affect appropriate - Labs CBC & Chem 7: 02/06/17 05:48 02/05/17 08:53 Labs: Abnormal Lab Results - Last 24 Hours (Table) 02/05/17 02/05/17 02/06/17 Range/Units 08:53 21:13 05:48 WBC 13.1 H (3.8-10.6) k/uL RBC 4.03 L (4.30-5.90) m/uL Hgb 11.2 L (13.0-17.5) gm/dL Hct 35.5 L (39.0-53.0) % POC Glucose (mg/dL) 218 H (75-99) mg/dL Hemoglobin A1c (4.2-6.1) % HDL Cholesterol 39 L (40-60) mg/dL 02/06/17 02/06/17 02/06/17 Range/Units 05:48 07:08 11:25 WBC (3.8-10.6) k/uL RBC (4.30-5.90) m/uL Hgb (13.0-17.5) gm/dL Hct (39.0-53.0) % POC Glucose (mg/dL) 171 H 256 H (75-99) mg/dL Hemoglobin A1c 7.0 H (4.2-6.1) % HDL Cholesterol (40-60) mg/dL 02/06/17 Range/Units 16:45 WBC (3.8-10.6) k/uL RBC (4.30-5.90) m/uL Hgb (13.0-17.5) gm/dL Hct (39.0-53.0) % POC Glucose (mg/dL) 216 H (75-99) mg/dL Hemoglobin A1c (4.2-6.1) % HDL Cholesterol (40-60) mg/dL Assessment and Plan (1) CVA (cerebral vascular accident) Status: Acute (2) Weakness Status: Acute Plan: 1. Right upper extremity weakness, possibly secondary to stroke. Patient does have a history of hemorrhagic stroke in November 2016. Patient is known to have left-sided weakness which were being actively managed with rehabilitation prior to admission. Carotid ultrasound noted mild to moderate atherosclerotic changes with no significant hemodynamic stenosis bilaterally. Correlate for cardiac dysrhythmia. CT of the brain on February 05 noted chronic small vessel ischemic disease, no acute process. We will repeat CT of the brain on February 07 0800 hrs for comparative purposes as the patient's right- sided deficits have not resolved. Continue Lipitor, Plavix and aspirin as previously noted per existing regimen. Continue neuro checks as ordered. EEG ordered and pending. Serum homocystine level ordered and pending. Continue PT , OT. Continue DVT prophylaxis heparin 5000 every 12 hours. 2. Hyperlipidemia: Continue Lipitor 80 mg. Lipid panel has been ordered and is pending. 3. Seizure precaution post ICHcontinue primidone 50 mg daily at bedtime. Continue neuro checks as previously noted. If any neurological status changes, notify neurology for further directions. Status: Neurology will continue to follow provide updates as needed or warranted. Please refer any further questions to our office and we'll be happy to respond. I discussed the patient's pertinent medical information with Dr. Mejia. He agrees with the plan of care as implemented.
[2017-02-06] MEDS: MULTIVITAMINS, THERA 1 EACH TAB PO SCH (20:35)
[2017-02-06] MEDS: PRIMIDONE 50 MG TAB PO SCH (20:36)
[2017-02-06 21:04] LABS: Glucose,Whole Blood 158 mg/dL (75-99)
[2017-02-07 06:02] LABS: Glucose,Whole Blood 158 mg/dL (75-99)
[2017-02-07 06:24] LABS: CH 28.2; CHCM 31.7; HCT 34.6 % (39.0-53.0); HDW 2.99; Hypochromasia Slight; MCH 28.3 pg (25.0-35.0); MCHC 31.8 g/dL (31.0-37.0); MCV 88.9 fL (80.0-100.0); Mean Platelet Volume 7.2; RBC 3.89 m/uL (4.30-5.90); RDW 14.2 % (11.5-15.5); WBC 11.8 k/uL (3.8-10.6)
[2017-02-07 06:25] LABS: Anion Gap 8 mmol/L; Blood Urea Nitrogen 13 mg/dL (9-20); Calcium 8.9 mg/dL (8.4-10.2); Carbon Dioxide 32 mmol/L (22-30); Chloride 94 mmol/L (98-107); Glucose 155 mg/dL (74-99); Non-African American GFR(MDRD) >60 (>60 ml/min/1.73 sqM); Potassium 3.8 mmol/L (3.5-5.1); Sodium 134 mmol/L (137-145)
[2017-02-07] MEDS: INSULIN LISPRO (humaLOG) 300 UNIT/3 ML VIAL SQ SCH ×4 (06:41→21:42)
[2017-02-07] MEDS: LEVOTHYROXINE 100 MCG TAB PO SCH (06:41)
[2017-02-07] MEDS: SODIUM CHLORIDE 0.9% 1,000 ML IV SCH ×4 (06:45→21:45)
--- NOTE | 2017-02-07 07:06 | P.PN ---
Subjective Principal diagnosis: right-sided weakness, rule out CVA Patient presented to the ED at [facility] on February 05, 2017 with right- sided upper extremity weakness has started on 02/04/17. Spouse reported that approximately 2 weeks ago he was having difficulty with word finding as well as concentration difficulty with possible "staring episodes". Patient was being actively treated by our practice for left-sided weakness in his left lower extremity and gait instability from a prior incident in November 2016. During that incident the patient was treated at [facility] and subsequently transferred to [facility] in [place] for a brain aneurysm with clipping. Prior to that incident, he had a prior TIA from August through November 2016. 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 He was progressing well recovering from the November 2016 aneurysm post operatively and was able to ambulate with a walker prior to presenting on 02/04/17. He began complaining of pain in his right upper extremity. He wan't unable to use his right arm in the morning. EKG noted paced rhythm with bigeminy. WBCs of 12.7 with sodium at 132, chloride at 90 glucose at 153. Urinalysis suggestive of blood in the urine at that time. Once admitted at the facility, patient was given a CT of the brain which noted chronic small vessel ischemic disease, no acute process. Patient was also given a carotid Doppler ultrasound study which noted mild to moderate atherosclerotic changes with no significant hemodynamic stenosis bilaterally. Correlate for cardiac dysrhythmia. On arrival at the ED, the patient was restarted on 325 mg aspirin which has now been changed to 81 mg aspirin and Plavix 75 mg added as well. Lipitor 40 mg was increased to Lipitor 80 mg daily at bedtime. Repeat CT of the brain without contrast is ordered for the morning of February 07, 2017. EEG has been ordered as well. Lipid panel is pending. Serum homocysteine level has been ordered. Neuro checks are ordered and are actively being conducted. On contact, the patient was supine in bed, resting in no acute distress. Patient was alert and oriented 3. States his left side is at baseline to his daily rehabilitation status. He states his right side has greatest difficulty with the right upper extremity and also has some decreased use/weakness of the right lower extremity. Interval Update: 02-07-17 Neurology is continuing to follow on an 81-year-old male to the ED for possible strokelike symptoms. On contact, the patient was supine in bed awake, resting in no acute distress. Patient is alert and oriented 3. Patient states that he has more strength in his right upper extremity but it is still weak and he complains of extremity swelling. patient immediately attempted to lift his right upper extremity and was able to lift it off the bed by approximately 5-6 inches. Patient does have history of gout. Hospitalist had already ordered x- rays of the wrist yesterday management is ongoing. Night nursing staff report that the patient's right upper extremity appears to be more swollen day over day comparatively. Objective - Vital Signs Vital signs: Vital Signs Temp 97.8 F 02/07/17 04:00 Pulse 66 02/07/17 04:00 Resp 18 02/07/17 04:00 BP 167/84 02/07/17 04:00 Pulse Ox 97 02/07/17 04:00 Intake & Output 02/06/17 02/06/17 02/07/17 06:59 18:59 06:59 Intake Total 1100 Balance 1100 Weight 70 kg 94.5 kg Intake: Intake, IV Titration 1100 Amount Sodium Chloride 0.9% 1, 1100 000 ml @ 100 mls/hr IV . Q10H [facility] Rx#:[id number] Other: Voiding Method Urinal Urinal Incontinent Incontinent Incontinent # Voids 2 1 - Exam Constitutional: AOx3, cooperative HEENT: NC/AT, no facial asymmetry is seen. Throat: Supple, no masses Respiratory: No increased work of breathing Cardiac: Regular rate and Rhythm GI: non tender, non distended Musculoskeletal: Press Setup Operator strengths are unequal bilaterally improved at 3/5 in the right upper extremity (able to lift extremity) and unchanged at 4/5 in the right lower extremity. Left upper and lower extremities are unchanged at 4/5. Neurological: CN II-XII in tact, patient was AOx3, speech and language are normal, right sided unilateralizing weakness, no seizure activity note on physical exam. Sensation was normal. Integementary: no rash, no erythema Psychiatric: mood and affect appropriate - Constitutional Constitutional Comment(s): all systems not noted in HPI or negative. - Labs CBC & Chem 7: 02/07/17 05:57 02/07/17 05:57 Labs: Abnormal Lab Results - Last 24 Hours (Table) 02/06/17 02/06/17 02/06/17 Range/Units 05:48 05:48 07:08 WBC 13.1 H (3.8-10.6) k/uL RBC 4.03 L (4.30-5.90) m/uL Hgb 11.2 L (13.0-17.5) gm/dL Hct 35.5 L (39.0-53.0) % Sodium (137-145) mmol/L Chloride (98-107) mmol/L Carbon Dioxide (22-30) mmol/L Creatinine (0.66-1.25) mg/dL Glucose (74-99) mg/dL POC Glucose (mg/dL) 171 H (75-99) mg/dL Hemoglobin A1c 7.0 H (4.2-6.1) % 02/06/17 02/06/17 02/06/17 Range/Units 11:25 16:45 20:58 WBC (3.8-10.6) k/uL RBC (4.30-5.90) m/uL Hgb (13.0-17.5) gm/dL Hct (39.0-53.0) % Sodium (137-145) mmol/L Chloride (98-107) mmol/L Carbon Dioxide (22-30) mmol/L Creatinine (0.66-1.25) mg/dL Glucose (74-99) mg/dL POC Glucose (mg/dL) 256 H 216 H 158 H (75-99) mg/dL Hemoglobin A1c (4.2-6.1) % 02/07/17 02/07/17 02/07/17 Range/Units 05:57 05:57 06:00 WBC 11.8 H (3.8-10.6) k/uL RBC 3.89 L (4.30-5.90) m/uL Hgb 11.0 L (13.0-17.5) gm/dL Hct 34.6 L (39.0-53.0) % Sodium 134 L (137-145) mmol/L Chloride 94 L (98-107) mmol/L Carbon Dioxide 32 H (22-30) mmol/L Creatinine 0.62 L (0.66-1.25) mg/dL Glucose 155 H (74-99) mg/dL POC Glucose (mg/dL) 158 H (75-99) mg/dL Hemoglobin A1c (4.2-6.1) % Assessment and Plan (1) CVA (cerebral vascular accident) Status: Acute (2) Weakness Status: Acute Plan: 1. Right upper extremity weakness, possibly secondary to stroke. Patient does have a history of hemorrhagic stroke in November 2016. Patient is known to have left-sided weakness which were being actively managed with rehabilitation prior to admission. Carotid ultrasound noted mild to moderate atherosclerotic changes with no significant hemodynamic stenosis bilaterally. Correlate for cardiac dysrhythmia. CT of the brain on February 05 noted chronic small vessel ischemic disease, no acute process. CT of the brain has been ordered for later this morning. Continue Lipitor, Plavix and aspirin as previously noted per existing regimen. Continue neuro checks as ordered. EEG ordered and pending. Serum homocystine level ordered and pending. Continue PT , OT and speech. Continue DVT prophylaxis heparin 5000 every 12 hours. Recommend possible consideration for right upper extremity ultrasound study given the patient's increased edema, erythema and warmth. 2. Hyperlipidemia: Continue Lipitor 80 mg. Lipid panel has been ordered and is pending. 3. Seizure precaution post ICHcontinue primidone 50 mg daily at bedtime. Continue neuro checks as previously noted. If any neurological status changes, notify neurology for further directions. Status: patient does appear to be slightly improved in the right upper extremity with regard to strength inability to lift the extremity. No positive changes with regard to right upper extremity edema/swelling. No change with right lower extremity weakness day over day. He does appear to be generally more alert and interactive than yesterday. Neurology will continue to follow provide updates as needed or warranted. Please refer any further questions to our office and we'll be happy to respond. I discussed the patient's pertinent medical information with Dr. Mejia. He agrees with the plan of care as implemented.
--- NOTE | 2017-02-07 09:55 | CONS ---
CONSULTATION DATE OF CONSULTATION: 02/06/2017 CHIEF COMPLAINT: Weakness. HISTORY OF PRESENT ILLNESS: Mr. Justice is a pleasant 81-year-old, male, who is being evaluated today on 02/06/2017 by the Neurology Service per the request of Dr. Bowden for weakness. The patient has history of ischemic stroke with residual left hemiparesis. He is currently on aspirin 81 mg daily at home. He was brought into [facility] Emergency Room after his family noticed that his right arm is weak. The patient denies having any numbness or tingling. A CT scan of the brain was done in the emergency room which showed generalized atrophy and small-vessel ischemic changes. His carotid Doppler showed no hemodynamically significant stenosis. His TSH, urinalysis, fasting lipid panel and cardiac enzymes were normal. His CBC showed mild leukocytosis at 13.1, and mild anemia with a hemoglobin of 11.2 and hematocrit of 35%. His comprehensive metabolic profile was normal except for mild hyponatremia at 132 and mild hyperglycemia at 153. His serum homocystine level on his last admission was normal. At the time of my evaluation, the patient is lying in his bed and appears to be in no acute distress. He continues to have his chronic left hemiparesis but is still complaining of weakness involving his right upper and lower extremity. PAST MEDICAL HISTORY: Stroke, asthma, diabetes, dyslipidemia, hypertension, arthritis, prostate cancer with resection, hypothyroidism, history of appendectomy, cholecystectomy, and pacemaker placement. The patient also has history of anxiety disorder. SOCIAL HISTORY: The patient is a former smoker. He denies any alcohol or drug use. FAMILY HISTORY: Positive for heart disease and cancer. HOME MEDICATIONS: Reviewed in the chart. ALLERGIES: HYDROCODONE. REVIEW OF SYSTEMS: CONSTITUTIONAL: Positive for fatigue. EYES: Positive for chronic diminished vision. ENT: Positive for chronic diminished hearing. CARDIOVASCULAR: Positive for pacemaker placement. RESPIRATORY: Positive for occasional shortness of breath. NEUROLOGICAL: As mentioned above. GASTROINTESTINAL: Negative. GENITOURINARY: Negative. PSYCHIATRIC: Positive for history of anxiety disorder. MUSCULOSKELETAL: Positive for occasional joint pain. ENDOCRINE: Positive for hypothyroidism. DERMATOLOGICAL: Negative. PHYSICAL EXAM: Vital signs show a temperature of 98.9, pulse 67, respirations 16, blood pressure 161/77. GENERAL APPEARANCE: The patient is a well-developed, elderly male who appears to be in no acute distress. HEENT: Normocephalic, atraumatic, left facial weakness is seen. NECK: Supple with no masses felt. CARDIOVASCULAR: Regular rate and rhythm. ABDOMEN: Nontender, nondistended. Extremities showed trace edema with no clubbing seen. NEUROLOGICAL EXAM: The patient is awake and oriented x3. Speech and language are normal. Strength is 3/5 on the left and 4/5 on the right. Dysdiadochokinesia is noticed in bilateral upper extremities. Sensory exam was normal to light touch in all 4. Cranial nerve testing showed left facial weakness and diminished hearing. No seizure-like activity is seen. IMPRESSION: 1. Generalized weakness. 2. History of ischemic stroke with residual left hemiparesis. 3. Leukocytosis. 4. Anemia. RECOMMENDATION: The patient's left-sided weakness is unchanged which is due to his more recent ischemic stroke. He is currently presenting with right-sided weakness and a new ischemic stroke could not be ruled out. The patient has a pacemaker and is unable to undergo any MRI imaging. I will switch his aspirin to Plavix 75 mg daily. The patient is also on a very high dose of Lipitor. This could be causing a generalized muscle weakness which is being interpreted as only right-sided weakness due to his recent stroke. I will discontinue Lipitor and will monitor for any significant improvements. Physical Therapy and Occupational Therapy will be consulted. An EEG has been ordered. His carotid Doppler was done and it showed no hemodynamically significant stenosis. Continue neuro checks. I will continue to follow with you. Further recommendations to follow. Thank you for allowing me to participate in the care of your patient. If you have any questions, please feel free to contact me. MMODL / IJN: [id number] /
--- NOTE | 2017-02-07 10:49 | CT ---
EXAMINATION TYPE: CT brain wo con DATE OF EXAM: 02/07/2017 COMPARISON: 02/05/2017 HISTORY: 81-year-old male follow-up for CVA, left-sided weakness. TECHNIQUE: Examination was done in axial plane without intravenous contrast. Coronal and sagittal r econstructions performed. CT DLP: 1072.30 mGycm Automated exposure control for dose reduction was used. FINDINGS: There is no evidence of acute intracranial hemorrhage, acute ischemic changes, mass, mass-effect, or extra-axial fluid collection. There is no effacement of cerebral sulci or basal subarachnoid cister ns. There is no midline shift. Watson-white matter distinction is preserved. Moderate cerebral atrophy especially central cerebral volume loss and secondary prominence to the mayelin tricular system. Moderate white matter hypodensities are present with old white matter infarct in the right concepcion radiata and right basal ganglia. Questionable ectasia or fusiform aneurysm of the left supraclinoid ICA measuring up to 5.9 mm, axial image 20 and coronal image 27. Partial opacification of the left mastoid air cells and air-fluid level in the left frontal sinus. Ma stoid air cells well pneumatized. IMPRESSION: 1. No acute intracranial abnormality seen. Similar moderate atrophy and moderate changes of chronic s mall vessel ischemic disease. Old deep white matter infarcts on the right. 2. 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 Consider MRA to exclude intrac ranial aneurysm. 3. Air-fluid level in the left frontal sinus could represent acute sinusitis.
--- NOTE | 2017-02-07 11:33 | P.PN ---
Subjective Progress Note Date: 02/07/17 81-year-old male one of Dr. Contreras patient with past medical history of asthma, CAD post pacemaker, hypertension, diabetes, history of prostate cancer and mild COPD who was transferred from the emergency department to [facility] for intracranial hemorrhage from falling down steps and to the basement on November 19 patient ended up being treated with conservative management did not require any surgery. Patient developed to have significant headache abnormal gait imbalance ended up being transferred to [facility] for rehab from november 24to dec 22. Patient made it home until when the notices not able to ambulate and walk and not feeling well developed to have significant encephalopathy. Patient also developed to have significant cough productive dark phlegm along with mild hypoxia and worsening mentation. Was admitted at [facility] on 12/25 to 01/01 [place] for left lower lobe pneumonia Patient also had increased edema of the lower extremity and all over his body from his myxedema not taking his thyroid for several weeks. Patient comes back today with right-sided upper extremity weakness that started yesterday. According to the bedside, 2 weeks ago patient was having difficulty comprehending words with episodes of staring in space that resolved. He was seen by neurologist and was suggested to go to the ED in case the symptoms recur patient was undergoing physical therapy at home for weakness in his left lower extremity and gait instability. According to the patient is doing well and is able to walk with the help of a walker but does have difficulty turning due to gait instability. Yesterday he was able to go to her grandson's game but in the evening appeared tired and was complaining of soreness in his right upper extremity. Patient was unable to move his right upper arm in the morning. EKG suggested ventricular paced rhythm with bigeminy. Lesia suggest a WBC of 12.7 with BMP positive for sodium 132 chloride 90 20 glucose 153, urinalysis suggestive of blood in the urine. Carotid ultrasound was ordered pending result, neurology consulted, asprin 325 ordered. 02/06: Carotid ultrasound shows mild to moderate atherosclerotic changes with no significant hemodynamic stenosis bilaterally. X-ray of the right forearm shows no acute abnormality as well as right humerus shows no acute abnormality. Patient is complaining of pain in his wrist and elbow most significantly in his wrist with no known injury. X-ray of the wrist and elbow will be ordered. PT, OT and speech therapy are all pending. Patient's blood sugars are elevated for which she will be placed on Humalog scale. 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 The x-ray of the right wrist is showing calcium deposition arthropathy rather than osteoarthritis. Lucency in the scaphoid waist of questionable clinical significance. If fracture suspected, MRI or CT may be of benefit. Uric acid was 4.5. Consult placed with orthopedics. Patient has been seen by neurology. Repeat CAT scan of the brain shows no acute intracranial abnormality. 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 EEG pending. Homocysteine level was within normal limits. Patient has increased edema to the right wrist and continues to have pain but has better range of motion. He states he has had this in the past on his left wrist but never in his right. Ultrasound of the right upper extremity ordered. Patient is also Complaining of right knee pain and swelling and x-ray will be ordered. Anticipate discharge to [facility] tomorrow. Objective - Vital Signs Vital signs: Vital Signs Temp 97.8 F 02/07/17 04:00 Pulse 67 02/07/17 08:00 Resp 18 02/07/17 08:00 BP 149/77 02/07/17 08:00 Pulse Ox 97 02/07/17 08:00 Intake & Output 02/06/17 02/07/17 02/07/17 18:59 06:59 18:59 Intake Total 1100 236 Balance 1100 236 Weight 94.5 kg Intake: Intake, IV Titration 1100 Amount Sodium Chloride 0.9% 1, 1100 000 ml @ 100 mls/hr IV . Q10H [facility] Rx#:[id number] Oral 236 Other: Voiding Method Urinal Incontinent Incontinent # Voids 1 - Exam General appearance: cooperative, no acute distress, obese - EENT Eyes: anicteric sclerae, PERRLA, normal appearance ENT: hearing grossly normal with hearing aids in - Neck Neck: no lymphadenopathy, normal ROM, no other, no rigidity, no stridor, no thyromegaly - Respiratory Respiratory: bilateral: CTA, negative: diminished, dullness, rales, rhonchi - Cardiovascular Rhythm: regular Heart sounds: normal: S1, S2 Abnormal Heart Sounds: no systolic murmur, no diastolic murmur, no rub, no S3 Gallop, no S4 Gallop, no click, no other - Gastrointestinal General gastrointestinal: normal bowel sounds, soft - Integumentary Integumentary: no rash - Neurologic Neurologic: CNII-XII intact, patient is unable to move his fingers against gravity on the right but is unable to lift his hand against gravity, 4+ weakness in bilateral lower extremity, no coordination abnormality, no sensory deficit bilaterally, gait was not assessed, reflexes 2+ bilaterally - Musculoskeletal Musculoskeletal: Weakness present on the right upper arm, and bilateral lower extremities - Psychiatric Psychiatric: A&O x's 3, appropriate affect - Labs CBC & Chem 7: 02/07/17 05:57 02/07/17 05:57 Labs: Abnormal Lab Results - Last 24 Hours (Table) 02/06/17 02/06/17 02/06/17 Range/Units 05:48 16:45 20:58 WBC (3.8-10.6) k/uL RBC (4.30-5.90) m/uL Hgb (13.0-17.5) gm/dL Hct (39.0-53.0) % Sodium (137-145) mmol/L Chloride (98-107) mmol/L Carbon Dioxide (22-30) mmol/L Creatinine (0.66-1.25) mg/dL Glucose (74-99) mg/dL POC Glucose (mg/dL) 216 H 158 H (75-99) mg/dL Hemoglobin A1c 7.0 H (4.2-6.1) % 02/07/17 02/07/17 02/07/17 Range/Units 05:57 05:57 06:00 WBC 11.8 H (3.8-10.6) k/uL RBC 3.89 L (4.30-5.90) m/uL Hgb 11.0 L (13.0-17.5) gm/dL Hct 34.6 L (39.0-53.0) % Sodium 134 L (137-145) mmol/L Chloride 94 L (98-107) mmol/L Carbon Dioxide 32 H (22-30) mmol/L Creatinine 0.62 L (0.66-1.25) mg/dL Glucose 155 H (74-99) mg/dL POC Glucose (mg/dL) 158 H (75-99) mg/dL Hemoglobin A1c (4.2-6.1) % Assessment and Plan Plan: 1 acute right upper extremity weakness likely secondary to stroke, 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 Mo, neurology. Carotid ultrasound ordered, echo ordered, aspirin 325 mg given after swallow evaluation, Lipitor 80 mg daily, PTOT evaluation, neurology consulted. Patient may benefit from Plavix 75 mg by mouth daily to prevent recurrent stroke. Continue aspirin 81 mg daily 2 h/o myxedema continue Synthyroid 200 g daily. Repeat TSH 3 history of gout, continue small dose of colchicine 0.6 daily 4 intracranial hemorrhage: Has been doing well so far his not having any further bleed the CAT scan was good this time. Patient is undergoing physical therapy for his left sided hemiparesis 5 hyperlipidemia: Remain on Lipitor 80 mg daily. 6 hypertension: Hold atenolol/ chlorthalidone 50 mg for permissive hypertension 7 DM - hold jenuvia, ISS 8 Seizure precautions post ICH - continue primidone 50 qhs 9 ventricular bigeminy s/p pacemaker - asymptomatic, stable 10 Neuropathy - hold gabapentin to maintain permissive hypertension, can be restarted later on 11 DVT prophylaxis: Continue heparin 5000 q12 12 GI prophylaxis: Patient will be on Pepcid 20 mg a day. 13. Right wrist pain and swelling as well as upper extremity edema for which ultrasound ordered and orthopedic consult. 14. Right knee pain and swelling. Right knee x-ray ordered CODE STATUS: Full code. Discharge plan: Subacute rehab at [facility] tomorrow Impression and plan of care have been directed as dictated by the signing physician. Abbey Gomez nurse practitioner acting as scribe for signing physician.
[2017-02-07 11:39] LABS: Glucose,Whole Blood 159 mg/dL (75-99)
[2017-02-07] MEDS: POTASSIUM CHLORIDE ER 20 MEQ TAB.ER PO SCH (11:43)
[2017-02-07] MEDS: CLOPIDOGREL 75 MG TAB PO SCH (11:43)
[2017-02-07] MEDS: FAMOTIDINE 20 MG TAB PO SCH (11:43)
[2017-02-07] MEDS: HEPARIN SODIUM,PORCINE 5,000 UNIT/ML 1 ML VIAL SQ SCH ×2 (11:43→19:52)
[2017-02-07] MEDS: CITALOPRAM HYDROBROMIDE 20 MG TAB PO SCH (11:43)
[2017-02-07] MEDS: COLCHICINE 0.6 MG TAB PO SCH (11:43)
[2017-02-07] MEDS: CYANOCOBALAMIN 500 MCG TAB PO SCH (11:43)
--- NOTE | 2017-02-07 12:57 | US ---
EXAMINATION TYPE: US venous doppler duplex UE RT DATE OF EXAM: 02/07/2017 COMPARISON: NONE CLINICAL HISTORY: swelling and pain. SIDE PERFORMED: Right Arm: Negative for DVT Patient had difficulty adducting arm. Veins in neck collapsed upon inspiration, technically difficult exam. Visualized portions of the right internal jugular, subclavian, axillary veins, right brachial veins, cephalic and basilic veins, brachial veins and ulnar veins show normal compressibility and no abnorma l luminal echoes. IMPRESSION: Grayscale, color doppler, spectral doppler imaging performed of the deep veins of the upper extremiti es. There is normal flow, compressibility and vascular waveforms. No evident deep venous thrombosis as visualized in the right upper extremity. Technologist reports s ome difficulty with the exam.
--- NOTE | 2017-02-07 13:12 | XR ---
Right knee HISTORY: Knee pain and swelling around 3 views of the right knee No comparisons Marginal spurring is present in the 3 joint compartments, joint space loss is greatest at the medial compartment, patellofemoral joint. There is suprapatellar increased density compatible with joint eff usion. There are overlying metallic artifacts possibly within the skin. There are vascular calcificat ions. Suspect some chondrocalcinosis present. There is soft tissue swelling. Alignment is maintained. Bone mineralization mildly reduced. There are ossific densities suspicious for loose bodies, finding s may be indicative of synovial osteochondromatosis. 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 Additional findings a nick. Correlate for possible foreign and loose bodies.
[2017-02-07] MEDS ORDERED: methylPREDNISolone ACETATE 40 MG/ML 1 ML VIAL INTRAARTIC STA (13:16)
[2017-02-07] MEDS ORDERED: LIDOCAINE 2% INJ 20 MG/ML (20 ML MDV) SQ ONE (13:30)
[2017-02-07 15:56] LABS: RBC, Body Fluid 8600 /uL
[2017-02-07 16:29] LABS: Glucose,Whole Blood 169 mg/dL (75-99)
--- NOTE | 2017-02-07 18:49 | EEG ---
ELECTROENCEPHALOGRAM REPORT DATE OF SERVICE: 02/07/2017. REASON FOR TESTING: Stroke. DESCRIPTION OF PROCEDURE: This EEG was performed using a 21-channel digital electroencephalograph, following international 10-20 system. DESCRIPTION OF THE RECORDING: From the beginning of the tracing and with the patient's eyes closed, the background rhythm was mostly consisting of 7 Hz theta frequency in the posterior occipital leads. No obvious asymmetry is seen. Frequent muscle artifacts and movement artifacts are seen. Photic stimulation was performed with no driving response seen. No pathological waves were elicited. Hyperventilation was not performed. The patient remains awake throughout the tracing. No epileptiform discharges were seen. His EKG lead showed a regular rate and rhythm. INTERPRETATION: This awake EEG is limited due to the frequency of movement and muscle artifacts. The background rhythm was mostly consisting of theta frequency, consistent with mild encephalopathy. No epileptiform discharges were seen. The absence of epileptiform discharges does not rule out the diagnosis of epilepsy; therefore, clinical correlation is recommended. MMNICKL / IJN: [id number] /
[2017-02-07] MEDS: MULTIVITAMINS, THERA 1 EACH TAB PO SCH (19:51)
[2017-02-07] MEDS: PRIMIDONE 50 MG TAB PO SCH (19:52)
[2017-02-07 21:07] LABS: Glucose,Whole Blood 217 mg/dL (75-99)
[2017-02-08 06:07] LABS: Glucose,Whole Blood 184 mg/dL (75-99)
[2017-02-08] MEDS: LEVOTHYROXINE 100 MCG TAB PO SCH (06:17)
[2017-02-08] MEDS: INSULIN LISPRO (humaLOG) 300 UNIT/3 ML VIAL SQ SCH ×4 (06:18→20:58)
[2017-02-08 07:20] LABS: Magnesium 1.9 mg/dL (1.6-2.3); Phosphorus 4.2 mg/dL (2.5-4.5)
[2017-02-08] MEDS: POTASSIUM CHLORIDE ER 20 MEQ TAB.ER PO SCH (07:40)
[2017-02-08] MEDS: COLCHICINE 0.6 MG TAB PO SCH (07:40)
[2017-02-08] MEDS: FAMOTIDINE 20 MG TAB PO SCH (07:40)
[2017-02-08] MEDS: CITALOPRAM HYDROBROMIDE 20 MG TAB PO SCH (07:40)
[2017-02-08] MEDS: CLOPIDOGREL 75 MG TAB PO SCH (07:40)
[2017-02-08] MEDS: CYANOCOBALAMIN 500 MCG TAB PO SCH (07:40)
[2017-02-08] MEDS: HEPARIN SODIUM,PORCINE 5,000 UNIT/ML 1 ML VIAL SQ SCH ×2 (07:40→20:56)
[2017-02-08] MEDS: MULTIVITAMINS, THERA 1 EACH TAB PO SCH (07:40)
--- NOTE | 2017-02-08 08:04 | P.DS ---
Providers Date of admission: 02/05/17 13:23 Expected date of discharge: 02/08/17 Attending physician: Elizabeth Bowden MD Consults: 02/05/17 13:24 Consult Physician Routine Consulting Provider: Nieves Mejia Consult Reason/Comments: CVA Do you want consulting provider notified?: Yes Primary care physician: [place] Hospital Course: 81-year-old male one of Dr. Contreras patient with past medical history of asthma, CAD post pacemaker, hypertension, diabetes, history of prostate cancer and mild COPD who was transferred from the emergency department to [facility] for intracranial hemorrhage from falling down steps and to the basement on November 19 patient ended up being treated with conservative management did not require any surgery. Patient developed to have significant headache abnormal gait imbalance ended up being transferred to [facility] for rehab from november 24to dec 22. Patient made it home until when the notices not able to ambulate and walk and not feeling well developed to have significant encephalopathy. Patient also developed to have significant cough productive dark phlegm along with mild hypoxia and worsening mentation. Was admitted at [facility] on 12/25 to 01/01 [place] for left lower lobe pneumonia Patient also had increased edema of the lower extremity and all over his body from his myxedema not taking his thyroid for several weeks. Patient comes back today with right-sided upper extremity weakness that started yesterday. According to the bedside, 2 weeks ago patient was having difficulty comprehending words with episodes of staring in space that resolved. He was seen by neurologist and was suggested to go to the ED in case the symptoms recur patient was undergoing physical therapy at home for weakness in his left lower extremity and gait instability. According to the patient is doing well and is able to walk with the help of a walker but does have difficulty turning due to gait instability. Yesterday he was able to go to her grandson's game but in the evening appeared tired and was complaining of soreness in his right upper extremity. Patient was unable to move his right upper arm in the morning. EKG suggested ventricular paced rhythm with bigeminy. Lesia suggest a WBC of 12.7 with BMP positive for sodium 132 chloride 90 20 glucose 153, urinalysis suggestive of blood in the urine. Carotid ultrasound was ordered pending result, neurology consulted, asprin 325 ordered. 02/06: Carotid ultrasound shows mild to moderate atherosclerotic changes with no significant hemodynamic stenosis bilaterally. X-ray of the right forearm shows no acute abnormality as well as right humerus shows no acute abnormality. Patient is complaining of pain in his wrist and elbow most significantly in his wrist with no known injury. X-ray of the wrist and elbow will be ordered. PT, OT and speech therapy are all pending. Patient's blood sugars are elevated for which she will be placed on Humalog scale. 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 The x-ray of the right wrist is showing calcium deposition arthropathy rather than osteoarthritis. Lucency in the scaphoid waist of questionable clinical significance. If fracture suspected, MRI or CT may be of benefit. Uric acid was 4.5. Patient has been seen by neurology. EEG and a repeat CAT scan of the brain are pending. Homocysteine level was within normal limits. 02/08: EEG was limited but background consisted of mild encephalopathy. No epileptiform discharges. Knee x-ray reveals consider crystal deposition arthropathy rather than osteoarthritis. Correlate for foreign body and loose bodies. Repeat CAT scan of the brain shows no acute intracranial abnormality. 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 Ultrasound of the right upper extremity was negative for DVT. Patient has been seen by orthopedics and aspiration was done on the right kneet. Synovial fluid was bloody with RBCs 8600, nucleated cells 16,400, Ruth nuclear 81 and mononuclear 19. May have ordered a brace for the right arm. Colchicine will be increased. Note that Lipitor was discontinued as Dr. Mejia was concern that this is causing some muscle weakness. Patient will be discharged to [facility] today once authorization from his insurance company is obtained. 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 Noland. Impression and plan of care have been directed as dictated by the signing physician. Abbey Gomez nurse practitioner acting as scribe for signing physician. Patient Condition at Discharge: Good Plan - Discharge Summary New Discharge Prescriptions: New Clopidogrel [Plavix] 75 mg PO DAILY tab Famotidine [Pepcid] 20 mg PO DAILY tab predniSONE 10 mg PO DAILY #30 tab Continue Levothyroxine Sodium [Synthroid] 200 mcg PO DAILY Atenolol/Chlorthalidone [Tenoretic 50 Tablet] 1 tab PO DAILY Aspirin 81 mg PO DAILY chew Multivitamins, Thera [Multivitamin (formulary)] 1 tab PO HS Gabapentin [Neurontin] 100 mg PO BID #60 cap sitaGLIPtin [Januvia] 100 mg PO DAILY Primidone [Mysoline] 50 mg PO HS Cyanocobalamin (Vitamin B-12) [Vitamin B-12] 1,000 mcg PO DAILY Potassium Chloride [Klor-Con 20] 20 meq PO DAILY Citalopram Hydrobromide [CeleXA] 20 mg PO DAILY Colchicine 0.6 mg PO DAILY #30 tablet Discontinued Atorvastatin [Lipitor] 80 mg PO HS Discharge Medication List Atenolol/Chlorthalidone [Tenoretic 50 Tablet] 1 tab PO DAILY 09/19/13 [History] Levothyroxine Sodium [Synthroid] 200 mcg PO DAILY 09/19/13 [History] Aspirin 81 mg PO DAILY chew 08/22/16 [Rx] Multivitamins, Thera [Multivitamin (formulary)] 1 tab PO HS 08/28/16 [History] Gabapentin [Neurontin] 100 mg PO BID #60 cap 01/01/17 [Rx] Citalopram Hydrobromide [CeleXA] 20 mg PO DAILY 02/05/17 [History] Cyanocobalamin (Vitamin B-12) [Vitamin B-12] 1,000 mcg PO DAILY 02/05/17 [ History] Potassium Chloride [Klor-Con 20] 20 meq PO DAILY 02/05/17 [History] Primidone [Mysoline] 50 mg PO HS 02/05/17 [History] sitaGLIPtin [Januvia] 100 mg PO DAILY 02/05/17 [History] Clopidogrel [Plavix] 75 mg PO DAILY tab 02/08/17 [Rx] Colchicine 0.6 mg PO DAILY #30 tablet 02/08/17 [Rx] Famotidine [Pepcid] 20 mg PO DAILY tab 02/08/17 [Rx] predniSONE 10 mg PO DAILY #30 tab 02/08/17 [Rx] Follow up Appointment(s)/Referral(s): Nieves Mejia MD [STAFF PHYSICIAN] - 2 Weeks Lei Jean-Baptiste DO [Primary Care Provider] - 1 Week (after discharge from [facility]) Mushtaq Oconnor MD [STAFF PHYSICIAN] - 2 Weeks Activity/Diet/Wound Care/Special Instructions: Thumb spica brace right wrist for comfort. May remove for bathing and gentle ROM. Discharge Disposition: TRANSFER TO SNF/ECF
[2017-02-08] MEDS ORDERED: predniSONE 20 MG TAB PO STA (08:42)
--- NOTE | 2017-02-08 08:53 | P.CNOR ---
History of Present Illness - [facility] Consult date: 02/07/17 History of present illness: This is a an 81-year-old male admitted with CVA. He complains of right knee and right wrist pain. He does have history of gout. He denies any recent injury. He states that he did have a wrist injury in the past and believes that he did have a fracture quite some time ago. We're consulted for orthopedic evaluation of his right wrist and right knee. 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 'his legs won't support hime,unable to get up on his own/walk "hypothyroid, asbestos, colon cancer, gout, gets hormone shots History of Any Multi-Drug Resistant Organisms: None Reported Past Surgical History: Appendectomy, Cholecystectomy, Pacemaker, Prostate Surgery Additional Past Surgical History / Comment(s): penile surgery, cancers in remission Past Anesthesia/Blood Transfusion Reactions: No Reported Reaction Type of Cardiac Device: Unknown Device Placement Date:: unknown Past Psychological History: Anxiety Smoking Status: Former smoker Past Alcohol Use History: None Reported Past Drug Use History: None Reported - Past Family History Father Family Medical History: Myocardial Infarction ([place]) Additional Family Medical History / Comment(s): Father of a IL at the age of 45yrs. Paternal grandfather of a IL at the age of 45yrs as well. Mother Family Medical History: Cancer, Myocardial Infarction ([place]) Additional Family Medical History / Comment(s): Mother had Guilliane Ellijay. She of a IL at the age of 84 yrs. Brother(s) Family Medical History: No Reported History Sister(s) Family Medical History: Neurologic Disorder Son(s) Family Medical History: No Reported History Medications and Allergies Home Medications Medication Instructions Recorded Confirmed Type Atenolol/Chlorthalidone [Tenoretic 1 tab PO DAILY 09/19/13 02/05/17 History 50 Tablet] Levothyroxine Sodium [Synthroid] 200 mcg PO DAILY 09/19/13 02/05/17 History Aspirin 81 mg PO DAILY chew 08/22/16 02/05/17 Rx Multivitamins, Thera [Multivitamin 1 tab PO HS 08/28/16 02/05/17 History (formulary)] Colchicine 0.6 mg PO DAILY #30 tablet 01/01/17 02/05/17 Rx Gabapentin [Neurontin] 100 mg PO BID #60 cap 01/01/17 02/05/17 Rx Atorvastatin [Lipitor] 80 mg PO HS 02/05/17 02/05/17 History Citalopram Hydrobromide [CeleXA] 20 mg PO DAILY 02/05/17 02/05/17 History Cyanocobalamin (Vitamin B-12) 1,000 mcg PO DAILY 02/05/17 02/05/17 History [Vitamin B-12] Potassium Chloride [Klor-Con 20] 20 meq PO DAILY 02/05/17 02/05/17 History Primidone [Mysoline] 50 mg PO HS 02/05/17 02/05/17 History sitaGLIPtin [Januvia] 100 mg PO DAILY 02/05/17 02/05/17 History Allergies Allergy/AdvReac Type Severity Reaction Status Date / Time hydrocodone [From [place]] AdvReac Hallucinati Verified 02/05/17 08:51 ons Physical Examination This is a pleasant 81-year-old male in no acute distress. He is alert and oriented at this time. Exam of the upper extremities reveals mild erythema and swelling to the right wrist. There is pain with even light touch to the wrist. He has slight limitation in range of motion of the wrist secondary to pain. There is slight snuffbox tenderness. He has full finger motion without difficulty or pain. Neurovascular status the upper extremity is intact. Exam of the lower extremities reveals a 2-3+ effusion of the right knee. There is no erythema or ecchymosis. He has difficulty with flexion of the knee secondary to pain and swelling. He has full foot ankle motion without difficulty or pain. Neurovascular status to the lower extremity is intact. Results X-ray of the right wrist reveals moderate to severe degenerative arthritis, particularly at the CMC joint. There is a lucency about the mid body of the scaphoid which may represent old fracture. No other acute findings noted. X-ray of the right knee reveals moderate degenerative changes to the knee. No acute fracture identified. - Labs Labs: Abnormal Lab Results - Last 24 Hours (Table) 02/06/17 02/06/17 02/07/17 Range/Units 16:45 20:58 05:57 WBC 11.8 H (3.8-10.6) k/uL RBC 3.89 L (4.30-5.90) m/uL Hgb 11.0 L (13.0-17.5) gm/dL Hct 34.6 L (39.0-53.0) % Sodium (137-145) mmol/L Chloride (98-107) mmol/L Carbon Dioxide (22-30) mmol/L Creatinine (0.66-1.25) mg/dL Glucose (74-99) mg/dL POC Glucose (mg/dL) 216 H 158 H (75-99) mg/dL 02/07/17 02/07/17 02/07/17 Range/Units 05:57 06:00 11:37 WBC (3.8-10.6) k/uL RBC (4.30-5.90) m/uL Hgb (13.0-17.5) gm/dL Hct (39.0-53.0) % Sodium 134 L (137-145) mmol/L Chloride 94 L (98-107) mmol/L Carbon Dioxide 32 H (22-30) mmol/L Creatinine 0.62 L (0.66-1.25) mg/dL Glucose 155 H (74-99) mg/dL POC Glucose (mg/dL) 158 H 159 H (75-99) mg/dL H & H 02/05/17 02/06/17 02/07/17 Range/Units 08:53 05:48 05:57 Hgb 11.8 L 11.2 L 11.0 L (13.0-17.5) gm/dL Hct 35.9 L 35.5 L 34.6 L (39.0-53.0) % Coagulation 02/05/17 Range/Units 08:53 INR 1.1 (<1.2) Result Diagrams: 02/07/17 05:57 02/07/17 05:57 Assessment and Plan (1) Arthritis of hand, right Status: Acute (2) Arthritis of wrist, degenerative Status: Acute (3) CVA (cerebral vascular accident) Status: Acute (4) Gout Status: Acute Plan: The clinical and x-ray findings are discussed the patient. The right knee is aspirated obtaining approximately 30 mL of slightly hazy bright yellow fluid. The knee is then injected with 40 mg of Depo-Medrol. The patient tolerated the aspiration well. The fluid was sent to the lab for cell count and crystal analysis. I will order a brace for the right wrist. It is discussed with the patient that the scaphoid fractures most likely old. We will put him in a thumb spica brace for comfort which may be removed for bathing and for gentle range of motion. We will sign off from an orthopedic standpoint. He is to follow-up in our office in 2 weeks for reevaluation.
[2017-02-08 10:14] LABS: Synovial Crystal Source Right Knee
[2017-02-08 11:42] LABS: Glucose,Whole Blood 286 mg/dL (75-99)
[2017-02-08] MEDS: SODIUM CHLORIDE 0.9% 1,000 ML IV SCH ×2 (13:10→20:56)
[2017-02-08] MEDS ORDERED: RX INFO: IV CONTRAST WAS GIVEN 1 EACH MISC MISCELLANE PRN (15:01)
[2017-02-08 16:47] LABS: Glucose,Whole Blood 259 mg/dL (75-99)
[2017-02-08 20:54] LABS: Glucose,Whole Blood 287 mg/dL (75-99)
[2017-02-08] MEDS: PRIMIDONE 50 MG TAB PO SCH (20:56)
--- NOTE | 2017-02-08 21:36 | P.PN ---
Subjective Progress Note Date: 02/08/17 Principal diagnosis: right-sided weakness, rule out CVA Patient presented to the ED at [facility] on February 05, 2017 with right- sided upper extremity weakness has started on 02/04/17. Spouse reported that approximately 2 weeks ago he was having difficulty with word finding as well as concentration difficulty with possible "staring episodes". Patient was being actively treated by our practice for left-sided weakness in his left lower extremity and gait instability from a prior incident in November 2016. During that incident the patient was treated at [facility] and subsequently transferred to [facility] in [place] for a brain aneurysm with clipping. Prior to that incident, he had a prior TIA from August through November 2016. 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 He was progressing well recovering from the November 2016 aneurysm post operatively and was able to ambulate with a walker prior to presenting on 02/04/17. He began complaining of pain in his right upper extremity. He wan't unable to use his right arm in the morning. EKG noted paced rhythm with bigeminy. WBCs of 12.7 with sodium at 132, chloride at 90 glucose at 153. Urinalysis suggestive of blood in the urine at that time. Once admitted at the facility, patient was given a CT of the brain which noted chronic small vessel ischemic disease, no acute process. Patient was also given a carotid Doppler ultrasound study which noted mild to moderate atherosclerotic changes with no significant hemodynamic stenosis bilaterally. Correlate for cardiac dysrhythmia. On arrival at the ED, the patient was restarted on 325 mg aspirin which has now been changed to 81 mg aspirin and Plavix 75 mg added as well. Lipitor 40 mg was increased to Lipitor 80 mg daily at bedtime. Repeat CT of the brain without contrast is ordered for the morning of February 07, 2017. EEG has been ordered as well. Lipid panel is pending. Serum homocysteine level has been ordered. Neuro checks are ordered and are actively being conducted. On contact, the patient was supine in bed, resting in no acute distress. Patient was alert and oriented 3. States his left side is at baseline to his daily rehabilitation status. He states his right side has greatest difficulty with the right upper extremity and also has some decreased use/weakness of the right lower extremity. Interval Update: 02-07-17 Neurology is continuing to follow on an 81-year-old male to the ED for possible strokelike symptoms. On contact, the patient was supine in bed awake, resting in no acute distress. Patient is alert and oriented 3. Patient states that he has more strength in his right upper extremity but it is still weak and he complains of extremity swelling. patient immediately attempted to lift his right upper extremity and was able to lift it off the bed by approximately 5-6 inches. Patient does have history of gout. Hospitalist had already ordered x- rays of the wrist yesterday management is ongoing. Night nursing staff report that the patient's right upper extremity appears to be more swollen day over day comparatively. Interval uptake: 02/08/17 Allergies continue to follow on an 81-year-old male who presented to the ED for possible strokelike symptoms. On contact, the patient was supine in bed awake, resting in no acute distress. Patient is alert and oriented 3. Patient states that he has increased strength and range of motion in the right upper extremity but is still weak and he complains of extremity weakness in the right lower extremity but states it is also improved somewhat. Patient's CT of the brain without contrast noted moderate atrophy and moderate changes of chronic small vessel ischemic disease. Old deep white matter infarcts on the right. 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 Consider MRA was advised. Patient does have a pacemaker and is unable to have MRIs. Based on the information on imaging, CT angiogram of the head and neck will be ordered. Objective - Vital Signs Vital signs: Vital Signs Temp 97.9 F 02/08/17 12:00 Pulse 71 02/08/17 16:00 Resp 18 02/08/17 16:00 BP 141/74 02/08/17 16:00 Pulse Ox 97 02/08/17 16:00 Intake & Output 02/08/17 02/08/17 02/09/17 06:59 18:59 06:59 Intake Total 1600 840 Output Total 125 Balance 1475 840 Weight 94 kg Intake: IV 1600 Sodium Chloride 0.9% 1, 1600 000 ml @ 100 mls/hr IV . Q10H DANIELLE Rx#:[id number] Oral 840 Output: Urine 125 Other: Voiding Method Diaper Diaper Incontinent Incontinent # Voids 1 2 # Bowel Movements 0 - Exam Constitutional: AOx3, cooperative HEENT: NC/AT, no facial asymmetry is seen. Throat: Supple, no masses Respiratory: No increased work of breathing Cardiac: Regular rate and Rhythm GI: non tender, non distended Musculoskeletal: [employer] strengths are unequal bilaterally improved at 3/5 in the right upper extremity (able to lift extremity) and unchanged at 4/5 in the right lower extremity. Left upper and lower extremities are unchanged at 4/5. Neurological: CN II-XII in tact, patient was AOx3, speech and language are normal, right sided unilateralizing weakness, no seizure activity note on physical exam. Sensation was normal. Integementary: no rash, no erythema Psychiatric: mood and affect appropriate - Constitutional Constitutional Comment(s): systems not noted in HPI or negative - Labs CBC & Chem 7: 02/07/17 05:57 02/07/17 05:57 Labs: Abnormal Lab Results - Last 24 Hours (Table) 02/08/17 02/08/17 02/08/17 Range/Units 05:51 06:05 11:41 POC Glucose (mg/dL) 184 H 286 H (75-99) mg/dL Iron 40 L (49-181) ug/dL 02/08/17 02/08/17 Range/Units 16:45 20:52 POC Glucose (mg/dL) 259 H 287 H (75-99) mg/dL Iron (49-181) ug/dL Assessment and Plan (1) CVA (cerebral vascular accident) Status: Acute (2) Weakness Status: Acute Plan: 1. Right upper extremity weakness, possibly secondary to stroke. Patient does have a history of hemorrhagic stroke in November 2016. Patient is known to have left-sided weakness which were being actively managed with rehabilitation prior to admission and new onset right weakness. Carotid ultrasound noted mild to moderate atherosclerotic changes with no significant hemodynamic stenosis bilaterally. Correlate for cardiac dysrhythmia. CT of the brain on February 05 noted chronic small vessel ischemic disease, no acute process. repeat CT of the brain noted moderate age-related atrophy and moderate changes of chronic small vessel ischemic disease. All deep white matter infarcts on the right. 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 Consider MRA to exclude intracranial aneurysm. Patient is currently unable to have an MRA, CT angiogram of the head and neck has been ordered. Results are pending. Continue Lipitor, Plavix and aspirin as previously noted per existing regimen. Continue neuro checks as ordered. EEG noted mild encephalopathy. Serum homocystine level was ordered and is within normal range. Continue PT, OT and speech. Continue DVT prophylaxis heparin 5000 every 12 hours. 2. Hyperlipidemia: Continue Lipitor 80 mg. Lipid panel has been ordered and is pending. 3. Seizure precaution post ICHcontinue primidone 50 mg daily at bedtime. Continue neuro checks as previously noted. If any neurological status changes, notify neurology for further directions. Status: patient does appear to be slightly improved in the right upper extremity with regard to strength ability to lift the extremity. Right lower extremity weakness has decreased day over day. He does appear to be generally more alert and interactive than yesterday. patient's right upper extremity does appear to be improving along with the right lower extremity. Further imaging results are still pending. Neurology will continue to follow provide updates as needed or warranted. Please refer any further questions to our office and we'll be happy to respond. I discussed the patient's pertinent medical information with Dr. Mejia. He agrees with the plan of care as implemented.
[2017-02-09 06:04] LABS: Glucose,Whole Blood 216 mg/dL (75-99)
[2017-02-09] MEDS: SODIUM CHLORIDE 0.9% 1,000 ML IV SCH (06:20)
[2017-02-09] MEDS: LEVOTHYROXINE 100 MCG TAB PO SCH (06:21)
[2017-02-09] MEDS: INSULIN LISPRO (humaLOG) 300 UNIT/3 ML VIAL SQ SCH (06:21)
--- NOTE | 2017-02-09 08:08 | CT ---
EXAMINATION TYPE: CT angio head neck DATE OF EXAM: 02/08/2017 HISTORY: Altered mental status. Rule out aneurysm. COMPARISON: Prior CTA head and neck August 19, 2016 CT DLP: 392.90 mGycm. Automated Exposure Control for Dose Reduction was Utilized. TECHNIQUE: CTA scan of the head and neck are performed with IV Contrast, patient injected with 65 mL of Omnipaque 350, axial images are obtained, coronal and sagittal reformatted images are reviewed. T hree-D reconstructed images are created on an independent workstation and reviewed. FINDINGS: Carotid/Vascular Structures: There is mild mixed plaque in aortic arch. There is normal three-vessel origin from the aortic arch. There is focal mild to moderate noncalcified plaque at origin of left barragan bclavian artery along the anterior right aspect. No significant stenosis is seen. The right common ca rotid artery shows normal origin from the right brachiocephalic artery. There is mild peripheral plaq ue in the right subclavian artery after its origin. Right common carotid artery shows slight tortuous course without significant plaque or stenosis. There is mild to moderate peripheral noncalcified amber que in the proximal internal carotid artery after carotid bulb. There is moderate calcified plaque in the supraclinoid segment distal right internal carotid artery redemonstrated. There is no significan t plaque or stenosis otherwise in the right internal carotid artery which is tortuous course. No sign ificant plaque at right carotid bulb is seen. There is patent external carotid artery without signifi cant plaque or stenosis. There is tortuous course to left common carotid artery without significant plaque or stenosis. There is mild to moderate calcified plaque at left carotid bulb extending into proximal internal carotid ar brittni. There is focal peripheral noncalcified plaque. Stenosis is however under 50%. Mild calcified pl aque supraclinoid segment distal left internal carotid artery is seen. No significant stenosis is chang dent. Focal outpouching posterior medial aspect distal left internal carotid artery at level of supra sellar cistern on image 17 series 6 appears to correspond to origin of a small branching vessel uncha nged from prior. There is dominant left vertebral artery. There is dominant concentric focal calcified plaque distal l eft vertebral artery on axial image 66. Suspect significant stenosis at this level. Difficult to acc urately quantify due to presence of marked calcified concentric plaque. Distal right vertebral artery is not visualized to basilar junction. There are patent posterior cerebral arteries seen bilaterally . Hypoplastic posterior communicating arteries are noted. There is absent right A1 segment with filling of right A2 segment due to patent anterior communicatin g artery. Other: There is diffuse age-related cerebral atrophy redemonstrated. There is old infarct right basal ganglia extending into concepcion radiata redemonstrated. There is moderate to severe spurring and disc space narrowing C5-C6 and C6-C7 levels. There is partial visualization of left anterior chest wall pacemaker. There is mild emphysematous baltazar nge in lung apices. IMPRESSION: 1. No suspicious focal aneurysmal change at level of [place]. 2. No significant focal stenosis in common or internal carotid arteries bilaterally.
[2017-02-09] MEDS: CYANOCOBALAMIN 500 MCG TAB PO SCH (09:26)
[2017-02-09] MEDS: CITALOPRAM HYDROBROMIDE 20 MG TAB PO SCH (09:26)
[2017-02-09] MEDS: COLCHICINE 0.6 MG TAB PO SCH (09:26)
[2017-02-09] MEDS: HEPARIN SODIUM,PORCINE 5,000 UNIT/ML 1 ML VIAL SQ SCH (09:26)
[2017-02-09] MEDS: CLOPIDOGREL 75 MG TAB PO SCH (09:26)
[2017-02-09] MEDS: FAMOTIDINE 20 MG TAB PO SCH (09:26)
[2017-02-09] MEDS: POTASSIUM CHLORIDE ER 20 MEQ TAB.ER PO SCH (09:27)
[2017-02-09 11:45] LABS: Glucose,Whole Blood 252 mg/dL (75-99)
[2017-02-09 13:06] VITALS: BP 142/77; PULSE 69; RESP 18; TEMP 97.6
== END 2017-02-09 16:25 | DRG 64 ==
LOC: EC 08:23 → 6SEL 13:23
PROVIDERS: ADMIT Internal Medicine; ATTEND Internal Medicine
PROC: 0S9C3ZX Drainage of Right Knee Joint, Percutaneous Approach, Diagnostic (ICD-10-PCS; principal; 2017-02-07)
DX: I63.9 Cerebral infarction, unspecified (principal); G93.40 Encephalopathy, unspecified; E11.65 Type 2 diabetes mellitus with hyperglycemia; E11.42 Type 2 diabetes mellitus with diabetic polyneuropathy; E87.1 Hypo-osmolality and hyponatremia; I69.354 Hemiplegia and hemiparesis following cerebral infarction affecting left non-dominant side; D64.9 Anemia, unspecified; F41.9 Anxiety disorder, unspecified; E78.5 Hyperlipidemia, unspecified; E03.9 Hypothyroidism, unspecified; I10 Essential (primary) hypertension; I25.10 Atherosclerotic heart disease of native coronary artery without angina pectoris; R26.9 Unspecified abnormalities of gait and mobility; R09.02 Hypoxemia; J44.9 Chronic obstructive pulmonary disease, unspecified; M19.039 Primary osteoarthritis, unspecified wrist; M11.20 Other chondrocalcinosis, unspecified site; M17.11 Unilateral primary osteoarthritis, right knee; M10.9 Gout, unspecified; Z88.6 Allergy status to analgesic agent; Z82.49 Family history of ischemic heart disease and other diseases of the circulatory system; Z90.49 Acquired absence of other specified parts of digestive tract; Z87.891 Personal history of nicotine dependence; Z79.899 Other long term (current) drug therapy; Z79.82 Long term (current) use of aspirin; Z95.0 Presence of cardiac pacemaker; Z85.46 Personal history of malignant neoplasm of prostate; Z87.01 Personal history of pneumonia (recurrent); Z85.038 Personal history of other malignant neoplasm of large intestine; Z90.89 Acquired absence of other organs; Z79.84 Long term (current) use of oral hypoglycemic drugs
CPT/HCPCS: 36415; 70450; 70496; 70498; 71020; 80048; 80053; 80061; 81001; 82550; 82553; 82728; 83036; 83090; 83540; 83605; 83735; 84100; 84443; 84466; 84484; 84550; 85025; 85027; 85610; 85730; 89050; 89060; 93005; 93306; 93880; 95816; 96360; 99285

== ENCOUNTER → 2021-11-03 | Outpatient (CLI) | payer MEDICARE ==
[2021-11-03 11:59] VITALS: BMI 22.4
== END ==
LOC: DBWHC3 09:33
PROVIDERS: ATTEND Family Medicine
DX: E11.69 Type 2 diabetes mellitus with other specified complication (principal); Z88.5 Allergy status to narcotic agent; Z87.891 Personal history of nicotine dependence
CPT/HCPCS: G0108 ×3

== ENCOUNTER 2022-11-04 10:23 | Observation (INO) | payer MEDICARE ==
--- NOTE | 2022-11-04 10:41 | ED ---
Chest Pain HPI - General Chief Complaint: Chest Pain Stated Complaint: chest pain Time Seen by Provider: 11/04/22 10:30 Source: patient Mode of arrival: ambulatory Limitations: no limitations - History of Present Illness Initial Comments: 87-year-old male with past medical history of CVA, hypertension, hyperlipidemia, coronary artery disease, pacemaker who presents to the emergency department reporting chest pain. Describes pain that is located over his pacemaker site. States that it is sharp and stabbing only last a couple of seconds before it re solved. He has had several episodes this morning. First one was around 5 AM and it awoke him from sleep. He denies taking any medications for the pain. No history of similar in the past. He felt a Dr. Taylor. Last interrogation was 6 months ago. Denies any stents in his heart. No shortness of breath. No fevers, chills or cough. No history of DVT or PE. Not on any blood thinners. No other alleviating, precipitating or modifying factors - Related Data Home Medications Medication Instructions Recorded Confirmed Atenolol/Chlorthalidone [Tenoretic 1 tab PO DAILY 09/19/13 11/04/22 50 Tablet] Potassium Chloride [Klor-Con 20] 20 meq PO DAILY 02/05/17 11/04/22 sitaGLIPtin [Januvia] 100 mg PO DAILY 02/05/17 11/04/22 Repaglinide [Prandin] 0.5 mg PO AC-TID 11/03/21 11/04/22 Apixaban [Eliquis] 2.5 mg PO BID 11/04/22 11/04/22 Atorvastatin [Lipitor] 40 mg PO DAILY 11/04/22 11/04/22 Cholecalciferol [Vitamin D3 (25 50 mcg PO DAILY 11/04/22 11/04/22 Mcg = 1000 Iu)] Empagliflozin [Jardiance] 25 mg PO DAILY 11/04/22 11/04/22 Furosemide [Lasix] 40 mg PO DAILY 11/04/22 11/04/22 L.acidoph,Paracasei, B.lactis 1 cap PO DAILY 11/04/22 11/04/22 [Probiotic] Levothyroxine Sodium [Synthroid] 175 mcg PO DAILY 11/04/22 11/04/22 Loratadine [Claritin] 10 mg PO DAILY 11/04/22 11/04/22 Multivit,Calc,Min/FA/K1/Lycop 1 tab PO DAILY 11/04/22 11/04/22 [One-A-Day Men's Complete Tab] Allergies Allergy/AdvReac Type Severity Reaction Status Date / Time hydrocodone [From [place]] AdvReac Hallucinati Verified 11/04/22 12:43 ons Review of Systems ROS Statement: Those systems with pertinent positive or pertinent negative responses have been documented in the HPI. ROS Other: All systems not noted in ROS Statement are negative. Past Medical History Past Medical History: Asthma, Coronary Artery Disease (CAD), Cancer, CVA/TIA, Diabetes Mellitus, Hyperlipidemia, Hypertension, Osteoarthritis (OA), Pneumonia, Prostate Disorder, Respiratory Disorder, Thyroid Disorder Additional Past Medical History / Comment(s): cva x3 in august, november 2016 fell down basement steps hit head had "bleeding on the brain" sent to [facility] then bit[facility] to [facility] for rehab just got back home on .upon admit-pt's stated that. 'his legs won't support hime,unable to get up on his own/walk"hypothyroid, asbestos, colon cancer, gout, gets hormone shots, Possible bone CA. History of Any Multi-Drug Resistant Organisms: None Reported Past Surgical History: Appendectomy, Cholecystectomy, Pacemaker, Prostate Surgery Additional Past Surgical History / Comment(s): penile surgery, cancers in remission, knee replacement 10/26 Past Anesthesia/Blood Transfusion Reactions: No Reported Reaction Type of Cardiac Device: Unknown Device Placement Date:: unknown Past Psychological History: Anxiety Smoking Status: Never smoker Past Alcohol Use History: None Reported Past Drug Use History: None Reported - Past Family History Father Family Medical History: Myocardial Infarction ([place]) Additional Family Medical History / Comment(s): Father of a OR at the age of 45yrs. Paternal grandfather of a OR at the age of 45yrs as well. Mother Family Medical History: Cancer, Myocardial Infarction ([place]) Additional Family Medical History / Comment(s): Mother had Guilliane [place]. She of a OR at the age of 84 yrs. Brother(s) Family Medical History: No Reported History Sister(s) Family Medical History: Neurologic Disorder Son(s) Family Medical History: No Reported History General Exam Limitations: no limitations General appearance: alert, in no apparent distress Head exam: Present: atraumatic, normocephalic, normal inspection Eye exam: Present: normal appearance, PERRL, EOMI. Absent: scleral icterus, conjunctival injection, periorbital swelling ENT exam: Present: normal exam, mucous membranes moist Neck exam: Present: normal inspection. Absent: tenderness, meningismus, lymphadenopathy Respiratory exam: Present: normal lung sounds bilaterally. Absent: respiratory distress, wheezes, rales, rhonchi, stridor Cardiovascular Exam: Present: regular rate, normal rhythm, normal heart sounds. Absent: systolic murmur, diastolic murmur, rubs, gallop, clicks GI/Abdominal exam: Present: soft, normal bowel sounds. Absent: distended, tenderness, guarding, rebound, rigid Extremities exam: Present: normal inspection, full ROM, normal capillary refill. Absent: tenderness, pedal edema, joint swelling, calf tenderness Back exam: Present: normal inspection Neurological exam: Present: alert, oriented X3, CN II-XII intact Psychiatric exam: Present: normal affect, normal mood Skin exam: Present: warm, dry, intact, normal color. Absent: rash Course Vital Signs 11/04/22 11/04/22 11/04/22 10:27 11:30 13:47 Temperature 98 F Pulse Rate 60 60 60 Respiratory 18 18 18 Rate Blood Pressure 163/69 161/80 175/88 O2 Sat by Pulse 95 96 97 Oximetry Chest Pain MDM - MDM Was pt. sent in by a medical professional or institution (, PA, BOW REHAIRER, urgent care, hospital, or longterm...) When possible be specific @ -No Did you speak to anyone other than the patient for history (EMS, parent, family, police, friend...)? What history was obtained from this source @ - helps provide history Did you review nursing and triage notes (agree or disagree)? Why? @ -I reviewed and agree with nursing and triage notes Were old charts reviewed (outside hosp., previous admission, EMS record, old EKG, old radiological studies, urgent care reports/EKG's, longterm records)? Report findings @ -old charts were not reviewed Differential Diagnosis (chest pain, altered mental status, abdominal pain women, abdominal pain men, vaginal bleeding, weakness, fever, dyspnea, syncope, headache, dizziness, GI bleed, back pain, seizure, CVA, palpatations, mental health, musculoskeletal)? @ -afib with rvr, acs, nstemi, stemi, coronary vasospasm EKG interpreted by me (3pts min.). @ -Yes and demonstrates atrial pacemaker with a captures appropriately. Rate of 60. DE interval 366. QRS 214. QTC of 5:15. Negative for scarbossa criteria X-rays interpreted by me (1pt min.). @ -yes, no acute process CT interpreted by me (1pt min.). @ -None done U/S interpreted by me (1pt. min.). @ -None done What testing was considered but not performed or refused? (CT, X-rays, U/S, labs)? Why? @ -None What meds were considered but not given or refused? Why? @ -None Did you discuss the management of the patient with other professionals (professionals i.e. , PA, BOW REHAIRER, lab, RT, psych nurse, hospice social worker, marble coper, teacher, radio officer, case maker)? Give summary @ -dr sheet - will admit patient Was smoking cessation discussed for >3mins.? @ -No Was critical care preformed (if so, how long)? @ -No Were there social determinants of health that impacted care today? How? (Homelessness, low income, unemployed, alcoholism, drug addiction, transportation, low edu. Level, literacy, decrease access to med. care, nursing home, rehab)? @ -No Was there de-escalation of care discussed even if they declined (Discuss DNR or withdrawal of care, Hospice)? DNR status @ -no What co-morbidities impacted this encounter? (DM, HTN, Smoking, COPD, CAD, Cancer, CVA, ARF, Chemo, Hep., AIDS, mental health diagnosis, sleep apnea, morbid obesity)? @ -sick sinus syndrome Was patient admitted / discharged? Hospital course, mention meds given and route, prescriptions, significant lab abnormalities, going to OR and other pertinent info. @ -Upon arrival patient was placed in room 6. Thorough history and physical exam was performed. IV access was established. Laboratory studies are conducted. Chest x-ray was performed. I did interrogate the patient's [employer] device which does bring to alarms. Patient has a 12-lead EKG completed which demonstrates pacemaker capturing appropriately. Patient does have a few episodes of pain while within the emergency department however resolve quickly. I discussed the diagnosis, differential and treatment options. Recommended admission for cardiology consultation for which the patient was agreeable. Spoke with Dr. norton who will admit the patient with cardiology on consult Undiagnosed new problem with uncertain prognosis? @ -yes Drug Therapy requiring intensive monitoring for toxicity (Heparin, Nitro, Insulin, Cardizem)? @ -No Were any procedures done? @ -No Diagnosis/symptom? @ -acute chest pain Acute, or Chronic, or Acute on Chronic? @ -acute Uncomplicated (without systemic symptoms) or Complicated (systemic symptoms)? @ -complicated Side effects of treatment? @ -No Exacerbation, Progression, or Severe Exacerbation? @ -No Poses a threat to life or bodily function? How? (Chest pain, [place], OR, pneumonia, PE, COPD, DKA, ARF, appy, cholecystitis, CVA, Diverticulitis, Homicidal, Suicidal, threat to staff... and all critical care pts) @ -yes - could be ischemia Disposition Clinical Impression: Chest pain Disposition: ADMITTED IP TO THIS HOSP Condition: Stable Is patient prescribed a controlled substance at d/c from ED?: No Time of Disposition: 12:56 Decision to Admit Reason: Admit from EC Decision Date: 11/04/22 Decision Time: 12:56
--- NOTE | 2022-11-04 11:07 | XR ---
EXAMINATION TYPE: XR chest 2V DATE OF EXAM: 11/04/2022 COMPARISON: 02/05/2017 INDICATION: Chest pain TECHNIQUE: Frontal and lateral views of the chest are obtained. FINDINGS: The heart size is mildly prominent. Pacemaker overlies left chest.. The pulmonary vasculature is normal. The lungs are clear. IMPRESSION: 1. No acute pulmonary process. 2. Mild cardiomegaly
[2022-11-04 11:16] LABS: Basophils % (A) 0 %; Eosinophils # (A) 0.2 k/uL (0-0.7); Eosinophils % (A) 2 %; HCT 43.3 % (39.0-53.0); HGB 13.9 gm/dL (13.0-17.5); Lymphocytes # (A) 1.2 k/uL (1.0-4.8); Lymphocytes % (A) 15 %; MCH 29.6 pg (25.0-35.0); MCHC 32.2 g/dL (31.0-37.0); MCV 91.9 fL (80.0-100.0); Mean Platelet Volume 7.5; Monocytes # (A) 0.6 k/uL (0-1.0); Monocytes % (A) 8 %; Neutrophils # (A) 5.7 k/uL (1.3-7.7); Neutrophils % (A) 73 %; Platelet Count 239 k/uL (150-450); RBC 4.71 m/uL (4.30-5.90); RDW 14.7 % (11.5-15.5); WBC 7.8 k/uL (3.8-10.6)
[2022-11-04 11:28] LABS: ALT 30 U/L (4-49); AST 28 U/L (17-59); African American GFR (CKD) 66 (>60 ml/min/1.73 sqM); Albumin 4.4 g/dL (3.5-5.0); Alkaline Phosphatase 119 U/L (38-126); Anion Gap 9 mmol/L; Blood Urea Nitrogen 29 mg/dL (9-20); Calcium 9.5 mg/dL (8.4-10.2); Carbon Dioxide 32 mmol/L (22-30); Chloride 101 mmol/L (98-107); Glucose 141 mg/dL (74-99); Lipase 337 U/L (23-300); Magnesium 2.2 mg/dL (1.6-2.3); Non-African American GFR(CKD) 57 (>60 ml/min/1.73 sqM); Potassium 3.7 mmol/L (3.5-5.1); Sodium 142 mmol/L (137-145); Total Bilirubin 0.8 mg/dL (0.2-1.3); Total Protein 8.5 g/dL (6.3-8.2)
[2022-11-04 11:35] LABS: INR 1.1 (<1.2); Partial Thromboplastin Time 25.4 sec (22.0-30.0)
[2022-11-04] MEDS ORDERED: NALOXONE 0.4 MG/ML 1 ML VIAL IV PRN (12:57)
[2022-11-04] MEDS ORDERED: ACETAMINOPHEN TAB 325 MG TAB PO PRN (12:57)
[2022-11-04] MEDS ORDERED: DEXTROSE 50% SYRINGE 50 ML IVP PRN ×2 (18:26)
[2022-11-04 20:27] LABS: Glucose,Whole Blood 174 mg/dL (70-110)
[2022-11-04] MEDS: APIXABAN 2.5 MG TABLET PO SCH (20:28)
[2022-11-04] MEDS: INSULIN ASPART (NovoLOG) 100 UNIT/ML VIAL SQ SCH (20:28)
--- NOTE | 2022-11-04 23:56 | P.HPIM ---
History of Present Illness This is a pleasant 70 so male with multiple medical problems as below. Presents because of chest pain since 5:00 this morning, on the left side, nonradiating but it/10 in severity comes and goes and currently is rated as 0/10. Nonspecific inequality and not associated with dyspnea patient also complains from coughing and clear phlegm, chronic as per patient. Patient denies any urinary, GI or neurological symptoms. No smoking alcohol or illicit drugs. Echo interrogation was done in the emergency room. Vital signs stable Blood pressure is slightly on the high side. He has unremarkable CBC, BMP, liver enzymes. Glucose slightly high at 141. Troponin 3 are negative. Lipase is 337. Chest x-ray: No acute process EKG: Paced rhythm Patient was admitted with cardiology consult Review of Systems Review of systems CONSTITUTIONAL: No fever, no malaise, no fatigue. HEENT: No recent visual problems or hearing problems. Denied any sore throat. CARDIOVASCULAR: No orthopnea, PND, no palpitations, no syncope. PULMONARY: No shortness of breath, no cough, no hemoptysis. GASTROINTESTINAL: No diarrhea, no nausea, no vomiting, no abdominal pain. Normoactive bowel sounds. NEUROLOGICAL: No headaches, no weakness, no numbness. HEMATOLOGICAL: Denies any bleeding or petechiae. GENITOURINARY: Denies any burning micturition, frequency, or urgency. MUSCULOSKELETAL/RHEUMATOLOGICAL: Denies any joint pain, swelling, or any muscle pain. ENDOCRINE: Denies any polyuria or polydipsia. Past Medical History Past Medical History: Asthma, Coronary Artery Disease (CAD), Cancer, CVA/TIA, Diabetes Mellitus, Hyperlipidemia, Hypertension, Osteoarthritis (OA), Pneumonia, Prostate Disorder, Respiratory Disorder, Thyroid Disorder Additional Past Medical History / Comment(s): cva x3 in august, november 2016 fell down basement steps hit head had "bleeding on the brain" sent to [facility] then bit[facility] to [facility] for rehab just got back home on .upon admit-pt's stated that. 'his legs won't support hime,unable to get up on his own/walk"hypothyroid, asbestos, colon cancer, gout, gets hormone shots, Possible bone CA. History of Any Multi-Drug Resistant Organisms: None Reported Past Surgical History: Appendectomy, Cholecystectomy, Pacemaker, Prostate Surgery Additional Past Surgical History / Comment(s): penile surgery, cancers in r emission, knee replacement 10/26 Past Anesthesia/Blood Transfusion Reactions: No Reported Reaction Type of Cardiac Device: Unknown Device Placement Date:: unknown Past Psychological History: Anxiety Smoking Status: Never smoker Past Alcohol Use History: None Reported Past Drug Use History: None Reported - Past Family History Father Family Medical History: Myocardial Infarction ([place]) Additional Family Medical History / Comment(s): Father of a NV at the age of 45yrs. Paternal grandfather of a NV at the age of 45yrs as well. Mother Family Medical History: Cancer, Myocardial Infarction ([place]) Additional Family Medical History / Comment(s): Mother had Guilliane [place]. She of a NV at the age of 84 yrs. Brother(s) Family Medical History: No Reported History Sister(s) Family Medical History: Neurologic Disorder Son(s) Family Medical History: No Reported History Medications and Allergies Home Medications Medication Instructions Recorded Confirmed Type Atenolol/Chlorthalidone [Tenoretic 1 tab PO DAILY 09/19/13 11/04/22 History 50 Tablet] Potassium Chloride [Klor-Con 20] 20 meq PO DAILY 02/05/17 11/04/22 History sitaGLIPtin [Januvia] 100 mg PO DAILY 02/05/17 11/04/22 History Repaglinide [Prandin] 0.5 mg PO AC-TID 11/03/21 11/04/22 History Apixaban [Eliquis] 2.5 mg PO BID 11/04/22 11/04/22 History Atorvastatin [Lipitor] 40 mg PO DAILY 11/04/22 11/04/22 History Cholecalciferol [Vitamin D3 (25 50 mcg PO DAILY 11/04/22 11/04/22 History Mcg = 1000 Iu)] Empagliflozin [Jardiance] 25 mg PO DAILY 11/04/22 11/04/22 History Furosemide [Lasix] 40 mg PO DAILY 11/04/22 11/04/22 History L.acidoph,Paracasei, B.lactis 1 cap PO DAILY 11/04/22 11/04/22 History [Probiotic] Levothyroxine Sodium [Synthroid] 175 mcg PO DAILY 11/04/22 11/04/22 History Loratadine [Claritin] 10 mg PO DAILY 11/04/22 11/04/22 History Multivit,Calc,Min/FA/K1/Lycop 1 tab PO DAILY 11/04/22 11/04/22 History [One-A-Day Men's Complete Tab] Allergies Allergy/AdvReac Type Severity Reaction Status Date / Time hydrocodone [From [place]] AdvReac Hallucinati Verified 11/04/22 12:43 ons Physical Exam Vitals: Vital Signs Temp Pulse Resp BP Pulse Ox 11/04/22 13:47 60 18 175/88 97 11/04/22 11:30 60 18 161/80 96 11/04/22 10:27 98 F 60 18 163/69 95 Intake and Output 11/03/22 11/04/22 11/04/22 22:59 06:59 14:59 Other: Weight 95.254 kg GENERAL: The patient is alert and oriented x3, not in any acute distress. Well developed, well nourished. HEENT: Pupils are round and equally reacting to light. EOMI. No scleral icterus. No conjunctival pallor. Normocephalic, atraumatic. No pharyngeal erythema. No thyromegaly. CARDIOVASCULAR: S1 and S2 present. No murmurs, rubs, or gallops. PULMONARY: Chest is clear to auscultation, no wheezing , no crackles. ABDOMEN: Soft, nontender, nondistended, normoactive bowel sounds. No palpable organomegaly. MUSCULOSKELETAL: No joint swelling or deformity. EXTREMITIES: No cyanosis, clubbing, or pedal edema. NEUROLOGICAL: Gross neurological examination did not reveal any focal deficits. SKIN: No rashes. no petechiae. Results CBC & Chem 7: 11/04/22 10:53 11/04/22 10:53 Labs: Abnormal Lab Results - Last 24 Hours (Table) 11/04/22 Range/Units 10:53 Carbon Dioxide 32 H (22-30) mmol/L BUN 29 H (9-20) mg/dL Glucose 141 H (74-99) mg/dL Total Protein 8.5 H (6.3-8.2) g/dL Lipase 337 H (23-300) U/L Assessment and Plan Assessment: Chest pain, rule out cardiac causes History of Asthma History of CVA/TIA Diabetes mellitus Hypertension Hyperlipidemia History of osteoarthritis Hypothyroidism History of sleep apnea on CPAP/BiPAP status post pacemaker Plan: Telemetry monitoring Cardiology consult Labs and medication were reviewed.. Continue same treatment. Continue with symptomatic treatment. Resume home medication. Monitor labs and vitals. DVT and GI prophylaxis. Further recommendations as per clinical course of the patient DVT prophylaxis: Subcutaneous heparin GI Prophylaxis: Pepcid PT/OT: Pending Prognosis is guarded
[2022-11-05 05:51] LABS: Glucose,Whole Blood 135 mg/dL (70-110)
[2022-11-05] MEDS: INSULIN ASPART (NovoLOG) 100 UNIT/ML VIAL SQ SCH (05:52)
[2022-11-05] MEDS ORDERED: LEVOTHYROXINE 88 MCG TAB PO SCH (06:30)
[2022-11-05] MEDS ORDERED: REPAGLINIDE 1 MG TAB PO SCH (07:30)
[2022-11-05 08:48] VITALS: BP 125/70; PULSE 59; RESP 16; TEMP 97.6
[2022-11-05] MEDS: APIXABAN 2.5 MG TABLET PO SCH (08:54)
[2022-11-05] MEDS ORDERED: POTASSIUM CHLORIDE ER 20 MEQ TAB.ER PO SCH (09:00)
[2022-11-05] MEDS ORDERED: DAPAGLIFLOZIN PROPANEDIOL 10 MG TABLET PO SCH (09:00)
[2022-11-05] MEDS ORDERED: LINAGLIPTIN 5 MG TABLET PO SCH (09:00)
[2022-11-05] MEDS ORDERED: CHLORTHALIDONE 25 MG TAB PO SCH (09:00)
[2022-11-05] MEDS ORDERED: atenoloL 50 MG TAB PO SCH (09:00)
[2022-11-05] MEDS ORDERED: FUROSEMIDE 40 MG TAB PO SCH (09:00)
[2022-11-05] MEDS ORDERED: ATORVASTATIN 40 MG TAB PO SCH (09:00)
[2022-11-05] MEDS ORDERED: CHOLECALCIFEROL 25 MCG (1000 IU) TABLET PO SCH (09:00)
[2022-11-05 09:28] LABS: Basophils # (A) 0.04 X 10*3/uL (0.00-0.10); Basophils % (A) 0.4 %; Eosinophils # (A) 0.15 X 10*3/uL (0.04-0.35); Eosinophils % (A) 1.6 %; HCT 41.6 % (39.6-50.0); HGB 13.3 d/dL (12.0-15.0); Lymphocytes # (A) 1.54 X 10*3/uL (0.90-5.00); Lymphocytes % (A) 16.6 %; MCV 90.6 FL (80.0-97.0); Mean Platelet Volume 9.9 FL (9.5-12.2); Monocytes # (A) 0.92 X 10*3/uL (0.20-1.00); Monocytes % (A) 9.9 %; NRBC Per 100 WBC 0 X 10*3/uL (0.00-0.01); Neutrophils # (A) 6.62 X 10*3/uL (1.80-7.70); Neutrophils % (A) 71.3 %; Platelet Count 246 X 10*3/uL (140-440); RBC 4.59 X 10*6/uL (4.40-5.60); RDW 14.9 % (11.5-14.5); WBC 9.29 X 10*3/uL (4.50-10.00)
[2022-11-05 10:27] LABS: BUN/Creat Ratio 26.25 Ratio (12.00-20.00); Blood Urea Nitrogen 31.5 mg/dL (9.0-27.0); Calcium 9.5 mg/dL (8.7-10.3); Carbon Dioxide 28.9 mmol/L (21.6-31.8); Chloride 100 mmol/L (96-109); Glucose 144 mg/dL (70-110); Potassium 3.6 mmol/L (3.5-5.5); Sodium 140 mmol/L (135-145)
--- NOTE | 2022-11-05 10:29 | CONS ---
CONSULTATION HISTORY OF PRESENT ILLNESS: Maximus is an 87-year-old gentleman with history of hypothyroidism, non-insulin- dependent diabetes, atrial fibrillation, dyslipidemia, and hypertension, who presented to hospital complaining of pain that is located over the pacemaker site. It is sharp and stabbing in nature that lasts for few seconds, and then, it resolves. He had several episodes yesterday morning and was woken up by around 5 o'clock. He has not had similar symptoms in the past. He came to the ER where his pacemaker was evaluated that did not reveal any issues. He was admitted to hospital. Cardiac enzymes have been negative, and all through yesterday, there has been a normal functioning of the pacemaker on the telemetry, even when the patient is complaining of this sharp pain, so the exact etiology for his symptoms is unclear, could be musculoskeletal. PAST MEDICAL HISTORY: Significant for, 1. Atrial fibrillation. 2. Sick sinus syndrome, status post permanent pacemaker. 3. Prior history of CVA. 4. Hypertension. 5. Diabetes. 6. Dyslipidemia. CURRENT MEDICATIONS: Include: 1. Synthroid. 2. Lasix 40 daily. 3. Januvia. 4. . 5. Claritin. 6. Eliquis 2.5 b.i.d. 7. K-Dur 20 daily. 8. Jardiance. 9. Lipitor. 10. . ALLERGIES: To [place]. FAMILY HISTORY: Negative for premature coronary artery disease. SOCIAL HISTORY: Negative for current smoking issues or drug abuse. REVIEW OF SYSTEMS: A review of systems has been performed. Pertinent are as documented. PHYSICAL EXAMINATION: GENERAL: Comfortable at rest. VITAL SIGNS: Stable. NECK: There is no jugular venous distention. Carotid upstroke is normal. There is no bruit. CHEST: Reveals good air entry bilaterally. HEART: Reveals first and second heart sounds. No gallop. No murmur. No rub. ABDOMEN: Soft, nontender. EXTREMITIES: Did not reveal any edema. Peripheral pulses are felt. LABORATORY DATA: Labs show potassium of 3.7, creatinine of 1. Hemoglobin of 13.9, platelet count is 239. Troponins are negative. BNP is 683. ASSESSMENT: 1. Atypical chest pain. 2. Sick sinus syndrome, status post permanent pacemaker. 3. Hypertension. 4. Dyslipidemia. PLAN: Myocardial infarction is ruled out. The exact etiology for his chest discomfort is unclear, the description sounds musculoskeletal. I will ambulate him if he is feeling fine, we should be able to discharge him home and arrange followup. Dr. Taylor who sees regularly in the office. EDWIN / CAROLYNN: [id number] /
--- NOTE | 2022-11-05 23:22 | P.DS ---
Providers Date of admission: 11/04/22 13:04 Attending physician: Tahir Oliva MD Consults: 11/04/22 12:57 Consult Physician Urgent Consulting Provider: [facility] Consult Reason/Comments: acute chest pain, possible acs Do you want consulting provider notified?: Yes Primary care physician: Lucia Simpson Hospital Course: Diagnoses: Chest pain, resolved. Cleared by route jumper for discharge History of Asthma History of CVA/TIA Diabetes mellitus Hypertension Hyperlipidemia History of osteoarthritis Hypothyroidism History of sleep apnea on CPAP/BiPAP status post pacemaker Hospital course: This is a pleasant 70 so male with multiple medical problems as above. Presents because of chest pain since 5:00 this morning, on the left side, nonradiating but it/10 in severity comes and goes and currently is rated as 0/10. Echo interrogation was done in the emergency room. Patient was evaluated by route jumper and cleared for discharge Patient symptoms resolved. Patient currently denies any new complaints and wants to go home. Problems and management plan were discussed with the patient and he verbalized understanding and acceptance Patient was found stable and can be discharged home in guarded prognosis however he needs follow-up as an outpatient. Patient was instructed to follow up with PCP Dr. Simpson within one week and patient agrees Patient was instructed to follow up with route jumper Dr. Taylor in one week and he agrees Physical exam Gen: patient is a AAOx3, no distress CVS: S1-S2, RRR, no murmur Lungs: B/L CTA, no wheezing Abdomen: soft, no distention, no tenderness, positive bowel sounds Extremity: no leg edema or induration Time spent more than 35 minutes Patient Condition at Discharge: Stable Plan - Discharge Summary New Discharge Prescriptions: Continue Atenolol/Chlorthalidone [Tenoretic 50 Tablet] 1 tab PO DAILY sitaGLIPtin [Januvia] 100 mg PO DAILY Potassium Chloride [Klor-Con 20] 20 meq PO DAILY Levothyroxine Sodium [Synthroid] 175 mcg PO DAILY L.acidoph,Paracasei, B.lactis [Probiotic] 1 cap PO DAILY Furosemide [Lasix] 40 mg PO DAILY Loratadine [Claritin] 10 mg PO DAILY Repaglinide [Prandin] 0.5 mg PO AC-TID Multivit,Calc,Min/FA/K1/Lycop [One-A-Day Men's Complete Tab] 1 tab PO DAILY Cholecalciferol [Vitamin D3 (25 Mcg = 1000 Iu)] 50 mcg PO DAILY Apixaban [Eliquis] 2.5 mg PO BID Empagliflozin [Jardiance] 25 mg PO DAILY Atorvastatin [Lipitor] 40 mg PO DAILY Discharge Medication List Atenolol/Chlorthalidone [Tenoretic 50 Tablet] 1 tab PO DAILY 09/19/13 [History] Potassium Chloride [Klor-Con 20] 20 meq PO DAILY 02/05/17 [History] sitaGLIPtin [Januvia] 100 mg PO DAILY 02/05/17 [History] Repaglinide [Prandin] 0.5 mg PO AC-TID 11/03/21 [History] Apixaban [Eliquis] 2.5 mg PO BID 11/04/22 [History] Atorvastatin [Lipitor] 40 mg PO DAILY 11/04/22 [History] Cholecalciferol [Vitamin D3 (25 Mcg = 1000 Iu)] 50 mcg PO DAILY 11/04/22 [History] Empagliflozin [Jardiance] 25 mg PO DAILY 11/04/22 [History] Furosemide [Lasix] 40 mg PO DAILY 11/04/22 [History] L.acidoph,Paracasei, B.lactis [Probiotic] 1 cap PO DAILY 11/04/22 [History] Levothyroxine Sodium [Synthroid] 175 mcg PO DAILY 11/04/22 [History] Loratadine [Claritin] 10 mg PO DAILY 11/04/22 [History] Multivit,Calc,Min/FA/K1/Lycop [One-A-Day Men's Complete Tab] 1 tab PO DAILY 11/04/22 [History] Follow up Appointment(s)/Referral(s): Mona Taylor MD [STAFF PHYSICIAN] - 1 Week (please make follow up appointment. ) Lucia Simpson DO [Primary Care Provider] - 1-2 days (please keep follow up appt for sunday. ) Activity/Diet/Wound Care/Special Instructions: heart healthy diet activity is restricted till you see your doctor Discharge Disposition: HOME WITH HOME HEALTH SERVICES
== END 2022-11-05 12:19 | disposition home health service (06) ==
LOC: EC 10:23 → 6NMEDSUR 13:04
PROVIDERS: ADMIT Internal Medicine; ATTEND Internal Medicine
DX: R07.89 Other chest pain (principal); E78.5 Hyperlipidemia, unspecified; I25.10 Atherosclerotic heart disease of native coronary artery without angina pectoris; F41.9 Anxiety disorder, unspecified; J45.909 Unspecified asthma, uncomplicated; E11.9 Type 2 diabetes mellitus without complications; E03.9 Hypothyroidism, unspecified; M10.9 Gout, unspecified; I49.5 Sick sinus syndrome; I11.9 Hypertensive heart disease without heart failure; G47.30 Sleep apnea, unspecified; I48.91 Unspecified atrial fibrillation; Z95.0 Presence of cardiac pacemaker; Z86.73 Personal history of transient ischemic attack (TIA), and cerebral infarction without residual deficits; Z79.899 Other long term (current) drug therapy; Z79.84 Long term (current) use of oral hypoglycemic drugs; Z79.01 Long term (current) use of anticoagulants; Z79.890 Hormone replacement therapy; Z85.038 Personal history of other malignant neoplasm of large intestine; Z90.49 Acquired absence of other specified parts of digestive tract; Z96.659 Presence of unspecified artificial knee joint; Z82.49 Family history of ischemic heart disease and other diseases of the circulatory system; Z63.4 Disappearance and death of family member; Z80.9 Family history of malignant neoplasm, unspecified; Z82.0 Family history of epilepsy and other diseases of the nervous system
CPT/HCPCS: 99285; 36415; 93005; 83880; 80053; 80048; 83690; 83735; 84484; 85025 ×2; 85610; 85730; 83036; 71046; G0378 ×2